=== PATIENT | male | born 1955 | race African-American/Black ===

== ENCOUNTER 2024-06-30 13:17 | Inpatient (IN) | payer MEDICARE, MEDICAID ==
[~2024-06-30] VITALS: Ht 177.8 cm; Wt 67.5 kg
--- NOTE | 2024-06-30 13:58 | ED.PDOC ---
Musculoskeletal HPI Comments 69 year old male NELLIE presents to the ED with chief complaint of bilateral leg wounds. Patient reports that he has been experiencing bilateral leg and foot wounds for the past month. Patient relays that he was advised by his doctor to come into the ED for further evaluation and treatment. Patient denies any numbness, weakness, fever, chills, chest pain, or SOB. Patient states he lives alone at home. Chief Complaint: General Weakness Time Seen by MD: 13:48 Reviewed Notes: Nurses Notes, Medications, Allergies Allergies: Coded Allergies: NO KNOWN ALLERGIES (Unverified , 06/30/24) Information Source: Patient Mode of Arrival: EMS Location: Bilateral Extremity Location: Foot, Leg Timing: Days Prehospital treatment: None Severity: Moderate Able to Move Extremity: Yes Bear Weight: Limited Pain: Moderate Mechanism: Spontaneous Circumstances: Preceding Wound Onset of Symptoms: Spontaneous Symptoms: Swelling, Pain, Erythema, Warmth DVT Risk Factors: NONE Past Medical History PAST MEDICAL HISTORY: Unknown Surgical History: Unknown Family History Family History: Reviewed,noncontributory to illness Social History Smoker: Non-Smoker Alcohol: Denies ETOH Use Drugs: Denies Drug Use Lives In: Home Constitutional: denies: chills, diaphoresis, fatigue, fever, malaise, sweats, weakness, others EENTM: denies: blurred vision, double vision, ear bleeding, ear discharge, ear drainage, ear pain, ear ringing, eye pain, eye redness, hearing loss, mouth geovanni n, mouth swelling, nasal discharge, nose bleeding, nose congestion, nose pain, photophobia, tearing, throat pain, throat swelling, voice changes, others Respiratory: denies: cough, hemoptysis, orthopnea, SOB at rest, shortness of breath, SOB with excertion, stridor, wheezing, others Cardiovascular: denies: chest pain, dizzy spells, diaphoresis, Dyspnea on exertion, edema, irregular heart beat, left arm pain, lightheadedness, palpitations, PND, syncope, others Gastrointestinal: denies: abdomen distended, abdominal pain, blood streaked bowels, constipated, diarrhea, dysphagia, difficulty swallowing, hematemesis, melena, nausea, poor appetite, poor fluid intake, rectal bleeding, rectal pain, vomiting, others Genitourinary: denies: burning, dysuria, flank pain, frequency, hematuria, incontinence, penile discharge, penile sore, pain, testicle pain, testicle swelling, urgency, others Neurological: denies: dizziness, fainting, headache, left sided numbness, left sided weakness, numbness, paresthesia, pre-existing deficit, right sided numbness, right sided weakness, seizure, speech problems, tingling, tremors, weakness, others Musculoskeletal: denies: back pain, gout, joint pain, joint swelling, muscle pain, muscle stiffness, neck pain, others Integumetry: reports: wounds (Bilateral leg wounds); denies: bruises, change in color, change in hair/nails, dryness, laceration, lesions, lumps, rash, others Allergic/Immunocompromised: denies: Difficulty Healing, Frequent Infections, Hives, Itching, others Hematologic/Lymphatic: denies: anemia, blood clots, easy bleeding, easy bruising, swollen glands, others Endocrine: denies: excessive hunger, excessive sweating, excessive thirst, excessive urination, flushing, intolerance to cold, intolerance to heat, unexplained weight gain, unexplained weight loss, others Psychiatric: denies: anxiety, bipolar disorder, depression, hopeless, panic disorder, schizophrenia, sleepless, suicidal, others All Other Systems: Reviewed and Negative Physical Exam General Appearance: No Apparent Distress, Normal HEENT: Normal ENT Inspection, PERRL/EOMI Neck: Full Range of Motion, Non-Tender, Normal, Normal Inspection Respiratory: Chest Non-Tender, Lungs Clear, No Accessory Muscle Use, No Respiratory Distress, Normal Breath Sounds Cardiovascular: No Edema, No JVD, No Murmur, No Gallop, Normal Peripheral Pulses, Regular Rate/Rhythm Breast Exam: Deferred Gastrointestinal: No Organomegaly, Non Tender, No Pulsatile Mass, Normal Bowel Sounds, Soft Genitalia: Deferred Pelvic: Deferred Rectal: Deferred Extremities: Normal capillary refill, Normal range of motion, Other (3+ pitting edema to bilateral lower extremities. Multiple 3rd and 4th degree pressure ulcers to the bilateral lower extremities.) Musculoskeletal : Apperance: Normal Neurologic: Alert, mill washer II-XII nml as Tested, No Motor Deficits, Normal Affect, Normal Mood, No Sensory Deficits Cerebellar Function: Normal Reflexes: Normal Skin: Dry, Normal Color, Warm Lymphatic: No Adenopathy Was a procedure done? Was a procedure done?: No Differential Diagnosis EXT Differential Diagnosis: Cellulitis X-Ray, Labs, Meds, VS Vital Signs Date Time Temp Pulse Resp B/P (MAP) Pulse Ox O2 Delivery O2 Flow Rate FiO2 06/30/24 15:30 97.9 98 16 92/67 (75) 98 97.9 06/30/24 13:42 97.7 86 18 125/60 (81) 96 06/30/24 13:24 81 Lab Test 06/30/24 14:34 Range/Units White Blood Count 8.0 4.4-10.8 10^3/uL Red Blood Count 4.34 L 4.5-5.90 10^6/uL Hemoglobin 12.8 L 13.5-17.5 g/dL Hematocrit 38.4 L 41.0-53.0 % Mean Corpuscular Volume 88.4 80.0-100.0 fL Mean Corpuscular Hemoglobin 29.5 28.0-32.0 pg Mean Corpuscular Hemoglobin Concent 33.3 32.0-36.0 g/dL Red Cell Distribution Width 14.6 H 11.8-14.3 % Platelet Count 490 H 140-450 10^3/uL Mean Platelet Volume 7.1 6.9-10.8 fL Neutrophils (%) (Auto) 70.5 37.0-80.0 % Lymphocytes (%) (Auto) 13.2 10.0-50.0 % Monocytes (%) (Auto) 13.0 H 0.0-12.0 % Eosinophils (%) (Auto) 2.6 0.0-7.0 % Basophils (%) (Auto) 0.7 0.0-2.0 % Neutrophils # (Auto) 5.6 1.6-8.6 10 ^3/uL Lymphocytes # (Auto) 1.1 0.4-5.4 10 ^3/uL Monocytes # (Auto) 1.0 0-1.3 10 ^3/uL Eosinophils # (Auto) 0.2 0-0.8 10 ^3/uL Basophils # (Auto) 0.1 0-0.2 10 ^3/uL Nucleated Red Blood Cells 0.1 % Prothrombin Time 10.5 9.3-11.8 sec Prothrombin Time INR 0.99 0.9-1.15 Activated Partial Thromboplast Time 26.7 24.5-34.5 SEC D-Dimer, Quantitative 2.91 H 0.0-0.49 mg/L FEU Sodium Level 136 136-145 mmol/L Potassium Level 3.8 3.5-5.1 mmol/L Chloride Level 100 98-107 mmol/L Carbon Dioxide Level 28 20-31 mmol/L Anion Gap 8 5-15 Blood Urea Nitrogen 16 9-23 mg/dL Creatinine 0.85 0.700-1.30 mg/dL Glomerular Filtration Rate Calc 93 >90 mL/min BUN/Creatinine Ratio 18.8 10.0-20.0 Serum Glucose 99 74-106 mg/dL Calcium Level 9.7 8.7-10.4 mg/dL Magnesium Level 2.0 1.6-2.6 mg/dL Total Bilirubin 0.5 0.2-1.0 mg/dL Aspartate Amino Transferase (AST) 40 13-40 U/L Alanine Aminotransferase (ALT) 26 7-40 U/L Alkaline Phosphatase 91 46-116 U/L Troponin I High Sensitivity 35 </=54 ng/L B-Type Natriuretic Peptide 59.84 0-100 pg/mL Total Protein 6.5 5.7-8.2 g/dL Albumin 4.0 3.2-4.8 g/dL X-Ray, Labs, Meds, VS Comment This 69-year-old male who he was at home has poor personal hygiene presents secondary to a unclear duration of increasing swelling to his lower extremities with multiple ulcers. Similar weeping and others are necrotic. Over the course of stay, the patient has been increasingly hypotensive. He was given IV fluid bolus. He was given 1 dose of vancomycin in the emergency room and 1 L IV fluid bolus. He was not provided more bolus as he has substantial bilateral lower extremity edema. I was concerned and put the patient into heart failure. Time of 1ST Reevaluation: 14:48 Reevaluation 1ST: Unchanged Patient Education/Counseling: Diagnosis, Treatment Family Education/Counseling: No Family Present Departure 1 Departure Time of Disposition: 15:40 Impression: Primary Impression: Cellulitis and abscess of foot excluding toe Additional Impressions: Unstageable pressure ulcer of ankle Unstageable pressure ulcer of heel Hypotension Disposition: ADMITTED INPATIENT Condition: Serious Critical Care Note Critical Care Time?: Yes (45 min-critical care time only) Stability Stability form required: No Heart Score Heart Score: Heart Score Response (Comments) Value History N/A 0 EKG N/A 0 Age N/A 0 Risk Factors N/A 0 Troponin N/A 0 Total 0 I personally scribed for WADE GOLDBERG MD ([email or web address]) on 06/30/24 at 13:58. Electronically submitted by Vic Bell ([email or web address]). WADE GOLDBERG MD Jun 30, 2024 13:58
--- NOTE | 2024-06-30 14:07 | DVH ---
CHEST RADIOGRAPH Indication: cough Technique: Portable upright AP view of the chest was performed. COMPARISON: None FINDINGS: Bilateral costophrenic angles are not included on the film. No pneumothorax, pulmonary edema, or cons olidative infiltrates. The heart is not enlarged. No fractures are identified about the bony thorax. IMPRESSION: No acute intrathoracic process. The bilateral costophrenic angles are not imaged here.
[2024-06-30 14:52] LABS: Eosinophils # (auto) 0.2 10 ^3/uL (0-0.8); Hemoglobin 12.8 g/dL (13.5-17.5); Mean Corpuscular Hgb Conc. 33.3 g/dL (32.0-36.0); Nucleated Red Blood Cells % 0.1 %
[2024-06-30 14:53] LABS: Basophils # (auto) 0.1 10 ^3/uL (0-0.2); Basophils % (auto) 0.7 % (0.0-2.0); Eosinophils % (auto) 2.6 % (0.0-7.0); Hematocrit 38.4 % (41.0-53.0); Lymphocytes # (auto) 1.1 10 ^3/uL (0.4-5.4); Lymphocytes % (auto) 13.2 % (10.0-50.0); Mean Corpuscular Hemoglobin 29.5 pg (28.0-32.0); Mean Corpuscular Volume 88.4 fL (80.0-100.0); Neutrophils # (auto) 5.6 10 ^3/uL (1.6-8.6); Neutrophils % (auto) 70.5 % (37.0-80.0); Platelet Count (auto) 490 10^3/uL (140-450); Red Blood Cells 4.34 10^6/uL (4.5-5.90); Red Cell Distribution Width 14.6 % (11.8-14.3)
[2024-06-30 15:07] LABS: INR 0.99 (0.9-1.15); Partial Thromboplastin Time 26.7 SEC (24.5-34.5); Prothrombin Time 10.5 sec (9.3-11.8)
[2024-06-30 15:08] LABS: Alkaline Phosphatase 91 U/L (46-116); Anion Gap 8 (5-15); Aspartate Aminotransferase 40 U/L (13-40); BUN/Creatinine Ratio 18.8 (10.0-20.0); Bilirubin, Total 0.5 mg/dL (0.2-1.0); Blood Urea Nitrogen 16 mg/dL (9-23); Calcium 9.7 mg/dL (8.7-10.4); Carbon Dioxide 28 mmol/L (20-31); Chloride 100 mmol/L (98-107); Glucose 99 mg/dL (74-106); Potassium 3.8 mmol/L (3.5-5.1); Sodium 136 mmol/L (136-145); Total Protein 6.5 g/dL (5.7-8.2)
[2024-06-30 15:24] LABS: Alanine Aminotransferase 26 U/L (7-40)
[2024-06-30] MEDS: SODIUM CHLORIDE 0.9% 1,000 ML IV ONE (15:46)
[2024-06-30] MEDS: KETOROLAC TROMETH 30 MG/ML 1ML VIAL IV ONE (15:56)
[2024-06-30] MEDS: VANCOMYCIN 1GM/250ML KIT 250 ML IV ONE (15:56)
--- NOTE | 2024-06-30 19:16 | ECG ---
[facility] Test Date: 2024-06-30 Test Time: 13:24:03 Pat Name: JOAO JAQUEZ Department: ED Room: 0219T Gender: M Plug Sorter: SARITA : 1955 Requested By: WADE GOLDBERG Order Number: [id number] Reading MD: Mariano Lim Measurements Intervals Mason Rate: 81 P: 41 MN: 149 QRS: 32 QRSD: 86 T: 106 QT: 416 QTc: 483 Interpretive Statements Sinus rhythm Probable left ventricular hypertrophy Nonspecific T abnormalities, lateral leads Borderline prolonged QT interval Artifact in lead(s) I,II,aVF,V1,V2,V3,V4,V5,V6 Electronically Signed On 07-01-2024 13:16:50 PST by Mariano Lim Please click the below link to view image of tracing.
[2024-07-01] VITALS (59 sets, daily range): BP systolic 7–168; BP diastolic 2–95; PULSE 77–126; RESP 12–28; TEMP 98–99.6; O2SAT 64–100
[2024-07-01] MEDS ORDERED: MORPHINE SULFATE INJ 2 MG/ml SYRG IV PRN (06:00)
[2024-07-01] MEDS ORDERED: NITROGLYCERIN 0.4 MG SL TAB SL PRN (06:00)
[2024-07-01] MEDS: SODIUM CHLORIDE 0.9% 1,000 ML IV SCH (06:00)
[2024-07-01] MEDS ORDERED: ONDANSETRON HCL 4 MG/2 ML VIAL IV PRN (06:00)
[2024-07-01] MEDS ORDERED: HYDROcodone-ACET 5/325MG TAB PO PRN (06:00)
[2024-07-01] MEDS ORDERED: DOCUSATE SOD 100 MG CAP PO PRN (06:00)
[2024-07-01] MEDS ORDERED: VANCOMYCIN PER PHARMACY 0 MG IV SCH (06:00)
--- NOTE | 2024-07-01 06:01 | DVHHP2 ---
History of Present Illness Reason for Visit: Generalized weakness History of Present Illness Patient is a 69-year-old male presented to [facility] ED for evaluation of generalized weakness and bilateral leg wounds. Patient reports that he has been experiencing bilateral leg and foot wounds for the past month. Patient was seen and evaluated in the ED, laboratory data shows WBC 8.0, platelets 490, sodium 136, potassium 3.8, BUN 16, creatinine 0.85, GFR 93, glucose 99, troponin 32, BNP 59.84, D-dimer 2.91. CT chest showed no suspicious pulmonary nodules. Patient was started on IV antibiotic regimen vancomycin, please see medication orders section in the computer. On my assessment, patient denied chest pain, no headache, no dizziness, no shortness of breath, no nausea, no vomiting, no fever, no chills. Patient was admitted for further evaluation and medical management. Past Medical History BPH Past Surgical History Denies all surgeries Family History Reviewed, noncontributory to the management of this case. Past Social History The patient lives at home, denies smoking, alcohol or illicit drugs abuse. Review of Systems Constitutional: Yes: Weakness; No: Fever, Chills, Sweats, Malaise, Other Eyes: No: Pain, Vision change, Conjunctivae inflammation, Eyelid inflammation, Other, Redness ENT: No: Ear pain, Ear discharge, Nose pain, Nose discharge, Nose congestion, Mouth pain, Mouth swelling, Throat pain, Throat swelling, Other Respiratory: No: Cough, Dry, Shortness of breath, SOB with excertion, Wheezing, Hemoptysis, Pleuritic Pain, Sputum, Wheezing, Other Cardiovascular: No: Chest Pain, Palpitations, Orthopnea, Paroxysmal Noc. Dyspnea, Edema, Lt Headedness, Other Gastrointestinal: No: Nausea, Vomiting, Abdominal Pain, Diarrhea, Constipation, Melena, Hematochezia, Other Genitourinary: No Dysuria, No Frequency, No Incontinence, No Hematuria, No Retention, No Other Musculoskeletal: No: other, neck pain, shoulder pain, arm pain, back pain, hand pain, leg pain, foot pain Skin: Other (Bilateral legs wound); No: Rash, Lesions, Jaundice, Bruising Neurological: No: Weakness, Numbness, Incoordination, Change in speech, Confusion, Seizures, Other Allergies: Coded Allergies: NO KNOWN ALLERGIES (Unverified , 06/30/24) Exam Vital Signs Vital Signs Date Time Temp Pulse Resp B/P (MAP) Pulse Ox O2 Delivery O2 Flow Rate FiO2 07/01/24 04:00 103 07/01/24 03:30 18 92/68 (76) 99 06/30/24 22:11 100.0 100.0 06/30/24 16:00 Room Air* 0 21 General Appearance: Alert, Oriented X3, Cooperative, No acute distress HEENT: Atraumatic, PERRLA, EOMI, Mucous membr. moist/pink Respiratory: Clear to auscultation, Normal air movement Cardiovascular: Regular rate, Normal S1, Normal S2, No murmurs Abdominal: Normal bowel sounds, Soft, No tenderness, No hepatospenomegaly, No masses Extremities: No clubbing, No cyanosis, No edema, Normal pulses, No tenderness/swelling Skin: No rashes, No breakdown, No significant lesion Neuro: Normal speech, Normal tone, Sensation intact, Cranial nerves 3-12 NL, R eflexes 2+, Other (Generalized weakness) Psych/Mental Status: Mental status NL, Mood NL Labs/Xrays Labs Test 06/30/24 18:32 06/30/24 14:34 Range/Units Troponin I High Sensitivity 32 </=54 ng/L White Blood Count 8.0 4.4-10.8 10^3/uL Red Blood Count 4.34 L 4.5-5.90 10^6/uL Hemoglobin 12.8 L 13.5-17.5 g/dL Hematocrit 38.4 L 41.0-53.0 % Mean Corpuscular Volume 88.4 80.0-100.0 fL Mean Corpuscular Hemoglobin 29.5 28.0-32.0 pg Mean Corpuscular Hemoglobin Concent 33.3 32.0-36.0 g/dL Red Cell Distribution Width 14.6 H 11.8-14.3 % Platelet Count 490 H 140-450 10^3/uL Mean Platelet Volume 7.1 6.9-10.8 fL Neutrophils (%) (Auto) 70.5 37.0-80.0 % Lymphocytes (%) (Auto) 13.2 10.0-50.0 % Monocytes (%) (Auto) 13.0 H 0.0-12.0 % Eosinophils (%) (Auto) 2.6 0.0-7.0 % Basophils (%) (Auto) 0.7 0.0-2.0 % Neutrophils # (Auto) 5.6 1.6-8.6 10 ^3/uL Lymphocytes # (Auto) 1.1 0.4-5.4 10 ^3/uL Monocytes # (Auto) 1.0 0-1.3 10 ^3/uL Eosinophils # (Auto) 0.2 0-0.8 10 ^3/uL Basophils # (Auto) 0.1 0-0.2 10 ^3/uL Nucleated Red Blood Cells 0.1 % Prothrombin Time 10.5 9.3-11.8 sec Prothrombin Time INR 0.99 0.9-1.15 Activated Partial Thromboplast Time 26.7 24.5-34.5 SEC D-Dimer, Quantitative 2.91 H 0.0-0.49 mg/L FEU Sodium Level 136 136-145 mmol/L Potassium Level 3.8 3.5-5.1 mmol/L Chloride Level 100 98-107 mmol/L Carbon Dioxide Level 28 20-31 mmol/L Anion Gap 8 5-15 Blood Urea Nitrogen 16 9-23 mg/dL Creatinine 0.85 0.700-1.30 mg/dL Glomerular Filtration Rate Calc 93 >90 mL/min BUN/Creatinine Ratio 18.8 10.0-20.0 Serum Glucose 99 74-106 mg/dL Calcium Level 9.7 8.7-10.4 mg/dL Magnesium Level 2.0 1.6-2.6 mg/dL Total Bilirubin 0.5 0.2-1.0 mg/dL Aspartate Amino Transferase (AST) 40 13-40 U/L Alanine Aminotransferase (ALT) 26 7-40 U/L Alkaline Phosphatase 91 46-116 U/L B-Type Natriuretic Peptide 59.84 0-100 pg/mL Total Protein 6.5 5.7-8.2 g/dL Albumin 4.0 3.2-4.8 g/dL PATIENT: JOAO JAQUEZ ACCT: [id number] UNIT: [id number] : 1955 LOC: ER ROOM / BED: / AGE / SEX: 69 / M ADM STATUS: REG ER SERVICE [id number] ORDERING PHYSICIAN: WADE GOLDBERG MD PROCEDURE(s): CXRP - CHEST PORTABLE REASON: cough ORDER NUMBER(s): [id number], ACCESSION NUMBER(s): [id number] CHEST RADIOGRAPH Indication: cough Technique: Portable upright AP view of the chest was performed. COMPARISON: None FINDINGS: Bilateral costophrenic angles are not included on the film. No pneumothorax, pulmonary edema, or consolidative infiltrates. The heart is not enlarged. No fractures are identified about the bony thorax. IMPRESSION: No acute intrathoracic process. The bilateral costophrenic angles are not imaged here. ORDERING PHYSICIAN: THALIA MARCUS DNP PROCEDURE(s): CX2CT - CHEST WITHOUT CONTRAST REASON: Elevated D-dimer ORDER NUMBER(s): [id number], ACCESSION NUMBER(s): [id number] EXAM: CT Chest Without Intravenous Contrast CLINICAL INDICATION: Elevated D-dimer TECHNIQUE: Axial computed tomography images of the chest without intravenous contrast. This CT exam was performed using one or more of the following dose reduction techniques: automated exposure control, adjustment of the mA and/or kV according to patient size, and/or use of iterative reconstruction technique. CONTRAST: COMPARISON: None FINDINGS: LUNGS AND PLEURAL SPACES: Mild lung emphysema. No consolidation. No pneumothorax. No significant effusion. HEART: Unremarkable. No cardiomegaly. No significant pericardial effusion. No significant coronary artery calcifications. BONES/JOINTS: Unremarkable. No acute fracture. No dislocation. SOFT TISSUES: Unremarkable. VASCULATURE: Scattered calcified atherosclerotic disease of aorta. No thoracic aortic aneurysm. LYMPH NODES: Unremarkable. No enlarged lymph nodes. OTHER FINDINGS: IMPRESSION: Clear lungs. No suspicious pulmonary nodules. Assessment/Plan Assessment/Plan Generalized weakness Cellulitis and abscess of foot excluding toe Hypotension Elevated D-dimer Unstageable pressure ulcer of ankle Unstageable pressure ulcer of heel Plan 1. Admit to telemetry unit 2. Breathing treatment 3. Pain control management 4. IV antibiotic management 5. Management of fluids and electrolytes 6. Consultation for hospitalist/wound care 7. Diagnostic test chest x-ray 8. DVT prophylaxis-on Lovenox 9. Repeat labs CBC, CMP in a.m. 10. Home medication reviewed and reconciled 11. Continue with current medical management 12. Treatment plan discussed with patient and RN. Patient verbalized understanding. Plan discussed with: Patient, Other (RN) My Orders Orders - THALIA MARCUS DNP Procedure Category Date Status Time Vancomycin Per [facility] 07/01/24 Verified Pharmacy 06:[address] 1/31/25 Verified 05:54 Admit ADMIT 07/01/24 Verified 05:54 Allergies [facility] 07/01/24 Verified 05:54 Code Status CODE 07/01/24 Verified 05:54 0.9% Ns 1000 Ml PHA 07/01/24 Verified 06:00 Oxygen Per Hour RT 07/01/24 Verified 05:54 Hydrocodone-Acet PHA 07/01/24 Verified 5/325mg Tab ([place] 06:00 Ondansetron Hcl [facility] 07/01/24 Verified (Zofran) 06:00 Docusate Sodium [facility] 07/01/24 Verified Capsule (Colace 06:00 Enoxaparin Sodium [facility] 07/01/24 Verified (Lovenox) 10:00 Complete Blood Count LAB 07/02/24 Verified 04:00 Comprehensive LAB 07/02/24 Verified Metabolic Panel 04:00 Cardiac DIET 07/01/24 Verified Diet-2gna,Lofat,Lochol Breakfast Condition: Serious [facility] 07/01/24 Verified 05:54 Acetaminophen Tablet [facility] 07/01/24 Verified (Tylenol Tablet) 06:00 Bedrest With Bathroom [facility] 07/01/24 Verified Privileg 05:54 Sequential [facility] 07/01/24 Verified Compression Device Nitroglycerin [facility] 07/01/24 Verified Sublingual (Ntrostat 06:00 Morphine Sulfate [facility] 07/01/24 Verified Injection 06:00 Notify Of Changes [facility] 07/01/24 Verified From Base 05:54 Edger Runner For [facility] 07/01/24 Verified 24 Hours 05:54 Emergency Dysrhythmia [facility] 07/01/24 Verified Protocol 05:54 Rhythm Strips Once [facility] 07/01/24 Verified Every Shift 05:54 Oxygen By Nasal 07/01/24 Verified Cannula 05:54 Problem List: (1) Generalized weakness (2) Unstageable pressure ulcer of heel (3) Hypotension (4) Unstageable pressure ulcer of ankle (5) Elevated d-dimer (6) Cellulitis and abscess of foot excluding toe Date of Service: Jul 01, 2024 Billing Provider: THALIA MARCUS DNP Common Visit Codes: [id number] INP/OBS CARE (HIGH) THALIA MARCUS DNP Jul 01, 2024 06:00
[2024-07-01] MEDS: VANCOMYCIN 1GM/250mL NS or D5W KIT IV ONE (06:30)
--- NOTE | 2024-07-01 06:31 | DVH ---
EXAM: CT Chest Without Intravenous Contrast CLINICAL INDICATION: Elevated D-dimer TECHNIQUE: Axial computed tomography images of the chest without intravenous contrast. This CT exam was performed using one or more of the following dose reduction techniques: automated exposure cont rol, adjustment of the mA and/or kV according to patient size, and/or use of iterative reconstruction technique. CONTRAST: COMPARISON: None FINDINGS: LUNGS AND PLEURAL SPACES: Mild lung emphysema. No consolidation. No pneumothorax. No significant effusion. HEART: Unremarkable. No cardiomegaly. No significant pericardial effusion. No significant [place] ry artery calcifications. BONES/JOINTS: Unremarkable. No acute fracture. No dislocation. SOFT TISSUES: Unremarkable. VASCULATURE: Scattered calcified atherosclerotic disease of aorta. No thoracic aortic aneurysm. LYMPH NODES: Unremarkable. No enlarged lymph nodes. OTHER FINDINGS: . . IMPRESSION: Clear lungs. No suspicious pulmonary nodules.
[2024-07-01 07:44] LABS: Basophils # (auto) 0 10 ^3/uL (0-0.2); Basophils % (auto) 0.6 % (0.0-2.0); Eosinophils # (auto) 0.2 10 ^3/uL (0-0.8); Eosinophils % (auto) 2.1 % (0.0-7.0); Hematocrit 34.5 % (41.0-53.0); Hemoglobin 11.5 g/dL (13.5-17.5); Lymphocytes # (auto) 1.1 10 ^3/uL (0.4-5.4); Lymphocytes % (auto) 12.8 % (10.0-50.0); Mean Corpuscular Hemoglobin 29.7 pg (28.0-32.0); Mean Corpuscular Hgb Conc. 33.2 g/dL (32.0-36.0); Mean Corpuscular Volume 89.3 fL (80.0-100.0); Monocytes # (auto) 0.9 10 ^3/uL (0-1.3); Monocytes % (auto) 10.9 % (0.0-12.0); Neutrophils # (auto) 6.4 10 ^3/uL (1.6-8.6); Neutrophils % (auto) 73.6 % (37.0-80.0); Platelet Count (auto) 478 10^3/uL (140-450); Red Blood Cells 3.86 10^6/uL (4.5-5.90); Red Cell Distribution Width 14.7 % (11.8-14.3); White Blood Cell 8.6 10^3/uL (4.4-10.8)
[2024-07-01 07:55] LABS: Alanine Aminotransferase 29 U/L (7-40); Alkaline Phosphatase 84 U/L (46-116); Anion Gap 8 (5-15); BUN/Creatinine Ratio 24.2 (10.0-20.0); Calcium 9.5 mg/dL (8.7-10.4); Carbon Dioxide 27 mmol/L (20-31); Chloride 103 mmol/L (98-107); Glucose 95 mg/dL (74-106); Sodium 138 mmol/L (136-145)
[2024-07-01 07:56] LABS: Bilirubin, Total 0.3 mg/dL (0.2-1.0); Total Protein 6.8 g/dL (5.7-8.2)
[2024-07-01 07:57] LABS: Aspartate Aminotransferase 48 U/L (13-40); Blood Urea Nitrogen 31 mg/dL (9-23)
--- NOTE | 2024-07-01 08:56 | DVH ---
US BiLat Lower DVT HISTORY: cold left foot with ble pain COMPARISON: None TECHNIQUE: Duplex Doppler evaluation of the deep venous system of the lower extremity from the common femoral veins, superficial femoral vein, great saphenous vein, deep femoral vein, popliteal vein, an d calf veins, including color Doppler and spectral/pulsed waveform analysis, was performed. FINDINGS: Right: - Common femoral vein: Compressible - Deep femoral vein: Compressible - Femoral vein: Compressible - Popliteal vein: Compressible - Posterior tibial vein: Waveforms present - Other: Nothing Left: - Common femoral vein: Compressible - Deep femoral vein: Compressible - Femoral vein: Compressible - Popliteal vein: Compressible - Posterior tibial vein: Waveforms present - Other: Nothing IMPRESSION: No right or left lower extremity deep venous thrombosis.
--- NOTE | 2024-07-01 09:09 | DVH ---
CLINICAL HISTORY: cold left foot with ble pain TECHNIQUE: Bilateral lower extremity arterial duplex exam was performed. Grayscale, color Doppler, an d spectral waveform analysis was performed. COMPARISON: None FINDINGS: Limited examination due to patient noncooperation with the exam. Right Lower Extremity: Moderate to marked atherosclerotic plaque. The mid to distal SFA and popliteal artery were not able to be visualized due to the limitations of the exam due to patient non cooperat yrn. Monophasic waveforms are seen in the right posterior tibial artery. Triphasic waveform seen in t he common femoral, profunda, proximal SFA, and dorsalis pedis arteries. Left Lower Extremity: Moderate to marked atherosclerotic plaque visualized. The dorsalis pedis artery was not able to be visualized. Monophasic waveforms throughout the visualized portions of the left l ower extremity. EXAMINATION DATA: RIGHT PSV (cm/sec) CREW SUPERVISOR 209 Profunda 146 SFA Prox 102 SFA Mid N/V SFA Dist N/V POP A N/V TECHNICAL MGR 95 DPA 52 LEFT PSV (cm/sec) CREW SUPERVISOR 75 Profunda 80 SFA Prox 97 SFA Mid 69 SFA Dist 21 POP A 32 TECHNICAL MGR 11 DPA N/V IMPRESSION: 1. Limited examination for the reasons described above. 2. Abnormal monophasic waveforms throughout the left lower extremity due to peripheral arterial disea se without focal occlusion or high-grade stenosis visualized. Unable to visualized left dorsalis pedi s artery. 3. Monophasic waveforms in the right posterior tibial artery peripheral arterial disease. The distal right SFA right popliteal artery were not able to be evaluated. Triphasic waveforms throughout the re st of the visualized right lower extremity.
[2024-07-01] MEDS: ENOXAPARIN SOD 40 MG/0.4 ML SYRINGE SC SCH (10:00)
[2024-07-01 10:02] LABS: INR 1.01 (0.9-1.15); Prothrombin Time 10.7 sec (9.3-11.8)
--- NOTE | 2024-07-01 12:48 | DVHPN2 ---
Reviewed: Care Plan, H&P, Labs, Medications, Previous Orders, Radiology Changes from previous H/P or p: No Changes Eyes: No Pain, No Vision change, No Conjunctivae inflammation, No Eyelid inflammation, No Other, No Redness ENT: No Ear pain, No Ear discharge, No Nose pain, No Nose discharge, No Nose congestion, No Mouth pain, No Mouth swelling, No Throat pain, No Throat swelling, No Other Cardiovascular: No Chest Pain, No Palpitations, No Orthopnea, No Paroxysmal Noc. Dyspnea, No Edema, No Lt Headedness, No Other Respiratory: No Cough, No Dry, No Shortness of breath, No SOB with excertion, No Wheezing, No Hemoptysis, No Pleuritic Pain, No Sputum, No Other Gastrointestinal: No Nausea, No Vomiting, No Abdominal Pain, No Diarrhea, No Constipation, No Melena, No Hematochezia, No Other Genitourinary: No Dysuria, No Frequency, No Incontinence, No Hematuria, No Retention, No Other Musculoskeletal: No other, No neck pain, No shoulder pain, No arm pain, No back pain, No hand pain, No leg pain, No foot pain Skin: No Rash, No Lesions, No Jaundice, No Bruising; Other (Bilateral legs wound) Objective Vitals Vital Signs Date Time Temp Pulse Resp B/P (MAP) Pulse Ox O2 Delivery O2 Flow Rate FiO2 07/01/24 10:40 98.5 99 18 81/56 (64) 98 98.5 84/57 (66) 81/60 (67) 07/01/24 07:36 Room Air* 0 21 Intake/Output Intake and Output 07/01/24 07:00 Intake Total 60 ml Balance 60 ml Intake IV Total 60 ml Medications Current Medications Medications Dose Ordered Sig/Maribeth Route Start Time Stop Time Status Last Admin Dose Admin Vancomycin HCl 0 ml @ 0 mls/hr UD IV 07/01/24 06:00 UNV Sodium Chloride 1,000 ml @ 60 mls/hr [id number] IV 07/01/24 06:00 07/01/24 06:00 60 MLS/HR Acetaminophen/ Hydrocodone Bitart 1 tab Q4HP PRN PO 07/01/24 06:00 Ondansetron HCl 4 mg Q4HP PRN IV 07/01/24 06:00 Docusate Sodium 100 mg BIDPRN PRN PO 07/01/24 06:00 Enoxaparin Sodium 40 mg DAILY SC 07/01/24 10:00 Acetaminophen 650 mg Q6HP PRN PO 07/01/24 06:00 Nitroglycerin 0.4 mg Q5MINP PRN SL 07/01/24 06:00 Morphine Sulfate 2 mg Q30M PRN IV 07/01/24 06:00 Ceftriaxone Sodium 50 ml @ 100 mls/hr DAILY@09 IV 07/02/24 09:00 UNV Laboratory Results Laboratory Tests 07/01/24 06:51 Chemistry Test 06/30/24 14:34 07/01/24 06:51 Albumin 4.0 g/dL (3.2-4.8) 4.0 g/dL (3.2-4.8) Calcium Level 9.7 mg/dL (8.7-10.4) 9.5 mg/dL (8.7-10.4) Magnesium Level 2.0 mg/dL (1.6-2.6) Total Protein 6.5 g/dL (5.7-8.2) 6.8 g/dL (5.7-8.2) Coagulation Test 06/30/24 14:34 07/01/24 06:51 Prothrombin Time 10.5 sec (9.3-11.8) 10.7 sec (9.3-11.8) Prothrombin Time INR 0.99 (0.9-1.15) 1.01 (0.9-1.15) Activated Partial Thromboplast Time 26.7 SEC (24.5-34.5) D-Dimer, Quantitative 2.91 mg/L FEU (0.0-0.49) H Cardiac Markers Test 06/30/24 14:34 B-Type Natriuretic Peptide 59.84 pg/mL (0-100) LFT Test 06/30/24 14:34 07/01/24 06:51 Alanine Aminotransferase (ALT) 26 U/L (7-40) 29 U/L (7-40) Alkaline Phosphatase 91 U/L (46-116) 84 U/L (46-116) Aspartate Amino Transferase (AST) 40 U/L (13-40) 48 U/L (13-40) H Total Bilirubin 0.5 mg/dL (0.2-1.0) 0.3 mg/dL (0.2-1.0) Labs and/or images reviewed: Labs reviewed by me, Image(s) reviewed by me Assessment/Plan Assessment/Plan Sepsis secondary to bilateral lower extremity cellulitis: Blood cultures: Vancomycin Rocephin Bilateral lower extremity cellulitis Bilateral peripheral arterial disease: Consult by BPH D-dimer 2.[address] chest angiogram rule out PE ordered Moderate malnutrition Time spent 45 minutes Patient is full code Advanced care planning time 20 minutes Plan discussed with: Patient My Orders Orders - HAILY GRIMES MD Procedure Category Date Status Time Ct Angio Chest CT 07/01/24 Logged Contrast 12:43 Ceftriaxone Ivpb PHA 07/02/24 Transmitted Rocephin 09:00 Ceftriaxone Ivpb PHA 07/01/24 Transmitted Rocephin 12:45 Urinalysis LAB 07/01/24 Verified 12:44 Urine Bacterial VASILE 07/01/24 Verified Culture 12:44 Date of Service: Jul 01, 2024 Billing Provider: HAILY GRIMES MD Common Visit Codes: [id number] INP/OBS CARE(HIGH) Secondary Visit Codes: [id number] CARE PLAN 30 MINUTES HAILY GRIMES MD Jul 01, 2024 12:48
[2024-07-01] MEDS: SODIUM CHLORIDE 0.9% 1,000 ML IV ONE (13:15)
[2024-07-01 14:07] LABS: Base Excess -6.9 mmol/L (-2.0-3.0)
[2024-07-01 14:20] LABS: Basophils # (auto) 0 10 ^3/uL (0-0.2); Eosinophils # (auto) 0 10 ^3/uL (0-0.8); Neutrophils # (auto) 7.7 10 ^3/uL (1.6-8.6); Nucleated Red Blood Cells % 0.1 %; Red Blood Cells 2.33 10^6/uL (4.5-5.90); White Blood Cell 10.1 10^3/uL (4.4-10.8)
[2024-07-01 14:23] LABS: Basophils % (auto) 0.2 % (0.0-2.0); Eosinophils % (auto) 0.4 % (0.0-7.0); Hematocrit 22.3 % (41.0-53.0); Lymphocytes % (auto) 9.6 % (10.0-50.0); Mean Corpuscular Hemoglobin 29.9 pg (28.0-32.0); Mean Corpuscular Hgb Conc. 31.2 g/dL (32.0-36.0); Mean Corpuscular Volume 95.6 fL (80.0-100.0); Monocytes # (auto) 1.3 10 ^3/uL (0-1.3); Monocytes % (auto) 13.2 % (0.0-12.0); Neutrophils % (auto) 76.6 % (37.0-80.0); Platelet Count (auto) 282 10^3/uL (140-450)
[2024-07-01] MEDS: MIDAZOLAM HCL 2MG/2ML 2ml VIAL (1mg/ml) IV ONE (15:37)
[2024-07-01] MEDS: VASOPRESSIN 20 UNITS in SODIUM CHL 0.9% 99 ML IV SCH (15:37)
[2024-07-01] MEDS: OCTREOTIDE ACETATE 100 MCG in SODIUM CHL 0.9% 50 ML IV ONE (15:45)
[2024-07-01] MEDS: PANTOPRAZOLE 40mg/50ML NS AE 50 ML IV SCH (15:45)
[2024-07-01] MEDS: OCTREOTIDE ACETATE 500 MCG in SODIUM CHL 0.9% 99 ML IV SCH (15:45)
[2024-07-01] MEDS: SUCCINYLCHOLINE CHLORIDE 20 MG/ML 10ML VIAL IV ONE ×2 (16:09→17:30)
[2024-07-01] MEDS: ROCURONIUM 10MG/ML 10ML VIAL IV ONE (16:09)
[2024-07-01 16:11] LABS: Urine Bacteria FEW /hpf (None Seen); Urine Blood TRACE /uL (Negative); Urine Clarity Clear (Clear); Urine Color Yellow (Yellow); Urine Hyaline Cast FEW /lpf (0 - 2); Urine Mucus FEW (None Seen); Urine Protein, UAD TRACE (Negative); Urine Specific Gravity 1.025 (1.001-1.035); Urine Squamous Epithelial Cell FEW /hpf (<5); Urine Urobilinogen Normal (Negative); Urine WBC 1 /HPF (0-3); Urine pH 5.5 (5.0-9.0)
[2024-07-01 16:14] LABS: Amphetamine Screen, Urine Pos (NEGATIVE); Barbiturate Scree,Urine Neg (NEGATIVE); Benzodiazephine Screen, Urine Neg (NEGATIVE); Cannabinoid Screen, Urine Neg (NEGATIVE); Cocaine Screen, Urine Pos (NEGATIVE); Opiate Scree,Urine Neg (NEGATIVE); Phencyclidine Screen, Urine Pos (NEGATIVE)
--- NOTE | 2024-07-01 16:17 | DVH ---
EXAM: XR Chest, 1 View CLINICAL INDICATION: centrral line placement TECHNIQUE: Frontal view of the chest. COMPARISON: XY CHEST PORTABLE on DOS: 06/30/24 FINDINGS: LUNGS AND PLEURAL SPACES: Unremarkable. No consolidation. No pneumothorax. HEART: Unremarkable. No cardiomegaly. MEDIASTINUM: Unremarkable. Normal mediastinal contour. BONES/JOINTS: Unremarkable. No acute fracture. TUBES, LINES AND DEVICES: Right-sided ventral line with the distal tip in the atriocaval junction. OTHER FINDINGS: . . . IMPRESSION: Right-sided ventral line with the distal tip in the atriocaval junction.
[2024-07-01] MEDS: MIDAZOLAM DRIP 50 mg/50mL 50 ML IV ONE ×2 (16:30)
[2024-07-01] MEDS: MIDAZOLAM HCL 2MG/2ML 2ml VIAL (1mg/ml) ONE (16:30)
[2024-07-01] MEDS: ETOMIDATE (2MG/ML) 20ML VIAL IV ONE ×2 (16:30→16:35)
[2024-07-01] MEDS: fentaNYL Drip 2500mCg/250mlNS 250 ML IV ONE (16:30)
[2024-07-01] MEDS: KETAMINE 50mg/ML 1ml syringe IV ONE ×2 (16:30)
--- NOTE | 2024-07-01 17:03 | DVH ---
CHEST RADIOGRAPH Indication: intubation Technique: Single frontal view of the chest was obtained COMPARISON: XY CHEST PORTABLE on DOS: 07/01/24, XY CHEST PORTABLE on DOS: 06/30/24 FINDINGS: Lines and Tubes: Right central venous catheter in satisfactory position overlying the superior vena c jose. Endotracheal tube in satisfactory position. Lungs: Patchy airspace opacities in satisfactory position. Pleura: No effusion. No pneumothorax. Cardiomediastinal contours: Unremarkable Bones: Unremarkable IMPRESSION: Right central venous catheter and endotracheal tube in satisfactory position.
--- NOTE | 2024-07-01 18:04 | DVH ---
EXAM: XY CHEST PORTABLE Indication: ng tube placement Technique: Single frontal view of the chest was obtained Comparison: XY CHEST XRAY 1 VIEW on DOS: 07/01/24, XY CHEST PORTABLE on DOS: 07/01/24, XY CHEST PORTABL E on DOS: 06/30/24 FINDINGS: Lines and Tubes: Enteric tube courses below the diaphragm. Right central venous catheter tip projects over the cavoatrial junction. Endotracheal tube projects 3.6 cm above the molly. Lungs: Mild pulmonary vascular congestion. Pleura: No effusion. No pneumothorax. Cardiomediastinal contours: Unremarkable Bones: No acute osseous abnormality. IMPRESSION: Lines and tubes in appropriate position.
--- NOTE | 2024-07-01 18:26 | DVHINCON2 ---
Date of service: Jul 01, [address] Shine sadler Reason for Consultation GI bleed anemia History of Present Illness This 69-year-old male presented to the emergency room with complaints of leg wounds leg swelling shortness of breath mild weakness tiredness patient was found to have high D dimer and hence put on Lovenox apparently started bleeding profusely bright red as well as dark red blood with a hemoglobin dropping because of the profuse bleeding the reason for GI consult No history of any ulcer disease chronic liver disease etc. Past Medical History No much detailed phos history is available Past Surgical History No surgical history available Family History: Patient reports no known family medical history. Family History Not available Social History Not available Allergies: Coded Allergies: NO KNOWN ALLERGIES (Unverified , 06/30/24) Home Meds Unable to Obtain Active Prescriptions or Reported Meds Current Medications Current Medications Medications (Trade) Dose Ordered Sig/Maribeth Route PRN Reason Start Time Stop Time Status Last Admin Vancomycin HCl 0 ml @ 0 mls/hr UD IV 07/01/24 06:00 Sodium Chloride 1,000 ml @ 60 mls/hr [id number] IV 07/01/24 06:00 07/01/24 06:00 Acetaminophen/ Hydrocodone Bitart ([place] 5/325MG Tab) 1 tab Q4HP PRN PO MODERATE PAIN (4-6 PAIN SCALE) 07/01/24 06:00 Ondansetron HCl (Zofran) 4 mg Q4HP PRN IV NAUSEA / VOMITING 07/01/24 06:00 Docusate Sodium (Colace Capsule) 100 mg BIDPRN PRN PO FOR CONSTIPATION 07/01/24 06:00 Enoxaparin Sodium (Lovenox) 40 mg DAILY SC 07/01/24 10:00 Acetaminophen (Tylenol Tablet) 650 mg Q6HP PRN PO PAIN SCALE 1-3 OR TEMP>100.4 07/01/24 06:00 Nitroglycerin (Ntrostat Sublingual) 0.4 mg Q5MINP PRN SL FOR CHEST PAIN 07/01/24 06:00 Morphine Sulfate 2 mg Q30M PRN IV FOR CHEST PAIN 07/01/24 06:00 Ceftriaxone Sodium 50 ml @ 100 mls/hr DAILY@09 IV 07/02/24 09:00 Vasopressin 20 units/Sodium Chloride 100 ml @ 9 mls/hr Q11H7M IV 07/01/24 15:15 07/01/24 15:37 Pantoprazole Sodium 50 ml @ 10 mls/hr Q5H IV 07/01/24 15:45 Octreotide Acetate 500 mcg/ Sodium Chloride 100 ml @ 10 mls/hr Q10H IV 07/01/24 15:45 Review of Systems Noncontributory Vital Signs Vital Signs Date Time Temp Pulse Resp B/P (MAP) Pulse Ox O2 Delivery O2 Flow Rate FiO2 07/01/24 16:50 106 20 121/60 (80) 100 50 07/01/24 16:45 98.3 98.3 07/01/24 16:22 Non-Rebreather 15.0 Physical Exam Originally built and nourished male who was unresponsive in the and have severe bleeding NG-tube shows old blood material possibly coffee-ground type two bright red rectal the stools or also bright red to dark red. He is on pressors now and blood with unstable blood pressure med in trying to be maintained by Levophed HEENT examination mild pallor Lungs clear Cardiovascular unremarkable Abdomen soft no tenderness no rigidity no guarding Extremities pitting edema pressure ulcers in both lower extremities Labs/Diagnostic Data Labs Test 07/01/24 14:50 07/01/24 13:55 07/01/24 13:50 07/01/24 13:49 Range/Units Urine Color Yellow Yellow Urine Clarity Clear Clear Urine pH 5.5 5.0-9.0 Urine Specific [place] 1.025 1.001-1.035 Urine Protein Trace H Negative Urine Ketones Negative Negative Urine Blood Trace H Negative /uL Urine Nitrite Negative Negative Urine Bilirubin Negative Negative Urine Urobilinogen Normal Negative mg/dL Urine Leukocyte Esterase Negative Negative /uL Urine RBC 4 0 - 3 /hpf Urine Microscopic WBC 1 0-3 /HPF Urine Squamous Epithelial Cells Few <5 /hpf Urine Bacteria Few H None Seen /hpf Urine Hyaline Casts Few 0 - 2 /lpf Urine Mucus Few None Seen Urine Glucose Normal Normal mg/dL Urine Opiates Screen Neg NEGATIVE Urine Fentanyl Screen Neg NEGATIVE Urine Barbiturates Screen Neg NEGATIVE Urine Phencyclidine Screen Pos NEGATIVE Urine Amphetamines Screen Pos NEGATIVE Urine Benzodiazepines Screen Neg NEGATIVE Urine Cocaine Screen Pos NEGATIVE Urine Cannabinoids Screen Neg NEGATIVE Stool Occult Blood Positive Negative Stool Occult Blood Sample #3 Negative Blood Gas Specimen Type Arterial Blood Gas Sample Site Left brachial Blood Gas Patient Temperature 37.0 Arterial Blood Date Drawn [id number] Arterial Blood pH 7.449 7.350-7.450 Arterial Blood Partial Pressure CO2 24.2 L 35.0-48.0 mmHg Arterial Blood Partial Pressure O2 92.8 83.0-108.0 mmHg Arterial Blood HCO3 16.4 L 21.0-28.0 mmol/L Arterial Blood Oxygen Saturation 95.6 94.0-98.0 % Arterial Blood Base Excess -6.9 L -2.0-3.0 mmol/L Arterial Blood Oxyhemoglobin 94.3 94.0-98.0 % Arterial Blood Carboxyhemoglobin 0.9 0.5-1.5 % Arterial Blood Methemoglobin 0.5 0.0-1.5 % Kapil Test N/a Blood Gas Total Hemoglobin 6.60 *L 13.5-17.5 g/dL Blood Gas Liter Flow 4.00 Blood Gas Modality Nasal cannula FiO2 % 36.0 Blood Gas Critical Value Read Back Yes Blood Gas Notified Whom margaret Kang Blood Gas Notified Time [id number] Blood Gas Notified By Documentation Manager ignacia cooley White Blood Count 10.1 4.4-10.8 10^3/uL Red Blood Count 2.33 L 4.5-5.90 10^6/uL Hemoglobin 7.0 #*L 13.5-17.5 g/dL Hematocrit 22.3 #L 41.0-53.0 % Mean Corpuscular Volume 95.6 # 80.0-100.0 fL Mean Corpuscular Hemoglobin 29.9 28.0-32.0 pg Mean Corpuscular Hemoglobin Concent 31.2 L 32.0-36.0 g/dL Red Cell Distribution Width 15.0 H 11.8-14.3 % Platelet Count 282 140-450 10^3/uL Mean Platelet Volume 7.8 6.9-10.8 fL Neutrophils (%) (Auto) 76.6 37.0-80.0 % Lymphocytes (%) (Auto) 9.6 L 10.0-50.0 % Monocytes (%) (Auto) 13.2 H 0.0-12.0 % Eosinophils (%) (Auto) 0.4 0.0-7.0 % Basophils (%) (Auto) 0.2 0.0-2.0 % Neutrophils # (Auto) 7.7 1.6-8.6 10 ^3/uL Lymphocytes # (Auto) 1.0 0.4-5.4 10 ^3/uL Monocytes # (Auto) 1.3 0-1.3 10 ^3/uL Eosinophils # (Auto) 0 0-0.8 10 ^3/uL Basophils # (Auto) 0 0-0.2 10 ^3/uL Nucleated Red Blood Cells 0.1 % Ammonia 104 H 11-32 umol/L Troponin I High Sensitivity 27 </=54 ng/L Plasma/Serum Blood Alcohol 4.7 <10 mg/dL Test 07/01/24 06:51 06/30/24 14:34 Range/Units Prothrombin Time 10.7 9.3-11.8 sec Prothrombin Time INR 1.01 0.9-1.15 Sodium Level 138 136-145 mmol/L Potassium Level 4.0 3.5-5.1 mmol/L Chloride Level 103 98-107 mmol/L Carbon Dioxide Level 27 20-31 mmol/L Anion Gap 8 5-15 Blood Urea Nitrogen 31 #H 9-23 mg/dL Creatinine 1.28 0.700-1.30 mg/dL Glomerular Filtration Rate Calc 60 >90 mL/min BUN/Creatinine Ratio 24.2 H 10.0-20.0 Serum Glucose 95 74-106 mg/dL Calcium Level 9.5 8.7-10.4 mg/dL Total Bilirubin 0.3 0.2-1.0 mg/dL Aspartate Amino Transferase (AST) 48 H 13-40 U/L Alanine Aminotransferase (ALT) 29 7-40 U/L Alkaline Phosphatase 84 46-116 U/L Total Protein 6.8 5.7-8.2 g/dL Albumin 4.0 3.2-4.8 g/dL Activated Partial Thromboplast Time 26.7 24.5-34.5 SEC D-Dimer, Quantitative 2.91 H 0.0-0.49 mg/L FEU Magnesium Level 2.0 1.6-2.6 mg/dL B-Type Natriuretic Peptide 59.84 0-100 pg/mL Assessment 69-year-old with presented with bilateral leg wounds and weakness and tiredness had normal hemoglobin but the hemoglobin has dropped significantly after started having bright red blood as well as dark red blood in the stools since this morning the hemoglobin is dropped significantly in the he has become also hypotensive now being blood pressure being maintained on medications patient probably has got early DIC with sepsis With significant GI bleeding at this time Possibility of a gastritis or esophageal varices or other pathology can not be excluded also Plan/Recommendation Patient is stool sticking unstable for any endoscopic intervention at this time treat with PPIs as well as Sandostatin now Get the blood pressure up with Levophed Once stabilized may need need endoscopic workup especially the EGD portion Recommend to stop the lower Lovenox for now His overall prognosis is guarded Bleeding is significant and severe may also need an emergency angiogram Plan discussed with: Patient, Other MAYANK ANAYA MD Jul 01, 2024 18:26
[2024-07-01] MEDS: NOREPINEPHRINE 8 MG/250ML KIT 250 ML IV SCH (19:30)
[2024-07-01 19:40] LABS: INR 1.29 (0.9-1.15); Partial Thromboplastin Time 25.5 SEC (24.5-34.5); Prothrombin Time 13.3 sec (9.3-11.8)
[2024-07-01 20:17] LABS: Base Excess -3.2 mmol/L (-2.0-3.0)
[2024-07-01] MEDS: MIDAZOLAM DRIP 50 mg/50mL 50 ML IV SCH (22:51)
[2024-07-01 22:55] LABS: Basophils # (auto) 0.1 10 ^3/uL (0-0.2); Eosinophils # (auto) 0 10 ^3/uL (0-0.8); Eosinophils % (auto) 0.2 % (0.0-7.0); Lymphocytes # (auto) 2.1 10 ^3/uL (0.4-5.4); White Blood Cell 15.3 10^3/uL (4.4-10.8)
[2024-07-01 22:56] LABS: Basophils % (auto) 0.4 % (0.0-2.0); Hematocrit 22.6 % (41.0-53.0); Hemoglobin 7.5 g/dL (13.5-17.5); Lymphocytes % (auto) 13.5 % (10.0-50.0); Mean Corpuscular Hemoglobin 28.4 pg (28.0-32.0); Mean Corpuscular Volume 86.1 fL (80.0-100.0); Monocytes # (auto) 1.2 10 ^3/uL (0-1.3); Monocytes % (auto) 7.7 % (0.0-12.0); Neutrophils % (auto) 78.2 % (37.0-80.0); Platelet Count (auto) 252 10^3/uL (140-450); Red Blood Cells 2.62 10^6/uL (4.5-5.90); Red Cell Distribution Width 15.5 % (11.8-14.3)
[2024-07-02] VITALS (113 sets, daily range): BP systolic 92–129; BP diastolic 35–65; PULSE 55–86; RESP 12–20; TEMP 97.8–100.3; O2SAT 100
[2024-07-02] MEDS: fentaNYL Drip 2500mCg/250mlNS 250 ML IV SCH (00:03)
[2024-07-02] MEDS: NOREPINEPHRINE 8 MG/250ML KIT 250 ML IV ONE (00:16)
[2024-07-02] MEDS: LIDOCAINE HCL 2 % INJ 2ML MPF ONE (00:17)
[2024-07-02 05:47] LABS: Basophils # (auto) 0.1 10 ^3/uL (0-0.2); Basophils % (auto) 0.9 % (0.0-2.0); Eosinophils # (auto) 0.2 10 ^3/uL (0-0.8); Eosinophils % (auto) 1.6 % (0.0-7.0); Lymphocytes # (auto) 1.8 10 ^3/uL (0.4-5.4); Lymphocytes % (auto) 15.4 % (10.0-50.0); Mean Corpuscular Hemoglobin 28.8 pg (28.0-32.0); Mean Corpuscular Hgb Conc. 33.5 g/dL (32.0-36.0); Monocytes # (auto) 0.9 10 ^3/uL (0-1.3); Neutrophils # (auto) 8.5 10 ^3/uL (1.6-8.6); Neutrophils % (auto) 74.1 % (37.0-80.0); Platelet Count (auto) 259 10^3/uL (140-450); Red Blood Cells 2.44 10^6/uL (4.5-5.90); Red Cell Distribution Width 15.6 % (11.8-14.3); White Blood Cell 11.5 10^3/uL (4.4-10.8)
--- NOTE | 2024-07-02 05:52 | DVH ---
EXAM: XY CHEST PORTABLE Indication: INTUBATED Technique: Single frontal view of the chest was obtained Comparison: XY CHEST PORTABLE on DOS: 07/01/24, XY CHEST XRAY 1 VIEW on DOS: 07/01/24, XY CHEST PORTABL E on DOS: 07/01/24, XY CHEST PORTABLE on DOS: 06/30/24, XY CHEST PORTABLE on DOS: 07/01/24 FINDINGS: Lines and Tubes: Enteric tube courses below the diaphragm. Right central venous catheter tip projects over the cavoatrial junction. Endotracheal tube projects 3.6 cm above the molly. Lungs: Mild pulmonary vascular congestion. Pleura: No effusion. No pneumothorax. Cardiomediastinal contours: Unremarkable Bones: No acute osseous abnormality. IMPRESSION: No significant change compared to prior exam.
[2024-07-02 06:06] LABS: Alkaline Phosphatase 67 U/L (46-116); Anion Gap 8 (5-15); BUN/Creatinine Ratio 41.9 (10.0-20.0); Bilirubin, Total 0.4 mg/dL (0.2-1.0); Carbon Dioxide 23 mmol/L (20-31); Potassium 4.1 mmol/L (3.5-5.1); Sodium 142 mmol/L (136-145)
[2024-07-02 06:07] LABS: Albumin 2.6 g/dL (3.2-4.8); Aspartate Aminotransferase > 1000 U/L (13-40); Blood Urea Nitrogen 49 mg/dL (9-23); Calcium 8.5 mg/dL (8.7-10.4); Chloride 111 mmol/L (98-107); Glucose 124 mg/dL (74-106); Total Protein 4.6 g/dL (5.7-8.2)
[2024-07-02 06:18] LABS: Alanine Aminotransferase 1659 U/L (7-40)
[2024-07-02 08:18] LABS: Base Excess -4.2 mmol/L (-2.0-3.0)
[2024-07-02] MEDS: cefTRIAXone 1GM/50ML D5W 50 ML IV SCH (08:20)
[2024-07-02] MEDS: cefTRIAXone 1GM/50ML D5W 50 ML IV ONE (08:20)
[2024-07-02] MEDS: LIDOCAINE HCL 2 % INJ 2ML MPF NEB ONE (08:21)
--- NOTE | 2024-07-02 09:25 | DVHPN2 ---
Subjective Patient chemically sedated Reviewed: Care Plan, H&P, Labs, Medications, Previous Orders, Radiology Changes from previous H/P or p: No Changes General: Per HPI Eyes: No Pain, No Vision change, No Conjunctivae inflammation, No Eyelid inflammation, No Other, No Redness ENT: No Ear pain, No Ear discharge, No Nose pain, No Nose discharge, No Nose congestion, No Mouth pain, No Mouth swelling, No Throat pain, No Throat swelling, No Other Cardiovascular: No Chest Pain, No Palpitations, No Orthopnea, No Paroxysmal Noc. Dyspnea, No Edema, No Lt Headedness, No Other Respiratory: No Cough, No Dry, No Shortness of breath, No SOB with excertion, No Wheezing, No Hemoptysis, No Pleuritic Pain, No Sputum, No Other Gastrointestinal: No Nausea, No Vomiting, No Abdominal Pain, No Diarrhea, No Constipation, No Melena, No Hematochezia, No Other Genitourinary: No Dysuria, No Frequency, No Incontinence, No Hematuria, No Retention, No Other Musculoskeletal: No other, No neck pain, No shoulder pain, No arm pain, No back pain, No hand pain, No leg pain, No foot pain Skin: No Rash, No Lesions, No Jaundice, No Bruising; Other (Bilateral legs wound) Objective Vitals Vital Signs Date Time Temp Pulse Resp B/P (MAP) Pulse Ox O2 Delivery O2 Flow Rate FiO2 07/02/24 07:56 103/48 07/02/24 07:26 61 15 100 100 07/02/24 06:00 Mechanical Ventilator+ 07/02/24 04:00 98.7 98.7 07/01/24 18:44 50 Intake/Output Intake and Output 07/02/24 07:00 Intake Total 2914.25 ml Output Total 1250 ml Balance 1664.25 ml Intake Oral 0 ml IV Total 2081.25 ml Blood Product 224 ml Other 609 ml Output Urine Total 950 ml Gastric Drainage Total 300 ml General Appearance: moderate distress, Other (Chemically sedated) HEENT: Atraumatic, PERRLA Neck: Carotid [place] Lungs: Clear to auscultation, Normal air movement Cardiovascular: Normal S1, Normal S2 Abdomen: Normal bowel sounds, Soft, Other (NG tube with noted red gastric secretions) Genitourinary: No Apparent Abnormalities ([place] catheter) Skin: Wounds (See nurse notes and pictures) Psych/Mental Status: Mental status NL, Mood NL Medications Current Medications Medications Dose Ordered Sig/Maribeth Route Start Time Stop Time Status Last Admin Dose Admin Vancomycin HCl 0 ml @ 0 mls/hr UD IV 07/01/24 06:00 Ondansetron HCl 4 mg Q4HP PRN IV 07/01/24 06:00 Acetaminophen 650 mg Q6HP PRN PO 07/01/24 06:00 Nitroglycerin 0.4 mg Q5MINP PRN SL 07/01/24 06:00 Ceftriaxone Sodium 50 ml @ 100 mls/hr DAILY@09 IV 07/02/24 09:00 07/02/24 08:20 100 MLS/HR Vasopressin 20 units/Sodium Chloride 100 ml @ 9 mls/hr Q11H7M IV 07/01/24 15:15 07/02/24 00:31 9 MLS/HR Pantoprazole Sodium 50 ml @ 10 mls/hr Q5H IV 07/01/24 15:45 07/02/24 04:36 10 MLS/HR Octreotide Acetate 500 mcg/ Sodium Chloride 100 ml @ 10 mls/hr Q10H IV 07/01/24 15:45 07/02/24 01:42 10 MLS/HR Midazolam HCl 50 ml @ 1 mls/hr Q24H IV 07/01/24 19:30 07/02/24 07:56 10 MLS/HR Fentanyl Citrate 250 ml @ 2.5 mls/hr Q24H IV 07/01/24 19:30 07/02/24 06:12 35 MLS/HR Norepinephrine Bitartrate 250 ml @ 3.75 mls/hr Q24H IV 07/01/24 19:30 07/02/24 05:55 11.25 MLS/HR Folic Acid 1 mg/ Multivitamins 10 ml/Magnesium Sulfate 8 meq/ Thiamine HCl 100 mg/Dextrose 1,013.2 ml @ 125.001 mls/hr DAILY@1800 INJ 07/02/24 18:00 Laboratory Results Laboratory Tests 07/02/24 05:09 Chemistry Test 07/02/24 05:09 Albumin 2.6 g/dL (3.2-4.8) L Calcium Level 8.5 mg/dL (8.7-10.4) L Total Protein 4.6 g/dL (5.7-8.2) L Coagulation Test 07/01/24 18:37 Prothrombin Time 13.3 sec (9.3-11.8) H Prothrombin Time INR 1.29 (0.9-1.15) H Activated Partial Thromboplast Time 25.5 SEC (24.5-34.5) LFT Test 07/02/24 05:09 Alanine Aminotransferase (ALT) 1659 U/L (7-40) H Alkaline Phosphatase 67 U/L (46-116) Aspartate Amino Transferase (AST) > 1000 U/L (13-40) H Total Bilirubin 0.4 mg/dL (0.2-1.0) Urinalysis Test 07/01/24 14:50 Urine Color Yellow (Yellow) Urine Clarity Clear (Clear) Urine pH 5.5 (5.0-9.0) Urine Specific [place] 1.025 (1.001-1.035) Urine Protein Trace (Negative) H Urine Ketones Negative (Negative) Urine Blood Trace /uL (Negative) H Urine Nitrite Negative (Negative) Urine Bilirubin Negative (Negative) Urine Urobilinogen Normal mg/dL (Negative) Urine Leukocyte Esterase Negative /uL (Negative) Urine RBC 4 /hpf (0 - 3) Urine Microscopic WBC 1 /HPF (0-3) Urine Squamous Epithelial Cells Few /hpf (<5) Urine Bacteria Few /hpf (None Seen) H Urine Hyaline Casts Few /lpf (0 - 2) Urine Mucus Few (None Seen) Urine Glucose Normal mg/dL (Normal) Blood Gas Results Test 07/01/24 13:50 07/01/24 20:10 07/02/24 07:58 Arterial Blood pH 7.449 (7.350-7.450) 7.327 (7.350-7.450) 7.333 (7.350-7.450) FiO2 % 36.0 50.0 100.0 Labs and/or images reviewed: Labs reviewed by me, Image(s) reviewed by me Assessment/Plan Assessment/Plan Impression: -hemorrhagic shock -probable sepsis secondary to lower extremity cellulitis -polysubstance abuse : Positive for PCP, cocaine, amphetamines -acute respiratory failure with mechanical ventilation -severe anemia from GI bleed -shock liver Plan: -GI consultation : Recommend EGD now that patient was stable -pulmonary consultation -continue with an additional 2 unit PRBC transfusion -continue octreotide as well as Protonix drip -change antibiotic therapy to ceftazidime and vancomycin, probable Pseudomonas in wound -banana bag daily -continue to wean norepinephrine, vasopressin -repeat labs in a.m., H&H this afternoon Critical care time spent with patient discussing and formulating plan of care: 40 minutes. This does not include time spent performing procedures. This medical document was created using an electronic medical record system with [employer] dictation system. Although this document has been carefully reviewed, there may still be some phonetic and typographical errors. These areas are purely typographical due to imperfections of the software programs, and do not reflect any compromise in the patient's medical care. Plan discussed with: Patient, Other (RN) My Orders Orders - BRADY SPARROW NP Procedure Category Date Status Time Folic Acid... PHA 07/02/24 In Process 18:00 Complete Blood Count LAB 07/03/24 Verified 05:00 Complete Blood Count LAB 07/04/24 Verified 05:00 Complete Blood Count LAB 07/05/24 Verified 05:00 Comprehensive LAB 07/03/24 Verified Metabolic Panel 05:00 Comprehensive LAB 07/04/24 Verified Metabolic Panel 05:00 Comprehensive LAB 07/05/24 Verified Metabolic Panel 05:00 Date of Service: Jul 02, 2024 Billing Provider: BRADY SPARROW NP Common Visit Codes: [id number] CARE 30-74 MIN BRADY SPARROW NP Jul 02, 2024 09:25
[2024-07-02] MEDS: TRANEXAMIC ACID 1,000 MG in SODIUM CHL 0.9% 100 ML IV ONE (09:29)
--- NOTE | 2024-07-02 10:16 | ECG ---
[facility] Test Date: 2024-07-01 Test Time: 13:15:02 Pat Name: JOAO JAQUEZ Department: Room: 0265 Gender: M Caul Dresser: parvez : [id number] Requested By: HAILY GRIMES Order Number: [id number] Reading MD: Measurements Intervals [place] Rate: 91 P: 45 FL: 131 QRS: 2 QRSD: 90 T: 76 QT: 415 QTc: 511 Interpretive Statements Sinus rhythm Prolonged QT interval Baseline wander in lead(s) II,III,aVF Please click the below link to view image of tracing.
--- NOTE | 2024-07-02 13:21 | DVHPN2 ---
Progress Note - Dictate Date Seen: Jul 02, 2024 Has the PT tested + for MRSA If YES, has PT been informed?: No Medical Necessity Reason Pt with a Central, PICC or Fol: Yes The following are medically ne: Central Line Subjective Patient is still on the persist support no gross bleeding seen at this time had some black stools last evening and last night Further gross bleeding two this morning Hemoglobin slightly better on octreotide Protonix drips vital signs Vital Sign Date Time Temp Pulse Resp B/P (MAP) Pulse Ox O2 Delivery O2 Flow Rate FiO2 07/02/24 13:00 110/57 07/02/24 12:09 74 14 100 70 07/02/24 12:00 99.1 99.1 07/02/24 12:00 Mechanical Ventilator+ 07/01/24 18:44 50 Total Intake and Output 07/01/24 07/01/24 07/02/24 15:00 23:00 07:00 Intake Total 125 ml 1772.50 ml 1016.75 ml Output Total 1250 ml Balance 125 ml 1772.50 ml -233.25 ml medications Current Medications Medications Dose Ordered Sig/Maribeth Route Start Time Stop Time Status Last Admin Dose Admin Vancomycin HCl 0 ml @ 0 mls/hr UD IV 07/01/24 06:00 Ondansetron HCl 4 mg Q4HP PRN IV 07/01/24 06:00 Acetaminophen 650 mg Q6HP PRN PO 07/01/24 06:00 Nitroglycerin 0.4 mg Q5MINP PRN SL 07/01/24 06:00 Vasopressin 20 units/Sodium Chloride 100 ml @ 9 mls/hr Q11H7M IV 07/01/24 15:15 07/02/24 11:49 9 MLS/HR Pantoprazole Sodium 50 ml @ 10 mls/hr Q5H IV 07/01/24 15:45 07/02/24 09:30 10 MLS/HR Octreotide Acetate 500 mcg/ Sodium Chloride 100 ml @ 10 mls/hr Q10H IV 07/01/24 15:45 07/02/24 11:42 10 MLS/HR Midazolam HCl 50 ml @ 1 mls/hr Q24H IV 07/01/24 19:30 07/02/24 11:49 10 MLS/HR Fentanyl Citrate 250 ml @ 2.5 mls/hr Q24H IV 07/01/24 19:30 07/02/24 13:00 35 MLS/HR Norepinephrine Bitartrate 250 ml @ 3.75 mls/hr Q24H IV 07/01/24 19:30 07/02/24 05:55 11.25 MLS/HR Folic Acid 1 mg/ Multivitamins 10 ml/Magnesium Sulfate 8 meq/ Thiamine HCl 100 mg/Dextrose 1,013.2 ml @ 125.001 mls/hr DAILY@1800 INJ 07/02/24 18:00 Ceftazidime/ Dextrose 1 gm/ Sodium Chloride 50 ml @ 16.667 mls/ hr Q8HR IV 07/02/24 14:00 objective Abdomen soft no tenderness no rigidity no distention bowel sounds normal NG-tube shows no gross bleeding seen at this time laboratory and microbiology Laboratory Tests 07/02/24 05:09 Test 07/02/24 05:09 Range/Units Serum Glucose 124 H 74-106 mg/dL Assessment/Plan 69 year old with severe GI bleeding was on anticoagulants which has been stopped now on Protonix as well as octreotide with some control of the bleeding T00 the etiology of the bleeding is still unclear possible ulcer disease or pathology can not be excluded especially with the history the patient has been taking lot of NSAIDs etc. Possible ulcer disease to be considered Still on some pressor support Plans Continue to monitor the Continue the present do an EGD evaluation and then decide on further treatment including continuation of octreotide and other medications Thank you Dr. Cordero Plan discussed with: Patient MAYANK CORDERO MD Jul 02, 2024 13:21
[2024-07-02] MEDS: cefTAZidime 1 GM in SODIUM CHL 0.9% 50 ML IV SCH (14:15)
[2024-07-02 17:42] LABS: Hematocrit 25.5 % (41.0-53.0); Hemoglobin 8.5 g/dL (13.5-17.5)
[2024-07-02] MEDS: FOLIC ACID 1 MG, MULTIPLE VITAMIN 10 ML, MAGNESIUM SULF SDV 50% 8 MEQ, THIAMINE INJ 100... INJ SCH (17:58)
--- NOTE | 2024-07-02 18:40 | DVHINCON2 ---
Date of service: Jul 01, [address] Shine Kumar Reason for Consultation Ventilator management History of Present Illness 69-year-old man history of BPH who presented with generalized weakness and bilateral leg wounds. He has been having bilateral leg and foot wounds for the past month. He was recently evaluated in emergency department and found to have an elevated D-dimer. CT chest demonstrated no suspicious pulmonary nodules. He was initiated on antibiotics. He required emergent intubation and placement on mechanical ventilator. History is obtained from EMR, RN MD Mcguire for patient. Pulmonary consultation is called due to acute respiratory failure on mechanical ventilator management. Review of systems: Unable to obtain due to patient's critical condition Past medical history: BPH Past surgical history: None mentioned in prior surgeries. Medications: Reviewed Allergies: No known drug allergies. Family history: No family history of premature CAD. No family history of lung disease Social history: Nonsmoker. No alcohol or illicit drug use. Family History: Patient reports no known family medical history. Allergies: Coded Allergies: NO KNOWN ALLERGIES (Unverified , 06/30/24) Home Meds Unable to Obtain Active Prescriptions or Reported Meds Current Medications Current Medications Medications (Trade) Dose Ordered Sig/Maribeth Route PRN Reason Start Time Stop Time Status Last Admin Ceftriaxone Sodium 50 ml @ 100 mls/hr DAILY@09 IV 07/02/24 09:00 07/02/24 09:27 DC 07/02/24 08:20 Midazolam HCl 50 ml @ 1 mls/hr Q24H IV 07/01/24 19:30 07/02/24 16:48 Fentanyl Citrate 250 ml @ 2.5 mls/hr Q24H IV 07/01/24 19:30 07/02/24 13:00 Norepinephrine Bitartrate 250 ml @ 3.75 mls/hr Q24H IV 07/01/24 19:30 07/02/24 05:55 Folic Acid 1 mg/ Multivitamins 10 ml/Magnesium Sulfate 8 meq/ Thiamine HCl 100 mg/Dextrose 1,013.2 ml @ 125.001 mls/hr DAILY@1800 INJ 07/02/24 18:00 07/02/24 17:58 Ceftazidime/ Dextrose 1 gm/ Sodium Chloride 50 ml @ 16.667 mls/ hr Q8HR IV 07/02/24 14:00 07/02/24 14:15 Vital Signs Vital Signs Date Time Temp Pulse Resp B/P (MAP) Pulse Ox O2 Delivery O2 Flow Rate FiO2 07/02/24 18:24 78 15 97/51 (66) 100 45 07/02/24 18:00 Mechanical Ventilator+ 07/02/24 16:00 99.4 99.4 07/01/24 18:44 50 Physical Exam Gen.: Patient lying in bed in medical ICU. Sedated, intubated on mechanical ventilator. Head: Normocephalic, atraumatic. Eyes: PERRLA. Ears: Normal external anatomy. Throat: Endotracheal tube and orogastric tube in place. Neck: Supple, trachea midline. Chest: Transmitted breath sounds bilaterally. Decreased air entry bilaterally. No wheezing. Bibasilar crackles. Cardio vascular: Positive S1, positive S2. Regular rate and rhythm. Abdomen: Positive bowel sounds in all 4 quadrants. Soft, nontender, nondistended. : Manning in place. Normal external genitalia. Rectal: Deferred Skin: Warm, dry. Intact. Extremities: 2+ radial pulses bilaterally. No lower extremity edema. Neuro: Sedated. Labs/Diagnostic Data Labs Test 07/02/24 17:23 07/02/24 07:58 07/02/24 05:09 07/01/24 20:42 Range/Units Hemoglobin 8.5 #L 13.5-17.5 g/dL Hematocrit 25.5 #L 41.0-53.0 % Blood Gas Specimen Type Arterial Blood Gas Sample Site Left radial Blood Gas Patient Temperature 37.0 Arterial Blood Date Drawn [id number] Arterial Blood pH 7.333 L 7.350-7.450 Arterial Blood Partial Pressure CO2 41.0 35.0-48.0 mmHg Arterial Blood Partial Pressure O2 374.5 *H 83.0-108.0 mmHg Arterial Blood HCO3 21.3 21.0-28.0 mmol/L Arterial Blood Oxygen Saturation 99.2 H 94.0-98.0 % Arterial Blood Base Excess -4.2 L -2.0-3.0 mmol/L Arterial Blood Oxyhemoglobin 97.8 94.0-98.0 % Arterial Blood Carboxyhemoglobin 0.7 0.5-1.5 % Arterial Blood Methemoglobin 0.7 0.0-1.5 % Kapil Test Modified Blood Gas Total Hemoglobin 6.50 *L 13.5-17.5 g/dL Blood Gas Set Respiration Rate 14.0 Blood Gas Modality Vent - ac Blood Gas Spontaneous Rate 15 FiO2 % 100.0 Blood Gas Tidal Volume 500.0 Blood Gas PEEP or CPAP 5.0 Blood Gas Critical Value Read Back Yes Blood Gas Notified Whom margaret Kumar md. Blood Gas Notified Time [id number] Blood Gas Notified By zac Lu rt. White Blood Count 11.5 H 4.4-10.8 10^3/uL Red Blood Count 2.44 L 4.5-5.90 10^6/uL Mean Corpuscular Volume 86.0 80.0-100.0 fL Mean Corpuscular Hemoglobin 28.8 28.0-32.0 pg Mean Corpuscular Hemoglobin Concent 33.5 32.0-36.0 g/dL Red Cell Distribution Width 15.6 H 11.8-14.3 % Platelet Count 259 140-450 10^3/uL Mean Platelet Volume 8.3 6.9-10.8 fL Neutrophils (%) (Auto) 74.1 37.0-80.0 % Lymphocytes (%) (Auto) 15.4 10.0-50.0 % Monocytes (%) (Auto) 8.0 0.0-12.0 % Eosinophils (%) (Auto) 1.6 0.0-7.0 % Basophils (%) (Auto) 0.9 0.0-2.0 % Neutrophils # (Auto) 8.5 1.6-8.6 10 ^3/uL Lymphocytes # (Auto) 1.8 0.4-5.4 10 ^3/uL Monocytes # (Auto) 0.9 0-1.3 10 ^3/uL Eosinophils # (Auto) 0.2 0-0.8 10 ^3/uL Basophils # (Auto) 0.1 0-0.2 10 ^3/uL Nucleated Red Blood Cells 0.0 % Sodium Level 142 136-145 mmol/L Potassium Level 4.1 3.5-5.1 mmol/L Chloride Level 111 H 98-107 mmol/L Carbon Dioxide Level 23 20-31 mmol/L Anion Gap 8 5-15 Blood Urea Nitrogen 49 #H 9-23 mg/dL Creatinine 1.17 0.700-1.30 mg/dL Glomerular Filtration Rate Calc 67 >90 mL/min BUN/Creatinine Ratio 41.9 H 10.0-20.0 Serum Glucose 124 H 74-106 mg/dL Calcium Level 8.5 L 8.7-10.4 mg/dL Total Bilirubin 0.4 0.2-1.0 mg/dL Aspartate Amino Transferase (AST) > 1000 H 13-40 U/L Alanine Aminotransferase (ALT) 1659 H 7-40 U/L Alkaline Phosphatase 67 46-116 U/L Total Protein 4.6 L 5.7-8.2 g/dL Albumin 2.6 L 3.2-4.8 g/dL Random Vancomycin Level < 3.0 L 5-10 ug/mL Troponin I High Sensitivity 30 </=54 ng/L Test 07/01/24 18:37 07/01/24 14:50 07/01/24 13:55 07/01/24 13:50 Range/Units Prothrombin Time 13.3 H 9.3-11.8 sec Prothrombin Time INR 1.29 H 0.9-1.15 Activated Partial Thromboplast Time 25.5 24.5-34.5 SEC Urine Color Yellow Yellow Urine Clarity Clear Clear Urine pH 5.5 5.0-9.0 Urine Specific [place] 1.025 1.001-1.035 Urine Protein Trace H Negative Urine Ketones Negative Negative Urine Blood Trace H Negative /uL Urine Nitrite Negative Negative Urine Bilirubin Negative Negative Urine Urobilinogen Normal Negative mg/dL Urine Leukocyte Esterase Negative Negative /uL Urine RBC 4 0 - 3 /hpf Urine Microscopic WBC 1 0-3 /HPF Urine Squamous Epithelial Cells Few <5 /hpf Urine Bacteria Few H None Seen /hpf Urine Hyaline Casts Few 0 - 2 /lpf Urine Mucus Few None Seen Urine Glucose Normal Normal mg/dL Urine Opiates Screen Neg NEGATIVE Urine Fentanyl Screen Neg NEGATIVE Urine Barbiturates Screen Neg NEGATIVE Urine Phencyclidine Screen Pos NEGATIVE Urine Amphetamines Screen Pos NEGATIVE Urine Benzodiazepines Screen Neg NEGATIVE Urine Cocaine Screen Pos NEGATIVE Urine Cannabinoids Screen Neg NEGATIVE Stool Occult Blood Positive Negative Stool Occult Blood Sample #3 Negative Blood Gas Liter Flow 4.00 Test 07/01/24 13:49 06/30/24 14:34 Range/Units Ammonia 104 H 11-32 umol/L Plasma/Serum Blood Alcohol 4.7 <10 mg/dL D-Dimer, Quantitative 2.91 H 0.0-0.49 mg/L FEU Magnesium Level 2.0 1.6-2.6 mg/dL B-Type Natriuretic Peptide 59.84 0-100 pg/mL Microbiology Date/Time Source Procedure Growth Status 07/01/24 15:00 Nose MRSA Screen - Final Complete 07/01/24 14:50 Voided Urine Urine Culture - Preliminary Resulted 07/01/24 13:49 Blood Blood Culture - Preliminary NO GROWTH AFTER 24 HOURS OF INCUBATION. Resulted 07/01/24 00:00 Sputum Gram Stain - Final Resulted 07/01/24 00:00 Sputum Respiratory Culture - Preliminary Resulted Assessment Impression: Acute hypoxic respiratory failure On mechanical ventilator GI hemorrhage Hemorrhagic shock Substance abuse Bilateral lower extremity wounds Plan: s/p intubation on mechanical ventilator CXR image and report reviewed. ABG reviewed. Acidemia On assist control with respiratory rate of 14, tidal volume 500, peep of five, FiO2 at 50%. Titrate FIO2 to keep O2 saturation above 92%. VAP bundle Daily ABG and CXR while intubated. Sedate for ventilatory synchrony On pressors for hemodynamic support. Titrate to keep MAP above 65 mmHg/SBP above 90 mmHg. Continue antibiotics. F/u cultures. Monitor renal function. Monitor electrolytes. Supplement as necessary. Monitor ins and outs. Monitor hemoglobin Follow up GI recommendations Nutritional support. Accucheks, ISS. GI/DVT prophylaxis. Condition: Critical Prognosis: Poor given multiple comorbidities. Rest of plan per hospitalist and other consultants. A total of 36 minutes of critical care time was spent reviewing the patient record, examining the patient, making a diagnostic and therapeutic plan, discussing this plan with the medical personnel, following up on diagnostic studies and following the patient for clinical stability excluding any and all procedures. At least 50% of this time was spent in direct, [id number] contact. Thank you Dr. Shine Kumar for allowing me to participate in this patient's care. Further recommendations will depend on patient's clinical course. Please do not hesitate to contact me if you have any questions or concerns. This medical document was created using an electronic medical record system with [email or web address] system. Although this document has been carefully reviewed, there may still be some phonetic and typographical errors. These areas are purely typographical due to imperfections of the software programs, and do not reflect any compromise in the patient's medical care. Plan discussed with: Other (RN, MD) YOSI FABIAN MD Jul 02, 2024 18:40
--- NOTE | 2024-07-02 20:05 | DVHSR ---
APPROVED REPORT EXAM: LIMITED Two-dimensional and M-mode echocardiogram with Doppler and color Doppler. Blood Pressure: 103/48 mmHg INDICATION Shock Polysubstance Abuse RISK FACTORS Height: 5' 10", Weight: 172 DIMENSIONS LVDd4.8 (3.8-5.7cm)LA (2D)4.4 (1.9-4.0cm)Aortic Root2.9 (2.0-3.7cm) LVDs3.6 (2.5-4.0cm)LA (MM) (1.9-4.0cm)Aortic Cusp Exc1.4 (1.5-2.0cm) EF (%) 50.0 (55-70%)Rt. Atrium4.5 (1.9-4.0cm)Asc. Aorta cm IVSd1.1 (0.7-1.1cm)RV (D) (1.8-2.4cm) PWd1.1 (0.7-1.1cm) Mitral Valve MitralMitral Stenosis E wave1.10m/sMV Mean GR.mmHg A wave1.10m/sMV Peak GR.mmHg E/A ratio1.02D MVAcm2 Aortic Valve Aortic ValveAortic Stenosis V11.10m/Fatou Mean GR.9mmHg V22.00m/Fatou Peak GR.17mmHg LVOT Diameter2.0 (1.8-2.4cm)Doppler AVA1.73cm2 Tricuspid Valve TR Velocity2.00m/s [id number] LEFT VENTRICLE The left ventricle is normal size. There is normal left ventricular wall thickness. The left ventricle systolic function is mildly decreased, LVEF is 45-50%. Normal diastolic function. Global hypokinesis. RIGHT VENTRICLE The right ventricle is not well visualized. ATRIA The left atrial size is normal. The right atrium size is normal. MITRAL VALVE The mitral valve is grossly normal. Mitral regurgitation is trace. PULMONIC VALVE The pulmonic valve is not well visualized. TRICUSPID VALVE The tricuspid valve is grossly normal. There is trace tricuspid regurgitation. AORTIC VALVE The aortic valve is trileaflet. The aortic valve is mildlysclerotic. No aortic regurgitation is present. GREAT VESSELS The aortic root is normal size. PERICARDIAL EFFUSION No pericardial effusion. Other Information Quality : Technically LimitedRhythm : Technically limited study due to body habitus, patient position and on vent. Conclusion The left ventricle is normal size. There is normal left ventricular wall thickness. The left ventricl e systolic function is mildly decreased, LVEF is 45-50%. Global hypokinesis. The left and right atrial size is normal. No significant valvular abnormalities. No pericardial effusion.
--- NOTE | 2024-07-02 22:22 | DVHPN2 ---
Progress Note - Dictate Date Seen: Jul 02, 2024 Has the PT tested + for MRSA If YES, has PT been informed?: No Medical Necessity Reason Pt with a Central, PICC or Fol: Yes The following are medically ne: Central Line, Barrow Catheter Reason for barrow catheter: Strict I&O Subjective Patient seen and examined at bedside. Sedated, intubated on mechanical ventilator. Overnight events reviewed. vital signs Vital Sign Date Time Temp Pulse Resp B/P (MAP) Pulse Ox O2 Delivery O2 Flow Rate FiO2 07/02/24 22:05 110/44 07/02/24 20:22 60 18 100 45 07/02/24 20:00 Mechanical Ventilator+ 07/02/24 16:00 99.4 99.4 07/01/24 18:44 50 Total Intake and Output 07/01/24 07/01/24 07/02/24 15:00 23:00 07:00 Intake Total 125 ml 1772.50 ml 1092.00 ml Output Total 1250 ml Balance 125 ml 1772.50 ml -158.00 ml medications Current Medications Medications Dose Ordered Sig/Maribeth Route Start Time Stop Time Status Last Admin Dose Admin Vancomycin HCl 0 ml @ 0 mls/hr UD IV 07/01/24 06:00 Ondansetron HCl 4 mg Q4HP PRN IV 07/01/24 06:00 Acetaminophen 650 mg Q6HP PRN PO 07/01/24 06:00 Nitroglycerin 0.4 mg Q5MINP PRN SL 07/01/24 06:00 Vasopressin 20 units/Sodium Chloride 100 ml @ 9 mls/hr Q11H7M IV 07/01/24 15:15 07/02/24 11:49 9 MLS/HR Pantoprazole Sodium 50 ml @ 10 mls/hr Q5H IV 07/01/24 15:45 07/02/24 19:48 10 MLS/HR Octreotide Acetate 500 mcg/ Sodium Chloride 100 ml @ 10 mls/hr Q10H IV 07/01/24 15:45 07/02/24 22:02 10 MLS/HR Midazolam HCl 50 ml @ 1 mls/hr Q24H IV 07/01/24 19:30 07/02/24 22:05 10 MLS/HR Fentanyl Citrate 250 ml @ 2.5 mls/hr Q24H IV 07/01/24 19:30 07/02/24 20:09 35 MLS/HR Norepinephrine Bitartrate 250 ml @ 3.75 mls/hr Q24H IV 07/01/24 19:30 07/02/24 05:55 11.25 MLS/HR Folic Acid 1 mg/ Multivitamins 10 ml/Magnesium Sulfate 8 meq/ Thiamine HCl 100 mg/Dextrose 1,013.2 ml @ 125.001 mls/hr DAILY@1800 INJ 07/02/24 18:00 07/02/24 17:58 125.001 MLS/HR Ceftazidime/ Dextrose 1 gm/ Sodium Chloride 50 ml @ 16.667 mls/ hr Q8HR IV 07/02/24 14:00 07/02/24 22:05 16.667 MLS/HR objective Gen.: Patient lying in bed in medical ICU. Sedated, intubated on mechanical ventilator. Head: Normocephalic, atraumatic. Eyes: PERRLA. Ears: Normal external anatomy. Throat: Endotracheal tube and orogastric tube in place. Neck: Supple, trachea midline. Chest: Transmitted breath sounds bilaterally. Decreased air entry bilaterally. No wheezing. Bibasilar crackles. Cardiovascular: Positive S1, positive S2. Regular rate and rhythm. Abdomen: Positive bowel sounds in all 4 quadrants. Soft, nontender, nondistended. : Barrow in place. Normal external genitalia. Rectal: Deferred. Skin: Warm, dry. Intact. Extremities: 2+ radial pulses bilaterally. No lower extremity edema. Neuro: Sedated. laboratory and microbiology Laboratory Tests 07/02/24 17:23 07/02/24 05:09 Test 07/02/24 05:09 Range/Units Serum Glucose 124 H 74-106 mg/dL Assessment/Plan Impression: Acute hypoxic respiratory failure On mechanical ventilator GI hemorrhage Hemorrhagic shock Substance abuse Bilateral lower extremity wounds Events: Remains on vent support On assist control with respiratory rate of 14, tidal volume 500, PEEP of 5, FiO2 at 50 -->70%. Plan for EGD in the AM. Sedated on Versed, Fentanyl On pressors for hemodynamic support. Levophed 6 mcg/min Titrate to keep MAP above 65 mmHg/SBP above 90 mmHg. ABG reviewed, notable for acidemia On Sandostatin drip Protonix drip S/p 2 units PRBC Monitor hemoglobin Labs and imaging reviewed. Rest of plan as noted below. Plan: s/p intubation on mechanical ventilator CXR image and report reviewed. ABG reviewed. Acidemia On assist control with respiratory rate of 14, tidal volume 500, PEEP of 5, FiO2 at 70%. Titrate FIO2 to keep O2 saturation above 92%. VAP bundle Daily ABG and CXR while intubated. Sedate for ventilatory synchrony On pressors for hemodynamic support. Titrate to keep MAP above 65 mmHg/SBP above 90 mmHg. Continue antibiotics. F/u cultures. Monitor renal function. Monitor electrolytes. Supplement as necessary. Monitor ins and outs. Monitor hemoglobin Follow up GI recommendations Nutritional support. Accucheks, ISS. GI/DVT prophylaxis. Condition: Critical Prognosis: Poor given multiple comorbidities. Rest of plan per hospitalist and other consultants. A total of 35 minutes of critical care time was spent reviewing the patient record, examining the patient, making a diagnostic and therapeutic plan, discussing this plan with the medical personnel, following up on diagnostic studies and following the patient for clinical stability excluding any and all procedures. At least 50% of this time was spent in direct, [id number] contact. Thank you Dr. Shine Kumar for allowing me to participate in this patient's care. Further recommendations will depend on patient's clinical course. Please do not hesitate to contact me if you have any questions or concerns. This medical document was created using an electronic medical record system with [employer] dictation system. Although this document has been carefully reviewed, there may still be some phonetic and typographical errors. These areas are purely typographical due to imperfections of the software programs, and do not reflect any compromise in the patient's medical care. Dietary Evaluation Review Comments: 1.Consider advancing to PO diet once medically appropriate 2.Consider PN if NPO >7 if GI issues dont resolve 3.Consider beth BID (180kcal, 5 pro) Expected Outcomes/Goals: 1. Pt will consume >75% pt estimated meeds within 2-3 days Plan discussed with: Other (AKJAL Franco) Critical Care Time(min): 35 YOSI FABIAN MD Jul 02, 2024 22:22
[2024-07-03] VITALS (109 sets, daily range): BP systolic 80–178; BP diastolic 26–145; PULSE 56–94; RESP 16–19; TEMP 97.2–98.9; O2SAT 94–100
[2024-07-03 05:55] LABS: Basophils # (auto) 0.1 10 ^3/uL (0-0.2); Basophils % (auto) 0.6 % (0.0-2.0); Eosinophils # (auto) 0.2 10 ^3/uL (0-0.8); Hemoglobin 7.7 g/dL (13.5-17.5); Lymphocytes # (auto) 0.7 10 ^3/uL (0.4-5.4); Red Blood Cells 2.62 10^6/uL (4.5-5.90)
[2024-07-03 05:58] LABS: Alkaline Phosphatase 75 U/L (46-116); Anion Gap 6 (5-15); BUN/Creatinine Ratio 46.1 (10.0-20.0); Carbon Dioxide 24 mmol/L (20-31); Potassium 4.5 mmol/L (3.5-5.1); Sodium 140 mmol/L (136-145)
[2024-07-03 05:59] LABS: Bilirubin, Total 0.6 mg/dL (0.2-1.0); Eosinophils % (auto) 2.1 % (0.0-7.0); Hematocrit 22.6 % (41.0-53.0); Lymphocytes % (auto) 6.1 % (10.0-50.0); Mean Corpuscular Hemoglobin 29.3 pg (28.0-32.0); Mean Corpuscular Hgb Conc. 33.9 g/dL (32.0-36.0); Mean Corpuscular Volume 86.5 fL (80.0-100.0); Monocytes # (auto) 1.3 10 ^3/uL (0-1.3); Neutrophils # (auto) 8.5 10 ^3/uL (1.6-8.6); Neutrophils % (auto) 79.2 % (37.0-80.0); Nucleated Red Blood Cells % 0.1 %; Platelet Count (auto) 231 10^3/uL (140-450); Red Cell Distribution Width 15.4 % (11.8-14.3); White Blood Cell 10.7 10^3/uL (4.4-10.8)
[2024-07-03 06:03] LABS: INR 1.09 (0.9-1.15); Partial Thromboplastin Time 25.1 SEC (24.5-34.5); Prothrombin Time 11.5 sec (9.3-11.8)
[2024-07-03 06:22] LABS: Alanine Aminotransferase 1448 U/L (7-40); Albumin 2.6 g/dL (3.2-4.8); Aspartate Aminotransferase 1351 U/L (13-40); Blood Urea Nitrogen 35 mg/dL (9-23); Calcium 8.2 mg/dL (8.7-10.4); Chloride 110 mmol/L (98-107); Glucose 127 mg/dL (74-106); Total Protein 4.7 g/dL (5.7-8.2)
--- NOTE | 2024-07-03 06:44 | DVH ---
EXAM: XY CHEST PORTABLE HISTORY: Intubated COMPARISON: XY CHEST PORTABLE on DOS: 07/02/24, XY CHEST PORTABLE on DOS: 07/01/24, XY CHEST XRAY 1 VIEW on DOS: 07/01/24, XY CHEST PORTABLE on DOS: 07/01/24, XY CHEST PORTABLE on DOS: 06/30/24 TECHNIQUE: Portable AP view of the chest was performed. FINDINGS: Endotracheal tube is re-identified with its tip 6.4 cm above the molly. OG tube and right subclavia n central line are re-identified. There is mild central peribronchial thickening, improved. No pneumo thorax, consolidative infiltrates, or pulmonary edema. The heart is not enlarged. IMPRESSION: 1. Mechanical ventilation with tubes and lines as above. 2. Mild reactive airways disease. The lungs are otherwise clear.
[2024-07-03 07:34] LABS: Base Excess -2.2 mmol/L (-2.0-3.0)
--- NOTE | 2024-07-03 09:45 | DVHPN2 ---
Subjective Patient chemically sedated Reviewed: Care Plan, H&P, Labs, Medications, Previous Orders, Radiology Changes from previous H/P or p: No Changes General: Per HPI Eyes: No Pain, No Vision change, No Conjunctivae inflammation, No Eyelid inflammation, No Other, No Redness ENT: No Ear pain, No Ear discharge, No Nose pain, No Nose discharge, No Nose congestion, No Mouth pain, No Mouth swelling, No Throat pain, No Throat swelling, No Other Cardiovascular: No Chest Pain, No Palpitations, No Orthopnea, No Paroxysmal Noc. Dyspnea, No Edema, No Lt Headedness, No Other Respiratory: No Cough, No Dry, No Shortness of breath, No SOB with excertion, No Wheezing, No Hemoptysis, No Pleuritic Pain, No Sputum, No Other Gastrointestinal: No Nausea, No Vomiting, No Abdominal Pain, No Diarrhea, No Constipation, No Melena, No Hematochezia, No Other Genitourinary: No Dysuria, No Frequency, No Incontinence, No Hematuria, No Retention, No Other Musculoskeletal: No other, No neck pain, No shoulder pain, No arm pain, No back pain, No hand pain, No leg pain, No foot pain Skin: No Rash, No Lesions, No Jaundice, No Bruising; Other (Bilateral legs wound) Objective Vitals Vital Signs Date Time Temp Pulse Resp B/P (MAP) Pulse Ox O2 Delivery O2 Flow Rate FiO2 07/03/24 09:16 100/47 07/03/24 08:38 66 18 99 30 07/03/24 08:00 98.9 98.9 07/03/24 08:00 Mechanical Ventilator+ 07/01/24 18:44 50 Intake/Output Intake and Output 07/03/24 07:00 Intake Total 4584.667 ml Output Total 2790 ml Balance 1794.667 ml Intake Oral 0 ml IV Total 2949.667 ml Blood Product 550 ml Other 1085 ml Output Urine Total 2100 ml Gastric Drainage Total 690 ml General Appearance: moderate distress, Other (Chemically sedated) HEENT: Atraumatic, PERRLA Neck: Carotid [place] Lungs: Clear to auscultation, Normal air movement Cardiovascular: Normal S1, Normal S2 Abdomen: Normal bowel sounds, Soft, Other (NG tube with noted red gastric secretions) Genitourinary: No Apparent Abnormalities (Man[place] catheter) Skin: Wounds (See nurse notes and pictures) Psych/Mental Status: Mental status NL, Mood NL Medications Current Medications Medications Dose Ordered Sig/Maribeth Route Start Time Stop Time Status Last Admin Dose Admin Vancomycin HCl 0 ml @ 0 mls/hr UD IV 07/01/24 06:00 Ondansetron HCl 4 mg Q4HP PRN IV 07/01/24 06:00 Acetaminophen 650 mg Q6HP PRN PO 07/01/24 06:00 Nitroglycerin 0.4 mg Q5MINP PRN SL 07/01/24 06:00 Vasopressin 20 units/Sodium Chloride 100 ml @ 9 mls/hr Q11H7M IV 07/01/24 15:15 07/03/24 09:16 9 MLS/HR Pantoprazole Sodium 50 ml @ 10 mls/hr Q5H IV 07/01/24 15:45 07/03/24 09:16 10 MLS/HR Octreotide Acetate 500 mcg/ Sodium Chloride 100 ml @ 10 mls/hr Q10H IV 07/01/24 15:45 07/03/24 06:27 10 MLS/HR Midazolam HCl 50 ml @ 1 mls/hr Q24H IV 07/01/24 19:30 07/03/24 08:07 8 MLS/HR Fentanyl Citrate 250 ml @ 2.5 mls/hr Q24H IV 07/01/24 19:30 07/03/24 02:59 30 MLS/HR Norepinephrine Bitartrate 250 ml @ 3.75 mls/hr Q24H IV 07/01/24 19:30 07/02/24 05:55 11.25 MLS/HR Folic Acid 1 mg/ Multivitamins 10 ml/Magnesium Sulfate 8 meq/ Thiamine HCl 100 mg/Dextrose 1,013.2 ml @ 125.001 mls/hr DAILY@1800 INJ 07/02/24 18:00 07/02/24 17:58 125.001 MLS/HR Ceftazidime/ Dextrose 1 gm/ Sodium Chloride 50 ml @ 16.667 mls/ hr Q8HR IV 07/02/24 14:00 07/03/24 06:27 16.667 MLS/HR Laboratory Results Laboratory Tests 07/03/24 05:14 Chemistry Test 07/03/24 05:14 Albumin 2.6 g/dL (3.2-4.8) L Calcium Level 8.2 mg/dL (8.7-10.4) L Total Protein 4.7 g/dL (5.7-8.2) L Coagulation Test 07/03/24 05:14 Prothrombin Time 11.5 sec (9.3-11.8) Prothrombin Time INR 1.09 (0.9-1.15) Activated Partial Thromboplast Time 25.1 SEC (24.5-34.5) LFT Test 07/03/24 05:14 Alanine Aminotransferase (ALT) 1448 U/L (7-40) H Alkaline Phosphatase 75 U/L (46-116) Aspartate Amino Transferase (AST) 1351 U/L (13-40) H Total Bilirubin 0.6 mg/dL (0.2-1.0) Urinalysis Test 07/01/24 14:50 Urine Color Yellow (Yellow) Urine Clarity Clear (Clear) Urine pH 5.5 (5.0-9.0) Urine Specific Alfred 1.025 (1.001-1.035) Urine Protein Trace (Negative) H Urine Ketones Negative (Negative) Urine Blood Trace /uL (Negative) H Urine Nitrite Negative (Negative) Urine Bilirubin Negative (Negative) Urine Urobilinogen Normal mg/dL (Negative) Urine Leukocyte Esterase Negative /uL (Negative) Urine RBC 4 /hpf (0 - 3) Urine Microscopic WBC 1 /HPF (0-3) Urine Squamous Epithelial Cells Few /hpf (<5) Urine Bacteria Few /hpf (None Seen) H Urine Hyaline Casts Few /lpf (0 - 2) Urine Mucus Few (None Seen) Urine Glucose Normal mg/dL (Normal) Blood Gas Results Test 07/03/24 07:14 Arterial Blood pH 7.375 (7.350-7.450) FiO2 % 30.0 Microbiology Microbiology Date/Time Source Procedure Growth Status 07/01/24 15:00 Nose MRSA Screen - Final Complete 07/01/24 14:50 Voided Urine Urine Culture - Preliminary Resulted 07/01/24 13:49 Blood Blood Culture - Preliminary NO GROWTH AFTER 24 HOURS OF INCUBATION. Resulted 07/01/24 00:00 Sputum Gram Stain - Final Resulted 07/01/24 00:00 Sputum Respiratory Culture - Preliminary Resulted Labs and/or images reviewed: Labs reviewed by me, Image(s) reviewed by me Assessment/Plan Assessment/Plan Impression: -hemorrhagic shock -probable sepsis secondary to lower extremity cellulitis -polysubstance abuse : Positive for PCP, cocaine, amphetamines -acute respiratory failure with mechanical ventilation -severe anemia from GI bleed -shock liver Plan: Events: Hemodynamically stable. Continues to have blood tinged NG drainage. -GI consultation : Plans for EGD today. -pulmonary consultation -continue with an additional 2 unit PRBC transfusion -continue octreotide as well as Protonix drip -change antibiotic therapy to ceftazidime and vancomycin, probable Pseudomonas in wound -banana bag daily -continue to wean norepinephrine, vasopressin -repeat labs in a.m., H&H this afternoon Critical care time spent with patient discussing and formulating plan of care: 40 minutes. This does not include time spent performing procedures. This medical document was created using an electronic medical record system with [employer] dictation system. Although this document has been carefully reviewed, there may still be some phonetic and typographical errors. These areas are purely typographical due to imperfections of the software programs, and do not reflect any compromise in the patient's medical care. Plan discussed with: Patient, Other (RN) My Orders Orders - BRADY SPARROW NP Procedure Category Date Status Time Communication Order ORDERS 07/02/24 Transmitted 14:47 Cleanse Wound With [place] 07/02/24 In Process Wound Clean 14:52 Apply Z-Guard [place] 07/02/24 In Process 14:52 * Dietary Consult CONS 07/02/24 Transmitted 14:55 Wound Culture W/ Gs VASILE 07/03/24 In Process 06:48 Date of Service: Jul 03, 2024 Billing Provider: BRADY SPARROW NP Common Visit Codes: 03535-OZTINSMA CARE 30-74 MIN BRADY SPARROW NP Jul 03, 2024 09:45
[2024-07-03] MEDS ORDERED: FLUMAZENIL 0.1 MG/ML INJ 10ML MDV IV ONE (11:18)
[2024-07-03] MEDS ORDERED: NALOXONE HCL 0.4 MG/ML VIAL ONE (11:18)
[2024-07-03] MEDS ORDERED: fentaNYL CITRATE 100 MCG/2 ML VL ONE (11:19)
[2024-07-03] MEDS ORDERED: MIDAZOLAM HCL 5 MG/ML-1ML VIAL ONE (11:19)
--- NOTE | 2024-07-03 12:30 | DVHOP2 ---
Operative Report Dr. Stanton DATE OF PROCEDURE: 07/03/24 INDICATIONS FOR THE PROCEDURE: Gi Bleeding PROCEDURE PERFORMED: 1. Esophagogastroduodenoscopy and biopsy POSTOPERATIVE DIAGNOSIS: Large ulcer of the duodenal bulb occupying 3/4 of the duodenal bulb about 3.5 to 4 cms in diameter No gross bleeding at this time with some old clot in the ulcer base cleaned out as much as possible but no large visible vessel or active bleeding seen at this time Huge blood clot in the fundus in the body cleaned out as much as possible grossly no other lesions seen Biopsies taken from the antrum to ensure there is no H pylori No esophageal varices INFORMED CONSENT: The risks and benefits and alternatives were explained to the patient and informed consent was obtained. PROCEDURE IN DETAIL: The patient was kept NPO after midnight. In the ICU procedure was done by the bedsid patient was already sedated and intubated . Olympus gastroscope was passed through the oropharynx into the stomach and the duodenum, and the findings were as follows. Esophagus: No esophagitis no varices no ulcers no bleeding Stomach: Fundus: Huge blood clot in the fundus and the upper body cleaned out as much as possible with no gross bleeding seen no other lesions seen grossly but examination is suboptimal because of the heat clot Body and antrum normal biopsies taken rule out H pylori Pylorus normal Duodenum Large ulcer of the duodenum of the duodenal bulb occupying 3/4 of the bulb with old clots inside the ulcer deep ulcer clots cleaned out as much as possible no gross bleeding seen and no large visible vessel seen Endoscopic impression Large ulcer of the duodenal bulb occupying 3/4 of the duodenal bulb about 3.5 to 4 cms in diameter No gross bleeding at this time with some old clot in the ulcer base cleaned out as much as possible but no large visible vessel or active bleeding seen at this time Huge blood clot in the fundus in the body cleaned out as much as possible grossly no other lesions seen Biopsies taken from the antrum to ensure there is no H pylori No esophageal varices Suggestions Aggressive treatment with PPIs Continue Sandostatin for now and if no further bleeding in 24 hours can slowly wean off Sandostatin and continue with the PPIs If Bleeding severe may need angiogram and radiological intervention will recommend to avoid anticoagulants if possible Thank you for asking me to take part in the care of this pleasant patient MAYANK Gómez MD Jul 03, 2024 12:30
[2024-07-03 14:26] LABS: Hematocrit 21.6 % (41.0-53.0); Hemoglobin 7.2 g/dL (13.5-17.5)
--- NOTE | 2024-07-03 16:56 | DVH ---
Exam: CT HEAD WITHOUT CONTRAST History: S/P POSSIBLE FALL Technique: [address] images through the posterior fossa and the supratentorial compart ment were acquired without contrast and imaged using soft tissue and bone algorithms. RADIATION DOSE: DLP 1160.78 mGy.cm; CTDI vol 58.91 mGy. Comparison: CT CHEST WITHOUT CONTRAST on DOS: 07/01/24 Findings: There is no evidence of an intracranial hemorrhage, acute large vessel infarct, mass effect, or midli ne shift. There is mild cerebral atrophy. Moderate calcification of the carotid siphons. Mucoperiosteal thickening of the ethmoid and maxillary sinuses. The calvarium, orbits, remaining para nasal sinuses, sella, middle ears, and mastoids are unremarkable. The superficial soft tissues are within normal limits. Impression: 1. No acute intracranial abnormality. 2. Ethmoid and maxillary sinus disease.
--- NOTE | 2024-07-03 17:16 | DVH ---
EXAM: CT CT ANGIO CHEST CONTRAST History: ELEVATED D-DIMER; POSSIBLE PE Comparison Study: None available TECHNIQUE: A digital mechanical system technician image was obtained. During the uneventful, intravenous administration of c ontrast material, multislice data acquisition was obtained through the chest. 3-D postprocessing is performed by technologist including MIP imaging Radiation Dose : CTDI vol 20.01 mGy, DLP 781.15 mGy*cm. Findings: Lungs: Dependent atelectasis. Pleura: Unremarkable Heart/Great vessels: No cardiomegaly or pericardial effusion. No pulmonary embolism, aneurysm, or dis section. Mediastinum: Unremarkable Soft tissues/Bones: Unremarkable Splenic hemangioma. Enteric tube terminates in the distal esophagus. The partially visualized upper a bdomen is within normal limits. Impression: 1. No evidence of a pulmonary embolism, aneurysm, or dissection. 2. Enteric tube terminates in the distal esophagus. Recommend advancing 5.0 cm for more optimal posit ioning.
[2024-07-03] MEDS: VANCOMYCIN 1.75GM/350ML 350 ML IV SCH (19:13)
--- NOTE | 2024-07-03 21:38 | DVHPN2 ---
Progress Note - Dictate Date Seen: Jul 03, 2024 Has the PT tested + for MRSA If YES, has PT been informed?: No Medical Necessity Reason Pt with a Central, PICC or Fol: Yes The following are medically ne: Central Line, Barrow Catheter Reason for barrow catheter: Strict I&O Subjective Patient seen and examined at bedside. Sedated, intubated on mechanical ventilator. Overnight events reviewed. vital signs Vital Sign Date Time Temp Pulse Resp B/P (MAP) Pulse Ox O2 Delivery O2 Flow Rate FiO2 07/03/24 21:09 65 18 89/41 (57) 100 30 07/03/24 20:00 97.2 97.2 07/03/24 18:00 Mechanical Ventilator+ 07/01/24 18:44 50 Total Intake and Output 07/02/24 07/02/24 07/03/24 15:00 23:00 07:00 Intake Total 1732.00 ml 1853.00 ml 999.667 ml Output Total 1190 ml 1600 ml Balance 1732.00 ml 663.00 ml -600.333 ml medications Current Medications Medications Dose Ordered Sig/Maribeth Route Start Time Stop Time Status Last Admin Dose Admin Vancomycin HCl 0 ml @ 0 mls/hr UD IV 07/01/24 06:00 Ondansetron HCl 4 mg Q4HP PRN IV 07/01/24 06:00 Acetaminophen 650 mg Q6HP PRN PO 07/01/24 06:00 Nitroglycerin 0.4 mg Q5MINP PRN SL 07/01/24 06:00 Vasopressin 20 units/Sodium Chloride 100 ml @ 9 mls/hr Q11H7M IV 07/01/24 15:15 07/03/24 09:16 9 MLS/HR Pantoprazole Sodium 50 ml @ 10 mls/hr Q5H IV 07/01/24 15:45 07/03/24 20:29 10 MLS/HR Octreotide Acetate 500 mcg/ Sodium Chloride 100 ml @ 10 mls/hr Q10H IV 07/01/24 15:45 07/03/24 19:13 10 MLS/HR Midazolam HCl 50 ml @ 1 mls/hr Q24H IV 07/01/24 19:30 07/03/24 18:55 4 MLS/HR Fentanyl Citrate 250 ml @ 2.5 mls/hr Q24H IV 07/01/24 19:30 07/03/24 12:26 17.5 MLS/HR Norepinephrine Bitartrate 250 ml @ 3.75 mls/hr Q24H IV 07/01/24 19:30 07/03/24 10:49 11.25 MLS/HR Folic Acid 1 mg/ Multivitamins 10 ml/Magnesium Sulfate 8 meq/ Thiamine HCl 100 mg/Dextrose 1,013.2 ml @ 125.001 mls/hr DAILY@1800 INJ 07/02/24 18:00 07/03/24 18:03 125.001 MLS/HR Ceftazidime/ Dextrose 1 gm/ Sodium Chloride 50 ml @ 16.667 mls/ hr Q8HR IV 07/02/24 14:00 07/03/24 15:16 16.667 MLS/HR Vancomycin HCl 350 ml @ 200 mls/hr Q24H IV 07/03/24 19:00 07/03/24 19:13 200 MLS/HR objective Gen.: Patient lying in bed in medical ICU. Sedated, intubated on mechanical ventilator. Head: Normocephalic, atraumatic. Eyes: PERRLA. Ears: Normal external anatomy. Throat: Endotracheal tube and orogastric tube in place. Neck: Supple, trachea midline. Chest: Transmitted breath sounds bilaterally. Decreased air entry bilaterally. No wheezing. Bibasilar crackles. Cardiovascular: Positive S1, positive S2. Regular rate and rhythm. Abdomen: Positive bowel sounds in all 4 quadrants. Soft, nontender, nondistended. : Barrow in place. Normal external genitalia. Rectal: Deferred. Skin: Warm, dry. Intact. Extremities: 2+ radial pulses bilaterally. No lower extremity edema. Neuro: Sedated. laboratory and microbiology Laboratory Tests 07/03/24 14:00 07/03/24 05:14 Test 07/03/24 05:14 Range/Units Serum Glucose 127 H 74-106 mg/dL Assessment/Plan Impression: Acute hypoxic respiratory failure On mechanical ventilator GI hemorrhage Hemorrhagic shock Substance abuse Bilateral lower extremity wounds Events: Remains on vent support On assist control with respiratory rate of 18, tidal volume 500, PEEP of 5, FiO2 at 30% Improved FIO2 requirements. Patient is s/p EGD - findings of duodenal ulcer. Sedated on Versed, Fentanyl On pressors for hemodynamic support. Levophed 2 mcg/min, vasopressin 0.03 units/min Titrate to keep MAP above 65 mmHg/SBP above 90 mmHg. ABG reviewed, compensated. On Sandostatin drip Protonix drip S/p 2 units PRBC yesterday Monitor hemoglobin Taper sedation as tolerated CPAP in AM. IV fluids with banana bag. Wound care. Labs and imaging reviewed. Rest of plan as noted below. Plan: s/p intubation on mechanical ventilator CXR image and report reviewed. On assist control with respiratory rate of 18, tidal volume 500, PEEP of 5, FiO2 at 30% Titrate FIO2 to keep O2 saturation above 92%. VAP bundle Daily ABG and CXR while intubated. Sedate for ventilatory synchrony On pressors for hemodynamic support. Titrate to keep MAP above 65 mmHg/SBP above 90 mmHg. Continue antibiotics. F/u cultures. Monitor renal function. Monitor electrolytes. Supplement as necessary. Monitor ins and outs. Monitor hemoglobin Follow up GI recommendations Nutritional support. Accucheks, ISS. GI/DVT prophylaxis. Condition: Critical Prognosis: Poor given multiple comorbidities. Rest of plan per hospitalist and other consultants. A total of 35 minutes of critical care time was spent reviewing the patient record, examining the patient, making a diagnostic and therapeutic plan, discussing this plan with the medical personnel, following up on diagnostic studies and following the patient for clinical stability excluding any and all procedures. At least 50% of this time was spent in direct, [id number] contact. Thank you Dr. Shine Kumar for allowing me to participate in this patient's care. Further recommendations will depend on patient's clinical course. Please do not hesitate to contact me if you have any questions or concerns. This medical document was created using an electronic medical record system with [employer] dictation system. Although this document has been carefully reviewed, there may still be some phonetic and typographical errors. These areas are purely typographical due to imperfections of the software programs, and do not reflect any compromise in the patient's medical care. Dietary Evaluation Review Comments: 1.Consider advancing to PO diet once medically appropriate 2.Consider PN if NPO >7 if GI issues dont resolve 3.Consider beth BID (180kcal, 5 pro) Expected Outcomes/Goals: 1. Pt will consume >75% pt estimated meeds within 2-3 days Plan discussed with: Other (KAJAL Gonzalez) Critical Care Time(min): 35 FABIAN,YOSI M MD Jul 03, 2024 21:38
[2024-07-04] VITALS (110 sets, daily range): BP systolic 80–133; BP diastolic 37–104; PULSE 68–108; RESP 14–20; TEMP 98–99.9; O2SAT 92–100
--- NOTE | 2024-07-04 05:17 | DVH ---
CHEST RADIOGRAPH Indication: Intubated Technique: Single frontal view of the chest was obtained Comparison: XY CHEST PORTABLE on DOS: 07/03/24 FINDINGS: Lines and Tubes: Enteric tube is shallow in position terminating in the distal esophagus similar to p rior study. Right central venous catheter terminates in the right atrium. Lungs: Improved aeration since prior study. No focal consolidation. Pleura: No effusion. No pneumothorax. Cardiomediastinal contours: Unremarkable Bones: No acute osseous abnormality. IMPRESSION: 1. Enteric tube terminates in the distal esophagus. Advancement is again recommended. 2. Improved aeration since prior study. No focal airspace disease.
--- NOTE | 2024-07-04 08:05 | DVHPN2 ---
Subjective Patient chemically sedated Reviewed: Care Plan, H&P, Labs, Medications, Previous Orders, Radiology Changes from previous H/P or p: No Changes General: Per HPI Eyes: No Pain, No Vision change, No Conjunctivae inflammation, No Eyelid inflammation, No Other, No Redness ENT: No Ear pain, No Ear discharge, No Nose pain, No Nose discharge, No Nose congestion, No Mouth pain, No Mouth swelling, No Throat pain, No Throat swelling, No Other Cardiovascular: No Chest Pain, No Palpitations, No Orthopnea, No Paroxysmal Noc. Dyspnea, No Edema, No Lt Headedness, No Other Respiratory: No Cough, No Dry, No Shortness of breath, No SOB with excertion, No Wheezing, No Hemoptysis, No Pleuritic Pain, No Sputum, No Other Gastrointestinal: No Nausea, No Vomiting, No Abdominal Pain, No Diarrhea, No Constipation, No Melena, No Hematochezia, No Other Genitourinary: No Dysuria, No Frequency, No Incontinence, No Hematuria, No Retention, No Other Musculoskeletal: No other, No neck pain, No shoulder pain, No arm pain, No back pain, No hand pain, No leg pain, No foot pain Skin: No Rash, No Lesions, No Jaundice, No Bruising; Other (Bilateral legs wou nd) Objective Vitals Vital Signs Date Time Temp Pulse Resp B/P (MAP) Pulse Ox O2 Delivery O2 Flow Rate FiO2 07/04/24 07:42 103/51 07/04/24 07:00 89 18 100 07/04/24 06:29 30 07/04/24 06:00 Mechanical Ventilator+ 07/04/24 04:00 99.0 99.0 Intake/Output Intake and Output 07/04/24 07:00 Intake Total 2698.334 ml Output Total 2235 ml Balance 463.334 ml Intake Oral 0 ml IV Total 2698.334 ml Output Urine Total 2100 ml Gastric Drainage Total 135 ml General Appearance: moderate distress, Other (Chemically sedated) HEENT: Atraumatic, PERRLA Neck: Carotid Bruits [place] Lungs: Clear to auscultation, Normal air movement Cardiovascular: Normal S1, Normal S2 Abdomen: Normal bowel sounds, Soft, Other (NG tube with noted red gastric secretions) Genitourinary: No Apparent Abnormalities (Manning catheter) Skin: Wounds (See nurse notes and pictures) Psych/Mental Status: Mental status NL, Mood NL Medications Current Medications Medications Dose Ordered Sig/Maribeth Route Start Time Stop Time Status Last Admin Dose Admin Vancomycin HCl 0 ml @ 0 mls/hr UD IV 07/01/24 06:00 Ondansetron HCl 4 mg Q4HP PRN IV 07/01/24 06:00 Acetaminophen 650 mg Q6HP PRN PO 07/01/24 06:00 Nitroglycerin 0.4 mg Q5MINP PRN SL 07/01/24 06:00 Vasopressin 20 units/Sodium Chloride 100 ml @ 9 mls/hr Q11H7M IV 07/01/24 15:15 07/04/24 07:42 9 MLS/HR Pantoprazole Sodium 50 ml @ 10 mls/hr Q5H IV 07/01/24 15:45 07/04/24 05:37 10 MLS/HR Octreotide Acetate 500 mcg/ Sodium Chloride 100 ml @ 10 mls/hr Q10H IV 07/01/24 15:45 07/04/24 05:37 10 MLS/HR Midazolam HCl 50 ml @ 1 mls/hr Q24H IV 07/01/24 19:30 07/03/24 18:55 4 MLS/HR Fentanyl Citrate 250 ml @ 2.5 mls/hr Q24H IV 07/01/24 19:30 07/04/24 01:24 10 MLS/HR Norepinephrine Bitartrate 250 ml @ 3.75 mls/hr Q24H IV 07/01/24 19:30 07/03/24 10:49 11.25 MLS/HR Folic Acid 1 mg/ Multivitamins 10 ml/Magnesium Sulfate 8 meq/ Thiamine HCl 100 mg/Dextrose 1,013.2 ml @ 125.001 mls/hr DAILY@1800 INJ 07/02/24 18:00 07/03/24 18:03 125.001 MLS/HR Ceftazidime/ Dextrose 1 gm/ Sodium Chloride 50 ml @ 16.667 mls/ hr Q8HR IV 07/02/24 14:00 07/04/24 05:37 16.667 MLS/HR Vancomycin HCl 350 ml @ 200 mls/hr Q24H IV 07/03/24 19:00 07/03/24 19:13 200 MLS/HR Dexmedetomidine HCl 400 mcg/ Dextrose 100 ml @ 3.905 mls/ hr Q24H IV 07/04/24 07:30 Laboratory Results Chemistry Test 07/04/24 05:09 Albumin Pending Calcium Level Pending Total Protein Pending LFT Test 07/04/24 05:09 Alanine Aminotransferase (ALT) Pending Alkaline Phosphatase Pending Aspartate Amino Transferase (AST) Pending Total Bilirubin Pending Urinalysis Test 07/01/24 14:50 Urine Color Yellow (Yellow) Urine Clarity Clear (Clear) Urine pH 5.5 (5.0-9.0) Urine Specific [place] 1.025 (1.001-1.035) Urine Protein Trace (Negative) H Urine Ketones Negative (Negative) Urine Blood Trace /uL (Negative) H Urine Nitrite Negative (Negative) Urine Bilirubin Negative (Negative) Urine Urobilinogen Normal mg/dL (Negative) Urine Leukocyte Esterase Negative /uL (Negative) Urine RBC 4 /hpf (0 - 3) Urine Microscopic WBC 1 /HPF (0-3) Urine Squamous Epithelial Cells Few /hpf (<5) Urine Bacteria Few /hpf (None Seen) H Urine Hyaline Casts Few /lpf (0 - 2) Urine Mucus Few (None Seen) Urine Glucose Normal mg/dL (Normal) Microbiology Microbiology Date/Time Source Procedure Growth Status 07/01/24 15:00 Nose MRSA Screen - Final Complete 07/01/24 14:50 Voided Urine Urine Culture - Preliminary Resulted 07/01/24 13:49 Blood Blood Culture - Preliminary NO GROWTH AFTER 48 HOURS OF INCUBATION. Resulted 07/01/24 00:00 Sputum Gram Stain - Final Complete 07/01/24 00:00 Respiratory Culture - Final Citrobacter koseri Complete Labs and/or images reviewed: Labs reviewed by me, Image(s) reviewed by me Assessment/Plan Assessment/Plan Impression: -hemorrhagic shock -probable sepsis secondary to lower extremity cellulitis -polysubstance abuse : Positive for PCP, cocaine, amphetamines -acute respiratory failure with mechanical ventilation -severe anemia from GI bleed -shock liver Plan: Events: Hemodynamically stable. Patient had EGD with no active bleeding. Large duodenal bulb ulcer. CPAP trial today. Wean vasopressors. H&H pending, we will provide blood product transfusion as needed. Plan to stop octreotide and Protonix drip after extubation. -GI consultation : Plans for EGD today. -pulmonary consultation -continue octreotide as well as Protonix drip -change antibiotic therapy to ceftazidime and vancomycin, probable Pseudomonas in wound -banana bag daily -continue to wean norepinephrine, vasopressin -repeat labs in a.m. Critical care time spent with patient discussing and formulating plan of care: 40 minutes. This does not include time spent performing procedures. This medical document was created using an electronic medical record system with [employer] dictation system. Although this document has been carefully reviewed, there may still be some phonetic and typographical errors. These areas are purely typographical due to imperfections of the software programs, and do not reflect any compromise in the patient's medical care. Plan discussed with: Patient, Other (RN) My Orders Orders - BRADY SPARROW NP Procedure Category Date Status Time D5w 5% (Dextrose 5%) PHA 07/04/24 In Process W/Dexmedetomidine 07:30 Date of Service: Jul 04, 2024 Billing Provider: BRADY SPARROW NP Common Visit Codes: [id number] CARE 30-74 MIN BRADY SPARROW NP Jul 04, 2024 08:05
[2024-07-04 09:37] LABS: Basophils # (auto) 0 10 ^3/uL (0-0.2); Basophils % (auto) 0.4 % (0.0-2.0); Eosinophils # (auto) 0.2 10 ^3/uL (0-0.8); Neutrophils # (auto) 9.9 10 ^3/uL (1.6-8.6); White Blood Cell 12.5 10^3/uL (4.4-10.8)
[2024-07-04 09:40] LABS: Eosinophils % (auto) 1.3 % (0.0-7.0); Hematocrit 17.5 % (41.0-53.0); Lymphocytes # (auto) 0.9 10 ^3/uL (0.4-5.4); Lymphocytes % (auto) 7.1 % (10.0-50.0); Mean Corpuscular Hgb Conc. 32.2 g/dL (32.0-36.0); Mean Corpuscular Volume 89.9 fL (80.0-100.0); Monocytes # (auto) 1.5 10 ^3/uL (0-1.3); Monocytes % (auto) 11.8 % (0.0-12.0); Neutrophils % (auto) 79.4 % (37.0-80.0); Nucleated Red Blood Cells % 0.7 %; Platelet Count (auto) 280 10^3/uL (140-450); Red Blood Cells 1.95 10^6/uL (4.5-5.90); Red Cell Distribution Width 15.7 % (11.8-14.3)
[2024-07-04 09:42] LABS: Anion Gap 4 (5-15)
[2024-07-04 09:47] LABS: BUN/Creatinine Ratio 29.3 (10.0-20.0)
[2024-07-04 09:50] LABS: Albumin 2.6 g/dL (3.2-4.8); Alkaline Phosphatase 76 U/L (46-116); Aspartate Aminotransferase 880 U/L (13-40); Bilirubin, Total 0.4 mg/dL (0.2-1.0); Blood Urea Nitrogen 22 mg/dL (9-23); Calcium 8.3 mg/dL (8.7-10.4); Carbon Dioxide 26 mmol/L (20-31); Chloride 108 mmol/L (98-107); Glucose 145 mg/dL (74-106); Potassium 4.5 mmol/L (3.5-5.1); Sodium 138 mmol/L (136-145); Total Protein 4.7 g/dL (5.7-8.2)
[2024-07-04 10:22] LABS: Alanine Aminotransferase 1275 U/L (7-40)
[2024-07-04 10:24] LABS: Hemoglobin 5.6 g/dL (13.5-17.5)
[2024-07-04 10:48] LABS: Hypochromia Slight; Platelet Estimate Adequate
[2024-07-04 10:56] LABS: Base Excess 0.5 mmol/L (-2.0-3.0)
[2024-07-04] MEDS: IOHEXOL 350 MG/ML 100ML IJ ONE (19:40)
--- NOTE | 2024-07-04 22:25 | DVHPN2 ---
Progress Note - Dictate Date Seen: Jul 04, 2024 Has the PT tested + for MRSA If YES, has PT been informed?: No Medical Necessity Reason Pt with a Central, PICC or Fol: Yes The following are medically ne: Central Line, Barrow Catheter Reason for barrow catheter: Strict I&O Subjective Patient seen and examined at bedside. Sedated, intubated on mechanical ventilator. Overnight events reviewed. vital signs Vital Sign Date Time Temp Pulse Resp B/P (MAP) Pulse Ox O2 Delivery O2 Flow Rate FiO2 07/04/24 20:30 91 18 133/104 (114) 100 30 07/04/24 20:00 99.9 99.9 07/04/24 20:00 Mechanical Ventilator+ Total Intake and Output 07/03/24 07/03/24 07/04/24 15:00 23:00 07:00 Intake Total 517.00 ml 1411.834 ml 769.500 ml Output Total 1085 ml 1150 ml Balance 517.00 ml 326.834 ml -380.500 ml medications Current Medications Medications Dose Ordered Sig/Maribeth Route Start Time Stop Time Status Last Admin Dose Admin Ondansetron HCl 4 mg Q4HP PRN IV 07/01/24 06:00 Acetaminophen 650 mg Q6HP PRN PO 07/01/24 06:00 Nitroglycerin 0.4 mg Q5MINP PRN SL 07/01/24 06:00 Vasopressin 20 units/Sodium Chloride 100 ml @ 9 mls/hr Q11H7M IV 07/01/24 15:15 07/04/24 07:42 9 MLS/HR Pantoprazole Sodium 50 ml @ 10 mls/hr Q5H IV 07/01/24 15:45 07/04/24 18:23 10 MLS/HR Octreotide Acetate 500 mcg/ Sodium Chloride 100 ml @ 10 mls/hr Q10H IV 07/01/24 15:45 07/04/24 16:50 10 MLS/HR Midazolam HCl 50 ml @ 1 mls/hr Q24H IV 07/01/24 19:30 07/04/24 12:22 4 MLS/HR Fentanyl Citrate 250 ml @ 2.5 mls/hr Q24H IV 07/01/24 19:30 07/04/24 01:24 10 MLS/HR Norepinephrine Bitartrate 250 ml @ 3.75 mls/hr Q24H IV 07/01/24 19:30 07/03/24 10:49 11.25 MLS/HR Folic Acid 1 mg/ Multivitamins 10 ml/Magnesium Sulfate 8 meq/ Thiamine HCl 100 mg/Dextrose 1,013.2 ml @ 125.001 mls/hr DAILY@1800 INJ 07/02/24 18:00 07/04/24 18:22 125.001 MLS/HR Ceftazidime/ Dextrose 1 gm/ Sodium Chloride 50 ml @ 16.667 mls/ hr Q8HR IV 07/02/24 14:00 07/04/24 21:49 16.667 MLS/HR Dexmedetomidine HCl 400 mcg/ Dextrose 100 ml @ 3.905 mls/ hr Q24H IV 07/04/24 07:30 objective Gen.: Patient lying in bed in medical ICU. Sedated, intubated on mechanical ventilator. Head: Normocephalic, atraumatic. Eyes: PERRLA. Ears: Normal external anatomy. Throat: Endotracheal tube and orogastric tube in place. Neck: Supple, trachea midline. Chest: Transmitted breath sounds bilaterally. Decreased air entry bilaterally. No wheezing. Bibasilar crackles. Cardiovascular: Positive S1, positive S2. Regular rate and rhythm. Abdomen: Positive bowel sounds in all 4 quadrants. Soft, nontender, nondistended. : Barrow in place. Normal external genitalia. Rectal: Deferred. Skin: Warm, dry. Intact. Extremities: 2+ radial pulses bilaterally. No lower extremity edema. Neuro: Sedated. laboratory and microbiology Laboratory Tests 07/04/24 09:05 Test 07/04/24 09:05 Range/Units Serum Glucose 145 H 74-106 mg/dL Assessment/Plan Impression: Acute hypoxic respiratory failure On mechanical ventilator GI hemorrhage Hemorrhagic shock Substance abuse Bilateral lower extremity wounds Events: Remains on vent support On assist control with respiratory rate of 18, tidal volume 500, PEEP of 5, FiO2 at 30% Low hemoglobin - 5.6 g/dL S/p 2 units PRBC Continue to monitor hemoglobin Sedated on Versed, Fentanyl Off pressors, hemodynamically stable. Held CPAP due to low hemoglobin. ABG reviewed, compensated. On Sandostatin drip Protonix drip Continue antibiotics Taper sedation as tolerated SBT/ ELI IV fluids with banana bag. Wound care. Labs and imaging reviewed. Rest of plan as noted below. Plan: s/p intubation on mechanical ventilator CXR image and report reviewed. On assist control with respiratory rate of 18, tidal volume 500, PEEP of 5, FiO2 at 30% Titrate FIO2 to keep O2 saturation above 92%. VAP bundle Daily ABG and CXR while intubated. Sedate for ventilatory synchrony Pressors if necessary for hemodynamic support. Titrate to keep MAP above 65 mmHg/SBP above 90 mmHg. Continue antibiotics. F/u cultures. Monitor renal function. Monitor electrolytes. Supplement as necessary. Monitor ins and outs. Patient is s/p EGD - findings of duodenal ulcer. Monitor hemoglobin GI recommendations appreciated Nutritional support. Accucheks, ISS. GI/DVT prophylaxis. Condition: Critical Prognosis: Poor given multiple comorbidities. Rest of plan per hospitalist and other consultants. A total of 35 minutes of critical care time was spent reviewing the patient record, examining the patient, making a diagnostic and therapeutic plan, discussing this plan with the medical personnel, following up on diagnostic studies and following the patient for clinical stability excluding any and all procedures. At least 50% of this time was spent in direct, [id number] contact. Thank you Dr. Shine Kumar for allowing me to participate in this patient's care. Further recommendations will depend on patient's clinical course. Please do not hesitate to contact me if you have any questions or concerns. This medical document was created using an electronic medical record system with [employer] dictation system. Although this document has been carefully reviewed, there may still be some phonetic and typographical errors. These areas are purely typographical due to imperfections of the software programs, and do not reflect any compromise in the patient's medical care. Dietary Evaluation Review Comments: 1.Consider advancing to PO diet once medically appropriate 2.Consider PN if NPO >7 if GI issues dont resolve 3.Consider beth BID (180kcal, 5 pro) Expected Outcomes/Goals: 1. Pt will consume >75% pt estimated meeds within 2-3 days Plan discussed with: Other (KAJAL Gonzalez) Critical Care Time(min): 35 YOSI FABIAN MD Jul 04, 2024 22:25
[2024-07-05] VITALS (90 sets, daily range): BP systolic 70–155; BP diastolic 15–90; PULSE 80–118; RESP 12–27; TEMP 97–99.4; O2SAT 89–100
[2024-07-05 05:23] LABS: Basophils # (auto) 0.1 10 ^3/uL (0-0.2); Hemoglobin 7.3 g/dL (13.5-17.5); Monocytes # (auto) 1.7 10 ^3/uL (0-1.3); Neutrophils # (auto) 12.2 10 ^3/uL (1.6-8.6); Red Blood Cells 2.56 10^6/uL (4.5-5.90)
[2024-07-05 05:26] LABS: Basophils % (auto) 0.6 % (0.0-2.0); Eosinophils # (auto) 0.2 10 ^3/uL (0-0.8); Eosinophils % (auto) 1.5 % (0.0-7.0); Lymphocytes # (auto) 1.1 10 ^3/uL (0.4-5.4); Lymphocytes % (auto) 6.9 % (10.0-50.0); Mean Corpuscular Hemoglobin 28.5 pg (28.0-32.0); Mean Corpuscular Hgb Conc. 33.1 g/dL (32.0-36.0); Mean Corpuscular Volume 86.2 fL (80.0-100.0); Monocytes % (auto) 11.3 % (0.0-12.0); Neutrophils % (auto) 79.7 % (37.0-80.0); Nucleated Red Blood Cells % 0.8 %; Platelet Count (auto) 301 10^3/uL (140-450); White Blood Cell 15.3 10^3/uL (4.4-10.8)
[2024-07-05 05:34] LABS: Alkaline Phosphatase 79 U/L (46-116); Anion Gap 7 (5-15); BUN/Creatinine Ratio 39.3 (10.0-20.0); Blood Urea Nitrogen 22 mg/dL (9-23); Carbon Dioxide 27 mmol/L (20-31); Potassium 3.9 mmol/L (3.5-5.1); Sodium 142 mmol/L (136-145)
[2024-07-05 05:35] LABS: Bilirubin, Total 0.4 mg/dL (0.2-1.0)
[2024-07-05 05:46] LABS: Alanine Aminotransferase 891 U/L (7-40); Albumin 2.7 g/dL (3.2-4.8); Aspartate Aminotransferase 394 U/L (13-40); Calcium 8.5 mg/dL (8.7-10.4); Chloride 108 mmol/L (98-107); Glucose 134 mg/dL (74-106); Total Protein 5.1 g/dL (5.7-8.2)
--- NOTE | 2024-07-05 05:48 | DVH ---
EXAM: XR Cervical Spine, 6 or More Views CLINICAL INDICATION: NG TUBE PLACEMENT TECHNIQUE: Frontal, lateral, oblique and flexion/extension views of the cervical spine. COMPARISON: XY CHEST PORTABLE on DOS: 07/04/24, XY CHEST PORTABLE on DOS: 07/03/24, XY CHEST PORTABLE o n DOS: 07/02/24, XY CHEST PORTABLE on DOS: 07/01/24, XY CHEST XRAY 1 VIEW on DOS: 07/01/24 FINDINGS: VERTEBRAE: Unremarkable. No acute fracture. Normal alignment. No instability. DISC SPACES: No acute findings. No significant narrowing. SOFT TISSUES: Unremarkable. LUNG APICES: Pulmonary venous congestion. TUBES, LINES AND DEVICES: Enteric tube tip in the stomach. The endotracheal tube (ETT) is in [employer] position. Right-sided central venous catheter with the distal tip in the SVC. OTHER FINDINGS: . IMPRESSION: Pulmonary venous congestion.
[2024-07-05 07:18] LABS: Base Excess -0.4 mmol/L (-2.0-3.0)
[2024-07-05] MEDS ORDERED: VANCOMYCIN PER PHARMACY 0 MG IV SCH (08:15)
[2024-07-05] MEDS: VANCOMYCIN 1.75GM/350ML 350 ML IV ONE (09:29)
--- NOTE | 2024-07-05 09:33 | DVHPN2 ---
Subjective Patient chemically sedated Reviewed: Care Plan, H&P, Labs, Medications, Previous Orders, Radiology Changes from previous H/P or p: No Changes General: Per HPI Eyes: No Pain, No Vision change, No Conjunctivae inflammation, No Eyelid inflammation, No Other, No Redness ENT: No Ear pain, No Ear discharge, No Nose pain, No Nose discharge, No Nose congestion, No Mouth pain, No Mouth swelling, No Throat pain, No Throat swelling, No Other Cardiovascular: No Chest Pain, No Palpitations, No Orthopnea, No Paroxysmal Noc. Dyspnea, No Edema, No Lt Headedness, No Other Respiratory: No Cough, No Dry, No Shortness of breath, No SOB with excertion, No Wheezing, No Hemoptysis, No Pleuritic Pain, No Sputum, No Other Gastrointestinal: No Nausea, No Vomiting, No Abdominal Pain, No Diarrhea, No Constipation, No Melena, No Hematochezia, No Other Genitourinary: No Dysuria, No Frequency, No Incontinence, No Hematuria, No Retention, No Other Musculoskeletal: No other, No neck pain, No shoulder pain, No arm pain, No back pain, No hand pain, No leg pain, No foot pain Skin: No Rash, No Lesions, No Jaundice, No Bruising; Other (Bilateral legs wound) Objective Vitals Vital Signs Date Time Temp Pulse Resp B/P (MAP) Pulse Ox O2 Delivery O2 Flow Rate FiO2 07/05/24 08:30 90 18 133/59 (83) 100 30 07/05/24 08:00 Mechanical Ventilator+ 07/05/24 08:00 98.3 98.3 Intake/Output Intake and Output 07/05/24 07:00 Intake Total 2875.033 ml Output Total 2170 ml Balance 705.033 ml IV Total 2025.033 ml Blood Product 550 ml Other 300 ml Output Urine Total 2050 ml Gastric Drainage Total 120 ml # Bowel Movements 1 General Appearance: moderate distress, Other (Chemically sedated) HEENT: Atraumatic, PERRLA Neck: Carotid Bruits [place] Lungs: Clear to auscultation, Normal air movement Cardiovascular: Normal S1, Normal S2 Abdomen: Normal bowel sounds, Soft, Other (NG tube with noted red gastric secretions) Genitourinary: No Apparent Abnormalities (Man[place] catheter) Skin: Wounds (See nurse notes and pictures) Psych/Mental Status: Mental status NL, Mood NL Medications Current Medications Medications Dose Ordered Sig/Maribeth Route Start Time Stop Time Status Last Admin Dose Admin Ondansetron HCl 4 mg Q4HP PRN IV 07/01/24 06:00 Acetaminophen 650 mg Q6HP PRN PO 07/01/24 06:00 Nitroglycerin 0.4 mg Q5MINP PRN SL 07/01/24 06:00 Vasopressin 20 units/Sodium Chloride 100 ml @ 9 mls/hr Q11H7M IV 07/01/24 15:15 07/04/24 07:42 9 MLS/HR Pantoprazole Sodium 50 ml @ 10 mls/hr Q5H IV 07/01/24 15:45 07/05/24 06:16 10 MLS/HR Octreotide Acetate 500 mcg/ Sodium Chloride 100 ml @ 10 mls/hr Q10H IV 07/01/24 15:45 07/05/24 03:15 10 MLS/HR Midazolam HCl 50 ml @ 1 mls/hr Q24H IV 07/01/24 19:30 07/05/24 00:28 5 MLS/HR Fentanyl Citrate 250 ml @ 2.5 mls/hr Q24H IV 07/01/24 19:30 07/05/24 02:25 15 MLS/HR Norepinephrine Bitartrate 250 ml @ 3.75 mls/hr Q24H IV 07/01/24 19:30 07/03/24 10:49 11.25 MLS/HR Folic Acid 1 mg/ Multivitamins 10 ml/Magnesium Sulfate 8 meq/ Thiamine HCl 100 mg/Dextrose 1,013.2 ml @ 125.001 mls/hr DAILY@1800 INJ 07/02/24 18:00 07/04/24 18:22 125.001 MLS/HR Ceftazidime/ Dextrose 1 gm/ Sodium Chloride 50 ml @ 16.667 mls/ hr Q8HR IV 07/02/24 14:00 07/05/24 06:16 16.667 MLS/HR Dexmedetomidine HCl 400 mcg/ Dextrose 100 ml @ 3.905 mls/ hr Q24H IV 07/04/24 07:30 Vancomycin HCl 0 ml @ 0 mls/hr UD IV 07/05/24 08:15 Laboratory Results Laboratory Tests 07/05/24 04:58 Chemistry Test 07/05/24 04:58 Albumin 2.7 g/dL (3.2-4.8) L Calcium Level 8.5 mg/dL (8.7-10.4) L Magnesium Level 2.0 mg/dL (1.6-2.6) Total Protein 5.1 g/dL (5.7-8.2) L LFT Test 07/05/24 04:58 Alanine Aminotransferase (ALT) 891 U/L (7-40) H Alkaline Phosphatase 79 U/L (46-116) Aspartate Amino Transferase (AST) 394 U/L (13-40) H Total Bilirubin 0.4 mg/dL (0.2-1.0) Urinalysis Test 07/01/24 14:50 Urine Color Yellow (Yellow) Urine Clarity Clear (Clear) Urine pH 5.5 (5.0-9.0) Urine Specific [place] 1.025 (1.001-1.035) Urine Protein Trace (Negative) H Urine Ketones Negative (Negative) Urine Blood Trace /uL (Negative) H Urine Nitrite Negative (Negative) Urine Bilirubin Negative (Negative) Urine Urobilinogen Normal mg/dL (Negative) Urine Leukocyte Esterase Negative /uL (Negative) Urine RBC 4 /hpf (0 - 3) Urine Microscopic WBC 1 /HPF (0-3) Urine Squamous Epithelial Cells Few /hpf (<5) Urine Bacteria Few /hpf (None Seen) H Urine Hyaline Casts Few /lpf (0 - 2) Urine Mucus Few (None Seen) Urine Glucose Normal mg/dL (Normal) Blood Gas Results Test 07/04/24 10:40 07/05/24 07:03 Arterial Blood pH 7.445 (7.350-7.450) 7.427 (7.350-7.450) FiO2 % 30.0 30.0 Microbiology Microbiology Date/Time Source Procedure Growth Status 07/03/24 09:00 Leg Gram Stain - Final Resulted 07/03/24 09:00 Leg Wound Culture - Preliminary Resulted 07/01/24 14:50 Voided Urine Urine Culture - Final Complete 07/01/24 13:49 Blood Blood Culture - Preliminary NO GROWTH AFTER 72 HOURS OF INCUBATION. Resulted 07/01/24 00:00 Sputum Gram Stain - Final Complete 07/01/24 00:00 Respiratory Culture - Final Citrobacter koseri Complete Labs and/or images reviewed: Labs reviewed by me, Image(s) reviewed by me Assessment/Plan Assessment/Plan Impression: -hemorrhagic shock -probable sepsis secondary to lower extremity cellulitis -polysubstance abuse : Positive for PCP, cocaine, amphetamines -acute respiratory failure with mechanical ventilation -severe anemia from GI bleed -shock liver Plan: Events: Hemodynamically stable. Patient received 2 units PRBCs yesterday. H&H stable today. Reported melena stools, but NG drainage has less bloody secretions. -GI consultation : Continue ER Sandostatin and Protonix drip at this time. -pulmonary consultation: Spontaneous breathing trial today -change antibiotic therapy to ceftazidime and vancomycin, probable Pseudomonas in wound -banana bag daily -continue to wean norepinephrine, vasopressin -repeat labs in a.m. Critical care time spent with patient discussing and formulating plan of care: 40 minutes. This does not include time spent performing procedures. This medical document was created using an electronic medical record system with [employer] dictation system. Although this document has been carefully reviewed, there may still be some phonetic and typographical errors. These areas are purely typographical due to imperfections of the software programs, and do not reflect any compromise in the patient's medical care. Plan discussed with: Patient, Other (RN) My Orders Orders - BRADY SPARROW NP Procedure Category Date Status Time Chest Portable XY 07/05/24 Resulted 04:31 Cpap Trial For Am ORDERS 07/05/24 Transmitted 08:09 Cpap/Sed Vacation Med ORDERS 07/05/24 Transmitted Weaning 08:09 Vancomycin Per PHA 07/05/24 In Process Pharmacy 08:15 Vancomycin PHA 07/05/24 In Process 1.75gm/350ml 08:30 Basic Metabolic Panel LAB 07/06/24 Verified 04:00 Chest Portable XY 07/06/24 Verified 04:00 Complete Blood Count LAB 07/06/24 Verified 04:00 Date of Service: Jul 05, 2024 Billing Provider: BRADY SPARROW NP Common Visit Codes: [id number] CARE 30-74 MIN BRADY SPARROW NP Jul 05, 2024 09:33
[2024-07-05 13:32] LABS: Base Excess 1.6 mmol/L (-2.0-3.0)
[2024-07-05 20:38] LABS: Hematocrit 18.2 % (41.0-53.0)
--- NOTE | 2024-07-05 22:16 | DVHPN2 ---
Progress Note - Dictate Date Seen: Jul 05, 2024 Has the PT tested + for MRSA If YES, has PT been informed?: No Medical Necessity Reason Pt with a Central, PICC or Fol: Yes The following are medically ne: Central Line, Barrow Catheter Reason for barrow catheter: Strict I&O Subjective Patient seen and examined at bedside. Intubated on mechanical ventilator. Overnight events reviewed. vital signs Vital Sign Date Time Temp Pulse Resp B/P (MAP) Pulse Ox O2 Delivery O2 Flow Rate FiO2 07/05/24 21:20 70/15 07/05/24 20:30 110 18 100 07/05/24 20:15 30 07/05/24 20:00 Mechanical Ventilator+ 07/05/24 20:00 97.6 97.6 Total Intake and Output 07/04/24 07/04/24 07/05/24 15:00 23:00 07:00 Intake Total 587.833 ml 1422 ml 865.2 ml Output Total 860 ml 1310 ml Balance 587.833 ml 562 ml -444.8 ml medications Current Medications Medications Dose Ordered Sig/Maribeth Route Start Time Stop Time Status Last Admin Dose Admin Ondansetron HCl 4 mg Q4HP PRN IV 07/01/24 06:00 Acetaminophen 650 mg Q6HP PRN PO 07/01/24 06:00 Nitroglycerin 0.4 mg Q5MINP PRN SL 07/01/24 06:00 Vasopressin 20 units/Sodium Chloride 100 ml @ 9 mls/hr Q11H7M IV 07/01/24 15:15 07/04/24 07:42 9 MLS/HR Pantoprazole Sodium 50 ml @ 10 mls/hr Q5H IV 07/01/24 15:45 07/05/24 17:15 10 MLS/HR Octreotide Acetate 500 mcg/ Sodium Chloride 100 ml @ 10 mls/hr Q10H IV 07/01/24 15:45 07/05/24 08:00 10 MLS/HR Midazolam HCl 50 ml @ 1 mls/hr Q24H IV 07/01/24 19:30 07/05/24 00:28 5 MLS/HR Fentanyl Citrate 250 ml @ 2.5 mls/hr Q24H IV 07/01/24 19:30 07/05/24 02:25 15 MLS/HR Norepinephrine Bitartrate 250 ml @ 3.75 mls/hr Q24H IV 07/01/24 19:30 07/03/24 10:49 11.25 MLS/HR Folic Acid 1 mg/ Multivitamins 10 ml/Magnesium Sulfate 8 meq/ Thiamine HCl 100 mg/Dextrose 1,013.2 ml @ 125.001 mls/hr DAILY@1800 INJ 07/02/24 18:00 07/05/24 18:36 125.001 MLS/HR Ceftazidime/ Dextrose 1 gm/ Sodium Chloride 50 ml @ 16.667 mls/ hr Q8HR IV 07/02/24 14:00 07/05/24 14:23 16.667 MLS/HR Dexmedetomidine HCl 400 mcg/ Dextrose 100 ml @ 3.905 mls/ hr Q24H IV 07/04/24 07:30 Vancomycin HCl 0 ml @ 0 mls/hr UD IV 07/05/24 08:15 Vancomycin HCl 350 ml @ 200 mls/hr Q18H IV 07/06/24 03:00 objective Gen.: Patient lying in bed in medical ICU. Intubated on mechanical ventilator. Head: Normocephalic, atraumatic. Eyes: PERRLA. Ears: Normal external anatomy. Throat: Endotracheal tube and orogastric tube in place. Neck: Supple, trachea midline. Chest: Transmitted breath sounds bilaterally. Decreased air entry bilaterally. No wheezing. Bibasilar crackles. Cardiovascular: Positive S1, positive S2. Regular rate and rhythm. Abdomen: Positive bowel sounds in all 4 quadrants. Soft, nontender, nondistended. : Barrow in place. Normal external genitalia. Rectal: Deferred. Skin: Warm, dry. Intact. Extremities: 2+ radial pulses bilaterally. No lower extremity edema. Neuro: Off sedation laboratory and microbiology Laboratory Tests 07/05/24 20:07 07/05/24 04:58 Test 07/05/24 04:58 Range/Units Serum Glucose 134 H 74-106 mg/dL Assessment/Plan Impression: Acute hypoxic respiratory failure On mechanical ventilator GI hemorrhage Hemorrhagic shock Substance abuse Bilateral lower extremity wounds Events: Patient tolerated CPAP Weaning parameters at goal. Awaiting for mental status to improve. Once awake and alert, can extubate. Monitor hemoglobin - stable. ABG reviewed, compensated. Vent support On assist control with respiratory rate of 18, tidal volume 500, PEEP of 5, FiO2 at 30% Off sedation Off Levophed, hemodynamically stable. On Sandostatin drip Protonix drip Continue antibiotics - on Fortaz IV fluids with banana bag. Wound care. Wound cultures grew Staph aureus. Labs and imaging reviewed. Rest of plan as noted below. Plan: s/p intubation on mechanical ventilator CXR image and report reviewed. On assist control with respiratory rate of 18, tidal volume 500, PEEP of 5, FiO2 at 30% Titrate FIO2 to keep O2 saturation above 92%. VAP bundle Daily ABG and CXR while intubated. Off sedation Pressors if necessary for hemodynamic support. Titrate to keep MAP above 65 mmHg/SBP above 90 mmHg. Continue antibiotics. F/u cultures. Monitor renal function. Monitor electrolytes. Supplement as necessary. Monitor ins and outs. Patient is s/p EGD - findings of duodenal ulcer. Monitor hemoglobin GI recommendations appreciated Nutritional support. Accucheks, ISS. GI/DVT prophylaxis. Condition: Critical Prognosis: Poor given multiple comorbidities. Rest of plan per hospitalist and other consultants. A total of 35 minutes of critical care time was spent reviewing the patient record, examining the patient, making a diagnostic and therapeutic plan, discussing this plan with the medical personnel, following up on diagnostic studies and following the patient for clinical stability excluding any and all procedures. At least 50% of this time was spent in direct, [id number] contact. Thank you Dr. Shine Kumar for allowing me to participate in this patient's care. Further recommendations will depend on patient's clinical course. Please do not hesitate to contact me if you have any questions or concerns. This medical document was created using an electronic medical record system with [employer] dictation system. Although this document has been carefully reviewed, there may still be some phonetic and typographical errors. These areas are purely typographical due to imperfections of the software programs, and do not reflect any compromise in the patient's medical care. Dietary Evaluation Review Comments: 1.Consider advancing to PO diet once medically appropriate 2.Consider PN if NPO >7 if GI issues dont resolve 3.Consider beth BID (180kcal, 5 pro) Expected Outcomes/Goals: 1. Pt will consume >75% pt estimated meeds within 2-3 days Plan discussed with: Other (KAJAL Molina) Critical Care Time(min): 35 YOSI FABIAN MD Jul 05, 2024 22:16
[2024-07-06] VITALS (107 sets, daily range): BP systolic 87–150; BP diastolic 46–81; PULSE 65–101; RESP 14–26; TEMP 97–99.4; O2SAT 93–100
[2024-07-06] MEDS: VANCOMYCIN 1.75GM/350ML 350 ML IV SCH (02:56)
--- NOTE | 2024-07-06 05:17 | DVH ---
EXAM: XR Chest, 1 View CLINICAL INDICATION: pna TECHNIQUE: Frontal view of the chest. COMPARISON: XY CHEST PORTABLE on DOS: 07/05/24, XY CHEST PORTABLE on DOS: 07/04/24, XY CHEST PORTABLE o n DOS: 07/03/24, XY CHEST PORTABLE on DOS: 07/02/24, XY CHEST PORTABLE on DOS: 07/01/24 FINDINGS: LUNGS AND PLEURAL SPACES: Pulmonary venous congestion. No consolidation. No pneumothorax. HEART: Unremarkable. No cardiomegaly. MEDIASTINUM: Unremarkable. Normal mediastinal contour. BONES/JOINTS: Unremarkable. No acute fracture. TUBES, LINES AND DEVICES: Stable tubes and lines. OTHER FINDINGS: . prior 4 . . . .. IMPRESSION: Pulmonary venous congestion.
[2024-07-06 07:58] LABS: Basophils # (auto) 0.1 10 ^3/uL (0-0.2); Eosinophils # (auto) 0.2 10 ^3/uL (0-0.8); Hematocrit 18.6 % (41.0-53.0); Mean Corpuscular Hgb Conc. 32.5 g/dL (32.0-36.0); White Blood Cell 17.2 10^3/uL (4.4-10.8)
[2024-07-06 07:59] LABS: Basophils % (auto) 0.4 % (0.0-2.0); Eosinophils % (auto) 1.3 % (0.0-7.0); Lymphocytes % (auto) 5.8 % (10.0-50.0); Mean Corpuscular Hemoglobin 27.8 pg (28.0-32.0); Mean Corpuscular Volume 85.7 fL (80.0-100.0); Monocytes % (auto) 11.5 % (0.0-12.0); Neutrophils # (auto) 13.9 10 ^3/uL (1.6-8.6); Nucleated Red Blood Cells % 0.8 %; Platelet Count (auto) 200 10^3/uL (140-450); Red Blood Cells 2.17 10^6/uL (4.5-5.90); Red Cell Distribution Width 15.4 % (11.8-14.3)
[2024-07-06 08:14] LABS: Anion Gap 8 (5-15); Carbon Dioxide 21 mmol/L (20-31)
[2024-07-06 08:20] LABS: BUN/Creatinine Ratio 47.1 (10.0-20.0); Blood Urea Nitrogen 16 mg/dL (9-23); INR 1.01 (0.9-1.15); Partial Thromboplastin Time 24.3 SEC (24.5-34.5); Prothrombin Time 10.7 sec (9.3-11.8)
[2024-07-06 08:21] LABS: Calcium 6.3 mg/dL (8.7-10.4); Chloride 117 mmol/L (98-107); Glucose 109 mg/dL (74-106); Sodium 146 mmol/L (136-145)
--- NOTE | 2024-07-06 09:02 | DVHPN2 ---
Subjective Patient chemically sedated Reviewed: Care Plan, H&P, Labs, Medications, Previous Orders, Radiology Changes from previous H/P or p: No Changes General: Per HPI Eyes: No Pain, No Vision change, No Conjunctivae inflammation, No Eyelid inflammation, No Other, No Redness ENT: No Ear pain, No Ear discharge, No Nose pain, No Nose discharge, No Nose congestion, No Mouth pain, No Mouth swelling, No Throat pain, No Throat swelling, No Other Cardiovascular: No Chest Pain, No Palpitations, No Orthopnea, No Paroxysmal Noc. Dyspnea, No Edema, No Lt Headedness, No Other Respiratory: No Cough, No Dry, No Shortness of breath, No SOB with excertion, No Wheezing, No Hemoptysis, No Pleuritic Pain, No Sputum, No Other Gastrointestinal: No Nausea, No Vomiting, No Abdominal Pain, No Diarrhea, No Constipation, No Melena, No Hematochezia, No Other Genitourinary: No Dysuria, No Frequency, No Incontinence, No Hematuria, No Retention, No Other Musculoskeletal: No other, No neck pain, No shoulder pain, No arm pain, No back pain, No hand pain, No leg pain, No foot pain Skin: No Rash, No Lesions, No Jaundice, No Bruising; Other (Bilateral legs wound) Objective Vitals Vital Signs Date Time Temp Pulse Resp B/P (MAP) Pulse Ox O2 Delivery O2 Flow Rate FiO2 07/06/24 08:52 73 20 107/51 (69) 99 30 07/06/24 06:00 Mechanical Ventilator+ 07/06/24 05:26 99.0 99.0 Intake/Output Intake and Output 07/06/24 07:00 Intake Total 3228.618 ml Output Total 2125 ml Balance 1103.618 ml IV Total 2028.618 ml Blood Product 600 ml Other 600 ml Output Urine Total 2125 ml # Bowel Movements 6 General Appearance: moderate distress, Other (Chemically sedated) HEENT: Atraumatic, PERRLA Neck: Carotid Bruits [place] Lungs: Clear to auscultation, Normal air movement Cardiovascular: Normal S1, Normal S2 Abdomen: Normal bowel sounds, Soft, Other (NG tube with noted red gastric secretions) Genitourinary: No Apparent Abnormalities (Manning catheter) Skin: Wounds (See nurse notes and pictures) Psych/Mental Status: Mental status NL, Mood NL Medications Current Medications Medications Dose Ordered Sig/Maribeth Route Start Time Stop Time Status Last Admin Dose Admin Ondansetron HCl 4 mg Q4HP PRN IV 07/01/24 06:00 Acetaminophen 650 mg Q6HP PRN PO 07/01/24 06:00 Nitroglycerin 0.4 mg Q5MINP PRN SL 07/01/24 06:00 Vasopressin 20 units/Sodium Chloride 100 ml @ 9 mls/hr Q11H7M IV 07/01/24 15:15 07/05/24 22:45 9 MLS/HR Pantoprazole Sodium 50 ml @ 10 mls/hr Q5H IV 07/01/24 15:45 07/06/24 08:45 10 MLS/HR Octreotide Acetate 500 mcg/ Sodium Chloride 100 ml @ 10 mls/hr Q10H IV 07/01/24 15:45 07/06/24 02:42 10 MLS/HR Midazolam HCl 50 ml @ 1 mls/hr Q24H IV 07/01/24 19:30 07/05/24 00:28 5 MLS/HR Fentanyl Citrate 250 ml @ 2.5 mls/hr Q24H IV 07/01/24 19:30 07/05/24 02:25 15 MLS/HR Norepinephrine Bitartrate 250 ml @ 3.75 mls/hr Q24H IV 07/01/24 19:30 07/05/24 22:35 7.5 MLS/HR Folic Acid 1 mg/ Multivitamins 10 ml/Magnesium Sulfate 8 meq/ Thiamine HCl 100 mg/Dextrose 1,013.2 ml @ 125.001 mls/hr DAILY@1800 INJ 07/02/24 18:00 07/05/24 18:36 125.001 MLS/HR Ceftazidime/ Dextrose 1 gm/ Sodium Chloride 50 ml @ 16.667 mls/ hr Q8HR IV 07/02/24 14:00 07/06/24 06:14 16.667 MLS/HR Dexmedetomidine HCl 400 mcg/ Dextrose 100 ml @ 3.905 mls/ hr Q24H IV 07/04/24 07:30 07/06/24 03:19 3.905 MLS/HR Vancomycin HCl 0 ml @ 0 mls/hr UD IV 07/05/24 08:15 Vancomycin HCl 350 ml @ 200 mls/hr Q18H IV 07/06/24 03:00 07/06/24 02:56 200 MLS/HR Laboratory Results Laboratory Tests 07/06/24 07:42 Chemistry Test 07/06/24 07:42 Calcium Level 6.3 mg/dL (8.7-10.4) L Coagulation Test 07/06/24 07:42 Prothrombin Time 10.7 sec (9.3-11.8) Prothrombin Time INR 1.01 (0.9-1.15) Activated Partial Thromboplast Time 24.3 SEC (24.5-34.5) L Urinalysis Test 07/01/24 14:50 Urine Color Yellow (Yellow) Urine Clarity Clear (Clear) Urine pH 5.5 (5.0-9.0) Urine Specific [place] 1.025 (1.001-1.035) Urine Protein Trace (Negative) H Urine Ketones Negative (Negative) Urine Blood Trace /uL (Negative) H Urine Nitrite Negative (Negative) Urine Bilirubin Negative (Negative) Urine Urobilinogen Normal mg/dL (Negative) Urine Leukocyte Esterase Negative /uL (Negative) Urine RBC 4 /hpf (0 - 3) Urine Microscopic WBC 1 /HPF (0-3) Urine Squamous Epithelial Cells Few /hpf (<5) Urine Bacteria Few /hpf (None Seen) H Urine Hyaline Casts Few /lpf (0 - 2) Urine Mucus Few (None Seen) Urine Glucose Normal mg/dL (Normal) Blood Gas Results Test 07/05/24 12:44 Arterial Blood pH 7.438 (7.350-7.450) FiO2 % 30.0 Microbiology Microbiology Date/Time Source Procedure Growth Status 07/03/24 09:00 Leg Gram Stain - Final Resulted 07/03/24 09:00 Leg Wound Culture - Preliminary Resulted 07/01/24 14:50 Voided Urine Urine Culture - Final Complete 07/01/24 13:49 Blood Blood Culture - Preliminary NO GROWTH AFTER 72 HOURS OF INCUBATION. Resulted 07/01/24 00:00 Sputum Gram Stain - Final Complete 07/01/24 00:00 Respiratory Culture - Final Citrobacter koseri Complete Labs and/or images reviewed: Labs reviewed by me, Image(s) reviewed by me Assessment/Plan Assessment/Plan Impression: -hemorrhagic shock -probable sepsis secondary to lower extremity cellulitis -polysubstance abuse : Positive for PCP, cocaine, amphetamines -acute respiratory failure with mechanical ventilation -severe anemia from GI bleed -shock liver Plan: Events: Patient had hemoglobin of 6.0 yesterday evening. 2 unit PRBC ordered. Repeat hemoglobin 6.0 this a.m.. Two more units of PRBCs as well as 1 unit of FFP ordered. Potassium replacement, 40 mEq use. Continue Sandostatin and Protonix giving persistent bleeding. Re-consultation with GI for possible repeat endoscopy. Hold spontaneous breathing trial at this time. -GI consultation : Continue ER Sandostatin and Protonix drip at this time. -pulmonary consultation: Spontaneous breathing trial today -continue antibiotic therapy with Fortaz and vancomycin -banana bag daily -continue to wean norepinephrine, vasopressin -repeat labs in a.m. Critical care time spent with patient discussing and formulating plan of care: 40 minutes. This does not include time spent performing procedures. This medical document was created using an electronic medical record system with [employer] dictation system. Although this document has been carefully reviewed, there may still be some phonetic and typographical errors. These areas are purely typographical due to imperfections of the software programs, and do not reflect any compromise in the patient's medical care. Plan discussed with: Patient, Other (RN) My Orders Orders - BRADY SPARROW NP Procedure Category Date Status Time Chest Portable XY 07/06/24 Resulted 04:00 Vancomycin PHA 07/06/24 In Process 1.75gm/350ml 03:00 Vancomycin,Trough LAB 07/07/24 Verified 14:00 * Gi Dvh Planning Consultant CONS 07/06/24 Transmitted 08:07 Packedcell-Noactive BBK 07/06/24 In Process Bleeding 08:07 Frozen Plasma BBK 07/06/24 In Process 08:07 Thiamine Inj PHA 07/06/24 Verified 10:00 Comprehensive LAB 07/07/24 Verified Metabolic Panel 04:00 Chest Portable XY 07/07/24 Verified 04:00 Date of Service: Jul 06, 2024 Billing Provider: BRADY SPARROW NP Common Visit Codes: [id number] CARE 30-74 MIN BRADY SPARROW NP Jul 06, 2024 09:02
[2024-07-06 09:18] LABS: Base Excess -0.9 mmol/L (-2.0-3.0)
[2024-07-06] MEDS: THIAMINE 100mg/ml INJ (200mg/2ml VIAL) IV SCH (09:52)
[2024-07-06] MEDS: POTASSIUM CHL 20MEQ/100ML 100 ML IV SCH (09:52)
--- NOTE | 2024-07-06 14:29 | DVHPN2 ---
Subjective Patient is seen by Dr. Cordero still having persistent GI bleed and drop of hemoglobin SP EGD 07/03/2024 Per RN patient is still having persistent black stools with red clots, three episodes in the last 12 hours History from the chart and RN at bedside Dr. Stanton DATE OF PROCEDURE: 07/03/24 INDICATIONS FOR THE PROCEDURE: Gi Bleeding PROCEDURE PERFORMED: 1. Esophagogastroduodenoscopy and biopsy POSTOPERATIVE DIAGNOSIS: Large ulcer of the duodenal bulb occupying 3/4 of the duodenal bulb about 3.5 to 4 cms in diameter No gross bleeding at this time with some old clot in the ulcer base cleaned out as much as possible but no large visible vessel or active bleeding seen at this time Huge blood clot in the fundus in the body cleaned out as much as possible grossly no other lesions seen Biopsies taken from the antrum to ensure there is no H pylori No esophageal varices Reviewed: Care Plan, H&P, Labs, Medications, Previous Orders, Radiology Changes from previous H/P or p: No Changes General: Per HPI Eyes: No Pain, No Vision change, No Conjunctivae inflammation, No Eyelid inflammation, No Other, No Redness ENT: No Ear pain, No Ear discharge, No Nose pain, No Nose discharge, No Nose congestion, No Mouth pain, No Mouth swelling, No Throat pain, No Throat swelling, No Other Cardiovascular: No Chest Pain, No Palpitations, No Orthopnea, No Paroxysmal Noc. Dyspnea, No Edema, No Lt Headedness, No Other Respiratory: No Cough, No Dry, No Shortness of breath, No SOB with excertion, No Wheezing, No Hemoptysis, No Pleuritic Pain, No Sputum, No Other Gastrointestinal: No Nausea, No Vomiting, No Abdominal Pain, No Diarrhea, No Constipation, No Melena, No Hematochezia, No Other Genitourinary: No Dysuria, No Frequency, No Incontinence, No Hematuria, No Retention, No Other Musculoskeletal: No other, No neck pain, No shoulder pain, No arm pain, No back pain, No hand pain, No leg pain, No foot pain Skin: No Rash, No Lesions, No Jaundice, No Bruising; Other (Bilateral legs wound) Objective Vitals Vital Signs Date Time Temp Pulse Resp B/P (MAP) Pulse Ox O2 Delivery O2 Flow Rate FiO2 07/06/24 14:17 74 21 120/67 (84) 100 30 07/06/24 14:00 Mechanical Ventilator+ 07/06/24 13:45 98.0 98.0 Intake/Output Intake and Output 07/06/24 07:00 Intake Total 3278.643 ml Output Total 2125 ml Balance 1153.643 ml IV Total 2078.643 ml Blood Product 600 ml Other 600 ml Output Urine Total 2125 ml # Bowel Movements 6 General Appearance: Alert, Oriented X3, Cooperative, No acute distress, mild distress, moderate distress, severe distress, Other (Chemically sedated) HEENT: Atraumatic, PERRLA Neck: Carotid Bruits [place] Lungs: Clear to auscultation, Normal air movement, Other Cardiovascular: Regular rate, Normal S1, Normal S2, No murmurs, Gallops, Rubs, Other Abdomen: Normal bowel sounds, Soft, No tenderness, No hepatospenomegaly, No masses, Other (NG tube with noted red gastric secretions) Genitourinary: No Apparent Abnormalities (Manning catheter) Skin: Wounds (See nurse notes and pictures) Psych/Mental Status: Mental status NL, Mood NL Medications Current Medications Medications Dose Ordered Sig/Maribeth Route Start Time Stop Time Status Last Admin Dose Admin Ondansetron HCl 4 mg Q4HP PRN IV 07/01/24 06:00 Acetaminophen 650 mg Q6HP PRN PO 07/01/24 06:00 Nitroglycerin 0.4 mg Q5MINP PRN SL 07/01/24 06:00 Vasopressin 20 units/Sodium Chloride 100 ml @ 9 mls/hr Q11H7M IV 07/01/24 15:15 07/05/24 22:45 9 MLS/HR Pantoprazole Sodium 50 ml @ 10 mls/hr Q5H IV 07/01/24 15:45 07/06/24 14:07 10 MLS/HR Octreotide Acetate 500 mcg/ Sodium Chloride 100 ml @ 10 mls/hr Q10H IV 07/01/24 15:45 07/06/24 11:48 10 MLS/HR Midazolam HCl 50 ml @ 1 mls/hr Q24H IV 07/01/24 19:30 07/06/24 13:19 1 MLS/HR Fentanyl Citrate 250 ml @ 2.5 mls/hr Q24H IV 07/01/24 19:30 07/06/24 10:32 12.5 MLS/HR Norepinephrine Bitartrate 250 ml @ 3.75 mls/hr Q24H IV 07/01/24 19:30 07/05/24 22:35 7.5 MLS/HR Ceftazidime/ Dextrose 1 gm/ Sodium Chloride 50 ml @ 16.667 mls/ hr Q8HR IV 07/02/24 14:00 07/06/24 13:59 16.667 MLS/HR Dexmedetomidine HCl 400 mcg/ Dextrose 100 ml @ 3.905 mls/ hr Q24H IV 07/04/24 07:30 07/06/24 03:19 3.905 MLS/HR Vancomycin HCl 0 ml @ 0 mls/hr UD IV 07/05/24 08:15 Vancomycin HCl 350 ml @ 200 mls/hr Q18H IV 07/06/24 03:00 07/06/24 02:56 200 MLS/HR Thiamine HCl 100 mg DAILY IV 07/06/24 10:00 07/06/24 09:52 100 MG Laboratory Results Laboratory Tests 07/06/24 07:42 Chemistry Test 07/06/24 07:42 Calcium Level 6.3 mg/dL (8.7-10.4) L Coagulation Test 07/06/24 07:42 Prothrombin Time 10.7 sec (9.3-11.8) Prothrombin Time INR 1.01 (0.9-1.15) Activated Partial Thromboplast Time 24.3 SEC (24.5-34.5) L Urinalysis Test 07/01/24 14:50 Urine Color Yellow (Yellow) Urine Clarity Clear (Clear) Urine pH 5.5 (5.0-9.0) Urine Specific [place] 1.025 (1.001-1.035) Urine Protein Trace (Negative) H Urine Ketones Negative (Negative) Urine Blood Trace /uL (Negative) H Urine Nitrite Negative (Negative) Urine Bilirubin Negative (Negative) Urine Urobilinogen Normal mg/dL (Negative) Urine Leukocyte Esterase Negative /uL (Negative) Urine RBC 4 /hpf (0 - 3) Urine Microscopic WBC 1 /HPF (0-3) Urine Squamous Epithelial Cells Few /hpf (<5) Urine Bacteria Few /hpf (None Seen) H Urine Hyaline Casts Few /lpf (0 - 2) Urine Mucus Few (None Seen) Urine Glucose Normal mg/dL (Normal) Blood Gas Results Test 07/06/24 09:08 Arterial Blood pH 7.428 (7.350-7.450) FiO2 % 30.0 Microbiology Microbiology Date/Time Source Procedure Growth Status 07/03/24 09:00 Leg Gram Stain - Final Resulted 07/03/24 09:00 Wound Culture - Preliminary Staphylococcus aureus Resulted 07/01/24 14:50 Voided Urine Urine Culture - Final Complete 07/01/24 13:49 Blood Blood Culture - Final NO GROWTH AFTER 5 DAYS OF INCUBATION. Complete 07/01/24 00:00 Sputum Gram Stain - Final Complete 07/01/24 00:00 Respiratory Culture - Final Citrobacter koseri Complete Labs and/or images reviewed: Labs reviewed by me Assessment/Plan Assessment/Plan GI bleed Large nonbleeding ulcer duodenal bulb per EGD Dr. Cordero Severe anemia Elevated LFTs Plan: Discussed with Dr. Kunz IR consult for persistent GI bleeding, possible angiogram with embolization Monitor lab Continue PPI We will continue to monitor patient Plan discussed with: Other (RN) Date of Service: Jul 06, 2024 Billing Provider: ESTEFANY GRIMES Common Visit Codes: [id number] INP/OBS CARE(HIGH) ESTEFANY GRIMES Jul 06, 2024 14:29
[2024-07-06] MEDS: IODIXANOL 320MG/ML 100ML BTL IV ONE ×2 (14:43→15:41)
[2024-07-06] MEDS: LIDOCAINE 2%HCL (LOCAL ANESTH.) INJ 20ML MDV ONE (15:11)
[2024-07-06] MEDS: GELATIN 1 SPONGE SIZE 100 TOP ONE (16:09)
[2024-07-06] MEDS: GELATIN 1 SPONGE SIZE 50 TOP ONE (16:09)
[2024-07-06 19:29] LABS: Alkaline Phosphatase 71 U/L (46-116); Anion Gap 5 (5-15); BUN/Creatinine Ratio 34.6 (10.0-20.0); Blood Urea Nitrogen 18 mg/dL (9-23); Carbon Dioxide 27 mmol/L (20-31); Magnesium 1.9 mg/dL (1.6-2.6); Potassium 3.9 mmol/L (3.5-5.1); Sodium 143 mmol/L (136-145)
[2024-07-06 19:30] LABS: Bilirubin, Total 0.4 mg/dL (0.2-1.0); Phosphorus 2.4 mg/dL (2.4-5.1)
[2024-07-06 19:57] LABS: INR 0.98 (0.9-1.15); Partial Thromboplastin Time 24.7 SEC (24.5-34.5); Prothrombin Time 10.4 sec (9.3-11.8)
--- NOTE | 2024-07-06 20:00 | DVH ---
XY ARTER/VENOUS EMBOLIZATION, HISTORY: Bleeding duodenal ulcer seen on Endoscopy with hemorrhagic shock here for a gastroduodenal a rtery embolization. PROCEDURE: The patient was positioned supine on the interventional table. The right groin was prepped with chlorhexidine which was allowed to dry and then draped sterilely. Time out was performed. The r ight common femoral artery was accessed with real-time ultrasound guidance using a micropuncture set, an image documenting patency recorded to PACS, and a 5 Fr vascular sheath placed. The celiac artery was accessed with a Sos catheter, which was advanced into the celiac trunk . Angiog bridgette were performed in PA projection. Microcatheter was advanced into the gastroduodenal artery and selective angiogram(s) obtained. Coil embolization with a 4 mm x 13 cm Terumo hydrogel coil was place d in the gastroduodenal artery. However with contrast injection a perforation was noted. A gelfoam sl urry was then preparred and quickly injected at the location of the perforation back to the GDA just proximal to the coil. The base Sos catheter then dislodged from the celiac axis and position was lost . A pigtail catheter was placed into the aorta for an aortogram. The Sos catheter was replaced back i nto the celiac artery and a completion celiac angiogram was performed. No contrast extravasation was seen and the GDA was then occluded at the coil location. The catheter/sheath were removed and the art eriotomy closed using an Angioseal device. No immediate complication was identified. DAP FLUOROSCOPY TIME: 20.2 minutes. CONTRAST USED: 80 mL Isovue 370. SEDATION: Dr. Candice Hurtado was personally responsible for the administration of moderate sedation during the procedure performed, including the use of an independent trained observer who had no other duties during the procedure. The drugs utilized were IV fentanyl and versed (see nursing log for details). The total time of supervision by the attending physician was approximately 90 minutes. FINDINGS: Prominent and tortuous gastroduodenal artery with a diminutive size of the pancreaticoduode nal artery. Coil and gelfoam embolization of the gastroduodenal artery. IMPRESSION: Prominent and tortuous gastroduodenal artery with a diminutive size of the pancreaticoduodenal artery . Coil and gelfoam embolization of the gastroduodenal artery. PLAN: Continue ICU care and trend hemoglobin. Right lower extremity straight for 2 hours.
[2024-07-06 20:11] LABS: Alanine Aminotransferase 379 U/L (7-40); Albumin 2.7 g/dL (3.2-4.8); Aspartate Aminotransferase 86 U/L (13-40); Calcium 8.3 mg/dL (8.7-10.4); Chloride 111 mmol/L (98-107); Glucose 112 mg/dL (74-106); Total Protein 4.9 g/dL (5.7-8.2)
[2024-07-06 20:37] LABS: Hemoglobin 8.3 g/dL (13.5-17.5)
[2024-07-06 20:39] LABS: Hematocrit 25.1 % (41.0-53.0)
--- NOTE | 2024-07-06 23:21 | DVHPN2 ---
Progress Note - Dictate Date Seen: Jul 06, 2024 Has the PT tested + for MRSA If YES, has PT been informed?: No Medical Necessity Reason Pt with a Central, PICC or Fol: Yes The following are medically ne: Central Line, Barrow Catheter Reason for barrow catheter: Strict I&O Subjective Patient seen and examined at bedside. Sedated, intubated on mechanical ventilator. Overnight events reviewed. vital signs Vital Sign Date Time Temp Pulse Resp B/P (MAP) Pulse Ox O2 Delivery O2 Flow Rate FiO2 07/06/24 21:39 77 19 108/57 (74) 100 30 07/06/24 19:01 97.7 97.7 07/06/24 18:00 Mechanical Ventilator+ Total Intake and Output 07/05/24 07/05/24 07/06/24 15:00 23:00 07:00 Intake Total 140 ml 828.755 ml 2309.888 ml Output Total 1000 ml 1125 ml Balance 140 ml -171.245 ml 1184.888 ml medications Current Medications Medications Dose Ordered Sig/Maribeth Route Start Time Stop Time Status Last Admin Dose Admin Ondansetron HCl 4 mg Q4HP PRN IV 07/01/24 06:00 Acetaminophen 650 mg Q6HP PRN PO 07/01/24 06:00 Nitroglycerin 0.4 mg Q5MINP PRN SL 07/01/24 06:00 Vasopressin 20 units/Sodium Chloride 100 ml @ 9 mls/hr Q11H7M IV 07/01/24 15:15 07/05/24 22:45 9 MLS/HR Pantoprazole Sodium 50 ml @ 10 mls/hr Q5H IV 07/01/24 15:45 07/06/24 18:28 10 MLS/HR Octreotide Acetate 500 mcg/ Sodium Chloride 100 ml @ 10 mls/hr Q10H IV 07/01/24 15:45 07/06/24 11:48 10 MLS/HR Midazolam HCl 50 ml @ 1 mls/hr Q24H IV 07/01/24 19:30 07/06/24 17:27 8 MLS/HR Fentanyl Citrate 250 ml @ 2.5 mls/hr Q24H IV 07/01/24 19:30 07/06/24 10:32 12.5 MLS/HR Norepinephrine Bitartrate 250 ml @ 3.75 mls/hr Q24H IV 07/01/24 19:30 07/05/24 22:35 7.5 MLS/HR Ceftazidime/ Dextrose 1 gm/ Sodium Chloride 50 ml @ 16.667 mls/ hr Q8HR IV 07/02/24 14:00 07/06/24 22:38 16.667 MLS/HR Dexmedetomidine HCl 400 mcg/ Dextrose 100 ml @ 3.905 mls/ hr Q24H IV 07/04/24 07:30 07/06/24 03:19 3.905 MLS/HR Vancomycin HCl 0 ml @ 0 mls/hr UD IV 07/05/24 08:15 Vancomycin HCl 350 ml @ 200 mls/hr Q18H IV 07/06/24 03:00 07/06/24 21:02 200 MLS/HR Thiamine HCl 100 mg DAILY IV 07/06/24 10:00 07/06/24 09:52 100 MG objective Gen.: Patient lying in bed in medical ICU. Sedated, intubated on mechanical ventilator. Head: Normocephalic, atraumatic. Eyes: PERRLA. Ears: Normal external anatomy. Throat: Endotracheal tube and orogastric tube in place. Neck: Supple, trachea midline. Chest: Transmitted breath sounds bilaterally. Decreased air entry bilaterally. No wheezing. Bibasilar crackles. Cardiovascular: Positive S1, positive S2. Regular rate and rhythm. Abdomen: Positive bowel sounds in all 4 quadrants. Soft, nontender, nondistended. : Barrow in place. Normal external genitalia. Rectal: Deferred. Skin: Warm, dry. Intact. Extremities: 2+ radial pulses bilaterally. No lower extremity edema. Neuro: Sedated laboratory and microbiology Laboratory Tests 07/06/24 20:22 07/06/24 18:00 07/06/24 07:42 Test 07/06/24 18:00 Range/Units Serum Glucose 112 H 74-106 mg/dL Assessment/Plan Impression: Acute hypoxic respiratory failure On mechanical ventilator GI hemorrhage Hemorrhagic shock Substance abuse Bilateral lower extremity wounds Events: Patient continues on vent support On assist control with respiratory rate of 18, tidal volume 500, PEEP of 5, FiO2 at 30% Patient was noted to have acute drop in hemoglobin S/p 2 units PRBC + 1 unit of FFP Monitor hemoglobin S/p gastroduodenal artery thromboembolization by IR. ABG reviewed, compensated. CXR reviewed, demonstrates pulmonary venous congestion. Sedated on Versed Fentanyl for analgesia Off Levophed, hemodynamically stable. On Sandostatin drip Protonix drip Continue antibiotics - on Fortaz IV fluids with banana bag. Wound care. Wound cultures grew Staph aureus. Possible CPAP in the AM. Labs and imaging reviewed. Rest of plan as noted below. Plan: s/p intubation on mechanical ventilator CXR image and report reviewed. On assist control with respiratory rate of 18, tidal volume 500, PEEP of 5, FiO2 at 30% Titrate FIO2 to keep O2 saturation above 92%. VAP bundle Daily ABG and CXR while intubated. Sedated for vent synchrony Pressors if necessary for hemodynamic support. Titrate to keep MAP above 65 mmHg/SBP above 90 mmHg. Continue antibiotics. F/u cultures. Monitor renal function. Monitor electrolytes. Supplement as necessary. Monitor ins and outs. S/p embolization of duodenal ulcer. GI recommendations appreciated Monitor hemoglobin Nutritional support. Accucheks, ISS. GI/DVT prophylaxis. Condition: Critical Prognosis: Poor given multiple comorbidities. Rest of plan per hospitalist and other consultants. A total of 35 minutes of critical care time was spent reviewing the patient record, examining the patient, making a diagnostic and therapeutic plan, discussing this plan with the medical personnel, following up on diagnostic studies and following the patient for clinical stability excluding any and all procedures. At least 50% of this time was spent in direct, [id number] contact. Thank you Dr. Shine Kumar for allowing me to participate in this patient's care. Further recommendations will depend on patient's clinical course. Please do not hesitate to contact me if you have any questions or concerns. This medical document was created using an electronic medical record system with [employer] system. Although this document has been carefully reviewed, there may still be some phonetic and typographical errors. These areas are purely typographical due to imperfections of the software programs, and do not reflect any compromise in the patient's medical care. Dietary Evaluation Review Comments: 1.Consider advancing to PO diet once medically appropriate 2.Consider PN if NPO >7 if GI issues dont resolve 3.Consider beth BID (180kcal, 5 pro) Expected Outcomes/Goals: 1. Pt will consume >75% pt estimated meeds within 2-3 days Plan discussed with: Other (RN Lizvette) Critical Care Time(min): 35 YOSI FABIAN MD Jul 06, 2024 23:21
[2024-07-07] VITALS (98 sets, daily range): BP systolic 86–155; BP diastolic 42–83; PULSE 64–121; RESP 12–34; TEMP 97.6–99.9; O2SAT 93–100
--- NOTE | 2024-07-07 05:14 | DVH ---
EXAM: XR Chest, 1 View CLINICAL INDICATION: device placement TECHNIQUE: Frontal view of the chest. COMPARISON: XY CHEST PORTABLE on DOS: 07/06/24, XY CHEST PORTABLE on DOS: 07/05/24, XY CHEST PORTABLE o n DOS: 07/04/24, XY CHEST PORTABLE on DOS: 07/03/24, XY CHEST PORTABLE on DOS: 07/02/24 FINDINGS: LUNGS AND PLEURAL SPACES: Mild pulmonary congestion. No consolidation. No pneumothorax. HEART: Unremarkable. No cardiomegaly. MEDIASTINUM: Unremarkable. Normal mediastinal contour. BONES/JOINTS: Unremarkable. No acute fracture. TUBES, LINES AND DEVICES: The endotracheal tube (ETT) is in satisfactory position. Enteric tube ti p in the stomach. OTHER FINDINGS: . . . . .. IMPRESSION: Mild pulmonary congestion.
[2024-07-07 06:13] LABS: Alkaline Phosphatase 77 U/L (46-116); Anion Gap 7 (5-15); Carbon Dioxide 27 mmol/L (20-31); Sodium 143 mmol/L (136-145)
[2024-07-07 06:14] LABS: BUN/Creatinine Ratio 31.4 (10.0-20.0); Blood Urea Nitrogen 16 mg/dL (9-23); Glucose 93 mg/dL (74-106)
[2024-07-07 06:15] LABS: Alanine Aminotransferase 309 U/L (7-40); Aspartate Aminotransferase 67 U/L (13-40); Calcium 8.2 mg/dL (8.7-10.4); Chloride 109 mmol/L (98-107)
[2024-07-07 06:16] LABS: Bilirubin, Total 0.4 mg/dL (0.2-1.0)
[2024-07-07 06:20] LABS: Albumin 2.6 g/dL (3.2-4.8); Total Protein 4.6 g/dL (5.7-8.2)
[2024-07-07 06:38] LABS: Basophils # (auto) 0.1 10 ^3/uL (0-0.2); Eosinophils # (auto) 0.4 10 ^3/uL (0-0.8); Hemoglobin 7.5 g/dL (13.5-17.5)
[2024-07-07 06:42] LABS: Basophils % (auto) 0.6 % (0.0-2.0); Hematocrit 22.8 % (41.0-53.0); Lymphocytes % (auto) 5.1 % (10.0-50.0); Mean Corpuscular Hemoglobin 28.2 pg (28.0-32.0); Mean Corpuscular Volume 85.3 fL (80.0-100.0); Monocytes # (auto) 2.3 10 ^3/uL (0-1.3); Neutrophils # (auto) 15.4 10 ^3/uL (1.6-8.6); Neutrophils % (auto) 80.3 % (37.0-80.0); Nucleated Red Blood Cells % 2.2 %; Platelet Count (auto) 261 10^3/uL (140-450); Red Blood Cells 2.67 10^6/uL (4.5-5.90); Red Cell Distribution Width 17.5 % (11.8-14.3); White Blood Cell 19.2 10^3/uL (4.4-10.8)
[2024-07-07 08:35] LABS: Base Excess -0.5 mmol/L (-2.0-3.0)
--- NOTE | 2024-07-07 09:19 | DVHPN2 ---
Subjective Patient chemically sedated Reviewed: Care Plan, H&P, Labs, Medications, Previous Orders, Radiology Changes from previous H/P or p: No Changes General: Per HPI Eyes: No Pain, No Vision change, No Conjunctivae inflammation, No Eyelid inflammation, No Other, No Redness ENT: No Ear pain, No Ear discharge, No Nose pain, No Nose discharge, No Nose congestion, No Mouth pain, No Mouth swelling, No Throat pain, No Throat swelling, No Other Cardiovascular: No Chest Pain, No Palpitations, No Orthopnea, No Paroxysmal Noc. Dyspnea, No Edema, No Lt Headedness, No Other Respiratory: No Cough, No Dry, No Shortness of breath, No SOB with excertion, No Wheezing, No Hemoptysis, No Pleuritic Pain, No Sputum, No Other Gastrointestinal: No Nausea, No Vomiting, No Abdominal Pain, No Diarrhea, No Constipation, No Melena, No Hematochezia, No Other Genitourinary: No Dysuria, No Frequency, No Incontinence, No Hematuria, No Retention, No Other Musculoskeletal: No other, No neck pain, No shoulder pain, No arm pain, No back pain, No hand pain, No leg pain, No foot pain Skin: No Rash, No Lesions, No Jaundice, No Bruising; Other (Bilateral legs wound) Objective Vitals Vital Signs Date Time Temp Pulse Resp B/P (MAP) Pulse Ox O2 Delivery O2 Flow Rate FiO2 07/07/24 08:26 81 18 114/46 (68) 99 30 07/07/24 08:00 Mechanical Ventilator+ 07/07/24 08:00 98.0 98.0 Intake/Output Intake and Output 07/07/24 07:00 Intake Total 2661.194 ml Output Total 2400 ml Balance 261.194 ml Intake Oral 0 ml IV Total 1554.194 ml Blood Product 807 ml Other 300 ml Output Urine Total 2100 ml Gastric Drainage Total 300 ml # Bowel Movements 2 General Appearance: Alert, Oriented X3, Cooperative, No acute distress, mild distress, moderate distress, severe distress, Other (Chemically sedated) HEENT: Atraumatic, PERRLA Neck: Carotid Bruits [place] Lungs: Clear to auscultation, Normal air movement, Other Cardiovascular: Regular rate, Normal S1, Normal S2, No murmurs, Gallops, Rubs, Other Abdomen: Normal bowel sounds, Soft, No tenderness, No hepatospenomegaly, No masses, Other (NG tube with noted red gastric secretions) Genitourinary: No Apparent Abnormalities (Manning catheter) Skin: Wounds (See nurse notes and pictures) Psych/Mental Status: Mental status NL, Mood NL Medications Current Medications Medications Dose Ordered Sig/Maribeth Route Start Time Stop Time Status Last Admin Dose Admin Ondansetron HCl 4 mg Q4HP PRN IV 07/01/24 06:00 Acetaminophen 650 mg Q6HP PRN PO 07/01/24 06:00 Nitroglycerin 0.4 mg Q5MINP PRN SL 07/01/24 06:00 Vasopressin 20 units/Sodium Chloride 100 ml @ 9 mls/hr Q11H7M IV 07/01/24 15:15 07/05/24 22:45 9 MLS/HR Pantoprazole Sodium 50 ml @ 10 mls/hr Q5H IV 07/01/24 15:45 07/07/24 07:00 10 MLS/HR Octreotide Acetate 500 mcg/ Sodium Chloride 100 ml @ 10 mls/hr Q10H IV 07/01/24 15:45 07/06/24 11:48 10 MLS/HR Midazolam HCl 50 ml @ 1 mls/hr Q24H IV 07/01/24 19:30 07/06/24 17:27 8 MLS/HR Fentanyl Citrate 250 ml @ 2.5 mls/hr Q24H IV 07/01/24 19:30 07/06/24 10:32 12.5 MLS/HR Norepinephrine Bitartrate 250 ml @ 3.75 mls/hr Q24H IV 07/01/24 19:30 07/05/24 22:35 7.5 MLS/HR Dexmedetomidine HCl 400 mcg/ Dextrose 100 ml @ 3.905 mls/ hr Q24H IV 07/04/24 07:30 07/06/24 03:19 3.905 MLS/HR Thiamine HCl 100 mg DAILY IV 07/06/24 10:00 07/06/24 09:52 100 MG Levofloxacin/ Dextrose 150 ml @ 100 mls/hr DAILY IV 07/07/24 10:00 Future Hold Laboratory Results Laboratory Tests 07/07/24 04:53 Chemistry Test 07/06/24 18:00 07/07/24 04:53 Albumin 2.7 g/dL (3.2-4.8) L 2.6 g/dL (3.2-4.8) L Calcium Level 8.3 mg/dL (8.7-10.4) L 8.2 mg/dL (8.7-10.4) L Magnesium Level 1.9 mg/dL (1.6-2.6) Phosphorus Level 2.4 mg/dL (2.4-5.1) Total Protein 4.9 g/dL (5.7-8.2) L 4.6 g/dL (5.7-8.2) L Coagulation Test 07/06/24 18:00 Prothrombin Time 10.4 sec (9.3-11.8) Prothrombin Time INR 0.98 (0.9-1.15) Activated Partial Thromboplast Time 24.7 SEC (24.5-34.5) LFT Test 07/06/24 18:00 07/07/24 04:53 Alanine Aminotransferase (ALT) 379 U/L (7-40) H 309 U/L (7-40) H Alkaline Phosphatase 71 U/L (46-116) 77 U/L (46-116) Aspartate Amino Transferase (AST) 86 U/L (13-40) H 67 U/L (13-40) H Total Bilirubin 0.4 mg/dL (0.2-1.0) 0.4 mg/dL (0.2-1.0) Urinalysis Test 07/01/24 14:50 Urine Color Yellow (Yellow) Urine Clarity Clear (Clear) Urine pH 5.5 (5.0-9.0) Urine Specific [place] 1.025 (1.001-1.035) Urine Protein Trace (Negative) H Urine Ketones Negative (Negative) Urine Blood Trace /uL (Negative) H Urine Nitrite Negative (Negative) Urine Bilirubin Negative (Negative) Urine Urobilinogen Normal mg/dL (Negative) Urine Leukocyte Esterase Negative /uL (Negative) Urine RBC 4 /hpf (0 - 3) Urine Microscopic WBC 1 /HPF (0-3) Urine Squamous Epithelial Cells Few /hpf (<5) Urine Bacteria Few /hpf (None Seen) H Urine Hyaline Casts Few /lpf (0 - 2) Urine Mucus Few (None Seen) Urine Glucose Normal mg/dL (Normal) Blood Gas Results Test 07/07/24 07:55 Arterial Blood pH 7.450 (7.350-7.450) FiO2 % 30.0 Microbiology Microbiology Date/Time Source Procedure Growth Status 07/03/24 09:00 Leg Gram Stain - Final Resulted 07/03/24 09:00 Wound Culture - Preliminary Staphylococcus aureus Resulted 07/01/24 14:50 Voided Urine Urine Culture - Final Complete 07/01/24 13:49 Blood Blood Culture - Final NO GROWTH AFTER 5 DAYS OF INCUBATION. Complete 07/01/24 00:00 Sputum Gram Stain - Final Complete 07/01/24 00:00 Respiratory Culture - Final Citrobacter koseri Complete Labs and/or images reviewed: Labs reviewed by me, Image(s) reviewed by me Assessment/Plan Assessment/Plan Impression: -hemorrhagic shock -probable sepsis secondary to lower extremity cellulitis -polysubstance abuse : Positive for PCP, cocaine, amphetamines -acute respiratory failure with mechanical ventilation -severe anemia from GI bleed -shock liver Plan: Events: Patient taken to catheterization lab for embolization of gastroduodenal artery. Patient had no further signs of bleeding overnight. Proceed with spontaneous breathing trial. Patient does have swelling to left upper arm, questionable IV infiltration. Medications being infused for both Sandostatin and Protonix. DVT study of left upper extremity -GI consultation : Continue infusion of Sandostatin Protonix drip. If patient's H&H hold later today, proceed with stopping infusions. -pulmonary consultation: Spontaneous breathing trial today -continue antibiotic therapy with Fortaz and vancomycin -banana bag daily -vasopressors have been weaned off. -cultures with Staphylococcus aureus to lower extremity. Change IV antibiotic therapy to cover both Citrobacter and staph with Rocephin 2 g IV daily -repeat labs in a.m. Critical care time spent with patient discussing and formulating plan of care: 40 minutes. This does not include time spent performing procedures. This medical document was created using an electronic medical record system with [employer]ation system. Although this document has been carefully reviewed, there may still be some phonetic and typographical errors. These areas are purely typographical due to imperfections of the software programs, and do not reflect any compromise in the patient's medical care. Plan discussed with: Patient, Other (RN) My Orders Orders - BRADY SPARROW NP Procedure Category Date Status Time Levofloxacin 750mg PHA 07/07/24 In Process (Levaquin) 10:00 Lt Upper Dvt US 07/07/24 Verified 08:12 Ceftriaxone Ivpb PHA 07/07/24 Verified Rocephin 10:00 Basic Metabolic Panel LAB 07/08/24 Verified 04:00 Complete Blood Count LAB 07/08/24 Verified 04:00 Date of Service: Jul 07, 2024 Billing Provider: BRADY SPARROW NP Common Visit Codes: 31566-OSQ/OBS DISCH DAY >30min BRADY SPARROW NP Jul 07, 2024 09:19
[2024-07-07] MEDS ORDERED: levoFLOXacin 750MG 150 ML IV SCH (10:00)
--- NOTE | 2024-07-07 10:41 | DVH ---
Upper Extremity Venous Duplex Clinical History: swelling Comparison: None Technique: Duplex Doppler evaluation of the venous system of the RIGHT lower neck and upper extremity including color Doppler and spectral/pulsed waveform analysis was performed. Findings: The internal jugular vein demonstrates appropriate compressibility and waveform variability. The subclavian vein is patent on color Doppler evaluation without intraluminal thrombus and demonstra isidra waveform variability. The visualized portion of the brachiocephalic vein is patent on color Doppler evaluation without intr aluminal thrombus and demonstrates waveform variability. The axillary vein demonstrates appropriate compressibility and waveform variability. The brachial veins demonstrate appropriate compressibility and patency on Doppler evaluation. The radial vein shows doppler patency. The ulnar vein shows doppler patency. The basilic vein demonstrates appropriate compressibility and patency on Doppler evaluation. The cephalic vein demonstrates occlusive thrombus in the cephalic vein with surrounding subcutaneous edema. Impression: 1. Occlusive superficial thrombophlebitis of the cephalic vein with surrounding subcutaneous edema. 2. No DVT was identified in the right upper extremity.
--- NOTE | 2024-07-07 11:20 | DVHPN2 ---
Progress Note Date Seen: Jul 07, 2024 Resident Creating Document: TERESITA FELIZ RESIDENT Has the PT tested + for MRSA If YES, has PT been informed?: No Medical Necessity Reason Pt with a Central, PICC or Fol: Yes The following are medically ne: Central Line, Barrow Catheter Reason for barrow catheter: Strict I&O Subjective Review of Systems Patient seen and examined at the bedside. Not bleeding actively. Continue octreotide, Status post embolization. Continue Protonix drip. Monitor H&H. Objective vital signs Vital Sign Date Time Temp Pulse Resp B/P (MAP) Pulse Ox O2 Delivery O2 Flow Rate FiO2 07/07/24 10:15 89 15 131/57 (81) 99 07/07/24 10:04 30 07/07/24 10:00 Mechanical Ventilator 07/07/24 08:00 98.0 98.0 Total Intake and Output 07/06/24 07/06/24 07/07/24 15:00 23:00 07:00 Intake Total 812.026 ml 1541.334 ml 307.834 ml Output Total 1650 ml 750 ml Balance 812.026 ml -108.666 ml -442.166 ml medications Current Medications Medications Dose Ordered Sig/Maribeth Route Start Time Stop Time Status Last Admin Dose Admin Ondansetron HCl 4 mg Q4HP PRN IV 07/01/24 06:00 Acetaminophen 650 mg Q6HP PRN PO 07/01/24 06:00 Nitroglycerin 0.4 mg Q5MINP PRN SL 07/01/24 06:00 Vasopressin 20 units/Sodium Chloride 100 ml @ 9 mls/hr Q11H7M IV 07/01/24 15:15 07/05/24 22:45 9 MLS/HR Pantoprazole Sodium 50 ml @ 10 mls/hr Q5H IV 07/01/24 15:45 07/07/24 07:00 10 MLS/HR Octreotide Acetate 500 mcg/ Sodium Chloride 100 ml @ 10 mls/hr Q10H IV 07/01/24 15:45 07/07/24 09:55 10 MLS/HR Midazolam HCl 50 ml @ 1 mls/hr Q24H IV 07/01/24 19:30 07/06/24 17:27 8 MLS/HR Fentanyl Citrate 250 ml @ 2.5 mls/hr Q24H IV 07/01/24 19:30 07/06/24 10:32 12.5 MLS/HR Norepinephrine Bitartrate 250 ml @ 3.75 mls/hr Q24H IV 07/01/24 19:30 07/05/24 22:35 7.5 MLS/HR Dexmedetomidine HCl 400 mcg/ Dextrose 100 ml @ 3.905 mls/ hr Q24H IV 07/04/24 07:30 07/06/24 03:19 3.905 MLS/HR Thiamine HCl 100 mg DAILY IV 07/06/24 10:00 07/07/24 09:55 100 MG Levofloxacin/ Dextrose 150 ml @ 100 mls/hr DAILY IV 07/07/24 10:00 Hold Ceftriaxone Sodium/Dextrose 50 ml @ 50 mls/hr DAILY IV 07/07/24 10:00 Examination Elderly Patient lying in bed General: afebrile, palor, mucosae are moist Cardiovascular: Regular S1 and S2. No murmurs, gallops or rubs. No JVD elevation. No pedal edema Respiratory: Normal B/L air entry on room air. Clear lung sounds on auscultation Abdomen: Soft, nontender, nondistended, normoactive bowel sounds, no rebound tenderness, no organomegaly, no masses Genitourinary: Deferred MSK/skin: Mobilizes 4 limbs. Skin is dry and warm laboratory and microbiology Laboratory Tests 07/07/24 04:53 Test 07/07/24 04:53 Range/Units Serum Glucose 93 74-106 mg/dL Microbiology Date/Time Source Procedure Growth Status 07/03/24 09:00 Leg Gram Stain - Final Resulted 07/03/24 09:00 Wound Culture - Preliminary Staphylococcus aureus Resulted 07/01/24 14:50 Voided Urine Urine Culture - Final Complete 07/01/24 13:49 Blood Blood Culture - Final NO GROWTH AFTER 5 DAYS OF INCUBATION. Complete 07/01/24 00:00 Sputum Gram Stain - Final Complete 07/01/24 00:00 Respiratory Culture - Final Citrobacter koseri Complete Labs and/or images reviewed: Labs reviewed by me, Image(s) reviewed by me Problem List/Assessment/Plan Problem List/Assessment/Plan Upper GI bleeding secondary to duodenal bulb ulcer s/p embolization gastroduodenal artery 07/06 by IR Hypovolemic shock Severe anemia Transaminitis, hypoxic liver injury Likely sepsis secondary to cellulitis MSSA Acute hypoxic respiratory failure, intubated and mechanically ventilated Systolic Congestive heart failure Superficial venous thrombophlebitis, cephalic vein Polysubstance use including a PCP, cocaine EGD 07/03 shows large ulcer of the duodenum bulb occupying 3/4 of the bulb with old clots inside. No gross bleeding seen. Huge clot in the fundus of the body. Plan: Patient is not bleeding actively. Follow-up with liver ultrasound. Follow up with hepatitis/HIV panel given the history of substance use. Continue octreotide drip, we will taper tomorrow Continue Protonix drip Antibiotics per primary team Monitor H&H Plan discussed with nurse Case discussed with Dr. Kunz Plan discussed with: Patient Dietary Evaluation Review Comments: 1.Consider advancing to PO diet once medically appropriate 2.Consider PN if NPO >7 if GI issues dont resolve 3.Consider beth BID (180kcal, 5 pro) Expected Outcomes/Goals: 1. Pt will consume >75% pt estimated meeds within 2-3 days TERESITA FELIZ RESIDENT Jul 07, 2024 11:20
[2024-07-07] MEDS: cefTRIAXone 2GM/50ML D5W 50 ML IV SCH (11:47)
[2024-07-07 12:31] LABS: Hepatitis B Surface Antibody Negative (Negative)
--- NOTE | 2024-07-07 12:44 | DVH ---
INDICATION: Transaminitis TECHNIQUE: Multiple real-time sonographic images of the abdomen were obtained. COMPARISON: None FINDINGS: The liver is heterogeneous in echogenicity. The liver measures 17cm. No intrahepatic bilia ry ductal dilatation is noted. The gallbladder wall measures 0.3 cm and is unremarkable. Common bile duct is dilated measuring 10 m m. Gallbladder sludge is present. The right kidney measures 11cm. No hydronephrosis. The echogenicity is within normal limits. The pancreas is not well visualized due to obscuration from bowel gas. The visualized portions of the IVC and aorta are grossly unremarkable. IMPRESSION: Hepatic steatosis. Gallbladder sludge. Dilated common bile duct. MRCP recommended.
[2024-07-07 12:48] LABS: Hepatitis B Surface Antigen Negative (Negative)
[2024-07-07] MEDS: ALBUTEROL SULF 2.5 MG/0.5ML(0.5%) NEB SOLN ONE (19:24)
[2024-07-07] MEDS: ALBUTEROL SULF 2.5 MG/0.5ML(0.5%) NEB SOLN NEB ONE (19:52)
--- NOTE | 2024-07-07 23:31 | DVHPN2 ---
Progress Note - Dictate Date Seen: Jul 07, 2024 Has the PT tested + for MRSA If YES, has PT been informed?: No Medical Necessity Reason Pt with a Central, PICC or Fol: Yes The following are medically ne: Central Line, Barrow Catheter Reason for barrow catheter: Strict I&O Subjective Patient seen and examined at bedside. S/p extubation, on supplemental oxygen Overnight events reviewed. vital signs Vital Sign Date Time Temp Pulse Resp B/P (MAP) Pulse Ox O2 Delivery O2 Flow Rate FiO2 07/07/24 23:00 92 16 110/72 (85) 97 07/07/24 20:00 98.1 98.1 07/07/24 19:24 Nasal Cannula* 12 82 Oxymizer 82 Total Intake and Output 07/06/24 07/06/24 07/07/24 14:59 22:59 06:59 Intake Total 804.384 ml 1383.334 ml 496.501 ml Output Total 1650 ml 750 ml Balance 804.384 ml -266.666 ml -253.499 ml medications Current Medications Medications Dose Ordered Sig/Maribeth Route Start Time Stop Time Status Last Admin Dose Admin Ondansetron HCl 4 mg Q4HP PRN IV 07/01/24 06:00 Acetaminophen 650 mg Q6HP PRN PO 07/01/24 06:00 Nitroglycerin 0.4 mg Q5MINP PRN SL 07/01/24 06:00 Vasopressin 20 units/Sodium Chloride 100 ml @ 9 mls/hr Q11H7M IV 07/01/24 15:15 07/05/24 22:45 9 MLS/HR Pantoprazole Sodium 50 ml @ 10 mls/hr Q5H IV 07/01/24 15:45 07/07/24 22:00 10 MLS/HR Octreotide Acetate 500 mcg/ Sodium Chloride 100 ml @ 10 mls/hr Q10H IV 07/01/24 15:45 07/07/24 20:00 10 MLS/HR Midazolam HCl 50 ml @ 1 mls/hr Q24H IV 07/01/24 19:30 07/06/24 17:27 8 MLS/HR Fentanyl Citrate 250 ml @ 2.5 mls/hr Q24H IV 07/01/24 19:30 07/06/24 10:32 12.5 MLS/HR Norepinephrine Bitartrate 250 ml @ 3.75 mls/hr Q24H IV 07/01/24 19:30 07/05/24 22:35 7.5 MLS/HR Dexmedetomidine HCl 400 mcg/ Dextrose 100 ml @ 3.905 mls/ hr Q24H IV 07/04/24 07:30 07/07/24 15:00 3.905 MLS/HR Thiamine HCl 100 mg DAILY IV 07/06/24 10:00 07/07/24 09:55 100 MG Levofloxacin/ Dextrose 150 ml @ 100 mls/hr DAILY IV 07/07/24 10:00 Hold Ceftriaxone Sodium/Dextrose 50 ml @ 50 mls/hr DAILY IV 07/07/24 10:00 07/07/24 11:47 50 MLS/HR objective Gen.: Patient lying in bed in no apparent distress. On supplemental oxygen. Head: Normocephalic, atraumatic. Eyes: EOMI/PERRLA. Ears: Normal hearing. Normal anatomy. Neck/trachea: Trachea midline, supple. Nose: Normal external anatomy. Mouth: Moist mucous membranes. Chest: Decreased air entry bilaterally. No wheezing or rhonchi. Cardiovascular: Positive S1, positive S2. Regular rate and rhythm. Abdomen: Positive bowel sounds in all 4 quadrants. Soft, non-tender, non- distended. : Deferred. Rectal: Deferred. Skin: Warm, dry. Intact. Extremities: 2+ radial pulses bilaterally. No lower extremity edema. Neuro: Awake, alert, oriented x3. No gross motor or sensory deficits. Cranial nerves II through XII intact. Gait not assessed. laboratory and microbiology Laboratory Tests 07/07/24 04:53 Test 07/07/24 04:53 Range/Units Serum Glucose 93 74-106 mg/dL Assessment/Plan Impression: Acute hypoxic respiratory failure On mechanical ventilator GI hemorrhage Hemorrhagic shock Substance abuse Bilateral lower extremity wounds Events: Patient tolerated CPAP and was extubated uneventfully at 1500 hours. Currently on supplemental oxygen at 12 LPM Oxymizer Taper O2 as tolerated S/p 2 units PRBC + 1 unit of FFP yesterday Monitor hemoglobin - 7.5 g/dL S/p gastroduodenal artery thromboembolization by IR. No bloody bowel movements. Head of bed elevation Aspiration precautions Bronchodilators - Rx now Continue antibiotics Off sedation On Precedex Off Levophed, hemodynamically stable. On Sandostatin drip Protonix drip IV fluids with banana bag. Wound care. Wound cultures grew Staph aureus. Labs and imaging reviewed. Rest of plan as noted below. Plan: S/p extubation On supplemental oxygen Titrate to keep O2 sats above 90%. CXR image and report reviewed. Off sedation Pressors if necessary for hemodynamic support. Titrate to keep MAP above 65 mmHg/SBP above 90 mmHg. Bronchodilators Continue antibiotics. F/u cultures. Monitor renal function. Monitor electrolytes. Supplement as necessary. Monitor ins and outs. S/p embolization of duodenal ulcer. GI recommendations appreciated Monitor hemoglobin Nutritional support. Accucheks, ISS. GI/DVT prophylaxis. Condition: Critical Prognosis: Poor given multiple comorbidities. Rest of plan per hospitalist and other consultants. A total of 35 minutes of critical care time was spent reviewing the patient record, examining the patient, making a diagnostic and therapeutic plan, discussing this plan with the medical personnel, following up on diagnostic studies and following the patient for clinical stability excluding any and all procedures. At least 50% of this time was spent in direct, [id number] contact. Thank you Dr. Shine Kumar for allowing me to participate in this patient's care. Further recommendations will depend on patient's clinical course. Please do not hesitate to contact me if you have any questions or concerns. This medical document was created using an electronic medical record system with [employer] dictation system. Although this document has been carefully reviewed, there may still be some phonetic and typographical errors. These areas are purely typographical due to imperfections of the software programs, and do not reflect any compromise in the patient's medical care. Dietary Evaluation Review Comments: 1.Consider advancing to PO diet once medically appropriate 2.Consider PN if NPO >7 if GI issues dont resolve 3.Consider beth BID (180kcal, 5 pro) Expected Outcomes/Goals: 1. Pt will consume >75% pt estimated meeds within 2-3 days Plan discussed with: Other (KAJAL Aquino) Critical Care Time(min): 35 YOSI FABIAN MD Jul 07, 2024 23:31
[2024-07-08] VITALS (35 sets, daily range): BP systolic 94–235; BP diastolic 49–73; PULSE 75–106; RESP 11–26; TEMP 97.8–99.8; O2SAT 95–100
[2024-07-08 05:25] LABS: Base Excess 2.6 mmol/L (-2.0-3.0)
[2024-07-08 06:31] LABS: Basophils # (auto) 0.2 10 ^3/uL (0-0.2); Basophils % (auto) 0.7 % (0.0-2.0); Eosinophils # (auto) 0.3 10 ^3/uL (0-0.8); Eosinophils % (auto) 1.2 % (0.0-7.0); Hematocrit 23.5 % (41.0-53.0); Hemoglobin 7.7 g/dL (13.5-17.5); Lymphocytes # (auto) 1.3 10 ^3/uL (0.4-5.4); Lymphocytes % (auto) 5.9 % (10.0-50.0); Mean Corpuscular Hemoglobin 28.4 pg (28.0-32.0); Mean Corpuscular Hgb Conc. 32.7 g/dL (32.0-36.0); Mean Corpuscular Volume 86.8 fL (80.0-100.0); Monocytes # (auto) 1.9 10 ^3/uL (0-1.3); Monocytes % (auto) 8.8 % (0.0-12.0); Neutrophils # (auto) 17.9 10 ^3/uL (1.6-8.6); Neutrophils % (auto) 83.4 % (37.0-80.0); Platelet Count (auto) 401 10^3/uL (140-450); Red Blood Cells 2.71 10^6/uL (4.5-5.90); Red Cell Distribution Width 17.8 % (11.8-14.3); White Blood Cell 21.4 10^3/uL (4.4-10.8)
[2024-07-08 06:38] LABS: Chloride 105 mmol/L (98-107); Potassium 3.9 mmol/L (3.5-5.1); Sodium 142 mmol/L (136-145)
[2024-07-08 06:39] LABS: Anion Gap 8 (5-15); Carbon Dioxide 29 mmol/L (20-31)
[2024-07-08 06:44] LABS: BUN/Creatinine Ratio 22.2 (10.0-20.0); Blood Urea Nitrogen 12 mg/dL (9-23); Calcium 8.4 mg/dL (8.7-10.4); Glucose 105 mg/dL (74-106)
[2024-07-08] MEDS ORDERED: VANCOMYCIN PER PHARMACY 0 MG IV SCH (08:45)
[2024-07-08] MEDS: VANCOMYCIN 1.5GM/300ML 300 ML IV ONE (09:42)
--- NOTE | 2024-07-08 10:24 | DVHPN2 ---
Subjective Patient was awake and following some commands. Reviewed: Care Plan, H&P, Labs, Medications, Previous Orders, Radiology Changes from previous H/P or p: Changes General: Per HPI Eyes: No Pain, No Vision change, No Conjunctivae inflammation, No Eyelid inflammation, No Other, No Redness ENT: No Ear pain, No Ear discharge, No Nose pain, No Nose discharge, No Nose congestion, No Mouth pain, No Mouth swelling, No Throat pain, No Throat swelling, No Other Cardiovascular: No Chest Pain, No Palpitations, No Orthopnea, No Paroxysmal Noc. Dyspnea, No Edema, No Lt Headedness, No Other Respiratory: No Cough, No Dry, No Shortness of breath, No SOB with excertion, No Wheezing, No Hemoptysis, No Pleuritic Pain, No Sputum, No Other Gastrointestinal: No Nausea, No Vomiting, No Abdominal Pain, No Diarrhea, No Constipation, No Melena, No Hematochezia, No Other Genitourinary: No Dysuria, No Frequency, No Incontinence, No Hematuria, No Retention, No Other Musculoskeletal: No other, No neck pain, No shoulder pain, No arm pain, No back pain, No hand pain, No leg pain, No foot pain Skin: No Rash, No Lesions, No Jaundice, No Bruising; Other (Bilateral legs wound) Objective Vitals Vital Signs Date Time Temp Pulse Resp B/P (MAP) Pulse Ox O2 Delivery O2 Flow Rate FiO2 07/08/24 09:38 16 96 Oxymizer 2 N/A 07/08/24 09:38 81 07/08/24 08:00 98.7 111/58 (75) 98.7 Intake/Output Intake and Output 07/08/24 07:00 Intake Total 600.649 ml Output Total 1700 ml Balance -1099.351 ml Intake Oral 0 ml IV Total 600.649 ml Output Urine Total 1700 ml # Bowel Movements 2 General Appearance: Alert, Oriented X3, Cooperative, No acute distress, mild distress, moderate distress, severe distress, Other (Chemically sedated) HEENT: Atraumatic, PERRLA Neck: Carotid Bruits [place] Lungs: Clear to auscultation, Normal air movement, Other Cardiovascular: Regular rate, Normal S1, Normal S2, No murmurs, Gallops, Rubs, Other Abdomen: Normal bowel sounds, Soft, No tenderness, No hepatospenomegaly, No masses, Other (NG tube with noted red gastric secretions) Genitourinary: No Apparent Abnormalities ([place] catheter) Skin: Wounds (See nurse notes and pictures) Psych/Mental Status: Mental status NL, Mood NL Medications Current Medications Medications Dose Ordered Sig/Maribeth Route Start Time Stop Time Status Last Admin Dose Admin Ondansetron HCl 4 mg Q4HP PRN IV 07/01/24 06:00 Acetaminophen 650 mg Q6HP PRN PO 07/01/24 06:00 Nitroglycerin 0.4 mg Q5MINP PRN SL 07/01/24 06:00 Vasopressin 20 units/Sodium Chloride 100 ml @ 9 mls/hr Q11H7M IV 07/01/24 15:15 07/05/24 22:45 9 MLS/HR Pantoprazole Sodium 50 ml @ 10 mls/hr Q5H IV 07/01/24 15:45 07/08/24 03:00 10 MLS/HR Octreotide Acetate 500 mcg/ Sodium Chloride 100 ml @ 10 mls/hr Q10H IV 07/01/24 15:45 07/08/24 06:00 10 MLS/HR Midazolam HCl 50 ml @ 1 mls/hr Q24H IV 07/01/24 19:30 07/06/24 17:27 8 MLS/HR Fentanyl Citrate 250 ml @ 2.5 mls/hr Q24H IV 07/01/24 19:30 07/06/24 10:32 12.5 MLS/HR Norepinephrine Bitartrate 250 ml @ 3.75 mls/hr Q24H IV 07/01/24 19:30 07/05/24 22:35 7.5 MLS/HR Dexmedetomidine HCl 400 mcg/ Dextrose 100 ml @ 3.905 mls/ hr Q24H IV 07/04/24 07:30 07/07/24 15:00 3.905 MLS/HR Thiamine HCl 100 mg DAILY IV 07/06/24 10:00 07/08/24 09:47 100 MG Ceftriaxone Sodium/Dextrose 50 ml @ 50 mls/hr DAILY IV 07/07/24 10:00 07/08/24 09:47 50 MLS/HR Vancomycin HCl 0 ml @ 0 mls/hr UD IV 07/08/24 08:45 UNV Laboratory Results Laboratory Tests 07/08/24 06:00 Chemistry Test 2/7/25 06:00 Calcium Level 8.4 mg/dL (8.7-10.4) L Urinalysis Test 07/01/24 14:50 Urine Color Yellow (Yellow) Urine Clarity Clear (Clear) Urine pH 5.5 (5.0-9.0) Urine Specific [place] 1.025 (1.001-1.035) Urine Protein Trace (Negative) H Urine Ketones Negative (Negative) Urine Blood Trace /uL (Negative) H Urine Nitrite Negative (Negative) Urine Bilirubin Negative (Negative) Urine Urobilinogen Normal mg/dL (Negative) Urine Leukocyte Esterase Negative /uL (Negative) Urine RBC 4 /hpf (0 - 3) Urine Microscopic WBC 1 /HPF (0-3) Urine Squamous Epithelial Cells Few /hpf (<5) Urine Bacteria Few /hpf (None Seen) H Urine Hyaline Casts Few /lpf (0 - 2) Urine Mucus Few (None Seen) Urine Glucose Normal mg/dL (Normal) Microbiology Microbiology Date/Time Source Procedure Growth Status 07/03/24 09:00 Leg Gram Stain - Final Resulted 07/03/24 09:00 Wound Culture - Preliminary Staphylococcus aureus Enterococcus faecalis Proteus vulgaris Resulted 07/01/24 14:50 Voided Urine Urine Culture - Final Complete 07/01/24 13:49 Blood Blood Culture - Final NO GROWTH AFTER 5 DAYS OF INCUBATION. Complete 07/01/24 00:00 Sputum Gram Stain - Final Complete 07/01/24 00:00 Respiratory Culture - Final Citrobacter koseri Complete Labs and/or images reviewed: Labs reviewed by me, Image(s) reviewed by me Assessment/Plan Assessment/Plan Impression: -hemorrhagic shock -probable sepsis secondary to lower extremity cellulitis -polysubstance abuse : Positive for PCP, cocaine, amphetamines -acute respiratory failure with mechanical ventilation -severe anemia from GI bleed -shock liver Plan: Events: No active bleeding overnight. Patient extubated and following some commands. Stop Precedex, Sandostatin, Protonix drip. Start clear liquid diet. -Protonix 40 mg IV twice a day -Carafate 1 g 4 times a day -Lorazepam p.r.n. withdrawal symptoms -antibiotic therapy with Rocephin and vancomycin -repeat labs in a.m. -transfer to telemetry unit Total time spent with patient discussing and formulating plan of care: 35 minutes. This medical document was created using an electronic medical record system with [employer] dictation system. Although this document has been carefully reviewed, there may still be some phonetic and typographical errors. These areas are purely typographical due to imperfections of the software programs, and do not reflect any compromise in the patient's medical care. Plan discussed with: Patient, Other (RN) My Orders Orders - BRADY SPARROW NP Procedure Category Date Status Time Vancomycin Per PHA 07/08/24 Pending Pharmacy 08:45 Basic Metabolic Panel LAB 07/09/24 Verified 04:00 Complete Blood Count LAB 07/09/24 Verified 04:00 Vancomycin 1.5gm/300ml PHA 07/08/24 In Process 09:30 Pantoprazole PHA 07/08/24 Logged (Protonix) 22:00 Lorazepam 2mg/Ml Inj PHA 07/08/24 Logged (Ativan Inj) 10:15 Clear Liq Diet DIET 07/08/24 Transmitted Lunch Sucralfate Susp PHA 07/08/24 Logged (Carafate Susp) 11:30 Transfer Orders XFER 07/08/24 Transmitted 10:12 Date of Service: Jul 08, 2024 Billing Provider: BRADY SPARROW NP Common Visit Codes: [id number] INP/OBS CARE(HIGH) BRADY SPARROW NP Jul 08, 2024 10:24
--- NOTE | 2024-07-08 15:40 | DVH ---
EXAM: CT HEAD WITHOUT CONTRAST HISTORY: unequal pupils COMPARISON: CT HEAD WITHOUT CONTRAST on DOS: 07/03/24, CT CHEST WITHOUT CONTRAST on DOS: 07/01/24 TECHNIQUE: Axial images of the head were obtained and reformatted in coronal and sagittal planes. All CT scans at this medical facility are performed using dose modulation techniques as appropriate t o a performed exam including the following: Automated exposure control was utilized; adjustment of th e MA and/or KV according to patient size; and use of iterative reconstruction technique. CT Dose: CTDI volume is 57.77 mGy. Dose-length product is 1022.89 mGy*cm FINDINGS: There is no evidence of acute intracranial hemorrhage, mass, mass effect midline shift. There is no h ydrocephalus or extra-axial fluid collection. Perry-white matter differentiation is maintained. There is benign mineralization in the bilateral basal ganglia. There is mucosal thickening in the maxillary sinuses, [id number]. The mastoid air cells are clear. The calvarium is intact. IMPRESSION: 1. No acute intracranial process. HS:Y
--- NOTE | 2024-07-08 17:13 | DVHPN2 ---
Progress Note Date Seen: Jul 08, 2024 Resident Creating Document: TERESITA FELIZ RESIDENT Has the PT tested + for MRSA If YES, has PT been informed?: No Medical Necessity Reason Pt with a Central, PICC or Fol: Yes The following are medically ne: Central Line, Barrow Catheter Reason for barrow catheter: Strict I&O Subjective Review of Systems Patient seen and examined at the bedside. Reports feeling fine, Not bleeding actively. Patient is extubated. Oxymizer. Tolerating ice chips. Status post embolization. Objective vital signs Vital Sign Date Time Temp Pulse Resp B/P (MAP) Pulse Ox O2 Delivery O2 Flow Rate FiO2 07/08/24 13:30 98.1 87 19 102/52 (69) 97 98.1 07/08/24 09:38 Oxymizer 2 N/A Total Intake and Output 07/07/24 07/07/24 07/08/24 15:00 23:00 07:00 Intake Total 228.405 ml 195.146 ml 177.098 ml Output Total 950 ml 750 ml Balance 228.405 ml -754.854 ml -572.902 ml medications Current Medications Medications Dose Ordered Sig/Maribeth Route Start Time Stop Time Status Last Admin Dose Admin Ondansetron HCl 4 mg Q4HP PRN IV 07/01/24 06:00 Acetaminophen 650 mg Q6HP PRN PO 07/01/24 06:00 Nitroglycerin 0.4 mg Q5MINP PRN SL 07/01/24 06:00 Thiamine HCl 100 mg DAILY IV 07/06/24 10:00 07/08/24 09:47 100 MG Ceftriaxone Sodium/Dextrose 50 ml @ 50 mls/hr DAILY IV 07/07/24 10:00 07/08/24 09:47 50 MLS/HR Vancomycin HCl 0 ml @ 0 mls/hr UD IV 07/08/24 08:45 Pantoprazole Sodium 40 mg BID IV 07/08/24 22:00 Lorazepam 0.5 mg Q6HP PRN IV 07/08/24 10:15 Sucralfate 1 gm QID@0600,1130,1700,2200 GT 07/08/24 11:30 Vancomycin HCl 100 ml @ 100 mls/hr Q12H IV 07/08/24 18:00 Examination Elderly Patient lying in bed General: afebrile, palor, mucosae are moist Cardiovascular: Regular S1 and S2. No murmurs, gallops or rubs. No JVD elevation. No pedal edema Respiratory: Normal B/L air entry on room air. Clear lung sounds on auscultation Abdomen: Soft, nontender, nondistended, normoactive bowel sounds, no rebound tenderness, no organomegaly, no masses Genitourinary: Deferred MSK/skin: Mobilizes 4 limbs. Skin is dry and warm laboratory and microbiology Laboratory Tests 07/08/24 06:00 Test 07/08/24 06:00 Range/Units Serum Glucose 105 74-106 mg/dL Microbiology Date/Time Source Procedure Growth Status 07/03/24 09:00 Leg Gram Stain - Final Complete 07/03/24 09:00 Wound Culture - Final Staphylococcus aureus Enterococcus faecalis Proteus vulgaris Enterobacter hormaechei Complete 07/01/24 14:50 Voided Urine Urine Culture - Final Complete 07/01/24 13:49 Blood Blood Culture - Final NO GROWTH AFTER 5 DAYS OF INCUBATION. Complete 07/01/24 00:00 Sputum Gram Stain - Final Complete 07/01/24 00:00 Respiratory Culture - Final Citrobacter koseri Complete Labs and/or images reviewed: Labs reviewed by me, Image(s) reviewed by me Problem List/Assessment/Plan Problem List/Assessment/Plan Upper GI bleeding secondary to duodenal bulb ulcer s/p embolization gastroduodenal artery 07/06 by IR Hypovolemic shock Severe anemia Transaminitis, hypoxic liver injury and hepatic steatosis ? Done CBD Likely sepsis secondary to cellulitis MSSA Acute hypoxic respiratory failure, intubated and mechanically ventilated Systolic Congestive heart failure Superficial venous thrombophlebitis, cephalic vein Polysubstance use including a PCP, cocaine EGD 07/03 shows large ulcer of the duodenum bulb occupying 3/4 of the bulb with old clots inside. No gross bleeding seen. Huge clot in the fundus of the body. Plan: Ultrasound liver shows hepatic steatosis, gallbladder sludge, dilated CBD. MRCP recommended. Patient is unstable for any acute GI intervention therefore holding off on MRCP at this point. Patient is not bleeding actively. H&H is stable. Negative for HIV, hep B and hep C Discontinue the octreotide drip, Protonix switched to IV b.i.d.. Antibiotics per primary team Monitor H&H Plan discussed with nurse Case discussed with Dr. Kunz Plan discussed with: Patient Dietary Evaluation Review Comments: 1.Consider advancing to PO diet once medically appropriate 2.Consider PN if NPO >7 if GI issues dont resolve 3.Consider beth BID (180kcal, 5 pro) Expected Outcomes/Goals: 1. Pt will consume >75% pt estimated meeds within 2-3 days TERESITA FELIZ RESIDENT Jul 08, 2024 17:13
[2024-07-08] MEDS ORDERED: VANCOMYCIN 750MG KIT 100 ML IV SCH (18:00)
[2024-07-08] MEDS: SUCRALFATE 1 GM/10 ML ORAL SUSP GT SCH (20:06)
[2024-07-08] MEDS: VANCOMYCIN 750MG KIT 100 ML IV SCH (20:14)
[2024-07-08] MEDS: PANTOPRAZOLE 40 MG/10 ML VIAL INJ IV SCH (23:35)
[2024-07-08] MEDS: ACETAMINOPHEN 325 MG TAB PO PRN (23:35)
--- NOTE | 2024-07-08 23:50 | DVHPN2 ---
Progress Note - Dictate Date Seen: Jul 08, 2024 Has the PT tested + for MRSA If YES, has PT been informed?: No Medical Necessity Reason Pt with a Central, PICC or Fol: Yes The following are medically ne: Central Line, Barrow Catheter Reason for barrow catheter: Strict I&O Subjective Patient seen and examined at bedside. Remains on supplemental oxygen Overnight events reviewed. vital signs Vital Sign Date Time Temp Pulse Resp B/P (MAP) Pulse Ox O2 Delivery O2 Flow Rate FiO2 07/08/24 17:50 75 123/57 (79) 07/08/24 17:00 97.8 17 95 97.8 07/08/24 09:38 Oxymizer 2 N/A Total Intake and Output 07/07/24 07/07/24 07/08/24 15:00 23:00 07:00 Intake Total 228.405 ml 195.146 ml 177.098 ml Output Total 950 ml 750 ml Balance 228.405 ml -754.854 ml -572.902 ml medications Current Medications Medications Dose Ordered Sig/Maribeth Route Start Time Stop Time Status Last Admin Dose Admin Ondansetron HCl 4 mg Q4HP PRN IV 07/01/24 06:00 Acetaminophen 650 mg Q6HP PRN PO 07/01/24 06:00 07/08/24 23:35 650 MG Nitroglycerin 0.4 mg Q5MINP PRN SL 07/01/24 06:00 Thiamine HCl 100 mg DAILY IV 07/06/24 10:00 07/08/24 09:47 100 MG Ceftriaxone Sodium/Dextrose 50 ml @ 50 mls/hr DAILY IV 07/07/24 10:00 07/08/24 09:47 50 MLS/HR Vancomycin HCl 0 ml @ 0 mls/hr UD IV 07/08/24 08:45 Pantoprazole Sodium 40 mg BID IV 07/08/24 22:00 07/08/24 23:35 40 MG Lorazepam 0.5 mg Q6HP PRN IV 07/08/24 10:15 Sucralfate 1 gm QID@0600,1130,1700,2200 GT 07/08/24 11:30 07/08/24 23:35 1 GM Vancomycin HCl 100 ml @ 100 mls/hr Q12H IV 07/09/24 08:00 objective Gen.: Patient lying in bed in no apparent distress. On supplemental oxygen. Head: Normocephalic, atraumatic. Eyes: EOMI/PERRLA. Ears: Normal hearing. Normal anatomy. Neck/trachea: Trachea midline, supple. Nose: Normal external anatomy. Mouth: Moist mucous membranes. Chest: Decreased air entry bilaterally. No wheezing or rhonchi. Cardiovascular: Positive S1, positive S2. Regular rate and rhythm. Abdomen: Positive bowel sounds in all 4 quadrants. Soft, non-tender, non- distended. : Deferred. Rectal: Deferred. Skin: Warm, dry. Intact. Extremities: 2+ radial pulses bilaterally. No lower extremity edema. Neuro: Awake, alert, oriented x3. No gross motor or sensory deficits. Cranial nerves II through XII intact. Gait not assessed. laboratory and microbiology Laboratory Tests 07/08/24 06:00 Test 07/08/24 06:00 Range/Units Serum Glucose 105 74-106 mg/dL Assessment/Plan Impression: Acute hypoxic respiratory failure GI hemorrhage Hemorrhagic shock Substance abuse Bilateral lower extremity wounds Events: Remains on supplemental oxygen at 2 LPM Oxymizer Taper O2 as tolerated Improved oxygen requirements Monitor respiratory status closely CT head reveals no evidence of ICH or stroke. Monitor hemoglobin closely - 7.7 g/dL Head of bed elevation Aspiration precautions Continue antibiotics Sucralfate Off sedation Off Precedex Off pressors, hemodynamically stable. On Sandostatin drip Protonix drip IV fluids with banana bag. Wound care. Wound cultures grew Staph aureus. S/p gastroduodenal artery thromboembolization by IR. No bloody bowel movements. Labs and imaging reviewed. Rest of plan as noted below. Plan: S/p extubation on 07/07/24 On supplemental oxygen Titrate to keep O2 sats above 90%. CXR image and report reviewed. Off sedation Pressors if necessary for hemodynamic support. Titrate to keep MAP above 65 mmHg/SBP above 90 mmHg. Bronchodilators PRN Continue antibiotics. F/u cultures. Monitor renal function. Monitor electrolytes. Supplement as necessary. Monitor ins and outs. S/p embolization of duodenal ulcer. GI recommendations appreciated Monitor hemoglobin Nutritional support. Accucheks, ISS. GI/DVT prophylaxis. Prognosis: Poor given multiple comorbidities. Rest of plan per hospitalist and other consultants. Thank you Dr. Shine Kumar for allowing me to participate in this patient's care. Further recommendations will depend on patient's clinical course. Please do not hesitate to contact me if you have any questions or concerns. This medical document was created using an electronic medical record system with [employer] dictation system. Although this document has been carefully reviewed, there may still be some phonetic and typographical errors. These areas are purely typographical due to imperfections of the software programs, and do not reflect any compromise in the patient's medical care. Dietary Evaluation Review Comments: 1.Consider advancing to PO diet once medically appropriate 2.Consider PN if NPO >7 if GI issues dont resolve 3.Consider beth BID (180kcal, 5 pro) Expected Outcomes/Goals: 1. Pt will consume >75% pt estimated meeds within 2-3 days Plan discussed with: Patient, Other (KAJAL Bliss) YOSI FABIAN MD Jul 08, 2024 23:50
[2024-07-09] VITALS (9 sets, daily range): BP systolic 97–130; BP diastolic 48–63; PULSE 79–99; RESP 18–20; TEMP 97.9–99.2; O2SAT 98–100
[2024-07-09 06:56] LABS: Hemoglobin 7.8 g/dL (13.5-17.5); Mean Corpuscular Hgb Conc. 32.7 g/dL (32.0-36.0)
[2024-07-09 06:59] LABS: Hematocrit 23.7 % (41.0-53.0); Mean Corpuscular Hemoglobin 28.2 pg (28.0-32.0); Mean Corpuscular Volume 86.2 fL (80.0-100.0); Platelet Count (auto) 501 10^3/uL (140-450); Red Blood Cells 2.76 10^6/uL (4.5-5.90); White Blood Cell 18.8 10^3/uL (4.4-10.8)
[2024-07-09 07:05] LABS: Chloride 102 mmol/L (98-107); Potassium 3.6 mmol/L (3.5-5.1); Sodium 138 mmol/L (136-145)
[2024-07-09 07:06] LABS: Anion Gap 8 (5-15); Carbon Dioxide 28 mmol/L (20-31)
[2024-07-09 07:10] LABS: Basophils % (manual) 0 (0.0-2.0); Blast Cells 0; Metamyelocytes % 0; Myelocytes % 0; Promyelocytes % 0; Reactive Lymphocytes 0
[2024-07-09 07:11] LABS: Glucose 92 mg/dL (74-106)
[2024-07-09 07:12] LABS: BUN/Creatinine Ratio 15.5 (10.0-20.0); Blood Urea Nitrogen 9 mg/dL (9-23)
[2024-07-09 07:14] LABS: Calcium 8.3 mg/dL (8.7-10.4)
[2024-07-09 07:50] LABS: Anisocytosis Slight; Band Neutrophils % (manual) 6; Eosinophils % (manual) 1 (0-7); Lymphocytes % (manual) 10 (10.0-50.0); Monocytes % (manual) 9 (0-12); Platelet Estimate Increased
[2024-07-09] MEDS: VANCOMYCIN 750MG KIT 100 ML IV SCH (08:10)
--- NOTE | 2024-07-09 14:58 | DVHPN2 ---
Subjective The patient is seen and examined at bedside. Still very weak and complains of pain. Reviewed: Care Plan, H&P, Labs, Medications, Previous Orders, Radiology Changes from previous H/P or p: No Changes General: Per HPI Eyes: No Pain, No Vision change, No Conjunctivae inflammation, No Eyelid inflammation, No Other, No Redness ENT: No Ear pain, No Ear discharge, No Nose pain, No Nose discharge, No Nose congestion, No Mouth pain, No Mouth swelling, No Throat pain, No Throat swelling, No Other Cardiovascular: No Chest Pain, No Palpitations, No Orthopnea, No Paroxysmal Noc. Dyspnea, No Edema, No Lt Headedness, No Other Respiratory: No Cough, No Dry, No Shortness of breath, No SOB with excertion, No Wheezing, No Hemoptysis, No Pleuritic Pain, No Sputum, No Other Gastrointestinal: No Nausea, No Vomiting, No Abdominal Pain, No Diarrhea, No Constipation, No Melena, No Hematochezia, No Other Genitourinary: No Dysuria, No Frequency, No Incontinence, No Hematuria, No Retention, No Other Musculoskeletal: No other, No neck pain, No shoulder pain, No arm pain, No back pain, No hand pain, No leg pain, No foot pain Skin: No Rash, No Lesions, No Jaundice, No Bruising; Other (Bilateral legs wound) Objective Vitals Vital Signs Date Time Temp Pulse Resp B/P (MAP) Pulse Ox O2 Delivery O2 Flow Rate FiO2 07/09/24 13:00 98.4 79 18 101/50 (67) 98 98.4 07/09/24 08:30 Oxymizer 4 N/A Intake/Output Intake and Output 07/09/24 07:00 Intake Total 1729.763 ml Output Total 950 ml Balance 779.763 ml Intake Oral 1600 ml IV Total 129.763 ml Output Urine Total 950 ml # Bowel Movements 2 General Appearance: Alert, Oriented X3, Cooperative, No acute distress, mild distress, moderate distress, severe distress, Other (Chemically sedated) HEENT: Atraumatic, PERRLA Neck: Carotid Bruits [place] Lungs: Clear to auscultation, Normal air movement, Other Cardiovascular: Regular rate, Normal S1, Normal S2, No murmurs, Gallops, Rubs, Other Abdomen: Normal bowel sounds, Soft, No tenderness, No hepatospenomegaly, No masses, Other (NG tube with noted red gastric secretions) Genitourinary: No Apparent Abnormalities (Manning catheter) Skin: Wounds (See nurse notes and pictures) Psych/Mental Status: Mental status NL, Mood NL Medications Current Medications Medications Dose Ordered Sig/Maribeth Route Start Time Stop Time Status Last Admin Dose Admin Ondansetron HCl 4 mg Q4HP PRN IV 07/01/24 06:00 Acetaminophen 650 mg Q6HP PRN PO 07/01/24 06:00 07/08/24 23:35 650 MG Nitroglycerin 0.4 mg Q5MINP PRN SL 07/01/24 06:00 Thiamine HCl 100 mg DAILY IV 07/06/24 10:00 07/09/24 09:57 100 MG Ceftriaxone Sodium/Dextrose 50 ml @ 50 mls/hr DAILY IV 07/07/24 10:00 07/09/24 09:57 50 MLS/HR Vancomycin HCl 0 ml @ 0 mls/hr UD IV 07/08/24 08:45 Pantoprazole Sodium 40 mg BID IV 07/08/24 22:00 07/09/24 09:57 40 MG Lorazepam 0.5 mg Q6HP PRN IV 07/08/24 10:15 Sucralfate 1 gm QID@0600,1130,1700,2200 GT 07/08/24 11:30 07/09/24 12:15 1 GM Vancomycin HCl 100 ml @ 100 mls/hr Q12H IV 07/09/24 08:00 07/09/24 08:10 100 MLS/HR Laboratory Results Laboratory Tests 07/09/24 05:33 Chemistry Test 07/09/24 05:33 Calcium Level 8.3 mg/dL (8.7-10.4) L Urinalysis Test 07/01/24 14:50 Urine Color Yellow (Yellow) Urine Clarity Clear (Clear) Urine pH 5.5 (5.0-9.0) Urine Specific [place] 1.025 (1.001-1.035) Urine Protein Trace (Negative) H Urine Ketones Negative (Negative) Urine Blood Trace /uL (Negative) H Urine Nitrite Negative (Negative) Urine Bilirubin Negative (Negative) Urine Urobilinogen Normal mg/dL (Negative) Urine Leukocyte Esterase Negative /uL (Negative) Urine RBC 4 /hpf (0 - 3) Urine Microscopic WBC 1 /HPF (0-3) Urine Squamous Epithelial Cells Few /hpf (<5) Urine Bacteria Few /hpf (None Seen) H Urine Hyaline Casts Few /lpf (0 - 2) Urine Mucus Few (None Seen) Urine Glucose Normal mg/dL (Normal) Microbiology Microbiology Date/Time Source Procedure Growth Status 07/03/24 09:00 Leg Gram Stain - Final Complete 07/03/24 09:00 Wound Culture - Final Staphylococcus aureus Enterococcus faecalis Proteus vulgaris Enterobacter hormaechei Complete 07/01/24 14:50 Voided Urine Urine Culture - Final Complete 07/01/24 13:49 Blood Blood Culture - Final NO GROWTH AFTER 5 DAYS OF INCUBATION. Complete 07/01/24 00:00 Sputum Gram Stain - Final Complete 07/01/24 00:00 Respiratory Culture - Final Citrobacter koseri Complete Labs and/or images reviewed: Labs reviewed by me Assessment/Plan Assessment/Plan -hemorrhagic shock -probable sepsis secondary to lower extremity cellulitis -polysubstance abuse : Positive for PCP, cocaine, amphetamines -acute respiratory failure with mechanical ventilation -severe anemia from GI bleed -shock liver Plan: Continuing current management. No active bleeding overnight. Patient extubated and following some commands. Continuing clear liquid diet. -Protonix 40 mg IV twice a day -Carafate 1 g 4 times a day -Lorazepam p.r.n. withdrawal symptoms -antibiotic therapy with Rocephin and vancomycin -repeat labs in a.m. -we will consult physical get the patient out of bed and ambulate. This medical document was created using an electronic medical record system with [employer] direct computerized dictation system. Although this document has been carefully reviewed, there may still be some phonetic and typographical errors. These areas are purely typographical due to imperfections of the software programs, and do not reflect any compromise in the patient's medical care. Plan discussed with: Patient Date of Service: Jul 09, 2024 Billing Provider: AZUCENA LEWIS MD Common Visit Codes: [id number] INP/OBS CARE(HIGH) AZUCENA LEWIS MD Jul 09, 2024 14:58
--- NOTE | 2024-07-09 15:54 | DVHPN2 ---
Progress Note Date Seen: Jul 09, 2024 Resident Creating Document: TERESITA FELIZ RESIDENT Has the PT tested + for MRSA If YES, has PT been informed?: No Medical Necessity Reason Pt with a Central, PICC or Fol: Yes The following are medically ne: Central Line, Barrow Catheter Reason for barrow catheter: Strict I&O Subjective Review of Systems Patient seen and examined at the bedside. Reports feeling fine, Not bleeding actively. Reports taking painkillers previously. Patient is extubated. Oxymizer. Tolerating ice chips. Status post embolization. PT eval advised. Objective vital signs Vital Sign Date Time Temp Pulse Resp B/P (MAP) Pulse Ox O2 Delivery O2 Flow Rate FiO2 07/09/24 13:00 98.4 79 18 101/50 (67) 98 98.4 07/09/24 10:00 Oxymizer 4.0 07/09/24 10:00 N/A Total Intake and Output 07/08/24 07/08/24 07/09/24 15:00 23:00 07:00 Intake Total 29.763 ml 1700 ml Output Total 950 ml Balance 29.763 ml 750 ml medications Current Medications Medications Dose Ordered Sig/Maribeth Route Start Time Stop Time Status Last Admin Dose Admin Ondansetron HCl 4 mg Q4HP PRN IV 07/01/24 06:00 Acetaminophen 650 mg Q6HP PRN PO 07/01/24 06:00 07/08/24 23:35 650 MG Nitroglycerin 0.4 mg Q5MINP PRN SL 07/01/24 06:00 Thiamine HCl 100 mg DAILY IV 07/06/24 10:00 07/09/24 09:57 100 MG Ceftriaxone Sodium/Dextrose 50 ml @ 50 mls/hr DAILY IV 07/07/24 10:00 07/09/24 09:57 50 MLS/HR Vancomycin HCl 0 ml @ 0 mls/hr UD IV 07/08/24 08:45 Pantoprazole Sodium 40 mg BID IV 07/08/24 22:00 07/09/24 09:57 40 MG Lorazepam 0.5 mg Q6HP PRN IV 07/08/24 10:15 Sucralfate 1 gm QID@0600,1130,1700,2200 GT 07/08/24 11:30 07/09/24 12:15 1 GM Vancomycin HCl 100 ml @ 100 mls/hr Q12H IV 07/09/24 08:00 07/09/24 08:10 100 MLS/HR Examination Elderly Patient lying in bed General: afebrile, palor, mucosae are moist Cardiovascular: Regular S1 and S2. No murmurs, gallops or rubs. No JVD elevation. No pedal edema Respiratory: Normal B/L air entry on room air. Clear lung sounds on auscultation Abdomen: Soft, nontender, nondistended, normoactive bowel sounds, no rebound tenderness, no organomegaly, no masses Genitourinary: Deferred MSK/skin: Mobilizes 4 limbs. Skin is dry and warm laboratory and microbiology Laboratory Tests 07/09/24 05:33 Test 07/09/24 05:33 Range/Units Serum Glucose 92 74-106 mg/dL Microbiology Date/Time Source Procedure Growth Status 07/03/24 09:00 Leg Gram Stain - Final Complete 07/03/24 09:00 Wound Culture - Final Staphylococcus aureus Enterococcus faecalis Proteus vulgaris Enterobacter hormaechei Complete 07/01/24 14:50 Voided Urine Urine Culture - Final Complete 07/01/24 13:49 Blood Blood Culture - Final NO GROWTH AFTER 5 DAYS OF INCUBATION. Complete 07/01/24 00:00 Sputum Gram Stain - Final Complete 07/01/24 00:00 Respiratory Culture - Final Citrobacter koseri Complete Labs and/or images reviewed: Labs reviewed by me, Image(s) reviewed by me Problem List/Assessment/Plan Problem List/Assessment/Plan Upper GI bleeding secondary to duodenal bulb ulcer s/p embolization gastroduodenal artery 07/06 by IR Hypovolemic shock Severe anemia Transaminitis, hypoxic liver injury and hepatic steatosis ? Done CBD Likely sepsis secondary to cellulitis MSSA Acute hypoxic respiratory failure, intubated and mechanically ventilated Systolic Congestive heart failure Superficial venous thrombophlebitis, cephalic vein Polysubstance use including a PCP, cocaine EGD 07/03 shows large ulcer of the duodenum bulb occupying 3/4 of the bulb with old clots inside. No gross bleeding seen. Huge clot in the fundus of the body. Plan: Ultrasound liver shows hepatic steatosis, gallbladder sludge, dilated CBD. MRCP recommended. Patient is unstable for any acute GI intervention therefore holding off on MRCP at this point. Continue conservative management for now. Patient is not bleeding actively. H&H is stable. Recommend physical therapy evaluation Negative for HIV, hep B and hep C Discontinue the octreotide drip, Protonix switched to IV b.i.d.. Antibiotics per primary team Monitor H&H Advise patient to avoid NSAIDs/aspirin/ibuprofen Diet, liquid diet, advanced slowly Plan discussed with nurse Case discussed with Dr. Kunz Plan discussed with: Patient Dietary Evaluation Review Comments: 1.Consider advancing to PO diet once medically appropriate 2.Consider PN if NPO >7 if GI issues dont resolve 3.Consider beth BID (180kcal, 5 pro) Expected Outcomes/Goals: 1. Pt will consume >75% pt estimated meeds within 2-3 days TERESITA FELIZ RESIDENT Jul 09, 2024 15:54
--- NOTE | 2024-07-09 21:07 | DVHPN2 ---
Progress Note - Dictate Date Seen: Jul 09, 2024 Has the PT tested + for MRSA If YES, has PT been informed?: No Medical Necessity Reason Pt with a Central, PICC or Fol: Yes The following are medically ne: Central Line, Barrow Catheter Reason for barrow catheter: Strict I&O Subjective Patient seen and examined at bedside. Remains on supplemental oxygen Overnight events reviewed. vital signs Vital Sign Date Time Temp Pulse Resp B/P (MAP) Pulse Ox O2 Delivery O2 Flow Rate FiO2 07/09/24 17:00 99.2 88 18 130/63 (85) 100 99.2 07/09/24 10:00 Oxymizer 4.0 07/09/24 10:00 N/A Total Intake and Output 07/08/24 07/08/24 07/09/24 15:00 23:00 07:00 Intake Total 29.763 ml 1700 ml 400 ml Output Total 950 ml 701 ml Balance 29.763 ml 750 ml -301 ml medications Current Medications Medications Dose Ordered Sig/Maribeth Route Start Time Stop Time Status Last Admin Dose Admin Ondansetron HCl 4 mg Q4HP PRN IV 07/01/24 06:00 Acetaminophen 650 mg Q6HP PRN PO 07/01/24 06:00 07/08/24 23:35 650 MG Nitroglycerin 0.4 mg Q5MINP PRN SL 07/01/24 06:00 Thiamine HCl 100 mg DAILY IV 07/06/24 10:00 07/09/24 09:57 100 MG Ceftriaxone Sodium/Dextrose 50 ml @ 50 mls/hr DAILY IV 07/07/24 10:00 07/09/24 09:57 50 MLS/HR Vancomycin HCl 0 ml @ 0 mls/hr UD IV 07/08/24 08:45 Pantoprazole Sodium 40 mg BID IV 07/08/24 22:00 07/09/24 09:57 40 MG Lorazepam 0.5 mg Q6HP PRN IV 07/08/24 10:15 Sucralfate 1 gm QID@0600,1130,1700,2200 GT 07/08/24 11:30 07/09/24 16:27 1 GM Vancomycin HCl 100 ml @ 100 mls/hr Q12H IV 07/09/24 08:00 07/09/24 08:10 100 MLS/HR objective Gen.: Patient lying in bed in no apparent distress. On supplemental oxygen. Head: Normocephalic, atraumatic. Eyes: EOMI/PERRLA. Ears: Normal hearing. Normal anatomy. Neck/trachea: Trachea midline, supple. Nose: Normal external anatomy. Mouth: Moist mucous membranes. Chest: Decreased air entry bilaterally. No wheezing or rhonchi. Cardiovascular: Positive S1, positive S2. Regular rate and rhythm. Abdomen: Positive bowel sounds in all 4 quadrants. Soft, non-tender, non- distended. : Deferred. Rectal: Deferred. Skin: Warm, dry. Intact. Extremities: 2+ radial pulses bilaterally. No lower extremity edema. Neuro: Awake, alert, oriented x3. No gross motor or sensory deficits. Cranial nerves II through XII intact. Gait not assessed. laboratory and microbiology Laboratory Tests 07/09/24 05:33 Test 07/09/24 05:33 Range/Units Serum Glucose 92 74-106 mg/dL Assessment/Plan Impression: Acute hypoxic respiratory failure GI hemorrhage Hemorrhagic shock Substance abuse Bilateral lower extremity wounds Events: Remains on supplemental oxygen at 4 LPM Oxymizer Taper O2 as tolerated Increased oxygen requirements Monitor respiratory status closely CT head (07/08/24) reveals no evidence of ICH or stroke. Hemoglobin stable - 7.8 g/dL Continue to monitor Head of bed elevation Aspiration precautions Continue antibiotics Carafate Protonix drip IV fluids with banana bag. Wound care. Wound cultures grew Staph aureus. S/p gastroduodenal artery thromboembolization by IR. No bloody bowel movements. Labs and imaging reviewed. Rest of plan as noted below. Plan: S/p extubation on 07/07/24 Supplemental oxygen Titrate to keep O2 sats above 92%. Off sedation Pressors if necessary for hemodynamic support. Titrate to keep MAP above 65 mmHg/SBP above 90 mmHg. Bronchodilators PRN Continue antibiotics. F/u cultures. Monitor renal function. Monitor electrolytes. Supplement as necessary. Monitor ins and outs. S/p embolization of duodenal ulcer. GI recommendations appreciated Monitor hemoglobin Nutritional support. Accucheks, ISS. GI/DVT prophylaxis. Prognosis: Guarded given multiple comorbidities. Rest of plan per hospitalist and other consultants. Thank you Dr. Shine Kumar for allowing me to participate in this patient's care. Further recommendations will depend on patient's clinical course. Please do not hesitate to contact me if you have any questions or concerns. This medical document was created using an electronic medical record system with [employer] dictation system. Although this document has been carefully reviewed, there may still be some phonetic and typographical errors. These areas are purely typographical due to imperfections of the software programs, and do not reflect any compromise in the patient's medical care. Dietary Evaluation Review Comments: 1.Consider advancing to PO diet once medically appropriate 2.Consider PN if NPO >7 if GI issues dont resolve 3.Consider beth BID (180kcal, 5 pro) Expected Outcomes/Goals: 1. Pt will consume >75% pt estimated meeds within 2-3 days Plan discussed with: Patient, Other (KAJAL Holder) YOSI FABIAN MD Jul 09, 2024 21:07
[2024-07-10] VITALS (10 sets, daily range): BP systolic 104–126; BP diastolic 51–73; PULSE 80–91; RESP 18–20; TEMP 98–99; O2SAT 99–100
[2024-07-10] MEDS: VANCOMYCIN 1.25GM/250ML 250 ML IV SCH (16:31)
--- NOTE | 2024-07-10 20:02 | DVHPN2 ---
Progress Note - Dictate Date Seen: Jul 10, 2024 Has the PT tested + for MRSA If YES, has PT been informed?: No Medical Necessity Reason Pt with a Central, PICC or Fol: Yes The following are medically ne: Central Line, Barrow Catheter Reason for barrow catheter: Strict I&O Subjective No new complaints Patient awake alert arousable No GI bleeding is reported; hemoglobin stable at 7.8 Hepatitis panel negative, liver enzymes trending down Patient is still is altered and has a sitter at bedside for safety He also has mild respiratory congestion Patient stated he was taking NSAIDs prior to his admission vital signs Vital Sign Date Time Temp Pulse Resp B/P (MAP) Pulse Ox O2 Delivery O2 Flow Rate FiO2 07/10/24 17:00 98.0 81 18 126/70 (88) 100 98.0 07/10/24 10:00 Oxymizer 4 N/A Total Intake and Output 07/09/24 07/09/24 07/10/24 15:00 23:00 07:00 Intake Total 550 ml 350 ml 200 ml Output Total 1300 ml Balance 550 ml 350 ml -1100 ml medications Current Medications Medications Dose Ordered Sig/Maribeth Route Start Time Stop Time Status Last Admin Dose Admin Ondansetron HCl 4 mg Q4HP PRN IV 07/01/24 06:00 Acetaminophen 650 mg Q6HP PRN PO 07/01/24 06:00 07/10/24 02:14 650 MG Nitroglycerin 0.4 mg Q5MINP PRN SL 07/01/24 06:00 Thiamine HCl 100 mg DAILY IV 07/06/24 10:00 07/10/24 09:59 100 MG Ceftriaxone Sodium/Dextrose 50 ml @ 50 mls/hr DAILY IV 07/07/24 10:00 07/10/24 09:59 50 MLS/HR Vancomycin HCl 0 ml @ 0 mls/hr UD IV 07/08/24 08:45 Pantoprazole Sodium 40 mg BID IV 07/08/24 22:00 07/10/24 09:59 40 MG Lorazepam 0.5 mg Q6HP PRN IV 07/08/24 10:15 Sucralfate 1 gm QID@0600,1130,1700,2200 GT 07/08/24 11:30 07/10/24 16:30 1 GM Vancomycin HCl 250 ml @ 200 mls/hr Q10H IV 07/10/24 17:00 07/10/24 16:31 200 MLS/HR objective Elderly Patient lying in bed General: afebrile, palor, mucosae are moist Cardiovascular: Regular S1 and S2. No murmurs, gallops or rubs. No JVD elevation. No pedal edema Respiratory: Normal B/L air entry on room air. Clear lung sounds on auscultation Abdomen: Soft, nontender, nondistended, normoactive bowel sounds, no rebound tenderness, no organomegaly, no masses MSK/skin: Mobilizes 4 limbs. Skin is dry and warm laboratory and microbiology Laboratory Tests 07/10/24 06:25 07/09/24 05:33 Test 07/09/24 05:33 Range/Units Serum Glucose 92 74-106 mg/dL RUQ USG IMPRESSION: Hepatic steatosis. Gallbladder sludge. Dilated common bile duct. MRCP recommended. Problems(with codes): (1) Hepatic steatosis (2) Gallbladder sludge (3) Elevated liver enzymes (4) Duodenal ulcer (5) Elevated d-dimer (6) Generalized weakness (7) Cellulitis and abscess of foot excluding toe (8) Hypotension Prognosis Plan Continue supportive care Protonix 40 mg IV q.12 hours Patient on oral Carafate 1 g p.o. twice a day DC aspirin NSAIDs Advance to a pureed or soft diet Patient is on IV antibiotics for pulmonary issues Monitor liver enzymes MRCP once the patient is more stabilized if the liver enzymes are persistently elevated Dietary Evaluation Review Comments: 1.Consider advancing to PO diet once medically appropriate 2.Consider PN if NPO >7 if GI issues dont resolve 3.Consider beth BID (180kcal, 5 pro) Expected Outcomes/Goals: 1. Pt will consume >75% pt estimated meeds within 2-3 days Plan discussed with: Patient ABE LO MD Jul 10, 2024 20:01
--- NOTE | 2024-07-10 20:15 | DVHPN2 ---
Subjective The patient is seen and examined at bedside. Still very weak and complains of pain. Reviewed: Care Plan, H&P, Labs, Medications, Previous Orders, Radiology Changes from previous H/P or p: No Changes General: Per HPI Eyes: No Pain, No Vision change, No Conjunctivae inflammation, No Eyelid inflammation, No Other, No Redness ENT: No Ear pain, No Ear discharge, No Nose pain, No Nose discharge, No Nose congestion, No Mouth pain, No Mouth swelling, No Throat pain, No Throat swelling, No Other Cardiovascular: No Chest Pain, No Palpitations, No Orthopnea, No Paroxysmal Noc. Dyspnea, No Edema, No Lt Headedness, No Other Respiratory: No Cough, No Dry, No Shortness of breath, No SOB with excertion, No Wheezing, No Hemoptysis, No Pleuritic Pain, No Sputum, No Other Gastrointestinal: No Nausea, No Vomiting, No Abdominal Pain, No Diarrhea, No Constipation, No Melena, No Hematochezia, No Other Genitourinary: No Dysuria, No Frequency, No Incontinence, No Hematuria, No Retention, No Other Musculoskeletal: No other, No neck pain, No shoulder pain, No arm pain, No back pain, No hand pain, No leg pain, No foot pain Skin: No Rash, No Lesions, No Jaundice, No Bruising; Other (Bilateral legs wound) Objective Vitals Vital Signs Date Time Temp Pulse Resp B/P (MAP) Pulse Ox O2 Delivery O2 Flow Rate FiO2 07/10/24 17:00 98.0 81 18 126/70 (88) 100 98.0 07/10/24 10:00 Oxymizer 4 N/A Intake/Output Intake and Output 07/10/24 07:00 Intake Total 1100 ml Output Total 1300 ml Balance -200 ml Intake Oral 950 ml IV Total 150 ml Output Urine Total 1300 ml General Appearance: Alert, Oriented X3, Cooperative, No acute distress, mild distress, moderate distress, severe distress, Other (Chemically sedated) HEENT: Atraumatic, PERRLA Neck: Carotid Bruits [place] Lungs: Clear to auscultation, Normal air movement, Other Cardiovascular: Regular rate, Normal S1, Normal S2, No murmurs, Gallops, Rubs, Other Abdomen: Normal bowel sounds, Soft, No tenderness, No hepatospenomegaly, No masses, Other (NG tube with noted red gastric secretions) Genitourinary: No Apparent Abnormalities (Manning catheter) Skin: Wounds (See nurse notes and pictures) Psych/Mental Status: Mental status NL, Mood NL Medications Current Medications Medications Dose Ordered Sig/Maribeth Route Start Time Stop Time Status Last Admin Dose Admin Ondansetron HCl 4 mg Q4HP PRN IV 07/01/24 06:00 Acetaminophen 650 mg Q6HP PRN PO 07/01/24 06:00 07/10/24 02:14 650 MG Nitroglycerin 0.4 mg Q5MINP PRN SL 07/01/24 06:00 Thiamine HCl 100 mg DAILY IV 07/06/24 10:00 07/10/24 09:59 100 MG Ceftriaxone Sodium/Dextrose 50 ml @ 50 mls/hr DAILY IV 07/07/24 10:00 07/10/24 09:59 50 MLS/HR Vancomycin HCl 0 ml @ 0 mls/hr UD IV 07/08/24 08:45 Pantoprazole Sodium 40 mg BID IV 07/08/24 22:00 07/10/24 09:59 40 MG Lorazepam 0.5 mg Q6HP PRN IV 07/08/24 10:15 Sucralfate 1 gm QID@0600,1130,1700,2200 GT 07/08/24 11:30 07/10/24 16:30 1 GM Vancomycin HCl 250 ml @ 200 mls/hr Q10H IV 07/10/24 17:00 07/10/24 16:31 200 MLS/HR Laboratory Results Laboratory Tests 07/09/24 05:33 07/10/24 06:25 Urinalysis Test 07/01/24 14:50 Urine Color Yellow (Yellow) Urine Clarity Clear (Clear) Urine pH 5.5 (5.0-9.0) Urine Specific [place] 1.025 (1.001-1.035) Urine Protein Trace (Negative) H Urine Ketones Negative (Negative) Urine Blood Trace /uL (Negative) H Urine Nitrite Negative (Negative) Urine Bilirubin Negative (Negative) Urine Urobilinogen Normal mg/dL (Negative) Urine Leukocyte Esterase Negative /uL (Negative) Urine RBC 4 /hpf (0 - 3) Urine Microscopic WBC 1 /HPF (0-3) Urine Squamous Epithelial Cells Few /hpf (<5) Urine Bacteria Few /hpf (None Seen) H Urine Hyaline Casts Few /lpf (0 - 2) Urine Mucus Few (None Seen) Urine Glucose Normal mg/dL (Normal) Microbiology Microbiology Date/Time Source Procedure Growth Status 07/03/24 09:00 Leg Gram Stain - Final Complete 07/03/24 09:00 Wound Culture - Final Staphylococcus aureus Enterococcus faecalis Proteus vulgaris Enterobacter hormaechei Complete 07/01/24 14:50 Voided Urine Urine Culture - Final Complete 07/01/24 13:49 Blood Blood Culture - Final NO GROWTH AFTER 5 DAYS OF INCUBATION. Complete 07/01/24 00:00 Sputum Gram Stain - Final Complete 07/01/24 00:00 Respiratory Culture - Final Citrobacter koseri Complete Labs and/or images reviewed: Labs reviewed by me Assessment/Plan Assessment/Plan -hemorrhagic shock -probable sepsis secondary to lower extremity cellulitis -polysubstance abuse : Positive for PCP, cocaine, amphetamines -acute respiratory failure with mechanical ventilation -severe anemia from GI bleed -shock liver Plan: Continuing current management. No active bleeding overnight. Patient extubated and following some commands. Continuing clear liquid diet. -Protonix 40 mg IV twice a day -Carafate 1 g 4 times a day -Lorazepam p.r.n. withdrawal symptoms -antibiotic therapy with Rocephin and vancomycin -repeat labs in a.m. -we will consult physical therapy get the patient out of bed and ambulate. This medical document was created using an electronic medical record system with [employer] direct computerized dictation system. Although this document has been carefully reviewed, there may still be some phonetic and typographical errors. These areas are purely typographical due to imperfections of the software programs, and do not reflect any compromise in the patient's medical care. Plan discussed with: Patient Date of Service: Jul 10, 2024 Billing Provider: AZUCENA LEWIS MD Common Visit Codes: [id number] INP/OBS CARE(HIGH) AZUCENA LEWIS MD Jul 10, 2024 20:15
[2024-07-10] MEDS: VANCOMYCIN 1GM/250ML KIT 0 ML IV ONE (20:36)
--- NOTE | 2024-07-10 23:01 | DVHPN2 ---
Progress Note - Dictate Date Seen: Jul 10, 2024 Has the PT tested + for MRSA If YES, has PT been informed?: No Medical Necessity Reason Pt with a Central, PICC or Fol: Yes The following are medically ne: Central Line, Barrow Catheter Reason for barrow catheter: Strict I&O Subjective Patient seen and examined at bedside. Remains on supplemental oxygen Overnight events reviewed. vital signs Vital Sign Date Time Temp Pulse Resp B/P (MAP) Pulse Ox O2 Delivery O2 Flow Rate FiO2 07/10/24 17:00 98.0 81 18 126/70 (88) 100 98.0 07/10/24 10:00 Oxymizer 4 N/A Total Intake and Output 07/09/24 07/09/24 07/10/24 15:00 23:00 07:00 Intake Total 550 ml 350 ml 200 ml Output Total 1300 ml Balance 550 ml 350 ml -1100 ml medications Current Medications Medications Dose Ordered Sig/Maribeth Route Start Time Stop Time Status Last Admin Dose Admin Ondansetron HCl 4 mg Q4HP PRN IV 07/01/24 06:00 Acetaminophen 650 mg Q6HP PRN PO 07/01/24 06:00 07/10/24 02:14 650 MG Nitroglycerin 0.4 mg Q5MINP PRN SL 07/01/24 06:00 Thiamine HCl 100 mg DAILY IV 07/06/24 10:00 07/10/24 09:59 100 MG Ceftriaxone Sodium/Dextrose 50 ml @ 50 mls/hr DAILY IV 07/07/24 10:00 07/10/24 09:59 50 MLS/HR Vancomycin HCl 0 ml @ 0 mls/hr UD IV 07/08/24 08:45 Pantoprazole Sodium 40 mg BID IV 07/08/24 22:00 07/10/24 21:08 40 MG Lorazepam 0.5 mg Q6HP PRN IV 07/08/24 10:15 Sucralfate 1 gm QID@0600,1130,1700,2200 GT 07/08/24 11:30 07/10/24 21:07 1 GM Vancomycin HCl 250 ml @ 200 mls/hr Q10H IV 07/10/24 17:00 07/10/24 16:31 200 MLS/HR objective Gen.: Patient lying in bed in no apparent distress. On supplemental oxygen. Head: Normocephalic, atraumatic. Eyes: EOMI/PERRLA. Ears: Normal hearing. Normal anatomy. Neck/trachea: Trachea midline, supple. Nose: Normal external anatomy. Mouth: Moist mucous membranes. Chest: Decreased air entry bilaterally. No wheezing or rhonchi. Cardiovascular: Positive S1, positive S2. Regular rate and rhythm. Abdomen: Positive bowel sounds in all 4 quadrants. Soft, non-tender, non- distended. : Deferred. Rectal: Deferred. Skin: Warm, dry. Intact. Extremities: 2+ radial pulses bilaterally. No lower extremity edema. Neuro: Awake, alert, oriented x3. No gross motor or sensory deficits. Cranial nerves II through XII intact. Gait not assessed. laboratory and microbiology Laboratory Tests 07/10/24 06:25 07/09/24 05:33 Test 07/09/24 05:33 Range/Units Serum Glucose 92 74-106 mg/dL Assessment/Plan Impression: Acute hypoxic respiratory failure GI hemorrhage Hemorrhagic shock Substance abuse Bilateral lower extremity wounds Events: Remains on supplemental oxygen at 4 LPM Oxymizer Taper O2 as tolerated Monitor respiratory status closely CT head (07/08/24) reveals no evidence of ICH or stroke. Head of bed elevation Aspiration precautions Continue antibiotics Carafate Thiamine supplementation Monitor hemoglobin Protonix BID for GI prophylaxis Wound care. Wound cultures grew Staph aureus. S/p gastroduodenal artery thromboembolization by IR. No bloody bowel movements. Labs and imaging reviewed. Rest of plan as noted below. Plan: S/p extubation on 07/07/24 Supplemental oxygen Titrate to keep O2 sats above 92%. Off sedation Pressors if necessary for hemodynamic support. Titrate to keep MAP above 65 mmHg/SBP above 90 mmHg. Bronchodilators PRN Continue antibiotics. F/u cultures. Monitor renal function. Monitor electrolytes. Supplement as necessary. Monitor ins and outs. S/p embolization of duodenal ulcer. GI recommendations appreciated Monitor hemoglobin Nutritional support. Accucheks, ISS. GI/DVT prophylaxis. Prognosis: Guarded given multiple comorbidities. Rest of plan per hospitalist and other consultants. Thank you Dr. Shine Kumar for allowing me to participate in this patient's care. Further recommendations will depend on patient's clinical course. Please do not hesitate to contact me if you have any questions or concerns. This medical document was created using an electronic medical record system with Dragon computerized dictation system. Although this document has been carefully reviewed, there may still be some phonetic and typographical errors. These areas are purely typographical due to imperfections of the software programs, and do not reflect any compromise in the patient's medical care. Dietary Evaluation Review Comments: 1.Consider advancing to PO diet once medically appropriate 2.Consider PN if NPO >7 if GI issues dont resolve 3.Consider beth BID (180kcal, 5 pro) Expected Outcomes/Goals: 1. Pt will consume >75% pt estimated meeds within 2-3 days Plan discussed with: Patient, Other (RN) YOSI FABIAN MD Jul 10, 2024 23:01
[2024-07-11] VITALS (8 sets, daily range): BP systolic 101–125; BP diastolic 56–79; PULSE 50–113; RESP 18–79; TEMP 98–99; O2SAT 93–100
[2024-07-11 07:35] LABS: Basophils # (auto) 0.2 10 ^3/uL (0-0.2); Hematocrit 22.8 % (41.0-53.0); Hemoglobin 7.5 g/dL (13.5-17.5); Lymphocytes # (auto) 1.2 10 ^3/uL (0.4-5.4); Mean Corpuscular Hemoglobin 28.2 pg (28.0-32.0); Monocytes # (auto) 1.2 10 ^3/uL (0-1.3); Nucleated Red Blood Cells % 0.1 %
[2024-07-11 07:38] LABS: Basophils % (auto) 1.5 % (0.0-2.0); Eosinophils # (auto) 0.4 10 ^3/uL (0-0.8); Eosinophils % (auto) 2.8 % (0.0-7.0); Lymphocytes % (auto) 9.7 % (10.0-50.0); Mean Corpuscular Volume 85.4 fL (80.0-100.0); Monocytes % (auto) 9.3 % (0.0-12.0); Neutrophils # (auto) 9.7 10 ^3/uL (1.6-8.6); Neutrophils % (auto) 76.7 % (37.0-80.0); Red Blood Cells 2.67 10^6/uL (4.5-5.90); Red Cell Distribution Width 18.1 % (11.8-14.3); White Blood Cell 12.6 10^3/uL (4.4-10.8)
[2024-07-11 07:43] LABS: Platelet Count (auto) 755 10^3/uL (140-450)
[2024-07-11 07:56] LABS: Alkaline Phosphatase 81 U/L (46-116); Anion Gap 6 (5-15); BUN/Creatinine Ratio 12.5 (10.0-20.0); Carbon Dioxide 28 mmol/L (20-31); Chloride 105 mmol/L (98-107); Glucose 93 mg/dL (74-106); Sodium 139 mmol/L (136-145)
[2024-07-11 08:05] LABS: Alanine Aminotransferase 176 U/L (7-40); Albumin 2.9 g/dL (3.2-4.8); Aspartate Aminotransferase 100 U/L (13-40); Bilirubin, Total 0.3 mg/dL (0.2-1.0); Blood Urea Nitrogen 7 mg/dL (9-23); Calcium 8.3 mg/dL (8.7-10.4); Potassium 3.3 mmol/L (3.5-5.1); Total Protein 5.1 g/dL (5.7-8.2)
[2024-07-11 09:29] LABS: Lipase 307 U/L (12-53)
--- NOTE | 2024-07-11 12:15 | DVHPN2 ---
Subjective Patient was awake and following some commands. Reviewed: Care Plan, H&P, Labs, Medications, Previous Orders, Radiology Changes from previous H/P or p: No Changes General: Per HPI Eyes: No Pain, No Vision change, No Conjunctivae inflammation, No Eyelid inflammation, No Other, No Redness ENT: No Ear pain, No Ear discharge, No Nose pain, No Nose discharge, No Nose congestion, No Mouth pain, No Mouth swelling, No Throat pain, No Throat swelling, No Other Cardiovascular: No Chest Pain, No Palpitations, No Orthopnea, No Paroxysmal Noc. Dyspnea, No Edema, No Lt Headedness, No Other Respiratory: No Cough, No Dry, No Shortness of breath, No SOB with excertion, No Wheezing, No Hemoptysis, No Pleuritic Pain, No Sputum, No Other Gastrointestinal: No Nausea, No Vomiting, No Abdominal Pain, No Diarrhea, No Constipation, No Melena, No Hematochezia, No Other Genitourinary: No Dysuria, No Frequency, No Incontinence, No Hematuria, No Retention, No Other Musculoskeletal: No other, No neck pain, No shoulder pain, No arm pain, No back pain, No hand pain, No leg pain, No foot pain Skin: No Rash, No Lesions, No Jaundice, No Bruising; Other (Bilateral legs wound) Objective Vitals Vital Signs Date Time Temp Pulse Resp B/P (MAP) Pulse Ox O2 Delivery O2 Flow Rate FiO2 07/11/24 05:00 99.0 78 18 116/70 (85) 100 99.0 07/10/24 20:00 Oxymizer 4 N/A Intake/Output Intake and Output 07/11/24 07:00 Intake Total 720 ml Output Total 2075 ml Balance -1355 ml Intake Oral 320 ml IV Total 400 ml Output Urine Total 2075 ml General Appearance: Alert, Oriented X3, Cooperative, No acute distress, mild distress, moderate distress, severe distress, Other (Chemically sedated) HEENT: Atraumatic, PERRLA Neck: Carotid Bruits Todd Lungs: Clear to auscultation, Normal air movement, Other Cardiovascular: Regular rate, Normal S1, Normal S2, No murmurs, Gallops, Rubs, Other Abdomen: Normal bowel sounds, Soft, No tenderness, No hepatospenomegaly, No masses, Other (NG tube with noted red gastric secretions) Genitourinary: No Apparent Abnormalities (Manning catheter) Skin: Wounds (See nurse notes and pictures) Psych/Mental Status: Mental status NL, Mood NL Medications Current Medications Medications Dose Ordered Sig/Maribeth Route Start Time Stop Time Status Last Admin Dose Admin Ondansetron HCl 4 mg Q4HP PRN IV 07/01/24 06:00 Acetaminophen 650 mg Q6HP PRN PO 07/01/24 06:00 07/10/24 02:14 650 MG Nitroglycerin 0.4 mg Q5MINP PRN SL 07/01/24 06:00 Thiamine HCl 100 mg DAILY IV 07/06/24 10:00 07/11/24 11:14 100 MG Ceftriaxone Sodium/Dextrose 50 ml @ 50 mls/hr DAILY IV 07/07/24 10:00 07/11/24 11:14 50 MLS/HR Vancomycin HCl 0 ml @ 0 mls/hr UD IV 07/08/24 08:45 Pantoprazole Sodium 40 mg BID IV 07/08/24 22:00 07/11/24 11:14 40 MG Lorazepam 0.5 mg Q6HP PRN IV 07/08/24 10:15 Sucralfate 1 gm QID@0600,1130,1700,2200 GT 07/08/24 11:30 07/11/24 06:37 1 GM Vancomycin HCl 250 ml @ 200 mls/hr Q10H IV 07/10/24 17:00 07/11/24 03:17 200 MLS/HR Laboratory Results Laboratory Tests 07/11/24 07:02 Chemistry Test 07/11/24 07:02 Albumin 2.9 g/dL (3.2-4.8) L Calcium Level 8.3 mg/dL (8.7-10.4) L Total Protein 5.1 g/dL (5.7-8.2) L Lipid panel Test 07/11/24 07:02 Lipase 307 U/L (12-53) H LFT Test 07/11/24 07:02 Alanine Aminotransferase (ALT) 176 U/L (7-40) H Alkaline Phosphatase 81 U/L (46-116) Aspartate Amino Transferase (AST) 100 U/L (13-40) H Total Bilirubin 0.3 mg/dL (0.2-1.0) Urinalysis Test 07/01/24 14:50 Urine Color Yellow (Yellow) Urine Clarity Clear (Clear) Urine pH 5.5 (5.0-9.0) Urine Specific [place] 1.025 (1.001-1.035) Urine Protein Trace (Negative) H Urine Ketones Negative (Negative) Urine Blood Trace /uL (Negative) H Urine Nitrite Negative (Negative) Urine Bilirubin Negative (Negative) Urine Urobilinogen Normal mg/dL (Negative) Urine Leukocyte Esterase Negative /uL (Negative) Urine RBC 4 /hpf (0 - 3) Urine Microscopic WBC 1 /HPF (0-3) Urine Squamous Epithelial Cells Few /hpf (<5) Urine Bacteria Few /hpf (None Seen) H Urine Hyaline Casts Few /lpf (0 - 2) Urine Mucus Few (None Seen) Urine Glucose Normal mg/dL (Normal) Microbiology Microbiology Date/Time Source Procedure Growth Status 07/03/24 09:00 Leg Gram Stain - Final Complete 07/03/24 09:00 Wound Culture - Final Staphylococcus aureus Enterococcus faecalis Proteus vulgaris Enterobacter hormaechei Complete 07/01/24 14:50 Voided Urine Urine Culture - Final Complete 07/01/24 13:49 Blood Blood Culture - Final NO GROWTH AFTER 5 DAYS OF INCUBATION. Complete 07/01/24 00:00 Sputum Gram Stain - Final Complete 07/01/24 00:00 Respiratory Culture - Final Citrobacter koseri Complete Labs and/or images reviewed: Labs reviewed by me, Image(s) reviewed by me Assessment/Plan Assessment/Plan Impression: -hemorrhagic shock -cellulitis to lower extremities -sepsis -peptic ulcer bleed with persistent GI bleeding, status post embolization -polysubstance abuse : Positive for PCP, cocaine, amphetamines -acute respiratory failure with mechanical ventilation -severe anemia from GI bleed -shock liver Plan: Events: Patient denies any symptoms. Recommendations by GI as for patient to have MRCP given elevated LFTs. -continue to advance diet as tolerated -Protonix 40 mg IV twice a day -Carafate 1 g 4 times a day -Lorazepam p.r.n. withdrawal symptoms -antibiotic therapy with Rocephin and vancomycin -repeat labs in a.m. Total time spent with patient discussing and formulating plan of care: 35 minutes. This medical document was created using an electronic medical record system with [employer] dictation system. Although this document has been carefully reviewed, there may still be some phonetic and typographical errors. These areas are purely typographical due to imperfections of the software programs, and do not reflect any compromise in the patient's medical care. Plan discussed with: Patient, Other (RN) My Orders Orders - BRADY SPARROW NP Procedure Category Date Status Time Comprehensive LAB 07/12/24 Verified Metabolic Panel 04:00 Lipase LAB 07/12/24 Verified 04:00 Complete Blood Count LAB 07/12/24 Verified 04:00 Date of Service: Jul 11, 2024 Billing Provider: BRADY SPARROW NP Common Visit Codes: [id number] INP/OBS CARE(HIGH) BRADY SPARROW NP Jul 11, 2024 12:14
[2024-07-11] MEDS: POTASSIUM CHL 20 Meq TABLET PO ONE (14:24)
--- NOTE | 2024-07-11 14:53 | DVHPN2 ---
Progress Note Date Seen: Jul 11, 2024 Resident Creating Document: DIANA HALL RESIDENT Has the PT tested + for MRSA If YES, has PT been informed?: No Medical Necessity Reason Pt with a Central, PICC or Fol: Yes The following are medically ne: Central Line, Barrow Catheter Reason for barrow catheter: Strict I&O Subjective Review of Systems Patient was seen and examined at the bedside. He is alert, oriented X3 and on 4 L of oxygen through Oxymizer. No complaint of abdominal pain, hematemesis, melena or blood in stool. Patient complaining of generalized weakness Pending PT evaluation Objective vital signs Vital Sign Date Time Temp Pulse Resp B/P (MAP) Pulse Ox O2 Delivery O2 Flow Rate FiO2 07/11/24 05:00 99.0 78 18 116/70 (85) 100 99.0 07/10/24 20:00 Oxymizer 4 N/A Total Intake and Output 07/10/24 07/10/24 07/11/24 15:00 23:00 07:00 Intake Total 150 ml 450 ml 120 ml Output Total 1050 ml 1025 ml Balance 150 ml -600 ml -905 ml medications Current Medications Medications Dose Ordered Sig/Maribeth Route Start Time Stop Time Status Last Admin Dose Admin Ondansetron HCl 4 mg Q4HP PRN IV 07/01/24 06:00 Acetaminophen 650 mg Q6HP PRN PO 07/01/24 06:00 07/10/24 02:14 650 MG Nitroglycerin 0.4 mg Q5MINP PRN SL 07/01/24 06:00 Thiamine HCl 100 mg DAILY IV 07/06/24 10:00 07/11/24 11:14 100 MG Ceftriaxone Sodium/Dextrose 50 ml @ 50 mls/hr DAILY IV 07/07/24 10:00 07/11/24 11:14 50 MLS/HR Vancomycin HCl 0 ml @ 0 mls/hr UD IV 07/08/24 08:45 Pantoprazole Sodium 40 mg BID IV 07/08/24 22:00 07/11/24 11:14 40 MG Lorazepam 0.5 mg Q6HP PRN IV 07/08/24 10:15 Sucralfate 1 gm QID@0600,1130,1700,2200 GT 07/08/24 11:30 07/11/24 13:18 1 GM Vancomycin HCl 250 ml @ 200 mls/hr Q10H IV 07/10/24 17:00 07/11/24 14:15 200 MLS/HR Examination Physical examination: General Appearance: Alert, Oriented X3, Cooperative, No acute distress HEENT: Atraumatic, PERRLA, EOMI, Mucous membrane moist/pink Respiratory: Clear to auscultation, Normal air movement Cardiovascular: Regular rate, Normal S1, Normal S2, No murmurs, no chest wall tenderness Abdominal: Normal bowel sounds, Soft, No tenderness, No hepatospenomegaly, No masses Extremities: No clubbing, No cyanosis, No edema, Normal pulses, No tenderness/swelling Skin: No rashes, No breakdown, No significant lesion Neuro: Normal gait, Normal speech, Strength at 5/5 X4 ext, Normal tone, Sensation intact, grossly intact cranial nerves. Psych/Mental Status: Mental status NL, Mood NL laboratory and microbiology Laboratory Tests 07/11/24 07:02 Test 07/11/24 07:02 Range/Units Serum Glucose 93 74-106 mg/dL Microbiology Date/Time Source Procedure Growth Status 07/03/24 09:00 Leg Gram Stain - Final Complete 07/03/24 09:00 Wound Culture - Final Staphylococcus aureus Enterococcus faecalis Proteus vulgaris Enterobacter hormaechei Complete 07/01/24 14:50 Voided Urine Urine Culture - Final Complete 07/01/24 13:49 Blood Blood Culture - Final NO GROWTH AFTER 5 DAYS OF INCUBATION. Complete 07/01/24 00:00 Sputum Gram Stain - Final Complete 07/01/24 00:00 Respiratory Culture - Final Citrobacter koseri Complete Labs and/or images reviewed: Labs reviewed by me, Image(s) reviewed by me Problem List/Assessment/Plan Problem List/Assessment/Plan Assessment : Upper GI bleeding secondary to duodenal bulb ulcer s/p embolization gastroduodenal artery 07/06 by IR Hypovolemic shock Severe anemia Transaminitis, hypoxic liver injury and hepatic steatosis Possible sepsis secondary to cellulitis MSSA Acute hypoxic respiratory failure, s/p intubated and mechanically ventilated Systolic Congestive heart failure Cellulitis of the leg and foot Superficial venous thrombophlebitis, cephalic vein Polysubstance use including a PCP, cocaine Hypokalemia Elevated Lipase EGD 07/03 shows large ulcer of the duodenum bulb occupying 3/4 of the bulb with old clots inside. No gross bleeding seen. Huge clot in the fundus of the body. Plan: Ultrasound liver shows hepatic steatosis, gallbladder sludge, dilated CBD. Recommended MRCP when patient is more stabilized and persistently elevated liver enzymes. Continue conservative management for now. Patient is not bleeding actively. H&H is stable. Negative for HIV, hep B and hep C Continue Protonix 40 mg IV b.i.d. and carafate1 g bid Antibiotics per primary team Monitor H&H Advise patient to avoid NSAIDs/aspirin/ibuprofen Mechanical soft diet Plan discussed with nurse Case discussed with Dr. Kunz Plan discussed with: Patient, Other Dietary Evaluation Review Comments: 1.Consider advancing to PO diet once medically appropriate 2.Consider PN if NPO >7 if GI issues dont resolve 3.Consider beth BID (180kcal, 5 pro) Expected Outcomes/Goals: 1. Pt will consume >75% pt estimated meeds within 2-3 days DIANA HALL RESIDENT Jul 11, 2024 14:53
--- NOTE | 2024-07-11 20:01 | DVHPN2 ---
Progress Note - Dictate Date Seen: Jul 11, 2024 Has the PT tested + for MRSA If YES, has PT been informed?: No Medical Necessity Reason Pt with a Central, PICC or Fol: Yes The following are medically ne: Central Line, Barrow Catheter Reason for barrow catheter: Strict I&O Subjective Patient seen and examined at bedside. Remains on supplemental oxygen Overnight events reviewed. vital signs Vital Sign Date Time Temp Pulse Resp B/P (MAP) Pulse Ox O2 Delivery O2 Flow Rate FiO2 07/11/24 17:13 98.0 103 20 106/66 (79) 93 98.0 07/11/24 10:00 Oxymizer 4.0 07/11/24 10:00 N/A Total Intake and Output 07/10/24 07/10/24 07/11/24 15:00 23:00 07:00 Intake Total 150 ml 450 ml 120 ml Output Total 1050 ml 1025 ml Balance 150 ml -600 ml -905 ml medications Current Medications Medications Dose Ordered Sig/Maribeth Route Start Time Stop Time Status Last Admin Dose Admin Ondansetron HCl 4 mg Q4HP PRN IV 07/01/24 06:00 Acetaminophen 650 mg Q6HP PRN PO 07/01/24 06:00 07/10/24 02:14 650 MG Nitroglycerin 0.4 mg Q5MINP PRN SL 07/01/24 06:00 Thiamine HCl 100 mg DAILY IV 07/06/24 10:00 07/11/24 11:14 100 MG Ceftriaxone Sodium/Dextrose 50 ml @ 50 mls/hr DAILY IV 07/07/24 10:00 07/11/24 11:14 50 MLS/HR Vancomycin HCl 0 ml @ 0 mls/hr UD IV 07/08/24 08:45 Pantoprazole Sodium 40 mg BID IV 07/08/24 22:00 07/11/24 11:14 40 MG Lorazepam 0.5 mg Q6HP PRN IV 07/08/24 10:15 Sucralfate 1 gm QID@0600,1130,1700,2200 GT 07/08/24 11:30 07/11/24 17:40 1 GM Vancomycin HCl 250 ml @ 200 mls/hr Q10H IV 07/10/24 17:00 07/11/24 14:15 200 MLS/HR objective Gen.: Patient lying in bed in no apparent distress. On supplemental oxygen. Head: Normocephalic, atraumatic. Eyes: EOMI/PERRLA. Ears: Normal hearing. Normal anatomy. Neck/trachea: Trachea midline, supple. Nose: Normal external anatomy. Mouth: Moist mucous membranes. Chest: Decreased air entry bilaterally. No wheezing or rhonchi. Cardiovascular: Positive S1, positive S2. Regular rate and rhythm. Abdomen: Positive bowel sounds in all 4 quadrants. Soft, non-tender, non- distended. : Deferred. Rectal: Deferred. Skin: Warm, dry. Intact. Extremities: 2+ radial pulses bilaterally. No lower extremity edema. Neuro: Awake, alert, oriented x3. No gross motor or sensory deficits. Cranial nerves II through XII intact. Gait not assessed. laboratory and microbiology Laboratory Tests 07/11/24 07:02 Test 07/11/24 07:02 Range/Units Serum Glucose 93 74-106 mg/dL Assessment/Plan Impression: Acute hypoxic respiratory failure GI hemorrhage Hemorrhagic shock Substance abuse Bilateral lower extremity wounds Events: Remains on supplemental oxygen at 3 LPM Oxymizer Taper O2 as tolerated - transition to nasal cannula Head of bed elevation Aspiration precautions Continue antibiotics Carafate Thiamine supplementation Monitor hemoglobin Protonix BID for GI prophylaxis Wound care. Wound cultures grew Staph aureus, Enterococcus faecalis, Proteus vulgaris and Enterobacter hormaechei. S/p gastroduodenal artery thromboembolization by IR. No bloody bowel movements. CT head (07/08/24) reveals no evidence of ICH or stroke. Labs and imaging reviewed. Rest of plan as noted below. Plan: S/p extubation on 07/07/24 Supplemental oxygen Titrate to keep O2 sats above 92%. Pressors if necessary for hemodynamic support. Titrate to keep MAP above 65 mmHg/SBP above 90 mmHg. Bronchodilators PRN Continue antibiotics. F/u cultures. Monitor renal function. Monitor electrolytes. Supplement as necessary. Monitor ins and outs. S/p embolization of duodenal ulcer. GI recommendations appreciated Monitor hemoglobin Nutritional support. Accucheks, ISS. GI/DVT prophylaxis. Prognosis: Guarded given multiple comorbidities. Rest of plan per hospitalist and other consultants. Thank you Dr. Shine Kumar for allowing me to participate in this patient's care. Further recommendations will depend on patient's clinical course. Please do not hesitate to contact me if you have any questions or concerns. This medical document was created using an electronic medical record system with [employer] dictation system. Although this document has been carefully reviewed, there may still be some phonetic and typographical errors. These areas are purely typographical due to imperfections of the software programs, and do not reflect any compromise in the patient's medical care. Dietary Evaluation Review Comments: 1.Consider advancing to PO diet once medically appropriate 2.Consider PN if NPO >7 if GI issues dont resolve 3.Consider beth BID (180kcal, 5 pro) Expected Outcomes/Goals: 1. Pt will consume >75% pt estimated meeds within 2-3 days Plan discussed with: Patient, Other (KAJAL Avila) YOSI FABIAN MD Jul 11, 2024 20:01
[2024-07-11] MEDS: LORazepam 2MG/ML-1ML VIAL IV PRN (21:23)
[2024-07-12] VITALS (9 sets, daily range): BP systolic 109–131; BP diastolic 55–72; PULSE 91–124; RESP 16–61; TEMP 98–98.8; O2SAT 94–98
[2024-07-12] MEDS ORDERED: HALOPERIDOL 1 MG TAB PO PRN (10:00)
[2024-07-12 10:41] LABS: Basophils # (auto) 0.1 10 ^3/uL (0-0.2); Basophils % (auto) 0.7 % (0.0-2.0); Eosinophils # (auto) 0.4 10 ^3/uL (0-0.8); Nucleated Red Blood Cells % 0.1 %; White Blood Cell 12.6 10^3/uL (4.4-10.8)
[2024-07-12 10:46] LABS: Hematocrit 24.2 % (41.0-53.0); Hemoglobin 7.8 g/dL (13.5-17.5); Lymphocytes # (auto) 1.3 10 ^3/uL (0.4-5.4); Mean Corpuscular Hemoglobin 27.9 pg (28.0-32.0); Mean Corpuscular Hgb Conc. 32.4 g/dL (32.0-36.0); Mean Corpuscular Volume 86.2 fL (80.0-100.0); Monocytes # (auto) 1.3 10 ^3/uL (0-1.3); Monocytes % (auto) 9.9 % (0.0-12.0); Neutrophils # (auto) 9.6 10 ^3/uL (1.6-8.6); Neutrophils % (auto) 76.4 % (37.0-80.0); Red Blood Cells 2.81 10^6/uL (4.5-5.90); Red Cell Distribution Width 18.5 % (11.8-14.3)
--- NOTE | 2024-07-12 10:59 | DVHPN2 ---
Subjective Patient was awake and following some commands. Reviewed: Care Plan, H&P, Labs, Medications, Previous Orders, Radiology Changes from previous H/P or p: No Changes General: Per HPI Eyes: No Pain, No Vision change, No Conjunctivae inflammation, No Eyelid inflammation, No Other, No Redness ENT: No Ear pain, No Ear discharge, No Nose pain, No Nose discharge, No Nose congestion, No Mouth pain, No Mouth swelling, No Throat pain, No Throat swelling, No Other Cardiovascular: No Chest Pain, No Palpitations, No Orthopnea, No Paroxysmal Noc. Dyspnea, No Edema, No Lt Headedness, No Other Respiratory: No Cough, No Dry, No Shortness of breath, No SOB with excertion, No Wheezing, No Hemoptysis, No Pleuritic Pain, No Sputum, No Other Gastrointestinal: No Nausea, No Vomiting, No Abdominal Pain, No Diarrhea, No Constipation, No Melena, No Hematochezia, No Other Genitourinary: No Dysuria, No Frequency, No Incontinence, No Hematuria, No Retention, No Other Musculoskeletal: No other, No neck pain, No shoulder pain, No arm pain, No back pain, No hand pain, No leg pain, No foot pain Skin: No Rash, No Lesions, No Jaundice, No Bruising; Other (Bilateral legs wound) Objective Vitals Vital Signs Date Time Temp Pulse Resp B/P (MAP) Pulse Ox O2 Delivery O2 Flow Rate FiO2 07/12/24 09:00 98.6 98 18 127/68 (87) 98.6 07/12/24 05:00 94 07/11/24 20:00 Nasal Cannula* 2 28 Intake/Output Intake and Output 07/12/24 07:00 Intake Total 2050 ml Output Total 2200 ml Balance -150 ml Intake Oral 1750 ml IV Total 300 ml Output Urine Total 2200 ml General Appearance: Alert, Oriented X3, Cooperative, No acute distress, mild distress, moderate distress, severe distress, Other (Chemically sedated) HEENT: Atraumatic, PERRLA Neck: Carotid Bruits [place] Lungs: Clear to auscultation, Normal air movement, Other Cardiovascular: Regular rate, Normal S1, Normal S2, No murmurs, Gallops, Rubs, Other Abdomen: Normal bowel sounds, Soft, No tenderness, No hepatospenomegaly, No masses, Other (NG tube with noted red gastric secretions) Genitourinary: No Apparent Abnormalities (Manning catheter) Skin: Intact, Wounds (See nurse notes and pictures) Psych/Mental Status: Mood NL, Other (Patient was alert and oriented x3. Noted confusion yesterday evening.) Medications Current Medications Medications Dose Ordered Sig/Maribeth Route Start Time Stop Time Status Last Admin Dose Admin Ondansetron HCl 4 mg Q4HP PRN IV 07/01/24 06:00 Acetaminophen 650 mg Q6HP PRN PO 07/01/24 06:00 07/10/24 02:14 650 MG Nitroglycerin 0.4 mg Q5MINP PRN SL 07/01/24 06:00 Thiamine HCl 100 mg DAILY IV 07/06/24 10:00 07/12/24 10:22 100 MG Ceftriaxone Sodium/Dextrose 50 ml @ 50 mls/hr DAILY IV 07/07/24 10:00 07/11/24 11:14 50 MLS/HR Vancomycin HCl 0 ml @ 0 mls/hr UD IV 07/08/24 08:45 Pantoprazole Sodium 40 mg BID IV 07/08/24 22:00 07/12/24 10:22 40 MG Lorazepam 0.5 mg Q6HP PRN IV 07/08/24 10:15 07/12/24 04:08 0.5 MG Sucralfate 1 gm QID@0600,1130,1700,2200 GT 07/08/24 11:30 07/11/24 17:40 1 GM Vancomycin HCl 250 ml @ 200 mls/hr Q10H IV 07/10/24 17:00 07/12/24 10:22 200 MLS/HR Haloperidol 2 mg [id number] PRN PO 07/12/24 10:00 UNV Laboratory Results Chemistry Test 07/12/24 10:24 Albumin Pending Calcium Level Pending Total Protein Pending Lipid panel Test 07/12/24 10:24 Lipase Pending LFT Test 07/12/24 10:24 Alanine Aminotransferase (ALT) Pending Alkaline Phosphatase Pending Aspartate Amino Transferase (AST) Pending Total Bilirubin Pending Urinalysis Test 07/01/24 14:50 Urine Color Yellow (Yellow) Urine Clarity Clear (Clear) Urine pH 5.5 (5.0-9.0) Urine Specific [place] 1.025 (1.001-1.035) Urine Protein Trace (Negative) H Urine Ketones Negative (Negative) Urine Blood Trace /uL (Negative) H Urine Nitrite Negative (Negative) Urine Bilirubin Negative (Negative) Urine Urobilinogen Normal mg/dL (Negative) Urine Leukocyte Esterase Negative /uL (Negative) Urine RBC 4 /hpf (0 - 3) Urine Microscopic WBC 1 /HPF (0-3) Urine Squamous Epithelial Cells Few /hpf (<5) Urine Bacteria Few /hpf (None Seen) H Urine Hyaline Casts Few /lpf (0 - 2) Urine Mucus Few (None Seen) Urine Glucose Normal mg/dL (Normal) Microbiology Microbiology Date/Time Source Procedure Growth Status 07/03/24 09:00 Leg Gram Stain - Final Complete 07/03/24 09:00 Wound Culture - Final Staphylococcus aureus Enterococcus faecalis Proteus vulgaris Enterobacter hormaechei Complete 07/01/24 14:50 Voided Urine Urine Culture - Final Complete 07/01/24 13:49 Blood Blood Culture - Final NO GROWTH AFTER 5 DAYS OF INCUBATION. Complete 07/01/24 00:00 Sputum Gram Stain - Final Complete 07/01/24 00:00 Respiratory Culture - Final Citrobacter koseri Complete Labs and/or images reviewed: Labs reviewed by me, Image(s) reviewed by me Assessment/Plan Assessment/Plan Impression: -hemorrhagic shock -cellulitis to lower extremities -sepsis -peptic ulcer bleed with persistent GI bleeding, status post embolization -polysubstance abuse : Positive for PCP, cocaine, amphetamines -acute respiratory failure with mechanical ventilation -severe anemia from GI bleed -shock liver -acute delirium Plan: Events: Patient with acute delirium yesterday evening. No abdominal pain appreciated with palpation. MRCP pending per GI. -restart Haldol 2 mg p.o. q.12 hours for agitation -continue to advance diet as tolerated -Protonix 40 mg IV twice a day -Carafate 1 g 4 times a day -Lorazepam p.r.n. withdrawal symptoms -antibiotic therapy with Rocephin and vancomycin -repeat labs in a.m. Total time spent with patient discussing and formulating plan of care: 35 minutes. This medical document was created using an electronic medical record system with [employer] dictation system. Although this document has been carefully reviewed, there may still be some phonetic and typographical errors. These areas are purely typographical due to imperfections of the software programs, and do not reflect any compromise in the patient's medical care. Plan discussed with: Patient, Other (RN) My Orders Orders - BRADY SPARROW NP Procedure Category Date Status Time Comprehensive LAB 07/12/24 In Process Metabolic Panel 04:00 Lipase LAB 07/12/24 In Process 04:00 Complete Blood Count LAB 07/12/24 In Process 04:00 Pt Request For Service PT 07/11/24 Logged 13:46 Haloperidol Tablet PHA 07/12/24 Logged (Haldol Tablet) 10:00 Date of Service: Jul 12, 2024 Billing Provider: BRADY SPARROW NP Common Visit Codes: [id number] INP/OBS CARE(HIGH) BRADY SPARROW NP Jul 12, 2024 10:59
[2024-07-12 11:02] LABS: Platelet Count (auto) 904 10^3/uL (140-450)
[2024-07-12 11:44] LABS: Anion Gap 8 (5-15); Calcium 8.8 mg/dL (8.7-10.4); Carbon Dioxide 26 mmol/L (20-31); Potassium 3.7 mmol/L (3.5-5.1); Sodium 142 mmol/L (136-145)
[2024-07-12 11:47] LABS: Glucose 95 mg/dL (74-106)
[2024-07-12 11:48] LABS: BUN/Creatinine Ratio 9.6 (10.0-20.0)
[2024-07-12 11:50] LABS: Bilirubin, Total 0.3 mg/dL (0.2-1.0)
[2024-07-12 11:59] LABS: Alanine Aminotransferase 142 U/L (7-40); Aspartate Aminotransferase 65 U/L (13-40); Blood Urea Nitrogen 5 mg/dL (9-23); Chloride 108 mmol/L (98-107); Lipase 187 U/L (12-53); Total Protein 5.3 g/dL (5.7-8.2)
[2024-07-12 12:29] LABS: Alkaline Phosphatase 75 U/L (46-116)
[2024-07-12 12:34] LABS: Platelet Estimate Markedly Increased
--- NOTE | 2024-07-12 17:26 | DVHPN2 ---
Progress Note Date Seen: Jul 12, 2024 Resident Creating Document: DIANA HALL RESIDENT Has the PT tested + for MRSA If YES, has PT been informed?: No Medical Necessity Reason Pt with a Central, PICC or Fol: Yes The following are medically ne: Central Line, Barrow Catheter Reason for barrow catheter: Strict I&O Subjective Review of Systems Patient was seen and examined on the bedside. He is alert, oriented X 0, confused since last evening. Sitter is on the bedside. H&H is stable. Objective vital signs Vital Sign Date Time Temp Pulse Resp B/P (MAP) Pulse Ox O2 Delivery O2 Flow Rate FiO2 07/12/24 16:31 98.4 96 16 117/72 (87) 96 98.4 07/12/24 10:00 Nasal Cannula 1.0 07/12/24 10:00 24 Total Intake and Output 07/11/24 07/11/24 07/12/24 15:00 23:00 07:00 Intake Total 50 ml 1150 ml 850 ml Output Total 1300 ml 900 ml Balance 50 ml -150 ml -50 ml medications Current Medications Medications Dose Ordered Sig/Maribeth Route Start Time Stop Time Status Last Admin Dose Admin Ondansetron HCl 4 mg Q4HP PRN IV 07/01/24 06:00 Acetaminophen 650 mg Q6HP PRN PO 07/01/24 06:00 07/10/24 02:14 650 MG Nitroglycerin 0.4 mg Q5MINP PRN SL 07/01/24 06:00 Thiamine HCl 100 mg DAILY IV 07/06/24 10:00 07/12/24 10:22 100 MG Ceftriaxone Sodium/Dextrose 50 ml @ 50 mls/hr DAILY IV 07/07/24 10:00 07/12/24 12:27 50 MLS/HR Vancomycin HCl 0 ml @ 0 mls/hr UD IV 07/08/24 08:45 Pantoprazole Sodium 40 mg BID IV 07/08/24 22:00 07/12/24 10:22 40 MG Lorazepam 0.5 mg Q6HP PRN IV 07/08/24 10:15 07/12/24 04:08 0.5 MG Sucralfate 1 gm QID@0600,1130,1700,2200 GT 07/08/24 11:30 07/11/24 17:40 1 GM Vancomycin HCl 250 ml @ 200 mls/hr Q10H IV 07/10/24 17:00 07/12/24 10:22 200 MLS/HR Haloperidol 2 mg [id number] PRN PO 07/12/24 10:00 Examination Physical examination: General Appearance: Alert, Oriented X3, Cooperative, No acute distress HEENT: Atraumatic, PERRLA, EOMI, Mucous membrane moist/pink Respiratory: Clear to auscultation, Normal air movement Cardiovascular: Regular rate, Normal S1, Normal S2, No murmurs, no chest wall tenderness Abdominal: Normal bowel sounds, Soft, No tenderness, No hepatospenomegaly, No masses Extremities: No clubbing, No cyanosis, No edema, Normal pulses, No tenderness/swelling Skin: No rashes, No breakdown, No significant lesion Neuro: Normal gait, Normal speech, Strength at 5/5 X4 ext, Normal tone, Sensation intact, grossly intact cranial nerves. Psych/Mental Status: Mental status NL, Mood NL laboratory and microbiology Laboratory Tests 07/12/24 10:24 Test 07/12/24 10:24 Range/Units Serum Glucose 95 74-106 mg/dL Microbiology Date/Time Source Procedure Growth Status 07/03/24 09:00 Leg Gram Stain - Final Complete 07/03/24 09:00 Wound Culture - Final Staphylococcus aureus Enterococcus faecalis Proteus vulgaris Enterobacter hormaechei Complete 07/01/24 14:50 Voided Urine Urine Culture - Final Complete 07/01/24 13:49 Blood Blood Culture - Final NO GROWTH AFTER 5 DAYS OF INCUBATION. Complete 07/01/24 00:00 Sputum Gram Stain - Final Complete 07/01/24 00:00 Respiratory Culture - Final Citrobacter koseri Complete Labs and/or images reviewed: Labs reviewed by me, Image(s) reviewed by me Problem List/Assessment/Plan Problem List/Assessment/Plan Assessment : Upper GI bleeding secondary to duodenal bulb ulcer s/p embolization gastroduodenal artery 07/06 by IR Hypovolemic shock Severe anemia Transaminitis, hypoxic liver injury and hepatic steatosis Possible sepsis secondary to cellulitis MSSA Acute hypoxic respiratory failure, s/p intubated and mechanically ventilated Systolic Congestive heart failure Cellulitis of the leg and foot Superficial venous thrombophlebitis, cephalic vein Polysubstance use including a PCP, cocaine Hypokalemia Elevated Lipase Reactive thrombocytosis likely due to cellulitis Acute delirium EGD 07/03 shows large ulcer of the duodenum bulb occupying 3/4 of the bulb with old clots inside. No gross bleeding seen. Huge clot in the fundus of the body. Plan: Ultrasound liver shows hepatic steatosis, gallbladder sludge, dilated CBD. Liver enzyme is downtrending and no plan for MRCP now. Continue conservative management for now. Patient is not bleeding actively. H&H is stable. Negative for HIV, hep B and hep C Continue Protonix 40 mg IV daily and carafate1 g bid Antibiotics per primary team Monitor H&H Advise patient to avoid NSAIDs/aspirin/ibuprofen Mechanical soft diet Plan discussed with nurse Case discussed with Dr. Kunz Plan discussed with: Patient, Other Dietary Evaluation Review Comments: 1.Consider advancing to PO diet once medically appropriate 2.Consider PN if NPO >7 if GI issues dont resolve 3.Consider beth BID (180kcal, 5 pro) Expected Outcomes/Goals: 1. Pt will consume >75% pt estimated meeds within 2-3 days DIANA HALL RESIDENT Jul 12, 2024 17:26
--- NOTE | 2024-07-12 21:04 | DVHPN2 ---
Progress Note - Dictate Date Seen: Jul 12, 2024 Has the PT tested + for MRSA If YES, has PT been informed?: No Medical Necessity Reason Pt with a Central, PICC or Fol: Yes The following are medically ne: Central Line, Barrow Catheter Reason for barrow catheter: Strict I&O Subjective Patient seen and examined at bedside. Remains on supplemental oxygen Overnight events reviewed. vital signs Vital Sign Date Time Temp Pulse Resp B/P (MAP) Pulse Ox O2 Delivery O2 Flow Rate FiO2 07/12/24 20:00 100 07/12/24 16:31 98.4 16 117/72 (87) 96 98.4 07/12/24 10:00 Nasal Cannula 1.0 07/12/24 10:00 24 Total Intake and Output 07/11/24 07/11/24 07/12/24 14:59 22:59 06:59 Intake Total 50 ml 1150 ml 850 ml Output Total 1300 ml 900 ml Balance 50 ml -150 ml -50 ml medications Current Medications Medications Dose Ordered Sig/Maribeth Route Start Time Stop Time Status Last Admin Dose Admin Ondansetron HCl 4 mg Q4HP PRN IV 07/01/24 06:00 Acetaminophen 650 mg Q6HP PRN PO 07/01/24 06:00 07/10/24 02:14 650 MG Nitroglycerin 0.4 mg Q5MINP PRN SL 07/01/24 06:00 Thiamine HCl 100 mg DAILY IV 07/06/24 10:00 07/12/24 10:22 100 MG Ceftriaxone Sodium/Dextrose 50 ml @ 50 mls/hr DAILY IV 07/07/24 10:00 07/12/24 12:27 50 MLS/HR Vancomycin HCl 0 ml @ 0 mls/hr UD IV 07/08/24 08:45 Lorazepam 0.5 mg Q6HP PRN IV 07/08/24 10:15 07/12/24 04:08 0.5 MG Sucralfate 1 gm QID@0600,1130,1700,2200 GT 07/08/24 11:30 07/11/24 17:40 1 GM Vancomycin HCl 250 ml @ 200 mls/hr Q10H IV 07/10/24 17:00 07/12/24 18:27 200 MLS/HR Haloperidol 2 mg [id number] PRN PO 07/12/24 10:00 Pantoprazole Sodium 40 mg DAILY IV 07/13/24 10:00 objective Gen.: Patient lying in bed in no apparent distress. On supplemental oxygen. Head: Normocephalic, atraumatic. Eyes: EOMI/PERRLA. Ears: Normal hearing. Normal anatomy. Neck/trachea: Trachea midline, supple. Nose: Normal external anatomy. Mouth: Moist mucous membranes. Chest: Decreased air entry bilaterally. No wheezing or rhonchi. Cardiovascular: Positive S1, positive S2. Regular rate and rhythm. Abdomen: Positive bowel sounds in all 4 quadrants. Soft, non-tender, non- distended. : Deferred. Rectal: Deferred. Skin: Warm, dry. Intact. Extremities: 2+ radial pulses bilaterally. No lower extremity edema. Neuro: Awake, alert, oriented x3. No gross motor or sensory deficits. Cranial nerves II through XII intact. Gait not assessed. laboratory and microbiology Laboratory Tests 07/12/24 10:24 Test 07/12/24 10:24 Range/Units Serum Glucose 95 74-106 mg/dL Assessment/Plan Impression: Acute hypoxic respiratory failure GI hemorrhage Hemorrhagic shock Substance abuse Bilateral lower extremity wounds Events: Remains on supplemental oxygen at 2 LPM NC Taper O2 as tolerated Improved O2 requirements Patient is altered Haldol PRN. Head of bed elevation Aspiration precautions Continue bronchodilators Continue antibiotics Carafate Thiamine supplementation Monitor hemoglobin Protonix BID for GI prophylaxis Wound care. Wound cultures grew Staph aureus, Enterococcus faecalis, Proteus vulgaris and Enterobacter hormaechei. S/p gastroduodenal artery thromboembolization by IR. No bloody bowel movements. CT head (07/08/24) reveals no evidence of ICH or stroke. Labs and imaging reviewed. Rest of plan as noted below. Plan: S/p extubation on 07/07/24 Supplemental oxygen Titrate to keep O2 sats above 92%. Pressors if necessary for hemodynamic support. Titrate to keep MAP above 65 mmHg/SBP above 90 mmHg. Bronchodilators PRN Continue antibiotics. F/u cultures. Monitor renal function. Monitor electrolytes. Supplement as necessary. Monitor ins and outs. S/p embolization of duodenal ulcer. GI recommendations appreciated Monitor hemoglobin Nutritional support. Accucheks, ISS. GI/DVT prophylaxis. Prognosis: Guarded given multiple comorbidities. Rest of plan per hospitalist and other consultants. Thank you Dr. H Kumar for allowing me to participate in this patient's care. Further recommendations will depend on patient's clinical course. Please do not hesitate to contact me if you have any questions or concerns. This medical document was created using an electronic medical record system with [employer] dictation system. Although this document has been carefully reviewed, there may still be some phonetic and typographical errors. These areas are purely typographical due to imperfections of the software programs, and do not reflect any compromise in the patient's medical care. Dietary Evaluation Review Comments: 1.Consider advancing to PO diet once medically appropriate 2.Consider PN if NPO >7 if GI issues dont resolve 3.Consider beth BID (180kcal, 5 pro) Expected Outcomes/Goals: 1. Pt will consume >75% pt estimated meeds within 2-3 days Plan discussed with: Patient, Other (KAJAL Avila) YOSI FABIAN MD Jul 12, 2024 21:04
[2024-07-13] VITALS (9 sets, daily range): BP systolic 100–121; BP diastolic 61–89; PULSE 80–103; RESP 16–20; TEMP 98.1–98.7; O2SAT 96–100
[2024-07-13 07:35] LABS: Basophils # (auto) 0.1 10 ^3/uL (0-0.2); Basophils % (auto) 0.9 % (0.0-2.0); Eosinophils # (auto) 0.3 10 ^3/uL (0-0.8); Eosinophils % (auto) 2.2 % (0.0-7.0); Hematocrit 24.4 % (41.0-53.0); Hemoglobin 7.9 g/dL (13.5-17.5); Lymphocytes # (auto) 1.3 10 ^3/uL (0.4-5.4); Lymphocytes % (auto) 10.1 % (10.0-50.0); Mean Corpuscular Hemoglobin 27.9 pg (28.0-32.0); Mean Corpuscular Hgb Conc. 32.4 g/dL (32.0-36.0); Mean Corpuscular Volume 86.1 fL (80.0-100.0); Monocytes # (auto) 1.4 10 ^3/uL (0-1.3); Neutrophils # (auto) 9.9 10 ^3/uL (1.6-8.6); Neutrophils % (auto) 75.8 % (37.0-80.0); Red Blood Cells 2.83 10^6/uL (4.5-5.90); Red Cell Distribution Width 18.3 % (11.8-14.3); White Blood Cell 13.1 10^3/uL (4.4-10.8)
[2024-07-13 07:41] LABS: Platelet Count (auto) 935 10^3/uL (140-450); Platelet Estimate Markedly Increased
[2024-07-13 09:09] LABS: Alkaline Phosphatase 71 U/L (46-116); Anion Gap 8 (5-15); BUN/Creatinine Ratio 12.9 (10.0-20.0); Bilirubin, Total 0.3 mg/dL (0.2-1.0); Calcium 8.8 mg/dL (8.7-10.4); Carbon Dioxide 26 mmol/L (20-31); Glucose 94 mg/dL (74-106); Potassium 3.7 mmol/L (3.5-5.1); Sodium 141 mmol/L (136-145)
[2024-07-13 09:10] LABS: Alanine Aminotransferase 113 U/L (7-40); Albumin 3.1 g/dL (3.2-4.8); Aspartate Aminotransferase 42 U/L (13-40); Blood Urea Nitrogen 8 mg/dL (9-23); Chloride 107 mmol/L (98-107); Total Protein 5.6 g/dL (5.7-8.2)
[2024-07-13] MEDS: PANTOPRAZOLE 40 MG/10 ML VIAL INJ IV SCH (10:00)
--- NOTE | 2024-07-13 12:31 | DVHPN2 ---
Subjective Patient was awake and following some commands. Reviewed: Care Plan, H&P, Labs, Medications, Previous Orders, Radiology Changes from previous H/P or p: No Changes General: Per HPI Eyes: No Pain, No Vision change, No Conjunctivae inflammation, No Eyelid inflammation, No Other, No Redness ENT: No Ear pain, No Ear discharge, No Nose pain, No Nose discharge, No Nose congestion, No Mouth pain, No Mouth swelling, No Throat pain, No Throat swelling, No Other Cardiovascular: No Chest Pain, No Palpitations, No Orthopnea, No Paroxysmal Noc. Dyspnea, No Edema, No Lt Headedness, No Other Respiratory: No Cough, No Dry, No Shortness of breath, No SOB with excertion, No Wheezing, No Hemoptysis, No Pleuritic Pain, No Sputum, No Other Gastrointestinal: No Nausea, No Vomiting, No Abdominal Pain, No Diarrhea, No Constipation, No Melena, No Hematochezia, No Other Genitourinary: No Dysuria, No Frequency, No Incontinence, No Hematuria, No Retention, No Other Musculoskeletal: No other, No neck pain, No shoulder pain, No arm pain, No back pain, No hand pain, No leg pain, No foot pain Skin: No Rash, No Lesions, No Jaundice, No Bruising; Other (Bilateral legs wound) Objective Vitals Vital Signs Date Time Temp Pulse Resp B/P (MAP) Pulse Ox O2 Delivery O2 Flow Rate FiO2 07/13/24 09:11 98.7 89 19 116/71 (86) 99 98.7 07/12/24 20:00 Nasal Cannula* 2 28 Intake/Output Intake and Output 07/13/24 07:00 Intake Total 1050 ml Output Total 1800 ml Balance -750 ml Intake Oral 250 ml IV Total 800 ml Output Urine Total 1800 ml General Appearance: Alert, Oriented X3, Cooperative, No acute distress, mild distress, moderate distress, severe distress, Other (Chemically sedated) HEENT: Atraumatic, PERRLA Neck: Carotid Bruits [place] Lungs: Clear to auscultation, Normal air movement, Other Cardiovascular: Regular rate, Normal S1, Normal S2, No murmurs, Gallops, Rubs, Other Abdomen: Normal bowel sounds, Soft, No tenderness, No hepatospenomegaly, No masses, Other (NG tube with noted red gastric secretions) Genitourinary: No Apparent Abnormalities (Man[place] catheter) Neuro: Other (Encephalopathic) Skin: Intact, Wounds (See nurse notes and pictures) Psych/Mental Status: Mood NL, Other (Patient was alert and oriented x3. Noted confusion yesterday evening.) Medications Current Medications Medications Dose Ordered Sig/Maribeth Route Start Time Stop Time Status Last Admin Dose Admin Ondansetron HCl 4 mg Q4HP PRN IV 07/01/24 06:00 Acetaminophen 650 mg Q6HP PRN PO 07/01/24 06:00 07/10/24 02:14 650 MG Nitroglycerin 0.4 mg Q5MINP PRN SL 07/01/24 06:00 Thiamine HCl 100 mg DAILY IV 07/06/24 10:00 07/13/24 10:00 100 MG Ceftriaxone Sodium/Dextrose 50 ml @ 50 mls/hr DAILY IV 07/07/24 10:00 07/13/24 10:58 50 MLS/HR Vancomycin HCl 0 ml @ 0 mls/hr UD IV 07/08/24 08:45 Sucralfate 1 gm QID@0600,1130,1700,2200 GT 07/08/24 11:30 07/13/24 05:51 1 GM Vancomycin HCl 250 ml @ 200 mls/hr Q10H IV 07/10/24 17:00 07/13/24 04:30 200 MLS/HR Haloperidol 2 mg [id number] PRN PO 07/12/24 10:00 Pantoprazole Sodium 40 mg DAILY IV 07/13/24 10:00 07/13/24 10:00 40 MG Laboratory Results Laboratory Tests 07/13/24 06:48 Chemistry Test 07/13/24 06:48 Albumin 3.1 g/dL (3.2-4.8) L Calcium Level 8.8 mg/dL (8.7-10.4) Total Protein 5.6 g/dL (5.7-8.2) L LFT Test 07/13/24 06:48 Alanine Aminotransferase (ALT) 113 U/L (7-40) H Alkaline Phosphatase 71 U/L (46-116) Aspartate Amino Transferase (AST) 42 U/L (13-40) H Total Bilirubin 0.3 mg/dL (0.2-1.0) Urinalysis Test 07/01/24 14:50 Urine Color Yellow (Yellow) Urine Clarity Clear (Clear) Urine pH 5.5 (5.0-9.0) Urine Specific [place] 1.025 (1.001-1.035) Urine Protein Trace (Negative) H Urine Ketones Negative (Negative) Urine Blood Trace /uL (Negative) H Urine Nitrite Negative (Negative) Urine Bilirubin Negative (Negative) Urine Urobilinogen Normal mg/dL (Negative) Urine Leukocyte Esterase Negative /uL (Negative) Urine RBC 4 /hpf (0 - 3) Urine Microscopic WBC 1 /HPF (0-3) Urine Squamous Epithelial Cells Few /hpf (<5) Urine Bacteria Few /hpf (None Seen) H Urine Hyaline Casts Few /lpf (0 - 2) Urine Mucus Few (None Seen) Urine Glucose Normal mg/dL (Normal) Microbiology Microbiology Date/Time Source Procedure Growth Status 07/03/24 09:00 Leg Gram Stain - Final Complete 07/03/24 09:00 Wound Culture - Final Staphylococcus aureus Enterococcus faecalis Proteus vulgaris Enterobacter hormaechei Complete 07/01/24 14:50 Voided Urine Urine Culture - Final Complete 07/01/24 13:49 Blood Blood Culture - Final NO GROWTH AFTER 5 DAYS OF INCUBATION. Complete 07/01/24 00:00 Sputum Gram Stain - Final Complete 07/01/24 00:00 Respiratory Culture - Final Citrobacter koseri Complete Labs and/or images reviewed: Labs reviewed by me, Image(s) reviewed by me Assessment/Plan Assessment/Plan Impression: -hemorrhagic shock -cellulitis to lower extremities -sepsis -peptic ulcer bleed with persistent GI bleeding, status post embolization -polysubstance abuse : Positive for PCP, cocaine, amphetamines -acute respiratory failure with mechanical ventilation -severe anemia from GI bleed -shock liver -acute delirium Plan: Events: Patient with acute delirium yesterday evening. No abdominal pain appreciated with palpation. MRCP pending per GI. -restart Haldol 2 mg p.o. q.12 hours for agitation -continue to advance diet as tolerated -Protonix 40 mg IV twice a day -Carafate 1 g 4 times a day -Lorazepam p.r.n. withdrawal symptoms -antibiotic therapy with Rocephin and vancomycin -repeat labs in a.m. Total time spent with patient discussing and formulating plan of care: 35 minutes. This medical document was created using an electronic medical record system with [employer] computerized dictation system. Although this document has been carefully reviewed, there may still be some phonetic and typographical errors. These areas are purely typographical due to imperfections of the software programs, and do not reflect any compromise in the patient's medical care. Plan discussed with: Patient, Other (RN) My Orders Orders - BRADY SPARROW NP Procedure Category Date Status Time Blood Culture VASILE 07/13/24 Logged 12:24 Complete Blood Count LAB 07/14/24 Verified 04:00 Basic Metabolic Panel LAB 07/14/24 Verified 04:00 Chest Portable XY 07/14/24 Logged 04:00 Transfer Orders XFER 07/13/24 Transmitted 12:28 Date of Service: Jul 13, 2024 Billing Provider: BRADY SPARROW NP Common Visit Codes: [id number] INP/OBS CARE(HIGH) BRADY SPARROW NP Jul 13, 2024 12:31
[2024-07-13] MEDS: LACTULOSE 20Gm/30ML SOLN PO ONE (14:00)
--- NOTE | 2024-07-13 17:39 | DVHPN2 ---
Progress Note Date Seen: Jul 13, 2024 Resident Creating Document: DIANA HALL RESIDENT Has the PT tested + for MRSA If YES, has PT been informed?: No Medical Necessity Reason Pt with a Central, PICC or Fol: Yes The following are medically ne: Central Line, Barrow Catheter Reason for barrow catheter: Strict I&O Subjective Review of Systems Patient was seen and examined on the bedside. He is alert oriented x1 and on 2 L oxygen through nasal cannula. Sitter on the bedside. H & H stable Objective vital signs Vital Sign Date Time Temp Pulse Resp B/P (MAP) Pulse Ox O2 Delivery O2 Flow Rate FiO2 07/13/24 17:03 98.6 88 19 118/75 (89) 99 98.6 07/13/24 10:00 Nasal Cannula 2.0 07/13/24 10:00 28 Total Intake and Output 07/12/24 07/12/24 07/13/24 15:00 23:00 07:00 Intake Total 300 ml 350 ml 400 ml Output Total 1400 ml 400 ml Balance 300 ml -1050 ml 0 ml medications Current Medications Medications Dose Ordered Sig/Maribeth Route Start Time Stop Time Status Last Admin Dose Admin Ondansetron HCl 4 mg Q4HP PRN IV 07/01/24 06:00 Acetaminophen 650 mg Q6HP PRN PO 07/01/24 06:00 07/10/24 02:14 650 MG Nitroglycerin 0.4 mg Q5MINP PRN SL 07/01/24 06:00 Thiamine HCl 100 mg DAILY IV 07/06/24 10:00 07/13/24 10:00 100 MG Ceftriaxone Sodium/Dextrose 50 ml @ 50 mls/hr DAILY IV 07/07/24 10:00 07/13/24 10:58 50 MLS/HR Vancomycin HCl 0 ml @ 0 mls/hr UD IV 07/08/24 08:45 Sucralfate 1 gm QID@0600,1130,1700,2200 GT 07/08/24 11:30 07/13/24 16:47 1 GM Vancomycin HCl 250 ml @ 200 mls/hr Q10H IV 07/10/24 17:00 07/13/24 15:13 200 MLS/HR Haloperidol 2 mg [id number] PRN PO 07/12/24 10:00 Pantoprazole Sodium 40 mg DAILY IV 07/13/24 10:00 07/13/24 10:00 40 MG Docusate Sodium 100 mg BID PO 07/13/24 22:00 Examination Physical examination: General Appearance: Alert, Oriented X3, Cooperative, No acute distress HEENT: Atraumatic, PERRLA, EOMI, Mucous membrane moist/pink Respiratory: Clear to auscultation, Normal air movement Cardiovascular: Regular rate, Normal S1, Normal S2, No murmurs, no chest wall tenderness Abdominal: Normal bowel sounds, Soft, No tenderness, No hepatospenomegaly, No masses Extremities: Bilateral cellulitis , No clubbing, No cyanosis, No edema, Normal pulses, No tenderness/swelling Skin: No rashes, No breakdown, No significant lesion Neuro: Normal gait, Normal speech, Strength at 5/5 X4 ext, Normal tone, Sensation intact, grossly intact cranial nerves. Psych/Mental Status: Mental status NL, Mood NL laboratory and microbiology Laboratory Tests 07/13/24 06:48 Test 07/13/24 06:48 Range/Units Serum Glucose 94 74-106 mg/dL Microbiology Date/Time Source Procedure Growth Status 07/03/24 09:00 Leg Gram Stain - Final Complete 07/03/24 09:00 Wound Culture - Final Staphylococcus aureus Enterococcus faecalis Proteus vulgaris Enterobacter hormaechei Complete 07/01/24 14:50 Voided Urine Urine Culture - Final Complete 07/01/24 13:49 Blood Blood Culture - Final NO GROWTH AFTER 5 DAYS OF INCUBATION. Complete 07/01/24 00:00 Sputum Gram Stain - Final Complete 07/01/24 00:00 Respiratory Culture - Final Citrobacter koseri Complete Labs and/or images reviewed: Labs reviewed by me, Image(s) reviewed by me Problem List/Assessment/Plan Problem List/Assessment/Plan Assessment : Upper GI bleeding secondary to duodenal bulb ulcer s/p embolization gastroduodenal artery 07/06 by IR Hypovolemic shock Severe anemia Transaminitis, hypoxic liver injury and hepatic steatosis Possible sepsis secondary to cellulitis MSSA Acute hypoxic respiratory failure, s/p intubated and mechanically ventilated Systolic Congestive heart failure Cellulitis of the leg and foot Superficial venous thrombophlebitis, cephalic vein Polysubstance use including a PCP, cocaine Hypokalemia Elevated Lipase Reactive thrombocytosis likely due to cellulitis Acute delirium EGD 07/03 shows large ulcer of the duodenum bulb occupying 3/4 of the bulb with old clots inside. No gross bleeding seen. Huge clot in the fundus of the body. Plan: Ultrasound liver shows hepatic steatosis, gallbladder sludge, dilated CBD. Liver enzyme is downtrending and no plan for MRCP now. Continue conservative management for now. Patient is not bleeding actively. H&H is stable. Negative for HIV, hep B and hep C Continue Protonix 40 mg IV daily and carafate1 g bid Stool softner colace 100 mg bid and lactulose 15 ml po once. Antibiotics per primary team Monitor H&H Advise patient to avoid NSAIDs/aspirin/ibuprofen Mechanical soft diet Plan discussed with nurse Case discussed with Dr. Kunz Plan discussed with: Patient, Other My Orders My Orders Orders - DIANA HALL Procedure Category Date Status Time Urinalysis LAB 07/13/24 Uncollected 08:10 Stool Wbc LAB 07/13/24 Logged 08:12 Stool Bacterial VASILE 07/13/24 Uncollected Culture 08:12 Docusate Sodium PHA 07/13/24 In Process Capsule (Colace 22:00 Dietary Evaluation Review Comments: 1.Consider advancing to PO diet once medically appropriate 2.Consider PN if NPO >7 if GI issues dont resolve 3.Consider beth BID (180kcal, 5 pro) Expected Outcomes/Goals: 1. Pt will consume >75% pt estimated meeds within 2-3 days DIANA HALL Jul 13, 2024 17:39
[2024-07-13 20:44] LABS: Urine Bacteria FEW /hpf (None Seen); Urine Blood Negative /uL (Negative); Urine Clarity Clear (Clear); Urine Color Yellow (Yellow); Urine Mucus FEW (None Seen); Urine Protein, UAD TRACE (Negative); Urine Specific Gravity 1.032 (1.001-1.035); Urine Squamous Epithelial Cell FEW /hpf (<5); Urine Urobilinogen Normal (Negative); Urine WBC 10 /HPF (0-3)
[2024-07-13] MEDS: DOCUSATE SOD 100 MG CAP PO SCH (21:03)
[2024-07-14] VITALS (9 sets, daily range): BP systolic 88–119; BP diastolic 47–68; PULSE 78–101; RESP 16–22; TEMP 98.2–99.7; O2SAT 94–100
--- NOTE | 2024-07-14 05:16 | DVH ---
EXAM: XR Chest, 1 View CLINICAL INDICATION: pna TECHNIQUE: Frontal view of the chest. COMPARISON: XY CHEST PORTABLE on DOS: 07/07/24, XY CHEST PORTABLE on DOS: 07/06/24, XY CHEST PORTABLE o n DOS: 07/05/24, XY CHEST PORTABLE on DOS: 07/04/24, XY CHEST PORTABLE on DOS: 07/03/24 FINDINGS: LUNGS AND PLEURAL SPACES: Left basilar atelectasis or pneumonia. No pneumothorax. HEART: Unremarkable. No cardiomegaly. MEDIASTINUM: Unremarkable. Normal mediastinal contour. BONES/JOINTS: Unremarkable. No acute fracture. TUBES, LINES AND DEVICES: Right internal jugular central venous catheter tip in the superior vena c jose. OTHER FINDINGS: . None. . .. IMPRESSION: Left basilar atelectasis or pneumonia.
--- NOTE | 2024-07-14 09:42 | DVHPN2 ---
Subjective Patient was awake and following some commands. Reviewed: Care Plan, H&P, Labs, Medications, Previous Orders, Radiology Changes from previous H/P or p: No Changes General: Per HPI Eyes: No Pain, No Vision change, No Conjunctivae inflammation, No Eyelid inflammation, No Other, No Redness ENT: No Ear pain, No Ear discharge, No Nose pain, No Nose discharge, No Nose congestion, No Mouth pain, No Mouth swelling, No Throat pain, No Throat swelling, No Other Cardiovascular: No Chest Pain, No Palpitations, No Orthopnea, No Paroxysmal Noc. Dyspnea, No Edema, No Lt Headedness, No Other Respiratory: No Cough, No Dry, No Shortness of breath, No SOB with excertion, No Wheezing, No Hemoptysis, No Pleuritic Pain, No Sputum, No Other Gastrointestinal: No Nausea, No Vomiting, No Abdominal Pain, No Diarrhea, No Constipation, No Melena, No Hematochezia, No Other Genitourinary: No Dysuria, No Frequency, No Incontinence, No Hematuria, No Retention, No Other Musculoskeletal: No other, No neck pain, No shoulder pain, No arm pain, No back pain, No hand pain, No leg pain, No foot pain Skin: No Rash, No Lesions, No Jaundice, No Bruising; Other (Bilateral legs wound) Objective Vitals Vital Signs Date Time Temp Pulse Resp B/P (MAP) Pulse Ox O2 Delivery O2 Flow Rate FiO2 07/14/24 05:00 99.7 91 18 98/52 (67) 100 99.7 07/13/24 20:00 Nasal Cannula* 2 28 Intake/Output Intake and Output 07/14/24 07:00 Intake Total 2030 ml Output Total 1500 ml Balance 530 ml Intake Oral 1480 ml IV Total 550 ml Output Urine Total 1500 ml General Appearance: Alert, Oriented X3, Cooperative, No acute distress, mild distress, moderate distress, severe distress, Other (Chemically sedated) HEENT: Atraumatic, PERRLA Neck: Carotid Bruits [place] Lungs: Clear to auscultation, Normal air movement, Other Cardiovascular: Regular rate, Normal S1, Normal S2, No murmurs, Gallops, Rubs, Other Abdomen: Normal bowel sounds, Soft, No tenderness, No hepatospenomegaly, No masses, Other (NG tube with noted red gastric secretions) Genitourinary: No Apparent Abnormalities ([place] catheter) Neuro: Other (Encephalopathic) Skin: Intact, Wounds (See nurse notes and pictures) Psych/Mental Status: Mood NL, Other (Patient was alert and oriented x3. Noted confusion yesterday evening.) Medications Current Medications Medications Dose Ordered Sig/Maribeth Route Start Time Stop Time Status Last Admin Dose Admin Ondansetron HCl 4 mg Q4HP PRN IV 07/01/24 06:00 Acetaminophen 650 mg Q6HP PRN PO 07/01/24 06:00 07/10/24 02:14 650 MG Nitroglycerin 0.4 mg Q5MINP PRN SL 07/01/24 06:00 Thiamine HCl 100 mg DAILY IV 07/06/24 10:00 07/13/24 10:00 100 MG Ceftriaxone Sodium/Dextrose 50 ml @ 50 mls/hr DAILY IV 07/07/24 10:00 07/13/24 10:58 50 MLS/HR Vancomycin HCl 0 ml @ 0 mls/hr UD IV 07/08/24 08:45 Vancomycin HCl 250 ml @ 200 mls/hr Q10H IV 07/10/24 17:00 07/14/24 00:36 200 MLS/HR Haloperidol 2 mg [id number] PRN PO 07/12/24 10:00 Pantoprazole Sodium 40 mg DAILY IV 07/13/24 10:00 07/13/24 10:00 40 MG Docusate Sodium 100 mg BID PO 07/13/24 22:00 07/13/24 21:03 100 MG Sucralfate 1 gm BID PO 07/14/24 10:00 Laboratory Results Laboratory Tests 07/13/24 06:48 Urinalysis Test 07/01/24 14:50 07/13/24 20:05 Urine Hyaline Casts Few /lpf (0 - 2) Urine Color Yellow (Yellow) Urine Clarity Clear (Clear) Urine pH 5.0 (5.0-9.0) Urine Specific [place] 1.032 (1.001-1.035) Urine Protein Trace (Negative) H Urine Ketones Negative (Negative) Urine Blood Negative /uL (Negative) Urine Nitrite Negative (Negative) Urine Bilirubin Negative (Negative) Urine Urobilinogen Normal mg/dL (Negative) Urine Leukocyte Esterase 1+ /uL (Negative) Urine RBC 3 /hpf (0 - 3) Urine Microscopic WBC 10 /HPF (0-3) H Urine Squamous Epithelial Cells Few /hpf (<5) Urine Bacteria Few /hpf (None Seen) H Urine Mucus Few (None Seen) Urine Glucose Normal mg/dL (Normal) Microbiology Microbiology Date/Time Source Procedure Growth Status 07/03/24 09:00 Leg Gram Stain - Final Complete 07/03/24 09:00 Wound Culture - Final Staphylococcus aureus Enterococcus faecalis Proteus vulgaris Enterobacter hormaechei Complete 07/01/24 14:50 Voided Urine Urine Culture - Final Complete 07/01/24 13:49 Blood Blood Culture - Final NO GROWTH AFTER 5 DAYS OF INCUBATION. Complete 07/01/24 00:00 Sputum Gram Stain - Final Complete 07/01/24 00:00 Respiratory Culture - Final Citrobacter koseri Complete Labs and/or images reviewed: Labs reviewed by me, Image(s) reviewed by me Assessment/Plan Assessment/Plan Impression: -hemorrhagic shock -cellulitis to lower extremities -sepsis -peptic ulcer bleed with persistent GI bleeding, status post embolization -polysubstance abuse : Positive for PCP, cocaine, amphetamines -acute respiratory failure with mechanical ventilation -severe anemia from GI bleed -shock liver -acute delirium Plan: Events: Patient more alert and oriented today. Labs today are pending. -increase physical therapy. Appreciate evaluation, and recommendations if group home facility is appropriate for patient. -continue Haldol 2 mg p.o. q.12 hours for agitation -advance diet -Protonix 40 mg IV twice a day -Carafate 1 g 4 times a day -antibiotic therapy with Rocephin and vancomycin -repeat labs in a.m. Total time spent with patient discussing and formulating plan of care: 35 minutes. This medical document was created using an electronic medical record system with [employer] dictation system. Although this document has been carefully reviewed, there may still be some phonetic and typographical errors. These areas are purely typographical due to imperfections of the software programs, and do not reflect any compromise in the patient's medical care. Plan discussed with: Patient, Other (RN) My Orders Orders - BRADY SPARROW DRAWING FRAME TENDER Procedure Category Date Status Time Blood Culture VASILE 07/13/24 In Process 12:24 Complete Blood Count LAB 07/14/24 Logged 04:00 Basic Metabolic Panel LAB 07/14/24 Logged 04:00 Chest Portable XY 07/14/24 Resulted 04:00 Transfer Orders XFER 07/13/24 Transmitted 12:28 Date of Service: Jul 14, 2024 Billing Provider: BRADY SPARROW NP Common Visit Codes: [id number] INP/OBS CARE(HIGH) BRADY SPARROW NP Jul 14, 2024 09:42
[2024-07-14] MEDS: SUCRALFATE 1 GM/10 ML ORAL SUSP PO SCH (11:29)
--- NOTE | 2024-07-14 11:30 | DVHPN2 ---
Progress Note Date Seen: Jul 14, 2024 Resident Creating Document: DIANA HALL RESIDENT Has the PT tested + for MRSA If YES, has PT been informed?: No Medical Necessity Reason Pt with a Central, PICC or Fol: Yes The following are medically ne: Central Line, Barrow Catheter Reason for barrow catheter: Strict I&O Subjective Review of Systems The patient was seen and examined on the bedside. He is alert oriented x2. Patient is relatively calm today and sitter on the bed side. Pending morning labs and recent chest x-ray revealed left basilar atelectasis /pneumonia. Last bowel movement was 4 days ago and recommended Colace 100 mg p.o. b.i.d. and MiraLax powder p.r.n. for constipation. Objective vital signs Vital Sign Date Time Temp Pulse Resp B/P (MAP) Pulse Ox O2 Delivery O2 Flow Rate FiO2 07/14/24 05:00 99.7 91 18 98/52 (67) 100 99.7 07/13/24 20:00 Nasal Cannula* 2 28 Total Intake and Output 07/13/24 07/13/24 07/14/24 15:00 23:00 07:00 Intake Total 50 ml 450 ml 1530 ml Output Total 900 ml 600 ml Balance 50 ml -450 ml 930 ml medications Current Medications Medications Dose Ordered Sig/Maribeth Route Start Time Stop Time Status Last Admin Dose Admin Ondansetron HCl 4 mg Q4HP PRN IV 07/01/24 06:00 Acetaminophen 650 mg Q6HP PRN PO 07/01/24 06:00 07/10/24 02:14 650 MG Nitroglycerin 0.4 mg Q5MINP PRN SL 07/01/24 06:00 Thiamine HCl 100 mg DAILY IV 07/06/24 10:00 07/13/24 10:00 100 MG Ceftriaxone Sodium/Dextrose 50 ml @ 50 mls/hr DAILY IV 07/07/24 10:00 07/13/24 10:58 50 MLS/HR Vancomycin HCl 0 ml @ 0 mls/hr UD IV 07/08/24 08:45 Vancomycin HCl 250 ml @ 200 mls/hr Q10H IV 07/10/24 17:00 07/14/24 00:36 200 MLS/HR Haloperidol 2 mg [id number] PRN PO 07/12/24 10:00 Pantoprazole Sodium 40 mg DAILY IV 07/13/24 10:00 07/13/24 10:00 40 MG Docusate Sodium 100 mg BID PO 07/13/24 22:00 07/13/24 21:03 100 MG Sucralfate 1 gm BID PO 07/14/24 10:00 Examination Physical examination: General Appearance: Alert, Oriented X3, Cooperative, mild distress and 2L oxygen through nasal canula. HEENT: Atraumatic, PERRLA, EOMI, Mucous membrane moist/pink Respiratory: Clear to auscultation, Normal air movement Cardiovascular: Regular rate, Normal S1, Normal S2, No murmurs, no chest wall tenderness Abdominal: Normal bowel sounds, Soft, No tenderness, No hepatospenomegaly, No masses Extremities: Bilateral cellulitis, No clubbing, No cyanosis, No edema, Normal pulses. Skin: No rashes, No breakdown, No significant lesion Neuro: Normal speech, Strength at 5/5 X4 ext, Normal tone, Sensation intact, grossly intact cranial nerves Psych/Mental Status: Mental status NL, Mood NL laboratory and microbiology Laboratory Tests 07/13/24 06:48 Test 07/13/24 06:48 Range/Units Serum Glucose 94 74-106 mg/dL Microbiology Date/Time Source Procedure Growth Status 07/03/24 09:00 Leg Gram Stain - Final Complete 07/03/24 09:00 Wound Culture - Final Staphylococcus aureus Enterococcus faecalis Proteus vulgaris Enterobacter hormaechei Complete 07/01/24 14:50 Voided Urine Urine Culture - Final Complete 07/01/24 13:49 Blood Blood Culture - Final NO GROWTH AFTER 5 DAYS OF INCUBATION. Complete 07/01/24 00:00 Sputum Gram Stain - Final Complete 07/01/24 00:00 Respiratory Culture - Final Citrobacter koseri Complete Labs and/or images reviewed: Labs reviewed by me, Image(s) reviewed by me Problem List/Assessment/Plan Problem List/Assessment/Plan Assessment : Upper GI bleeding secondary to duodenal bulb ulcer s/p embolization gastroduodenal artery 07/06 by IR Hypovolemic shock Severe anemia Transaminitis, hypoxic liver injury and hepatic steatosis Possible sepsis secondary to cellulitis MSSA Acute hypoxic respiratory failure, s/p intubated and mechanically ventilated Systolic Congestive heart failure Cellulitis of the leg and foot Superficial venous thrombophlebitis, cephalic vein Polysubstance use including a PCP, cocaine Hypokalemia Elevated Lipase Reactive thrombocytosis likely due to cellulitis Acute delirium Constipation EGD 07/03 shows large ulcer of the duodenum bulb occupying 3/4 of the bulb with old clots inside. No gross bleeding seen. Huge clot in the fundus of the body. Plan: Ultrasound liver shows hepatic steatosis, gallbladder sludge, dilated CBD. Liver enzyme is downtrending and no plan for MRCP now. Continue conservative management for now. Patient is not bleeding actively. H&H is stable. Negative for HIV, hep B and hep C Continue Protonix 40 mg IV daily and carafate1 g bid Stool softner colace 100 mg bid and Miralax powder PRN Antibiotics per primary team Monitor H&H Advise patient to avoid NSAIDs/aspirin/ibuprofen Mechanical soft diet Physical therapy and possible SNF placement. Plan discussed with nurse Case discussed with Dr. Kunz Plan discussed with: Patient, Other My Orders My Orders Orders - DIANA HALL Procedure Category Date Status Time Docusate Sodium PHA 07/13/24 In Process Capsule (Colace 22:00 Sucralfate Susp PHA 07/14/24 In Process (Carafate Susp) 10:00 Polyethylene Glycol PHA 07/14/24 Verified 17g Powder (Miralax 11:30 Dietary Evaluation Review Comments: 1.Consider advancing to PO diet once medically appropriate 2.Consider PN if NPO >7 if GI issues dont resolve 3.Consider beth BID (180kcal, 5 pro) Expected Outcomes/Goals: 1. Pt will consume >75% pt estimated meeds within 2-3 days DIANA HALL RESIDENT Jul 14, 2024 11:29
[2024-07-14 12:13] LABS: Basophils # (auto) 0.1 10 ^3/uL (0-0.2); Hemoglobin 7.9 g/dL (13.5-17.5); Monocytes # (auto) 1.1 10 ^3/uL (0-1.3)
[2024-07-14 12:15] LABS: Basophils % (auto) 0.8 % (0.0-2.0); Eosinophils # (auto) 0.2 10 ^3/uL (0-0.8); Eosinophils % (auto) 1.9 % (0.0-7.0); Hematocrit 25.1 % (41.0-53.0); Lymphocytes # (auto) 1.3 10 ^3/uL (0.4-5.4); Lymphocytes % (auto) 10.2 % (10.0-50.0); Mean Corpuscular Hemoglobin 27.6 pg (28.0-32.0); Mean Corpuscular Hgb Conc. 31.3 g/dL (32.0-36.0); Mean Corpuscular Volume 88.3 fL (80.0-100.0); Monocytes % (auto) 8.6 % (0.0-12.0); Neutrophils # (auto) 10.3 10 ^3/uL (1.6-8.6); Neutrophils % (auto) 78.5 % (37.0-80.0); Nucleated Red Blood Cells % 0.1 %; Red Blood Cells 2.85 10^6/uL (4.5-5.90); Red Cell Distribution Width 18.4 % (11.8-14.3); White Blood Cell 13.1 10^3/uL (4.4-10.8)
[2024-07-14 12:23] LABS: Platelet Count (auto) 752 10^3/uL (140-450)
[2024-07-14 12:51] LABS: Chloride 106 mmol/L (98-107); Potassium 3.8 mmol/L (3.5-5.1); Sodium 136 mmol/L (136-145)
[2024-07-14 12:52] LABS: Anion Gap 7 (5-15); Carbon Dioxide 23 mmol/L (20-31)
[2024-07-14 12:53] LABS: Calcium 8.4 mg/dL (8.7-10.4)
[2024-07-14 12:57] LABS: BUN/Creatinine Ratio 10.2 (10.0-20.0)
[2024-07-14 13:00] LABS: Blood Urea Nitrogen 6 mg/dL (9-23); Glucose 115 mg/dL (74-106)
--- NOTE | 2024-07-14 19:06 | RESUS ---
CODE ASSIST ASSESSSMENT Initial Information Code Assist Date: Jul 14, 2024 Code Assist Time: 11:52 Location of Arrest: [facility] Room # 220b Provider Name Ricardo Guzman COLLATERAL SPECIALIST Time Notified: 11:52 (came to bedside) Crash Cart Opened and Supplies: No Situation Staff concerned/worried, speci: Change LOC, SBP <90 or 10 from baseli Situation comment: primary RN Araceli called code assist due to patient just having worked with physical therapy and was sitting in chair when he slouched over to side and became diaphoretic and unresponsive. Background Background: GI bleed S/P embolization. See emr for further care/treatment this admission. Assessment Blood Pressure Systolic: 89 Blood Pressure Diastolic: 46 Respiratory Rate: 16 O2 Sat by Pulse Oximetry: 98 Bedside Blood Glucose: 128 Assessment comment: patient laying in bed upon arrival to code assist after being assisted by PT and RNs from chair. BP 89/46, 85/39, 92/54 Recommendations/Interventions Medications and Responses : ADULT Medications Given: NS 250 ml Bolus MRx1 (1 liter NS bolus order obtained) Procedures: Accu check, Cardiac Monitoring Other Interventions upgraded to tele Outcome Outcome: Problem Resolved Follow up Report Follow up Report BP up to 98/52 then 104/53 talking, answering questions appropriately with IV fluids still infusing. BP remained stable with MAP above 65 throughout rest of shift. Team Members Team Members Ricardo Guzman COLLATERAL SPECIALIST, Dr Rodrigues, Dr Maldonado Resident, Araceli Cage RN, Chapin RDZdrag seiner, Maci RDZ ICU resource, Rosalva PRIVATE INQUIRY AGENT, Ty RN, Austen RDZmaterial requirements planning manager Chapin White Jul 14, 2024 19:06
--- NOTE | 2024-07-14 23:15 | DVHPN2 ---
Progress Note - Dictate Date Seen: Jul 14, 2024 Has the PT tested + for MRSA If YES, has PT been informed?: No Medical Necessity Reason Pt with a Central, PICC or Fol: Yes The following are medically ne: Central Line, Barrow Catheter Reason for barrow catheter: Strict I&O Subjective Patient seen and examined at bedside. Remains on supplemental oxygen Overnight events reviewed. vital signs Vital Sign Date Time Temp Pulse Resp B/P (MAP) Pulse Ox O2 Delivery O2 Flow Rate FiO2 07/14/24 19:06 16 98 07/14/24 17:05 88 118/62 (80) 07/14/24 10:00 Nasal Cannula* 3 32 Total Intake and Output 07/13/24 07/13/24 07/14/24 15:00 23:00 07:00 Intake Total 50 ml 450 ml 1530 ml Output Total 900 ml 600 ml Balance 50 ml -450 ml 930 ml medications Current Medications Medications Dose Ordered Sig/Maribeth Route Start Time Stop Time Status Last Admin Dose Admin Ondansetron HCl 4 mg Q4HP PRN IV 07/01/24 06:00 Acetaminophen 650 mg Q6HP PRN PO 07/01/24 06:00 07/10/24 02:14 650 MG Nitroglycerin 0.4 mg Q5MINP PRN SL 07/01/24 06:00 Thiamine HCl 100 mg DAILY IV 07/06/24 10:00 07/14/24 11:29 100 MG Ceftriaxone Sodium/Dextrose 50 ml @ 50 mls/hr DAILY IV 07/07/24 10:00 07/14/24 11:30 50 MLS/HR Vancomycin HCl 0 ml @ 0 mls/hr UD IV 07/08/24 08:45 Haloperidol 2 mg [id number] PRN PO 07/12/24 10:00 Pantoprazole Sodium 40 mg DAILY IV 07/13/24 10:00 07/14/24 11:29 40 MG Docusate Sodium 100 mg BID PO 07/13/24 22:00 07/14/24 22:04 100 MG Sucralfate 1 gm BID PO 07/14/24 10:00 07/14/24 22:04 1 GM Polyethylene Glycol 17 gm DAILYPRN PRN PO 07/14/24 11:30 Vancomycin HCl 250 ml @ 200 mls/hr Q10H IV 07/15/24 00:00 objective Gen.: Patient lying in bed in no apparent distress. On supplemental oxygen. Head: Normocephalic, atraumatic. Eyes: EOMI/PERRLA. Ears: Normal hearing. Normal anatomy. Neck/trachea: Trachea midline, supple. Nose: Normal external anatomy. Mouth: Moist mucous membranes. Chest: Decreased air entry bilaterally. No wheezing or rhonchi. Cardiovascular: Positive S1, positive S2. Regular rate and rhythm. Abdomen: Positive bowel sounds in all 4 quadrants. Soft, non-tender, non- distended. : Deferred. Rectal: Deferred. Skin: Warm, dry. Intact. Extremities: 2+ radial pulses bilaterally. No lower extremity edema. Neuro: Awake, alert, oriented x3. No gross motor or sensory deficits. Cranial nerves II through XII intact. Gait not assessed. laboratory and microbiology Laboratory Tests 07/14/24 12:00 Test 07/14/24 12:00 Range/Units Serum Glucose 115 H 74-106 mg/dL Assessment/Plan Impression: Acute hypoxic respiratory failure GI hemorrhage Hemorrhagic shock Substance abuse Bilateral lower extremity wounds Events: Remains on supplemental oxygen at 3 LPM NC Taper O2 as tolerated Patient is altered Haldol PRN. Code assist due to hypotension - pt received 1 liter IV fluids Head of bed elevation Aspiration precautions Continue bronchodilators Continue antibiotics Carafate Thiamine supplementation Monitor hemoglobin Protonix BID for GI prophylaxis Wound care. Wound cultures grew Staph aureus, Enterococcus faecalis, Proteus vulgaris and Enterobacter hormaechei. S/p gastroduodenal artery thromboembolization by IR. No bloody bowel movements. CT head (07/08/24) reveals no evidence of ICH or stroke. Labs and imaging reviewed. Rest of plan as noted below. Plan: S/p extubation on 07/07/24 Supplemental oxygen Titrate to keep O2 sats above 92%. Pressors if necessary for hemodynamic support. Titrate to keep MAP above 65 mmHg/SBP above 90 mmHg. Bronchodilators PRN Continue antibiotics. F/u cultures. Monitor renal function. Monitor electrolytes. Supplement as necessary. Monitor ins and outs. S/p embolization of duodenal ulcer. GI recommendations appreciated Monitor hemoglobin Nutritional support. Accucheks, ISS. GI/DVT prophylaxis. Prognosis: Guarded given multiple comorbidities. Rest of plan per hospitalist and other consultants. Thank you Dr. Shine Kumar for allowing me to participate in this patient's care. Further recommendations will depend on patient's clinical course. Please do not hesitate to contact me if you have any questions or concerns. This medical document was created using an electronic medical record system with [employer] dictation system. Although this document has been carefully reviewed, there may still be some phonetic and typographical errors. These areas are purely typographical due to imperfections of the software programs, and do not reflect any compromise in the patient's medical care. Dietary Evaluation Review Comments: 1.Consider advancing to PO diet once medically appropriate 2.Consider PN if NPO >7 if GI issues dont resolve 3.Consider beth BID (180kcal, 5 pro) Expected Outcomes/Goals: 1. Pt will consume >75% pt estimated meeds within 2-3 days Plan discussed with: Other (KAJAL Charles) YOSI FABIAN MD Jul 14, 2024 23:15
[2024-07-15] VITALS (9 sets, daily range): BP systolic 101–122; BP diastolic 47–89; PULSE 82–91; RESP 16–19; TEMP 97.9–98.7; O2SAT 95–100
[2024-07-15] MEDS: VANCOMYCIN 1.25GM/250ML 250 ML IV SCH (00:38)
--- NOTE | 2024-07-15 12:08 | DVHPN2 ---
Subjective Patient now alert and oriented x4. Reviewed: Care Plan, H&P, Labs, Medications, Previous Orders, Radiology Changes from previous H/P or p: No Changes General: Per HPI Eyes: No Pain, No Vision change, No Conjunctivae inflammation, No Eyelid inflammation, No Other, No Redness ENT: No Ear pain, No Ear discharge, No Nose pain, No Nose discharge, No Nose congestion, No Mouth pain, No Mouth swelling, No Throat pain, No Throat swelling, No Other Cardiovascular: No Chest Pain, No Palpitations, No Orthopnea, No Paroxysmal Noc. Dyspnea, No Edema, No Lt Headedness, No Other Respiratory: No Cough, No Dry, No Shortness of breath, No SOB with excertion, No Wheezing, No Hemoptysis, No Pleuritic Pain, No Sputum, No Other Gastrointestinal: No Nausea, No Vomiting, No Abdominal Pain, No Diarrhea, No Constipation, No Melena, No Hematochezia, No Other Genitourinary: No Dysuria, No Frequency, No Incontinence, No Hematuria, No Retention, No Other Musculoskeletal: No other, No neck pain, No shoulder pain, No arm pain, No back pain, No hand pain, No leg pain, No foot pain Skin: No Rash, No Lesions, No Jaundice, No Bruising; Other (Bilateral legs wound) Objective Vitals Vital Signs Date Time Temp Pulse Resp B/P (MAP) Pulse Ox O2 Delivery O2 Flow Rate FiO2 07/15/24 08:00 97 Nasal Cannula* 2 28 07/15/24 05:00 98.7 85 19 101/48 (65) 98.7 Intake/Output Intake and Output 07/15/24 07:00 Intake Total 1211 ml Output Total 1450 ml Balance -239 ml Intake Oral 1161 ml IV Total 50 ml Output Urine Total 1450 ml General Appearance: Alert, Oriented X3, Cooperative, No acute distress, mild distress, moderate distress, severe distress, Other (Chemically sedated) HEENT: Atraumatic, PERRLA Neck: Carotid Bruits [place] Lungs: Clear to auscultation, Normal air movement, Other Cardiovascular: Regular rate, Normal S1, Normal S2, No murmurs, Gallops, Rubs, Other Abdomen: Normal bowel sounds, Soft, No tenderness, No hepatospenomegaly, No masses, Other (NG tube with noted red gastric secretions) Genitourinary: No Apparent Abnormalities (Manning catheter) Neuro: Other (Encephalopathic) Skin: Intact, Wounds (See nurse notes and pictures) Psych/Mental Status: Mood NL, Other (Patient was alert and oriented x3. Noted confusion yesterday evening.) Medications Current Medications Medications Dose Ordered Sig/Maribeth Route Start Time Stop Time Status Last Admin Dose Admin Ondansetron HCl 4 mg Q4HP PRN IV 07/01/24 06:00 Acetaminophen 650 mg Q6HP PRN PO 07/01/24 06:00 07/10/24 02:14 650 MG Nitroglycerin 0.4 mg Q5MINP PRN SL 07/01/24 06:00 Thiamine HCl 100 mg DAILY IV 07/06/24 10:00 07/14/24 11:29 100 MG Ceftriaxone Sodium/Dextrose 50 ml @ 50 mls/hr DAILY IV 07/07/24 10:00 07/14/24 11:30 50 MLS/HR Vancomycin HCl 0 ml @ 0 mls/hr UD IV 07/08/24 08:45 Haloperidol 2 mg [id number] PRN PO 07/12/24 10:00 Pantoprazole Sodium 40 mg DAILY IV 07/13/24 10:00 07/15/24 10:48 40 MG Docusate Sodium 100 mg BID PO 07/13/24 22:00 07/15/24 10:48 100 MG Sucralfate 1 gm BID PO 07/14/24 10:00 07/15/24 10:48 1 GM Polyethylene Glycol 17 gm DAILYPRN PRN PO 07/14/24 11:30 Vancomycin HCl 250 ml @ 200 mls/hr Q10H IV 07/15/24 00:00 07/15/24 10:49 200 MLS/HR Midodrine 10 mg TID@0600,1200,1800 PO 07/15/24 12:00 Enteral Nutritional Formula 240 ml BIDWM PO 07/15/24 18:00 Laboratory Results Laboratory Tests 07/14/24 12:00 Urinalysis Test 07/01/24 14:50 07/13/24 20:05 Urine Hyaline Casts Few /lpf (0 - 2) Urine Color Yellow (Yellow) Urine Clarity Clear (Clear) Urine pH 5.0 (5.0-9.0) Urine Specific [place] 1.032 (1.001-1.035) Urine Protein Trace (Negative) H Urine Ketones Negative (Negative) Urine Blood Negative /uL (Negative) Urine Nitrite Negative (Negative) Urine Bilirubin Negative (Negative) Urine Urobilinogen Normal mg/dL (Negative) Urine Leukocyte Esterase 1+ /uL (Negative) Urine RBC 3 /hpf (0 - 3) Urine Microscopic WBC 10 /HPF (0-3) H Urine Squamous Epithelial Cells Few /hpf (<5) Urine Bacteria Few /hpf (None Seen) H Urine Mucus Few (None Seen) Urine Glucose Normal mg/dL (Normal) Microbiology Microbiology Date/Time Source Procedure Growth Status 07/13/24 13:32 Blood Blood Culture - Preliminary NO GROWTH AFTER 24 HOURS OF INCUBATION. Resulted 07/03/24 09:00 Leg Gram Stain - Final Complete 07/03/24 09:00 Wound Culture - Final Staphylococcus aureus Enterococcus faecalis Proteus vulgaris Enterobacter hormaechei Complete 07/01/24 14:50 Voided Urine Urine Culture - Final Complete 07/01/24 00:00 Sputum Gram Stain - Final Complete 07/01/24 00:00 Respiratory Culture - Final Citrobacter koseri Complete Labs and/or images reviewed: Labs reviewed by me, Image(s) reviewed by me Assessment/Plan Assessment/Plan Impression: -hemorrhagic shock -cellulitis to lower extremities -sepsis -peptic ulcer bleed with persistent GI bleeding, status post embolization -polysubstance abuse : Positive for PCP, cocaine, amphetamines -acute respiratory failure with mechanical ventilation -severe anemia from GI bleed -shock liver -acute delirium Plan: Events: Patient had a code assist yesterday secondary to altered mental status as well as hypotension. Occurred after patient was working with physical therapy, noted to become somewhat lethargic after being placed in bed. Normal saline bolus x1 L was given with the patient was blood pressure normalizing and patient being A&O x4. -increase physical therapy. Appreciate evaluation, and recommendations if jail facility is appropriate for patient. -continue Haldol 2 mg p.o. q.12 hours for agitation -advance diet -Protonix 40 mg IV twice a day -Carafate 1 g 4 times a day -antibiotic therapy with Rocephin and vancomycin -repeat labs in a.m. Total time spent with patient discussing and formulating plan of care: 35 minutes. This medical document was created using an electronic medical record system with [employer] dictation system. Although this document has been carefully reviewed, there may still be some phonetic and typographical errors. These areas are purely typographical due to imperfections of the software programs, and do not reflect any compromise in the patient's medical care. Plan discussed with: Patient, Other (RN) My Orders Orders - BRADY SPARROW NP Procedure Category Date Status Time Vancomycin PHA 07/15/24 In Process 1.25gm/250ml 00:00 Vancomycin,Trough LAB 07/15/24 Logged 19:00 Vancomycin Per [place] 07/15/24 In Process Pharmacy Protoc 20:00 Midodrine Tablet PHA 07/15/24 In Process (Proamatine Tablet) 12:00 Orthostatic Vital ORDERS 07/15/24 Transmitted Signs 10:57 Nutritional PHA 07/15/24 In Process Supplements (Ensure 18:00 Basic Metabolic Panel LAB 07/16/24 Verified 04:00 Complete Blood Count LAB 07/16/24 Verified 04:00 Date of Service: Jul 15, 2024 Billing Provider: BRADY SPARROW NP Common Visit Codes: 43046-[id number] INP/OBS CARE(HIGH) Procedure Codes: 53254-UDOZEFI CODE BRADY GAFFNEY NP Jul 15, 2024 12:08
[2024-07-15] MEDS: MIDODRINE HCL 10 MG TAB PO SCH (12:54)
--- NOTE | 2024-07-15 14:54 | DVHPN2 ---
Progress Note Date Seen: Jul 15, 2024 Resident Creating Document: DIANA HALL RESIDENT Has the PT tested + for MRSA If YES, has PT been informed?: No Medical Necessity Reason Pt with a Central, PICC or Fol: Yes The following are medically ne: Central Line, Barrow Catheter Reason for barrow catheter: Strict I&O Subjective Review of Systems Patient was seen and examined on the bed side. He is alert oriented x3. Complains of mild lower abdominal pain, weakness and constipation. No other active complaints. Objective vital signs Vital Sign Date Time Temp Pulse Resp B/P (MAP) Pulse Ox O2 Delivery O2 Flow Rate FiO2 07/15/24 13:08 98.0 90 16 119/67 (84) 99 98.0 07/15/24 08:00 Nasal Cannula* 2 28 Total Intake and Output 07/14/24 07/14/24 07/15/24 15:00 23:00 07:00 Intake Total 286 ml 400 ml 525 ml Output Total 1000 ml 450 ml Balance 286 ml -600 ml 75 ml medications Current Medications Medications Dose Ordered Sig/Maribeth Route Start Time Stop Time Status Last Admin Dose Admin Ondansetron HCl 4 mg Q4HP PRN IV 07/01/24 06:00 Acetaminophen 650 mg Q6HP PRN PO 07/01/24 06:00 07/10/24 02:14 650 MG Nitroglycerin 0.4 mg Q5MINP PRN SL 07/01/24 06:00 Thiamine HCl 100 mg DAILY IV 07/06/24 10:00 07/15/24 12:53 100 MG Ceftriaxone Sodium/Dextrose 50 ml @ 50 mls/hr DAILY IV 07/07/24 10:00 07/15/24 12:53 50 MLS/HR Vancomycin HCl 0 ml @ 0 mls/hr UD IV 07/08/24 08:45 Haloperidol 2 mg [id number] PRN PO 07/12/24 10:00 Pantoprazole Sodium 40 mg DAILY IV 07/13/24 10:00 07/15/24 10:48 40 MG Docusate Sodium 100 mg BID PO 07/13/24 22:00 07/15/24 10:48 100 MG Sucralfate 1 gm BID PO 07/14/24 10:00 07/15/24 10:48 1 GM Polyethylene Glycol 17 gm DAILYPRN PRN PO 07/14/24 11:30 Vancomycin HCl 250 ml @ 200 mls/hr Q10H IV 07/15/24 00:00 07/15/24 10:49 200 MLS/HR Midodrine 10 mg TID@0600,1200,1800 PO 07/15/24 12:00 07/15/24 12:54 10 MG Enteral Nutritional Formula 240 ml BIDWM PO 07/15/24 18:00 Examination Physical examination: General Appearance: Alert, Oriented X3, Cooperative, No acute distress HEENT: Atraumatic, PERRLA, EOMI, Mucous membrane moist/pink Respiratory: Clear to auscultation, Normal air movement Cardiovascular: Regular rate, Normal S1, Normal S2, No murmurs, no chest wall tenderness Abdominal: Normal bowel sounds, Soft, No tenderness, No hepatospenomegaly, No masses Extremities: No clubbing, No cyanosis, No edema, Normal pulses, No tenderness/swelling Skin: No rashes, No breakdown, No significant lesion Neuro: Normal speech, Strength at 5/5 X4 ext, Normal tone, Sensation intact, grossly intact cranial nerves Psych/Mental Status: Mental status NL, Mood NL laboratory and microbiology Laboratory Tests 07/14/24 12:00 Test 07/14/24 12:00 Range/Units Serum Glucose 115 H 74-106 mg/dL Microbiology Date/Time Source Procedure Growth Status 07/13/24 13:32 Blood Blood Culture - Preliminary NO GROWTH AFTER 48 HOURS OF INCUBATION. Resulted 07/03/24 09:00 Leg Gram Stain - Final Complete 07/03/24 09:00 Wound Culture - Final Staphylococcus aureus Enterococcus faecalis Proteus vulgaris Enterobacter hormaechei Complete 07/01/24 14:50 Voided Urine Urine Culture - Final Complete 07/01/24 00:00 Sputum Gram Stain - Final Complete 07/01/24 00:00 Respiratory Culture - Final Citrobacter koseri Complete Labs and/or images reviewed: Labs reviewed by me, Image(s) reviewed by me Problem List/Assessment/Plan Problem List/Assessment/Plan Assessment : Upper GI bleeding secondary to duodenal bulb ulcer s/p embolization gastroduodenal artery 07/06 by IR Hypovolemic shock Severe anemia Transaminitis, hypoxic liver injury and hepatic steatosis Possible sepsis secondary to cellulitis MSSA Acute hypoxic respiratory failure, s/p intubated and mechanically ventilated Systolic Congestive heart failure Cellulitis of the leg and foot Superficial venous thrombophlebitis, cephalic vein Polysubstance use including a PCP, cocaine Hypokalemia Elevated Lipase Reactive thrombocytosis likely due to cellulitis Acute delirium Constipation EGD 07/03 shows large ulcer of the duodenum bulb occupying 3/4 of the bulb with old clots inside. No gross bleeding seen. Huge clot in the fundus of the body. Plan: Ultrasound liver shows hepatic steatosis, gallbladder sludge, dilated CBD. Liver enzyme is downtrending and no plan for MRCP now. Continue conservative management for now. Patient is not bleeding actively. H&H is stable. Negative for HIV, hep B and hep C Continue Protonix 40 mg IV daily and carafate1 g bid Stool softner colace 100 mg bid and Miralax powder PRN and rectal enema once Antibiotics per primary team Monitor H&H Advise patient to avoid NSAIDs/aspirin/ibuprofen Mechanical soft diet Continue Physical therapy and possible SNF placement. Plan discussed with nurse Case discussed with Dr. Kunz Plan discussed with: Patient, Other Dietary Evaluation Review Comments: 1.Consider advancing to PO diet once medically appropriate 2.Consider PN if NPO >7 if GI issues dont resolve 3.Consider beth BID (180kcal, 5 pro) Expected Outcomes/Goals: 1. Pt will consume >75% pt estimated meeds within 2-3 days DIANA HALL RESIDENT Jul 15, 2024 14:54
[2024-07-15] MEDS: FLEET ENEMA(ADULT) 135 ML PR ONE (15:06)
[2024-07-15] MEDS: POLYETHYLENE GLYCOL 17 GM PWDR PO PRN (16:40)
[2024-07-15] MEDS: Ensure Enlive Vanilla 8oz Bottle PO SCH (18:49)
--- NOTE | 2024-07-15 23:09 | DVHPN2 ---
Progress Note - Dictate Date Seen: Jul 15, 2024 Has the PT tested + for MRSA If YES, has PT been informed?: No Medical Necessity Reason Pt with a Central, PICC or Fol: Yes The following are medically ne: Central Line, Barrow Catheter Reason for barrow catheter: Strict I&O Subjective Patient seen and examined at bedside. Remains on supplemental oxygen Overnight events reviewed. vital signs Vital Sign Date Time Temp Pulse Resp B/P (MAP) Pulse Ox O2 Delivery O2 Flow Rate FiO2 07/15/24 21:00 98.2 85 16 110/62 (78) 99 98.2 07/15/24 10:00 Nasal Cannula* 1 24 Total Intake and Output 07/14/24 07/14/24 07/15/24 15:00 23:00 07:00 Intake Total 286 ml 400 ml 525 ml Output Total 1000 ml 450 ml Balance 286 ml -600 ml 75 ml medications Current Medications Medications Dose Ordered Sig/Maribeth Route Start Time Stop Time Status Last Admin Dose Admin Ondansetron HCl 4 mg Q4HP PRN IV 07/01/24 06:00 Acetaminophen 650 mg Q6HP PRN PO 07/01/24 06:00 07/10/24 02:14 650 MG Nitroglycerin 0.4 mg Q5MINP PRN SL 07/01/24 06:00 Thiamine HCl 100 mg DAILY IV 07/06/24 10:00 07/15/24 12:53 100 MG Ceftriaxone Sodium/Dextrose 50 ml @ 50 mls/hr DAILY IV 07/07/24 10:00 07/15/24 12:53 50 MLS/HR Vancomycin HCl 0 ml @ 0 mls/hr UD IV 07/08/24 08:45 Haloperidol 2 mg [id number] PRN PO 07/12/24 10:00 Pantoprazole Sodium 40 mg DAILY IV 07/13/24 10:00 07/15/24 10:48 40 MG Docusate Sodium 100 mg BID PO 07/13/24 22:00 07/15/24 10:48 100 MG Sucralfate 1 gm BID PO 07/14/24 10:00 07/15/24 10:48 1 GM Polyethylene Glycol 17 gm DAILYPRN PRN PO 07/14/24 11:30 07/15/24 16:40 17 GM Vancomycin HCl 250 ml @ 200 mls/hr Q10H IV 07/15/24 00:00 07/15/24 10:49 200 MLS/HR Midodrine 10 mg TID@0600,1200,1800 PO 07/15/24 12:00 07/15/24 18:49 10 MG Enteral Nutritional Formula 240 ml BIDWM PO 07/15/24 18:00 07/15/24 18:49 240 ML objective Gen.: Patient lying in bed in no apparent distress. On supplemental oxygen. Head: Normocephalic, atraumatic. Eyes: EOMI/PERRLA. Ears: Normal hearing. Normal anatomy. Neck/trachea: Trachea midline, supple. Nose: Normal external anatomy. Mouth: Moist mucous membranes. Chest: Decreased air entry bilaterally. No wheezing or rhonchi. Cardiovascular: Positive S1, positive S2. Regular rate and rhythm. Abdomen: Positive bowel sounds in all 4 quadrants. Soft, non-tender, non- distended. : Deferred. Rectal: Deferred. Skin: Warm, dry. Intact. Extremities: 2+ radial pulses bilaterally. No lower extremity edema. Neuro: Awake, alert, oriented x3. No gross motor or sensory deficits. Cranial nerves II through XII intact. Gait not assessed. laboratory and microbiology Laboratory Tests 07/14/24 12:00 Test 07/14/24 12:00 Range/Units Serum Glucose 115 H 74-106 mg/dL Assessment/Plan Impression: Acute hypoxic respiratory failure GI hemorrhage Hemorrhagic shock Substance abuse Bilateral lower extremity wounds Events: Remains on supplemental oxygen at 1 LPM NC Taper O2 as tolerated Improved oxygen requirements Head of bed elevation Aspiration precautions On midodrine Monitor BP/orthostatics Continue antibiotics Carafate Thiamine supplementation Monitor hemoglobin Protonix BID for GI prophylaxis Wound care. Wound cultures grew Staph aureus, Enterococcus faecalis, Proteus vulgaris and Enterobacter hormaechei. S/p gastroduodenal artery thromboembolization by IR. No bloody bowel movements. CT head (07/08/24) reveals no evidence of ICH or stroke. Labs and imaging reviewed. Rest of plan as noted below. Plan: S/p extubation on 07/07/24 Supplemental oxygen Titrate to keep O2 sats above 92%. Pressors if necessary for hemodynamic support. Titrate to keep MAP above 65 mmHg/SBP above 90 mmHg. Bronchodilators PRN Continue antibiotics. F/u cultures. Monitor renal function. Monitor electrolytes. Supplement as necessary. Monitor ins and outs. S/p embolization of duodenal ulcer. GI recommendations appreciated Monitor hemoglobin Nutritional support. Accucheks, ISS. GI/DVT prophylaxis. Prognosis: Guarded given multiple comorbidities. Rest of plan per hospitalist and other consultants. Thank you Dr. Shine Kumar for allowing me to participate in this patient's care. Further recommendations will depend on patient's clinical course. Please do not hesitate to contact me if you have any questions or concerns. This medical document was created using an electronic medical record system with [employer] dictation system. Although this document has been carefully reviewed, there may still be some phonetic and typographical errors. These areas are purely typographical due to imperfections of the software programs, and do not reflect any compromise in the patient's medical care. Dietary Evaluation Review Comments: 1.Consider advancing to PO diet once medically appropriate 2.Consider PN if NPO >7 if GI issues dont resolve 3.Consider beth BID (180kcal, 5 pro) Expected Outcomes/Goals: 1. Pt will consume >75% pt estimated meeds within 2-3 days Plan discussed with: Patient, Other (KAJAL Charles) YOSI FABIAN MD Jul 15, 2024 23:09
[2024-07-16] VITALS (9 sets, daily range): BP systolic 100–141; BP diastolic 50–66; PULSE 73–98; RESP 16–20; TEMP 97.5–98.5; O2SAT 92–100
[2024-07-16 09:38] LABS: Basophils # (auto) 0.4 10 ^3/uL (0-0.2); Basophils % (auto) 3.9 % (0.0-2.0); Eosinophils # (auto) 0.3 10 ^3/uL (0-0.8); Eosinophils % (auto) 3.1 % (0.0-7.0); Hematocrit 24.5 % (41.0-53.0); Hemoglobin 7.9 g/dL (13.5-17.5); Lymphocytes # (auto) 1.1 10 ^3/uL (0.4-5.4); Lymphocytes % (auto) 10.7 % (10.0-50.0); Mean Corpuscular Hemoglobin 27.9 pg (28.0-32.0); Mean Corpuscular Hgb Conc. 32.4 g/dL (32.0-36.0); Monocytes # (auto) 0.9 10 ^3/uL (0-1.3); Monocytes % (auto) 8.8 % (0.0-12.0); Neutrophils # (auto) 7.2 10 ^3/uL (1.6-8.6); Neutrophils % (auto) 73.5 % (37.0-80.0); Red Blood Cells 2.85 10^6/uL (4.5-5.90); Red Cell Distribution Width 17.5 % (11.8-14.3); White Blood Cell 9.9 10^3/uL (4.4-10.8)
[2024-07-16 09:41] LABS: Platelet Count (auto) 798 10^3/uL (140-450)
[2024-07-16 09:49] LABS: Anion Gap 8 (5-15); Carbon Dioxide 25 mmol/L (20-31); Sodium 141 mmol/L (136-145)
[2024-07-16 09:55] LABS: BUN/Creatinine Ratio 19.3 (10.0-20.0); Blood Urea Nitrogen 11 mg/dL (9-23)
[2024-07-16 09:58] LABS: Calcium 8.4 mg/dL (8.7-10.4); Chloride 108 mmol/L (98-107); Glucose 137 mg/dL (74-106); Potassium 3.5 mmol/L (3.5-5.1)
[2024-07-16] MEDS ORDERED: LACTULOSE 20Gm/30ML SOLN PO PRN (10:15)
--- NOTE | 2024-07-16 10:59 | DVHPN2 ---
Progress Note Date Seen: Jul 16, 2024 Resident Creating Document: DIANA HALL RESIDENT Has the PT tested + for MRSA If YES, has PT been informed?: No Medical Necessity Reason Pt with a Central, PICC or Fol: Yes The following are medically ne: Central Line, Barrow Catheter Reason for barrow catheter: Strict I&O Subjective Review of Systems Patient was seen and examined on the bedside. He is alert, oriented x3. Mentioned feeling better and no other active complaint. Last bowel movement was 1 week ago and rectal exam did not reveal any impacted stool. H&H is stable and liver enzymes were downtrending. Continue laxatives, maintain proper nutrition and continue physical therapy. Objective vital signs Vital Sign Date Time Temp Pulse Resp B/P (MAP) Pulse Ox O2 Delivery O2 Flow Rate FiO2 07/16/24 08:50 98.2 92 18 100/50 (67) 92 98.2 07/15/24 20:00 Nasal Cannula* 1 24 Total Intake and Output 07/15/24 07/15/24 07/16/24 15:00 23:00 07:00 Intake Total 450 ml 1425 ml Output Total 500 ml 500 ml Balance -50 ml 925 ml medications Current Medications Medications Dose Ordered Sig/Marbieth Route Start Time Stop Time Status Last Admin Dose Admin Ondansetron HCl 4 mg Q4HP PRN IV 07/01/24 06:00 Acetaminophen 650 mg Q6HP PRN PO 07/01/24 06:00 07/10/24 02:14 650 MG Nitroglycerin 0.4 mg Q5MINP PRN SL 07/01/24 06:00 Thiamine HCl 100 mg DAILY IV 07/06/24 10:00 07/16/24 09:38 100 MG Ceftriaxone Sodium/Dextrose 50 ml @ 50 mls/hr DAILY IV 07/07/24 10:00 07/16/24 09:39 50 MLS/HR Vancomycin HCl 0 ml @ 0 mls/hr UD IV 07/08/24 08:45 Haloperidol 2 mg [id number] PRN PO 07/12/24 10:00 Pantoprazole Sodium 40 mg DAILY IV 07/13/24 10:00 07/16/24 09:38 40 MG Docusate Sodium 100 mg BID PO 07/13/24 22:00 07/16/24 09:46 100 MG Sucralfate 1 gm BID PO 07/14/24 10:00 07/16/24 09:39 1 GM Polyethylene Glycol 17 gm DAILYPRN PRN PO 07/14/24 11:30 07/15/24 16:40 17 GM Vancomycin HCl 250 ml @ 200 mls/hr Q10H IV 07/15/24 00:00 07/16/24 05:42 200 MLS/HR Midodrine 10 mg TID@0600,1200,1800 PO 07/15/24 12:00 07/16/24 05:41 10 MG Enteral Nutritional Formula 240 ml BIDWM PO 07/15/24 18:00 07/16/24 08:00 240 ML Lactulose 30 ml BIDPRN PRN PO 07/16/24 10:15 Examination Physical examination: General Appearance: Alert, Oriented X3, Cooperative, No acute distress HEENT: Atraumatic, PERRLA, EOMI, Mucous membrane moist/pink Respiratory: Clear to auscultation, Normal air movement Cardiovascular: Regular rate, Normal S1, Normal S2, No murmurs, no chest wall tenderness Abdominal: Normal bowel sounds, Soft, No tenderness, No hepatospenomegaly, No masses Extremities: No clubbing, No cyanosis, No edema, Normal pulses, No tenderness/swelling Skin: No rashes, No breakdown, No significant lesion Neuro: Normal speech, Strength at 5/5 X4 ext, Normal tone, Sensation intact, grossly intact cranial nerves. Psych/Mental Status: Mental status NL, Mood NL laboratory and microbiology Laboratory Tests 07/16/24 09:08 Test 07/16/24 09:08 Range/Units Serum Glucose 137 H 74-106 mg/dL Microbiology Date/Time Source Procedure Growth Status 07/13/24 13:32 Blood Blood Culture - Preliminary NO GROWTH AFTER 48 HOURS OF INCUBATION. Resulted 07/03/24 09:00 Leg Gram Stain - Final Complete 07/03/24 09:00 Wound Culture - Final Staphylococcus aureus Enterococcus faecalis Proteus vulgaris Enterobacter hormaechei Complete 07/01/24 14:50 Voided Urine Urine Culture - Final Complete 07/01/24 00:00 Sputum Gram Stain - Final Complete 07/01/24 00:00 Respiratory Culture - Final Citrobacter koseri Complete Labs and/or images reviewed: Labs reviewed by me, Image(s) reviewed by me Problem List/Assessment/Plan Problem List/Assessment/Plan Assessment : Upper GI bleeding secondary to duodenal bulb ulcer s/p embolization gastroduodenal artery 07/06 by IR Hypovolemic shock Severe anemia Transaminitis, hypoxic liver injury and hepatic steatosis Possible sepsis secondary to cellulitis MSSA Acute hypoxic respiratory failure, s/p intubated and mechanically ventilated Systolic Congestive heart failure Cellulitis of the leg and foot Superficial venous thrombophlebitis, cephalic vein Polysubstance use including a PCP, cocaine Hypokalemia Elevated Lipase Reactive thrombocytosis likely due to cellulitis Acute delirium Constipation EGD 07/03 shows large ulcer of the duodenum bulb occupying 3/4 of the bulb with old clots inside. No gross bleeding seen. Huge clot in the fundus of the body. Plan: Ultrasound liver shows hepatic steatosis, gallbladder sludge, dilated CBD. Liver enzyme is downtrending and no plan for MRCP now. Continue conservative management for now. Patient is not bleeding actively. H&H is stable. Negative for HIV, hep B and hep C Continue Protonix 40 mg IV daily and carafate1 g bid No impacted stool in rectal exam Stool softner lactulose 30 ml b.i.d, colace 100 mg bid , Miralax powder PRN and rectal enema once Antibiotics per primary team Monitor H&H Advise patient to avoid NSAIDs/aspirin/ibuprofen Mechanical soft diet , maintain nutrition and proper hydration. Continue Physical therapy and possible SNF placement. Plan discussed with nurse Case discussed with Dr. Kunz Plan discussed with: Patient, Other My Orders My Orders Orders - DIANA HALL Procedure Category Date Status Time Lactulose Oral PHA 07/16/24 Transmitted 22:00 Lactulose Oral PHA 07/16/24 Transmitted 11:00 Fleet Enema Adult PHA 07/16/24 Transmitted 11:00 Dietary Evaluation Review Comments: 1.Consider advancing to PO diet once medically appropriate 2.Consider PN if NPO >7 if GI issues dont resolve 3.Consider beth BID (180kcal, 5 pro) Expected Outcomes/Goals: 1. Pt will consume >75% pt estimated meeds within 2-3 days DIANA HALL RESIDENT Jul 16, 2024 10:59
[2024-07-16] MEDS: LACTULOSE 20Gm/30ML SOLN PO ONE (11:37)
[2024-07-16] MEDS: FLEET ENEMA(ADULT) 135 ML PR ONE (11:38)
--- NOTE | 2024-07-16 13:01 | DVHPN2 ---
Reviewed: Care Plan, H&P, Labs, Medications, Previous Orders, Radiology Changes from previous H/P or p: No Changes General: Per HPI Eyes: No Pain, No Vision change, No Conjunctivae inflammation, No Eyelid inflammation, No Other, No Redness ENT: No Ear pain, No Ear discharge, No Nose pain, No Nose discharge, No Nose congestion, No Mouth pain, No Mouth swelling, No Throat pain, No Throat swelling, No Other Cardiovascular: No Chest Pain, No Palpitations, No Orthopnea, No Paroxysmal Noc. Dyspnea, No Edema, No Lt Headedness, No Other Respiratory: No Cough, No Dry, No Shortness of breath, No SOB with excertion, No Wheezing, No Hemoptysis, No Pleuritic Pain, No Sputum, No Other Gastrointestinal: No Nausea, No Vomiting, No Abdominal Pain, No Diarrhea, No Constipation, No Melena, No Hematochezia, No Other Genitourinary: No Dysuria, No Frequency, No Incontinence, No Hematuria, No Retention, No Other Musculoskeletal: No other, No neck pain, No shoulder pain, No arm pain, No back pain, No hand pain, No leg pain, No foot pain Skin: No Rash, No Lesions, No Jaundice, No Bruising; Other (Bilateral legs wound) Objective Vitals Vital Signs Date Time Temp Pulse Resp B/P (MAP) Pulse Ox O2 Delivery O2 Flow Rate FiO2 07/16/24 08:50 98.2 92 18 100/50 (67) 92 98.2 07/15/24 20:00 Nasal Cannula* 1 24 Intake/Output Intake and Output 07/16/24 07:00 Intake Total 1875 ml Output Total 1000 ml Balance 875 ml Intake Oral 1625 ml IV Total 250 ml Output Urine Total 1000 ml General Appearance: Alert, Oriented X3, Cooperative, No acute distress, mild distress, moderate distress, severe distress, Other (Chemically sedated) HEENT: Atraumatic, PERRLA Neck: Carotid Bruits [place] Lungs: Clear to auscultation, Normal air movement, Other Cardiovascular: Regular rate, Normal S1, Normal S2, No murmurs, Gallops, Rubs, Other Abdomen: Normal bowel sounds, Soft, No tenderness, No hepatospenomegaly, No masses, Other (NG tube with noted red gastric secretions) Genitourinary: No Apparent Abnormalities (Manning catheter) Neuro: Other (Encephalopathic) Skin: Intact, Wounds (See nurse notes and pictures) Psych/Mental Status: Mood NL, Other (Patient was alert and oriented x3. Noted confusion yesterday evening.) Medications Current Medications Medications Dose Ordered Sig/Maribeth Route Start Time Stop Time Status Last Admin Dose Admin Ondansetron HCl 4 mg Q4HP PRN IV 07/01/24 06:00 Acetaminophen 650 mg Q6HP PRN PO 07/01/24 06:00 07/10/24 02:14 650 MG Nitroglycerin 0.4 mg Q5MINP PRN SL 07/01/24 06:00 Thiamine HCl 100 mg DAILY IV 07/06/24 10:00 07/16/24 09:38 100 MG Ceftriaxone Sodium/Dextrose 50 ml @ 50 mls/hr DAILY IV 07/07/24 10:00 07/16/24 09:39 50 MLS/HR Vancomycin HCl 0 ml @ 0 mls/hr UD IV 07/08/24 08:45 Haloperidol 2 mg [id number] PRN PO 07/12/24 10:00 Pantoprazole Sodium 40 mg DAILY IV 07/13/24 10:00 07/16/24 09:38 40 MG Docusate Sodium 100 mg BID PO 07/13/24 22:00 07/16/24 09:46 100 MG Sucralfate 1 gm BID PO 07/14/24 10:00 07/16/24 09:39 1 GM Polyethylene Glycol 17 gm DAILYPRN PRN PO 07/14/24 11:30 07/15/24 16:40 17 GM Vancomycin HCl 250 ml @ 200 mls/hr Q10H IV 07/15/24 00:00 07/16/24 05:42 200 MLS/HR Midodrine 10 mg TID@0600,1200,1800 PO 07/15/24 12:00 07/16/24 11:37 10 MG Enteral Nutritional Formula 240 ml BIDWM PO 07/15/24 18:00 07/16/24 08:00 240 ML Lactulose 30 ml BIDPRN PRN PO 07/16/24 10:15 Lactulose 30 ml BID PO 07/16/24 22:00 Laboratory Results Laboratory Tests 07/16/24 09:08 Chemistry Test 07/16/24 09:08 Calcium Level 8.4 mg/dL (8.7-10.4) L Urinalysis Test 07/01/24 14:50 07/13/24 20:05 Urine Hyaline Casts Few /lpf (0 - 2) Urine Color Yellow (Yellow) Urine Clarity Clear (Clear) Urine pH 5.0 (5.0-9.0) Urine Specific [place] 1.032 (1.001-1.035) Urine Protein Trace (Negative) H Urine Ketones Negative (Negative) Urine Blood Negative /uL (Negative) Urine Nitrite Negative (Negative) Urine Bilirubin Negative (Negative) Urine Urobilinogen Normal mg/dL (Negative) Urine Leukocyte Esterase 1+ /uL (Negative) Urine RBC 3 /hpf (0 - 3) Urine Microscopic WBC 10 /HPF (0-3) H Urine Squamous Epithelial Cells Few /hpf (<5) Urine Bacteria Few /hpf (None Seen) H Urine Mucus Few (None Seen) Urine Glucose Normal mg/dL (Normal) Microbiology Microbiology Date/Time Source Procedure Growth Status 07/13/24 13:32 Blood Blood Culture - Preliminary NO GROWTH AFTER 48 HOURS OF INCUBATION. Resulted 07/03/24 09:00 Leg Gram Stain - Final Complete 07/03/24 09:00 Wound Culture - Final Staphylococcus aureus Enterococcus faecalis Proteus vulgaris Enterobacter hormaechei Complete 07/01/24 14:50 Voided Urine Urine Culture - Final Complete 07/01/24 00:00 Sputum Gram Stain - Final Complete 07/01/24 00:00 Respiratory Culture - Final Citrobacter koseri Complete Labs and/or images reviewed: Labs reviewed by me, Image(s) reviewed by me Assessment/Plan Assessment/Plan Covering for nurse practitioner Ricardo Guzman Sepsis secondary to bilateral lower extremity cellulitis, continue Rocephin vancomycin Hemorrhagic shock bleed with persistent GI bleeding, status post embolization -polysubstance abuse : Positive for PCP, cocaine, amphetamines -acute respiratory failure with mechanical ventilation -severe anemia from GI bleed -shock liver -acute delirium Plan discussed with: Patient Date of Service: Jul 16, 2024 Billing Provider: HAILY GRIMES MD Common Visit Codes: [id number] INP/OBS CARE(HIGH) HAILY GRIMES MD Jul 16, 2024 13:01
--- NOTE | 2024-07-16 14:36 | DVHPN2 ---
Progress Note - Dictate Date Seen: Jul 16, 2024 Has the PT tested + for MRSA If YES, has PT been informed?: No Medical Necessity Reason Pt with a Central, PICC or Fol: Yes The following are medically ne: Central Line, Barrow Catheter Reason for barrow catheter: Strict I&O vital signs Vital Sign Date Time Temp Pulse Resp B/P (MAP) Pulse Ox O2 Delivery O2 Flow Rate FiO2 07/16/24 13:00 98.5 82 18 135/65 (88) 100 98.5 07/15/24 20:00 Nasal Cannula* 1 24 Total Intake and Output 07/15/24 07/15/24 07/16/24 15:00 23:00 07:00 Intake Total 450 ml 1425 ml Output Total 500 ml 500 ml Balance -50 ml 925 ml medications Current Medications Medications Dose Ordered Sig/Maribeth Route Start Time Stop Time Status Last Admin Dose Admin Ondansetron HCl 4 mg Q4HP PRN IV 07/01/24 06:00 Acetaminophen 650 mg Q6HP PRN PO 07/01/24 06:00 07/10/24 02:14 650 MG Nitroglycerin 0.4 mg Q5MINP PRN SL 07/01/24 06:00 Thiamine HCl 100 mg DAILY IV 07/06/24 10:00 07/16/24 09:38 100 MG Ceftriaxone Sodium/Dextrose 50 ml @ 50 mls/hr DAILY IV 07/07/24 10:00 07/16/24 09:39 50 MLS/HR Vancomycin HCl 0 ml @ 0 mls/hr UD IV 07/08/24 08:45 Haloperidol 2 mg [id number] PRN PO 07/12/24 10:00 Pantoprazole Sodium 40 mg DAILY IV 07/13/24 10:00 07/16/24 09:38 40 MG Docusate Sodium 100 mg BID PO 07/13/24 22:00 07/16/24 09:46 100 MG Sucralfate 1 gm BID PO 07/14/24 10:00 07/16/24 09:39 1 GM Polyethylene Glycol 17 gm DAILYPRN PRN PO 07/14/24 11:30 07/15/24 16:40 17 GM Vancomycin HCl 250 ml @ 200 mls/hr Q10H IV 07/15/24 00:00 07/16/24 05:42 200 MLS/HR Midodrine 10 mg TID@0600,1200,1800 PO 07/15/24 12:00 07/16/24 11:37 10 MG Enteral Nutritional Formula 240 ml BIDWM PO 07/15/24 18:00 07/16/24 08:00 240 ML Lactulose 30 ml BIDPRN PRN PO 07/16/24 10:15 Lactulose 30 ml BID PO 07/16/24 22:00 laboratory and microbiology Laboratory Tests 07/16/24 09:08 Test 07/16/24 09:08 Range/Units Serum Glucose 137 H 74-106 mg/dL Assessment/Plan Acute hypoxic respiratory failure GI hemorrhage Hemorrhagic shock Substance abuse Bilateral lower extremity wounds Events: none Head of bed elevation Aspiration precautions On midodrine Monitor BP/orthostatics Continue antibiotics Carafate Thiamine supplementation Monitor hemoglobin Protonix BID for GI prophylaxis Wound care. Wound cultures grew Staph aureus, Enterococcus faecalis, Proteus vulgaris and Enterobacter hormaechei. S/p gastroduodenal artery thromboembolization by IR. No bloody bowel movements. CT head (07/08/24) reveals no evidence of ICH or stroke. Labs and imaging reviewed. Rest of plan as noted below. Plan: S/p extubation on 07/07/24 Supplemental oxygen Titrate to keep O2 sats above 92%. Pressors if necessary for hemodynamic support. Titrate to keep MAP above 65 mmHg/SBP above 90 mmHg. Bronchodilators PRN Continue antibiotics. F/u cultures. Monitor renal function. Monitor electrolytes. Supplement as necessary. Monitor ins and outs. S/p embolization of duodenal ulcer. GI recommendations appreciated Monitor hemoglobin Nutritional support. Accucheks, ISS. GI/DVT prophylaxis. Dietary Evaluation Review Comments: 1.Consider advancing to PO diet once medically appropriate 2.Consider PN if NPO >7 if GI issues dont resolve 3.Consider beth BID (180kcal, 5 pro) Expected Outcomes/Goals: 1. Pt will consume >75% pt estimated meeds within 2-3 days Plan discussed with: Patient MIGUELINA VILLANUEVA MD Jul 16, 2024 14:36
[2024-07-16] MEDS ORDERED: FLEET ENEMA(ADULT) 135 ML PR ONE (22:00)
[2024-07-16] MEDS: LACTULOSE 20Gm/30ML SOLN PO SCH (23:04)
[2024-07-17] VITALS (7 sets, daily range): BP systolic 105–136; BP diastolic 41–75; PULSE 62–92; RESP 16–18; TEMP 98.3–99.4; O2SAT 95–100
[2024-07-17 06:43] LABS: Basophils # (auto) 0 10 ^3/uL (0-0.2); Basophils % (auto) 0.2 % (0.0-2.0); Eosinophils # (auto) 0.4 10 ^3/uL (0-0.8); Monocytes # (auto) 0.9 10 ^3/uL (0-1.3); Neutrophils # (auto) 6.8 10 ^3/uL (1.6-8.6); Nucleated Red Blood Cells % 0.1 %; White Blood Cell 9.6 10^3/uL (4.4-10.8)
[2024-07-17 06:46] LABS: Eosinophils % (auto) 3.8 % (0.0-7.0); Hematocrit 23.3 % (41.0-53.0); Hemoglobin 7.7 g/dL (13.5-17.5); Lymphocytes # (auto) 1.6 10 ^3/uL (0.4-5.4); Lymphocytes % (auto) 16.3 % (10.0-50.0); Mean Corpuscular Hemoglobin 28.1 pg (28.0-32.0); Monocytes % (auto) 9.1 % (0.0-12.0); Neutrophils % (auto) 70.6 % (37.0-80.0); Platelet Count (auto) 738 10^3/uL (140-450); Red Blood Cells 2.74 10^6/uL (4.5-5.90); Red Cell Distribution Width 17.5 % (11.8-14.3)
--- NOTE | 2024-07-17 10:36 | DVHPN2 ---
Reviewed: Care Plan, H&P, Labs, Medications, Previous Orders, Radiology Changes from previous H/P or p: No Changes General: Per HPI Eyes: No Pain, No Vision change, No Conjunctivae inflammation, No Eyelid inflammation, No Other, No Redness ENT: No Ear pain, No Ear discharge, No Nose pain, No Nose discharge, No Nose congestion, No Mouth pain, No Mouth swelling, No Throat pain, No Throat swelling, No Other Cardiovascular: No Chest Pain, No Palpitations, No Orthopnea, No Paroxysmal Noc. Dyspnea, No Edema, No Lt Headedness, No Other Respiratory: No Cough, No Dry, No Shortness of breath, No SOB with excertion, No Wheezing, No Hemoptysis, No Pleuritic Pain, No Sputum, No Other Gastrointestinal: No Nausea, No Vomiting, No Abdominal Pain, No Diarrhea, No Constipation, No Melena, No Hematochezia, No Other Genitourinary: No Dysuria, No Frequency, No Incontinence, No Hematuria, No Retention, No Other Musculoskeletal: No other, No neck pain, No shoulder pain, No arm pain, No back pain, No hand pain, No leg pain, No foot pain Skin: No Rash, No Lesions, No Jaundice, No Bruising; Other (Bilateral legs wound) Objective Vitals Vital Signs Date Time Temp Pulse Resp B/P (MAP) Pulse Ox O2 Delivery O2 Flow Rate FiO2 07/17/24 10:18 96 Room Air* 0 21 07/17/24 09:00 98.8 63 16 105/52 (69) 98.8 Intake/Output Intake and Output 07/17/24 07:00 Intake Total 1642 ml Output Total 1350 ml Balance 292 ml Intake Oral 892 ml IV Total 750 ml Output Urine Total 1350 ml General Appearance: Alert, Oriented X3, Cooperative, No acute distress, mild distress, moderate distress, severe distress, Other (Chemically sedated) HEENT: Atraumatic, PERRLA Neck: Carotid Bruits [place] Lungs: Clear to auscultation, Normal air movement, Other Cardiovascular: Regular rate, Normal S1, Normal S2, No murmurs, Gallops, Rubs, Other Abdomen: Normal bowel sounds, Soft, No tenderness, No hepatospenomegaly, No masses, Other (NG tube with noted red gastric secretions) Genitourinary: No Apparent Abnormalities (Manning catheter) Neuro: Other (Encephalopathic) Skin: Intact, Wounds (See nurse notes and pictures) Psych/Mental Status: Mood NL, Other (Patient was alert and oriented x3. Noted confusion yesterday evening.) Medications Current Medications Medications Dose Ordered Sig/Maribeth Route Start Time Stop Time Status Last Admin Dose Admin Ondansetron HCl 4 mg Q4HP PRN IV 07/01/24 06:00 Acetaminophen 650 mg Q6HP PRN PO 07/01/24 06:00 07/10/24 02:14 650 MG Nitroglycerin 0.4 mg Q5MINP PRN SL 07/01/24 06:00 Thiamine HCl 100 mg DAILY IV 07/06/24 10:00 07/17/24 09:47 100 MG Ceftriaxone Sodium/Dextrose 50 ml @ 50 mls/hr DAILY IV 07/07/24 10:00 07/17/24 09:47 50 MLS/HR Vancomycin HCl 0 ml @ 0 mls/hr UD IV 07/08/24 08:45 Haloperidol 2 mg [id number] PRN PO 07/12/24 10:00 Pantoprazole Sodium 40 mg DAILY IV 07/13/24 10:00 07/17/24 09:47 40 MG Docusate Sodium 100 mg BID PO 07/13/24 22:00 07/17/24 09:47 100 MG Sucralfate 1 gm BID PO 07/14/24 10:00 07/17/24 09:47 1 GM Polyethylene Glycol 17 gm DAILYPRN PRN PO 07/14/24 11:30 07/15/24 16:40 17 GM Vancomycin HCl 250 ml @ 200 mls/hr Q10H IV 07/15/24 00:00 07/17/24 03:20 200 MLS/HR Midodrine 10 mg TID@0600,1200,1800 PO 07/15/24 12:00 07/17/24 05:29 10 MG Enteral Nutritional Formula 240 ml BIDWM PO 07/15/24 18:00 07/17/24 08:12 240 ML Lactulose 30 ml BIDPRN PRN PO 07/16/24 10:15 Lactulose 30 ml BID PO 07/16/24 22:00 07/17/24 09:47 30 ML Laboratory Results Laboratory Tests 07/16/24 09:08 07/17/24 06:12 Urinalysis Test 07/01/24 14:50 07/13/24 20:05 Urine Hyaline Casts Few /lpf (0 - 2) Urine Color Yellow (Yellow) Urine Clarity Clear (Clear) Urine pH 5.0 (5.0-9.0) Urine Specific [place] 1.032 (1.001-1.035) Urine Protein Trace (Negative) H Urine Ketones Negative (Negative) Urine Blood Negative /uL (Negative) Urine Nitrite Negative (Negative) Urine Bilirubin Negative (Negative) Urine Urobilinogen Normal mg/dL (Negative) Urine Leukocyte Esterase 1+ /uL (Negative) Urine RBC 3 /hpf (0 - 3) Urine Microscopic WBC 10 /HPF (0-3) H Urine Squamous Epithelial Cells Few /hpf (<5) Urine Bacteria Few /hpf (None Seen) H Urine Mucus Few (None Seen) Urine Glucose Normal mg/dL (Normal) Microbiology Microbiology Date/Time Source Procedure Growth Status 07/13/24 13:32 Blood Blood Culture - Preliminary NO GROWTH AFTER 72 HOURS OF INCUBATION. Resulted 07/03/24 09:00 Leg Gram Stain - Final Complete 07/03/24 09:00 Wound Culture - Final Staphylococcus aureus Enterococcus faecalis Proteus vulgaris Enterobacter hormaechei Complete 07/01/24 14:50 Voided Urine Urine Culture - Final Complete 07/01/24 00:00 Sputum Gram Stain - Final Complete 07/01/24 00:00 Respiratory Culture - Final Citrobacter koseri Complete Labs and/or images reviewed: Labs reviewed by me, Image(s) reviewed by me Assessment/Plan Assessment/Plan Covering for nurse practitioner Ricardo Guzman Sepsis secondary to bilateral lower extremity cellulitis, continue Rocephin vancomycin Hemorrhagic shock bleed with persistent GI bleeding, status post embolization -polysubstance abuse : Positive for PCP, cocaine, amphetamines -acute respiratory failure with mechanical ventilation -severe anemia from GI bleed -shock liver -acute delirium Continue current management Plan discussed with: Patient Date of Service: Jul 17, 2024 Billing Provider: HAILY GRIMES MD Common Visit Codes: [id number] INP/OBS CARE(HIGH) HAILY GRIMES MD Jul 17, 2024 10:36
--- NOTE | 2024-07-17 11:45 | DVHPN2 ---
Progress Note Date Seen: Jul 17, 2024 Resident Creating Document: DORIS CAR RESIDENT Has the PT tested + for MRSA If YES, has PT been informed?: No Medical Necessity Reason Pt with a Central, PICC or Fol: Yes The following are medically ne: Central Line, Barrow Catheter Reason for barrow catheter: Strict I&O Subjective Review of Systems Patient seen and examined at bedside. Patient was tolerating diet. No nausea, vomiting or diarrhea. No bowel movements in last 2-3 days. Objective vital signs Vital Sign Date Time Temp Pulse Resp B/P (MAP) Pulse Ox O2 Delivery O2 Flow Rate FiO2 07/17/24 10:18 96 Room Air* 0 21 07/17/24 09:00 98.8 63 16 105/52 (69) 98.8 Total Intake and Output 07/16/24 07/16/24 07/17/24 15:00 23:00 07:00 Intake Total 250 ml 668 ml 724 ml Output Total 600 ml 750 ml Balance 250 ml 68 ml -26 ml medications Current Medications Medications Dose Ordered Sig/Maribeth Route Start Time Stop Time Status Last Admin Dose Admin Ondansetron HCl 4 mg Q4HP PRN IV 07/01/24 06:00 Acetaminophen 650 mg Q6HP PRN PO 07/01/24 06:00 07/10/24 02:14 650 MG Nitroglycerin 0.4 mg Q5MINP PRN SL 07/01/24 06:00 Thiamine HCl 100 mg DAILY IV 07/06/24 10:00 07/17/24 09:47 100 MG Ceftriaxone Sodium/Dextrose 50 ml @ 50 mls/hr DAILY IV 07/07/24 10:00 07/17/24 09:47 50 MLS/HR Vancomycin HCl 0 ml @ 0 mls/hr UD IV 07/08/24 08:45 Haloperidol 2 mg [id number] PRN PO 07/12/24 10:00 Pantoprazole Sodium 40 mg DAILY IV 07/13/24 10:00 07/17/24 09:47 40 MG Docusate Sodium 100 mg BID PO 07/13/24 22:00 07/17/24 09:47 100 MG Sucralfate 1 gm BID PO 07/14/24 10:00 07/17/24 09:47 1 GM Polyethylene Glycol 17 gm DAILYPRN PRN PO 07/14/24 11:30 07/15/24 16:40 17 GM Vancomycin HCl 250 ml @ 200 mls/hr Q10H IV 07/15/24 00:00 07/17/24 03:20 200 MLS/HR Midodrine 10 mg TID@0600,1200,1800 PO 07/15/24 12:00 07/17/24 05:29 10 MG Enteral Nutritional Formula 240 ml BIDWM PO 07/15/24 18:00 07/17/24 08:12 240 ML Lactulose 30 ml BIDPRN PRN PO 07/16/24 10:15 Lactulose 30 ml TID PO 07/17/24 14:00 UNV Examination General Appearance: Cooperative. Well developed. Well nourished. NAD Head Exam: Normal inspection Neck Exam: Normal inspection. Non-tender. Normal alignment Pulmonary/Respiratory: Chest non-tender. Clear bilateral breath sounds Cardiovascular/Chest: Regular rate and rhythm. No murmurs. No JVD. Peripheral Pulses: 2+ Radial (R). 2+ Radial (L). 2+ Pedal (R). 2+ Pedal (L) Abdominal Exam: Normal bowel sounds. Soft. Nontender. No hepatospenomegaly. No masses Ankle Exam: Negative ankle edema Lower extremities: Negative lower extremity edema Neuro/Mental Status: A&O x4. Coherent Thoughts/Psych: Normal thought pattern. Appropriate mood and affect. Good judgement and insight Appearance: In no acute distress Skin Exam: Normal inspection. Normal color. Warm. Dry laboratory and microbiology Laboratory Tests 07/17/24 06:12 07/16/24 09:08 Test 07/16/24 09:08 Range/Units Serum Glucose 137 H 74-106 mg/dL Microbiology Date/Time Source Procedure Growth Status 07/13/24 13:32 Blood Blood Culture - Preliminary NO GROWTH AFTER 72 HOURS OF INCUBATION. Resulted 07/03/24 09:00 Leg Gram Stain - Final Complete 07/03/24 09:00 Wound Culture - Final Staphylococcus aureus Enterococcus faecalis Proteus vulgaris Enterobacter hormaechei Complete 07/01/24 14:50 Voided Urine Urine Culture - Final Complete 07/01/24 00:00 Sputum Gram Stain - Final Complete 07/01/24 00:00 Respiratory Culture - Final Citrobacter koseri Complete Problem List/Assessment/Plan Problem List/Assessment/Plan Upper GI bleeding secondary to duodenal bulb ulcer s/p embolization gastroduodenal artery 07/06 by IR Hypovolemic shock Severe anemia Transaminitis, hypoxic liver injury and hepatic steatosis Possible sepsis secondary to cellulitis MSSA Acute hypoxic respiratory failure, s/p intubated and mechanically ventilated Systolic Congestive heart failure Cellulitis of the leg and foot Superficial venous thrombophlebitis, cephalic vein Polysubstance use including a PCP, cocaine Hypokalemia Elevated Lipase Reactive thrombocytosis likely due to cellulitis Acute delirium Constipation EGD 07/03 shows large ulcer of the duodenum bulb occupying 3/4 of the bulb with old clots inside. No gross bleeding seen. Huge clot in the fundus of the body. Plan: Dr Kunz Continue Protonix 40 mg IV daily and carafate1 g bid Ultrasound liver shows hepatic steatosis, gallbladder sludge, dilated CBD. Liver enzyme is downtrending Patient is not bleeding actively. H&H is stable. Negative for HIV, hep B and hep C Stool softner lactulose 30 ml T.i.d, colace 100 mg bid , Miralax powder PRN and rectal enema once Antibiotics per primary team Monitor H&H Advise patient to avoid NSAIDs/aspirin/ibuprofen Mechanical soft diet , maintain nutrition and proper hydration. Continue Physical therapy and possible SNF placement. Plan discussed with: Patient, Other (RN) My Orders My Orders Orders - DORIS CAR RESIDENT Procedure Category Date Status Time Lactulose Oral PHA 07/17/24 Logged 14:00 Dietary Evaluation Review Comments: 1.Consider advancing to PO diet once medically appropriate 2.Consider PN if NPO >7 if GI issues dont resolve 3.Consider beth BID (180kcal, 5 pro) Expected Outcomes/Goals: 1. Pt will consume >75% pt estimated meeds within 2-3 days DORIS CAR RESIDENT Jul 17, 2024 11:45
--- NOTE | 2024-07-17 12:24 | DVHPN2 ---
Progress Note - Dictate Date Seen: Jul 17, 2024 Has the PT tested + for MRSA If YES, has PT been informed?: No Medical Necessity Reason Pt with a Central, PICC or Fol: Yes The following are medically ne: Central Line, Barrow Catheter Reason for barrow catheter: Strict I&O vital signs Vital Sign Date Time Temp Pulse Resp B/P (MAP) Pulse Ox O2 Delivery O2 Flow Rate FiO2 07/17/24 10:18 96 Room Air* 0 21 07/17/24 09:00 98.8 63 16 105/52 (69) 98.8 Total Intake and Output 07/16/24 07/16/24 07/17/24 15:00 23:00 07:00 Intake Total 250 ml 668 ml 724 ml Output Total 600 ml 750 ml Balance 250 ml 68 ml -26 ml medications Current Medications Medications Dose Ordered Sig/Maribeth Route Start Time Stop Time Status Last Admin Dose Admin Ondansetron HCl 4 mg Q4HP PRN IV 07/01/24 06:00 Acetaminophen 650 mg Q6HP PRN PO 07/01/24 06:00 07/10/24 02:14 650 MG Nitroglycerin 0.4 mg Q5MINP PRN SL 07/01/24 06:00 Thiamine HCl 100 mg DAILY IV 07/06/24 10:00 07/17/24 09:47 100 MG Ceftriaxone Sodium/Dextrose 50 ml @ 50 mls/hr DAILY IV 07/07/24 10:00 07/17/24 09:47 50 MLS/HR Vancomycin HCl 0 ml @ 0 mls/hr UD IV 07/08/24 08:45 Haloperidol 2 mg [id number] PRN PO 07/12/24 10:00 Pantoprazole Sodium 40 mg DAILY IV 07/13/24 10:00 07/17/24 09:47 40 MG Docusate Sodium 100 mg BID PO 07/13/24 22:00 07/17/24 09:47 100 MG Sucralfate 1 gm BID PO 07/14/24 10:00 07/17/24 09:47 1 GM Polyethylene Glycol 17 gm DAILYPRN PRN PO 07/14/24 11:30 07/15/24 16:40 17 GM Vancomycin HCl 250 ml @ 200 mls/hr Q10H IV 07/15/24 00:00 07/17/24 11:53 200 MLS/HR Midodrine 10 mg TID@0600,1200,1800 PO 07/15/24 12:00 07/17/24 11:53 10 MG Enteral Nutritional Formula 240 ml BIDWM PO 07/15/24 18:00 07/17/24 08:12 240 ML Lactulose 30 ml BIDPRN PRN PO 07/16/24 10:15 Lactulose 30 ml TID PO 07/17/24 14:00 UNV laboratory and microbiology Laboratory Tests 07/17/24 06:12 07/16/24 09:08 Test 07/16/24 09:08 Range/Units Serum Glucose 137 H 74-106 mg/dL Assessment/Plan Acute hypoxic respiratory failure GI hemorrhage Hemorrhagic shock Substance abuse Bilateral lower extremity wounds Events: none Plan: S/p extubation on 07/07/24 Supplemental oxygen Titrate to keep O2 sats above 92%. Pressors if necessary for hemodynamic support. Titrate to keep MAP above 65 mmHg/SBP above 90 mmHg. Bronchodilators PRN Continue antibiotics. F/u cultures. Monitor renal function. Monitor electrolytes. Supplement as necessary. Monitor ins and outs. S/p embolization of duodenal ulcer. GI recommendations appreciated Monitor hemoglobin Nutritional support. Accucheks, ISS. GI/DVT prophylaxis. Dietary Evaluation Review Comments: 1.Consider advancing to PO diet once medically appropriate 2.Consider PN if NPO >7 if GI issues dont resolve 3.Consider beth BID (180kcal, 5 pro) Expected Outcomes/Goals: 1. Pt will consume >75% pt estimated meeds within 2-3 days Plan discussed with: Patient MIGUELINA VILLANUEVA MD Jul 17, 2024 12:24
[2024-07-17] MEDS: LACTULOSE 20Gm/30ML SOLN PO SCH (14:00)
[2024-07-18] VITALS (8 sets, daily range): BP systolic 106–154; BP diastolic 55–77; PULSE 60–95; RESP 17–19; TEMP 97.9–99.7; O2SAT 97–100
[2024-07-18 06:31] LABS: Lymphocytes # (auto) 1.5 10 ^3/uL (0.4-5.4); Red Cell Distribution Width 17.8 % (11.8-14.3); White Blood Cell 11.6 10^3/uL (4.4-10.8)
[2024-07-18 06:35] LABS: Basophils # (auto) 0.4 10 ^3/uL (0-0.2); Basophils % (auto) 3.7 % (0.0-2.0); Eosinophils # (auto) 0.4 10 ^3/uL (0-0.8); Eosinophils % (auto) 3.5 % (0.0-7.0); Hematocrit 23.5 % (41.0-53.0); Hemoglobin 7.8 g/dL (13.5-17.5); Lymphocytes % (auto) 13.2 % (10.0-50.0); Mean Corpuscular Hemoglobin 28.4 pg (28.0-32.0); Mean Corpuscular Hgb Conc. 33.3 g/dL (32.0-36.0); Mean Corpuscular Volume 85.4 fL (80.0-100.0); Monocytes # (auto) 1.3 10 ^3/uL (0-1.3); Neutrophils # (auto) 7.9 10 ^3/uL (1.6-8.6); Neutrophils % (auto) 68.6 % (37.0-80.0); Platelet Count (auto) 714 10^3/uL (140-450); Red Blood Cells 2.76 10^6/uL (4.5-5.90)
--- NOTE | 2024-07-18 10:22 | DVHPN2 ---
Subjective Patient denies any symptoms. Reviewed: Care Plan, H&P, Labs, Medications, Previous Orders, Radiology Changes from previous H/P or p: No Changes General: Per HPI Eyes: No Pain, No Vision change, No Conjunctivae inflammation, No Eyelid inflammation, No Other, No Redness ENT: No Ear pain, No Ear discharge, No Nose pain, No Nose discharge, No Nose congestion, No Mouth pain, No Mouth swelling, No Throat pain, No Throat swelling, No Other Cardiovascular: No Chest Pain, No Palpitations, No Orthopnea, No Paroxysmal Noc. Dyspnea, No Edema, No Lt Headedness, No Other Respiratory: No Cough, No Dry, No Shortness of breath, No SOB with excertion, No Wheezing, No Hemoptysis, No Pleuritic Pain, No Sputum, No Other Gastrointestinal: No Nausea, No Vomiting, No Abdominal Pain, No Diarrhea, No Constipation, No Melena, No Hematochezia, No Other Genitourinary: No Dysuria, No Frequency, No Incontinence, No Hematuria, No Retention, No Other Musculoskeletal: No other, No neck pain, No shoulder pain, No arm pain, No back pain, No hand pain, No leg pain, No foot pain Skin: No Rash, No Lesions, No Jaundice, No Bruising; Other (Bilateral legs wound) Objective Vitals Vital Signs Date Time Temp Pulse Resp B/P (MAP) Pulse Ox O2 Delivery O2 Flow Rate FiO2 07/18/24 08:53 98.3 60 19 108/67 (81) 98 98.3 07/17/24 20:00 Nasal Cannula* 1 24 Intake/Output Intake and Output 07/18/24 07:00 Intake Total 2790 ml Output Total 1501 ml Balance 1289 ml Intake Oral 2240 ml IV Total 550 ml Output Urine Total 1500 ml Stool Total 1 ml General Appearance: Alert, Oriented X3, Cooperative, No acute distress, mild distress, moderate distress, severe distress, Other (Chemically sedated) HEENT: Atraumatic, PERRLA Neck: Carotid Bruits [place] Lungs: Clear to auscultation, Normal air movement, Other Cardiovascular: Regular rate, Normal S1, Normal S2, No murmurs, Gallops, Rubs, Other Abdomen: Normal bowel sounds, Soft, No tenderness, No hepatospenomegaly, No masses, Other (NG tube with noted red gastric secretions) Genitourinary: No Apparent Abnormalities (Manning catheter) Neuro: Other (Encephalopathic) Skin: Intact, Wounds (See nurse notes and pictures) Psych/Mental Status: Mood NL, Other (Patient was alert and oriented x3. Noted confusion yesterday evening.) Medications Current Medications Medications Dose Ordered Sig/Maribeth Route Start Time Stop Time Status Last Admin Dose Admin Ondansetron HCl 4 mg Q4HP PRN IV 07/01/24 06:00 Acetaminophen 650 mg Q6HP PRN PO 07/01/24 06:00 07/10/24 02:14 650 MG Nitroglycerin 0.4 mg Q5MINP PRN SL 07/01/24 06:00 Thiamine HCl 100 mg DAILY IV 07/06/24 10:00 07/17/24 09:47 100 MG Ceftriaxone Sodium/Dextrose 50 ml @ 50 mls/hr DAILY IV 07/07/24 10:00 07/17/24 09:47 50 MLS/HR Vancomycin HCl 0 ml @ 0 mls/hr UD IV 07/08/24 08:45 Haloperidol 2 mg [id number] PRN PO 07/12/24 10:00 Pantoprazole Sodium 40 mg DAILY IV 07/13/24 10:00 07/17/24 09:47 40 MG Docusate Sodium 100 mg BID PO 07/13/24 22:00 07/17/24 22:22 100 MG Sucralfate 1 gm BID PO 07/14/24 10:00 07/17/24 22:22 1 GM Polyethylene Glycol 17 gm DAILYPRN PRN PO 07/14/24 11:30 07/15/24 16:40 17 GM Vancomycin HCl 250 ml @ 200 mls/hr Q10H IV 07/15/24 00:00 07/17/24 22:22 200 MLS/HR Midodrine 10 mg TID@0600,1200,1800 PO 07/15/24 12:00 07/18/24 05:53 10 MG Enteral Nutritional Formula 240 ml BIDWM PO 07/15/24 18:00 07/17/24 18:10 240 ML Laboratory Results Laboratory Tests 07/16/24 09:08 07/18/24 05:50 Urinalysis Test 07/01/24 14:50 07/13/24 20:05 Urine Hyaline Casts Few /lpf (0 - 2) Urine Color Yellow (Yellow) Urine Clarity Clear (Clear) Urine pH 5.0 (5.0-9.0) Urine Specific [place] 1.032 (1.001-1.035) Urine Protein Trace (Negative) H Urine Ketones Negative (Negative) Urine Blood Negative /uL (Negative) Urine Nitrite Negative (Negative) Urine Bilirubin Negative (Negative) Urine Urobilinogen Normal mg/dL (Negative) Urine Leukocyte Esterase 1+ /uL (Negative) Urine RBC 3 /hpf (0 - 3) Urine Microscopic WBC 10 /HPF (0-3) H Urine Squamous Epithelial Cells Few /hpf (<5) Urine Bacteria Few /hpf (None Seen) H Urine Mucus Few (None Seen) Urine Glucose Normal mg/dL (Normal) Microbiology Microbiology Date/Time Source Procedure Growth Status 07/13/24 13:32 Blood Blood Culture - Preliminary NO GROWTH AFTER 72 HOURS OF INCUBATION. Resulted 07/03/24 09:00 Leg Gram Stain - Final Complete 07/03/24 09:00 Wound Culture - Final Staphylococcus aureus Enterococcus faecalis Proteus vulgaris Enterobacter hormaechei Complete 07/01/24 14:50 Voided Urine Urine Culture - Final Complete 07/01/24 00:00 Sputum Gram Stain - Final Complete 07/01/24 00:00 Respiratory Culture - Final Citrobacter koseri Complete Labs and/or images reviewed: Labs reviewed by me, Image(s) reviewed by me Assessment/Plan Assessment/Plan Impression: -hemorrhagic shock -cellulitis to lower extremities -sepsis -peptic ulcer bleed with persistent GI bleeding, status post embolization -polysubstance abuse : Positive for PCP, cocaine, amphetamines -acute respiratory failure with mechanical ventilation -severe anemia from GI bleed -shock liver -acute delirium Plan: Events: No events overnight. Patient is p.o. intake has improved. IV fluids stopped. -Protonix 40 mg IV twice a day -Carafate 1 g 4 times a day -antibiotic therapy with Rocephin and vancomycin -physical therapy: Please increase attempts to and by patient. -repeat labs in a.m. Total time spent with patient discussing and formulating plan of care: 35 minutes. This medical document was created using an electronic medical record system with [employer] dictation system. Although this document has been carefully reviewed, there may still be some phonetic and typographical errors. These areas are purely typographical due to imperfections of the software programs, and do not reflect any compromise in the patient's medical care. Plan discussed with: Patient, Other (RN) Date of Service: Jul 18, 2024 Billing Provider: BRADY SPARROW NP Common Visit Codes: [id number] INP/OBS CARE(HIGH) BRADY SPARROW NP Jul 18, 2024 10:22
--- NOTE | 2024-07-18 15:50 | DVHPN2 ---
Progress Note Date Seen: Jul 18, 2024 Resident Creating Document: DIANA HALL RESIDENT Has the PT tested + for MRSA If YES, has PT been informed?: No Medical Necessity Reason Pt with a Central, PICC or Fol: Yes The following are medically ne: Central Line, Barrow Catheter Reason for barrow catheter: Strict I&O Subjective Review of Systems Patient was seen and examined bedside. He is alert ,oriented x3. H &H is stable and Patient had bowel movement yesterday. No other active complaint Objective vital signs Vital Sign Date Time Temp Pulse Resp B/P (MAP) Pulse Ox O2 Delivery O2 Flow Rate FiO2 07/18/24 13:00 97.9 95 19 140/68 (92) 98 97.9 07/18/24 10:00 Nasal Cannula 1.0 07/18/24 10:00 24 Total Intake and Output 07/17/24 07/17/24 07/18/24 15:00 23:00 07:00 Intake Total 540 ml 1260 ml 990 ml Output Total 950 ml 551 ml Balance 540 ml 310 ml 439 ml medications Current Medications Medications Dose Ordered Sig/Maribeth Route Start Time Stop Time Status Last Admin Dose Admin Ondansetron HCl 4 mg Q4HP PRN IV 07/01/24 06:00 Acetaminophen 650 mg Q6HP PRN PO 07/01/24 06:00 07/10/24 02:14 650 MG Nitroglycerin 0.4 mg Q5MINP PRN SL 07/01/24 06:00 Thiamine HCl 100 mg DAILY IV 07/06/24 10:00 07/18/24 10:19 100 MG Ceftriaxone Sodium/Dextrose 50 ml @ 50 mls/hr DAILY IV 07/07/24 10:00 07/18/24 10:22 50 MLS/HR Vancomycin HCl 0 ml @ 0 mls/hr UD IV 07/08/24 08:45 Docusate Sodium 100 mg BID PO 07/13/24 22:00 07/18/24 10:19 100 MG Sucralfate 1 gm BID PO 07/14/24 10:00 07/18/24 10:19 1 GM Polyethylene Glycol 17 gm DAILYPRN PRN PO 07/14/24 11:30 07/15/24 16:40 17 GM Vancomycin HCl 250 ml @ 200 mls/hr Q10H IV 07/15/24 00:00 07/18/24 11:52 200 MLS/HR Midodrine 10 mg TID@0600,1200,1800 PO 07/15/24 12:00 07/18/24 12:00 10 MG Enteral Nutritional Formula 240 ml BIDWM PO 07/15/24 18:00 07/18/24 08:00 240 ML Pantoprazole Sodium 40 mg DAILY@0600 PO 07/19/24 06:00 Examination Physical examination: General Appearance: Alert, Oriented X3, Cooperative, No acute distress HEENT: Atraumatic, PERRLA, EOMI, Mucous membrane moist/pink Respiratory: Clear to auscultation, Normal air movement Cardiovascular: Regular rate, Normal S1, Normal S2, No murmurs, no chest wall tenderness Abdominal: Normal bowel sounds, Soft, No tenderness, No hepatospenomegaly, No masses Extremities: No clubbing, No cyanosis, No edema, Normal pulses, No tenderness/swelling Skin: No rashes, No breakdown, No significant lesion Neuro: Normal gait, Normal speech, Strength at 5/5 X4 ext, Normal tone, Sensation intact, grossly intact cranial nerves Psych/Mental Status: Mental status NL, Mood NL laboratory and microbiology Laboratory Tests 07/18/24 05:50 07/16/24 09:08 Test 07/16/24 09:08 Range/Units Serum Glucose 137 H 74-106 mg/dL Microbiology Date/Time Source Procedure Growth Status 07/13/24 13:32 Blood Blood Culture - Final NO GROWTH AFTER 5 DAYS OF INCUBATION. Complete 07/03/24 09:00 Leg Gram Stain - Final Complete 07/03/24 09:00 Wound Culture - Final Staphylococcus aureus Enterococcus faecalis Proteus vulgaris Enterobacter hormaechei Complete 07/01/24 14:50 Voided Urine Urine Culture - Final Complete 07/01/24 00:00 Sputum Gram Stain - Final Complete 07/01/24 00:00 Respiratory Culture - Final Citrobacter koseri Complete Labs and/or images reviewed: Labs reviewed by me, Image(s) reviewed by me Problem List/Assessment/Plan Problem List/Assessment/Plan Assessment : Upper GI bleeding secondary to duodenal bulb ulcer s/p embolization gastroduodenal artery 2/5 by IR Hypovolemic shock Severe anemia Transaminitis, hypoxic liver injury and hepatic steatosis Possible sepsis secondary to cellulitis MSSA Acute hypoxic respiratory failure, s/p intubated and mechanically ventilated Systolic Congestive heart failure Cellulitis of the leg and foot Superficial venous thrombophlebitis, cephalic vein Polysubstance use including a PCP, cocaine Hypokalemia Elevated Lipase Reactive thrombocytosis likely due to cellulitis Acute delirium Constipation EGD 07/03 shows large ulcer of the duodenum bulb occupying 3/4 of the bulb with old clots inside. No gross bleeding seen. Huge clot in the fundus of the body. Plan: Ultrasound liver shows hepatic steatosis, gallbladder sludge, dilated CBD. Liver enzyme is downtrending and no plan for MRCP now. Continue conservative management for now. Patient is not bleeding actively. H&H is stable. Negative for HIV, hep B and hep C Continue Protonix 40 mg IV daily and carafate1 g bid No impacted stool in rectal exam Stool softner lactulose 30 ml b.i.d, colace 100 mg bid , Miralax powder PRN and rectal enema once Antibiotics per primary team Monitor H&H Advise patient to avoid NSAIDs/aspirin/ibuprofen Mechanical soft diet , maintain nutrition and proper hydration. Continue Physical therapy and possible SNF placement. The patient is stable from GI standpoint and we will sign off for now. Plan discussed with nurse Case discussed with Dr. Kunz Plan discussed with: Patient, Other Dietary Evaluation Review Comments: 1.Consider advancing to PO diet once medically appropriate 2.Consider PN if NPO >7 if GI issues dont resolve 3.Consider beth BID (180kcal, 5 pro) Expected Outcomes/Goals: 1. Pt will consume >75% pt estimated meeds within 2-3 days DIANA HALL RESIDENT Jul 18, 2024 15:50
--- NOTE | 2024-07-18 23:01 | DVHPN2 ---
Progress Note - Dictate Date Seen: Jul 18, 2024 Has the PT tested + for MRSA If YES, has PT been informed?: No Medical Necessity Reason Pt with a Central, PICC or Fol: Yes The following are medically ne: Central Line, Barrow Catheter Reason for barrow catheter: Strict I&O Subjective Patient seen and examined at bedside. Remains on supplemental oxygen Overnight events reviewed. vital signs Vital Sign Date Time Temp Pulse Resp B/P (MAP) Pulse Ox O2 Delivery O2 Flow Rate FiO2 07/18/24 21:00 98.2 91 19 106/55 (72) 97 98.2 07/18/24 20:00 Nasal Cannula* 1 24 Total Intake and Output 07/17/24 07/17/24 07/18/24 15:00 23:00 07:00 Intake Total 540 ml 1260 ml 990 ml Output Total 950 ml 551 ml Balance 540 ml 310 ml 439 ml medications Current Medications Medications Dose Ordered Sig/Maribeth Route Start Time Stop Time Status Last Admin Dose Admin Ondansetron HCl 4 mg Q4HP PRN IV 07/01/24 06:00 Acetaminophen 650 mg Q6HP PRN PO 07/01/24 06:00 07/10/24 02:14 650 MG Nitroglycerin 0.4 mg Q5MINP PRN SL 07/01/24 06:00 Thiamine HCl 100 mg DAILY IV 07/06/24 10:00 07/18/24 10:19 100 MG Ceftriaxone Sodium/Dextrose 50 ml @ 50 mls/hr DAILY IV 07/07/24 10:00 07/18/24 10:22 50 MLS/HR Vancomycin HCl 0 ml @ 0 mls/hr UD IV 07/08/24 08:45 Docusate Sodium 100 mg BID PO 07/13/24 22:00 07/18/24 21:14 100 MG Sucralfate 1 gm BID PO 07/14/24 10:00 07/18/24 21:20 1 GM Polyethylene Glycol 17 gm DAILYPRN PRN PO 07/14/24 11:30 07/15/24 16:40 17 GM Midodrine 10 mg TID@0600,1200,1800 PO 07/15/24 12:00 07/18/24 18:00 10 MG Enteral Nutritional Formula 240 ml BIDWM PO 07/15/24 18:00 07/18/24 18:00 240 ML Pantoprazole Sodium 40 mg DAILY@0600 PO 07/19/24 06:00 objective Gen.: Patient lying in bed in no apparent distress. On supplemental oxygen. Head: Normocephalic, atraumatic. Eyes: EOMI/PERRLA. Ears: Normal hearing. Normal anatomy. Neck/trachea: Trachea midline, supple. Nose: Normal external anatomy. Mouth: Moist mucous membranes. Chest: Decreased air entry bilaterally. No wheezing or rhonchi. Cardiovascular: Positive S1, positive S2. Regular rate and rhythm. Abdomen: Positive bowel sounds in all 4 quadrants. Soft, non-tender, non- distended. : Deferred. Rectal: Deferred. Skin: Warm, dry. Intact. Extremities: 2+ radial pulses bilaterally. No lower extremity edema. Neuro: Awake, alert, oriented x3. No gross motor or sensory deficits. Cranial nerves II through XII intact. Gait not assessed. laboratory and microbiology Laboratory Tests 07/18/24 05:50 07/16/24 09:08 Test 07/16/24 09:08 Range/Units Serum Glucose 137 H 74-106 mg/dL Assessment/Plan Impression: Acute hypoxic respiratory failure GI hemorrhage Hemorrhagic shock Substance abuse Bilateral lower extremity wounds Events: Remains on supplemental oxygen at 2 LPM NC Taper O2 as tolerated Head of bed elevation Aspiration precautions On midodrine Monitor BP/orthostatics Completed antibiotics Carafate Thiamine supplementation Incentive spirometry Hemoglobin stable at 7.8 g/dL - continue to monitor Protonix BID for GI prophylaxis Wound care. Wound cultures grew Staph aureus, Enterococcus faecalis, Proteus vulgaris and Enterobacter hormaechei. S/p gastroduodenal artery thromboembolization by IR. No bloody bowel movements. CT head (07/08/24) reveals no evidence of ICH or stroke. Labs and imaging reviewed. Rest of plan as noted below. Plan: S/p extubation on 07/07/24 Supplemental oxygen Titrate to keep O2 sats above 92%. Pressors if necessary for hemodynamic support. Titrate to keep MAP above 65 mmHg/SBP above 90 mmHg. Bronchodilators PRN Continue antibiotics. F/u cultures. Monitor renal function. Monitor electrolytes. Supplement as necessary. Monitor ins and outs. S/p embolization of duodenal ulcer. GI recommendations appreciated Monitor hemoglobin Nutritional support. Accucheks, ISS. GI/DVT prophylaxis. Prognosis: Guarded given multiple comorbidities. Rest of plan per hospitalist and other consultants. Thank you Dr. Shine Kumar for allowing me to participate in this patient's care. Further recommendations will depend on patient's clinical course. Please do not hesitate to contact me if you have any questions or concerns. This medical document was created using an electronic medical record system with [employer] dictation system. Although this document has been carefully reviewed, there may still be some phonetic and typographical errors. These areas are purely typographical due to imperfections of the software programs, and do not reflect any compromise in the patient's medical care. Dietary Evaluation Review Comments: 1.Consider advancing to PO diet once medically appropriate 2.Consider PN if NPO >7 if GI issues dont resolve 3.Consider beth BID (180kcal, 5 pro) Expected Outcomes/Goals: 1. Pt will consume >75% pt estimated meeds within 2-3 days Plan discussed with: Patient, Other (KAJAL Kelly) YOSI FABIAN MD Jul 18, 2024 23:01
[2024-07-19] VITALS (7 sets, daily range): BP systolic 100–142; BP diastolic 57–68; PULSE 64–94; RESP 17–19; TEMP 97.7–98.8; O2SAT 96–99
[2024-07-19] MEDS: PANTOPRAZOLE 40 MG TAB PO SCH (05:09)
[2024-07-19 07:38] LABS: Eosinophils # (auto) 0.4 10 ^3/uL (0-0.8); Hemoglobin 8.4 g/dL (13.5-17.5); Monocytes # (auto) 0.8 10 ^3/uL (0-1.3); Monocytes % (auto) 9.7 % (0.0-12.0); White Blood Cell 8.7 10^3/uL (4.4-10.8)
[2024-07-19 07:41] LABS: Basophils # (auto) 0.2 10 ^3/uL (0-0.2); Basophils % (auto) 2.4 % (0.0-2.0); Eosinophils % (auto) 4.3 % (0.0-7.0); Hematocrit 26.3 % (41.0-53.0); Lymphocytes # (auto) 1.4 10 ^3/uL (0.4-5.4); Lymphocytes % (auto) 15.7 % (10.0-50.0); Mean Corpuscular Hemoglobin 27.6 pg (28.0-32.0); Mean Corpuscular Hgb Conc. 31.8 g/dL (32.0-36.0); Neutrophils # (auto) 5.9 10 ^3/uL (1.6-8.6); Neutrophils % (auto) 67.9 % (37.0-80.0); Platelet Count (auto) 730 10^3/uL (140-450); Red Blood Cells 3.03 10^6/uL (4.5-5.90); Red Cell Distribution Width 18.5 % (11.8-14.3)
--- NOTE | 2024-07-19 09:15 | DVHPN2 ---
Subjective Patient denies any symptoms. Reviewed: Care Plan, H&P, Labs, Medications, Previous Orders, Radiology Changes from previous H/P or p: No Changes General: Per HPI Eyes: No Pain, No Vision change, No Conjunctivae inflammation, No Eyelid inflammation, No Other, No Redness ENT: No Ear pain, No Ear discharge, No Nose pain, No Nose discharge, No Nose congestion, No Mouth pain, No Mouth swelling, No Throat pain, No Throat swelling, No Other Cardiovascular: No Chest Pain, No Palpitations, No Orthopnea, No Paroxysmal Noc. Dyspnea, No Edema, No Lt Headedness, No Other Respiratory: No Cough, No Dry, No Shortness of breath, No SOB with excertion, No Wheezing, No Hemoptysis, No Pleuritic Pain, No Sputum, No Other Gastrointestinal: No Nausea, No Vomiting, No Abdominal Pain, No Diarrhea, No Constipation, No Melena, No Hematochezia, No Other Genitourinary: No Dysuria, No Frequency, No Incontinence, No Hematuria, No Retention, No Other Musculoskeletal: No other, No neck pain, No shoulder pain, No arm pain, No back pain, No hand pain, No leg pain, No foot pain Skin: No Rash, No Lesions, No Jaundice, No Bruising; Other (Bilateral legs wound) Objective Vitals Vital Signs Date Time Temp Pulse Resp B/P (MAP) Pulse Ox O2 Delivery O2 Flow Rate FiO2 07/19/24 05:00 98.7 81 19 106/62 (77) 96 98.7 07/18/24 20:00 Nasal Cannula* 1 24 Intake/Output Intake and Output 07/19/24 07:00 Intake Total 825 ml Output Total 1550 ml Balance -725 ml Intake Oral 525 ml IV Total 300 ml Output Urine Total 1550 ml # Bowel Movements 2 General Appearance: Alert, Oriented X3, Cooperative, No acute distress, mild distress, moderate distress, severe distress, Other (Chemically sedated) HEENT: Atraumatic, PERRLA Neck: Carotid Bruits [place] Lungs: Clear to auscultation, Normal air movement, Other Cardiovascular: Regular rate, Normal S1, Normal S2, No murmurs, Gallops, Rubs, Other Abdomen: Normal bowel sounds, Soft, No tenderness, No hepatospenomegaly, No masses, Other (NG tube with noted red gastric secretions) Genitourinary: No Apparent Abnormalities (Manning catheter) Neuro: Other (Encephalopathic) Skin: Intact, Wounds (See nurse notes and pictures) Psych/Mental Status: Mood NL, Other (Patient was alert and oriented x3. Noted confusion yesterday evening.) Medications Current Medications Medications Dose Ordered Sig/Maribeth Route Start Time Stop Time Status Last Admin Dose Admin Ondansetron HCl 4 mg Q4HP PRN IV 07/01/24 06:00 Acetaminophen 650 mg Q6HP PRN PO 07/01/24 06:00 07/10/24 02:14 650 MG Nitroglycerin 0.4 mg Q5MINP PRN SL 07/01/24 06:00 Thiamine HCl 100 mg DAILY IV 07/06/24 10:00 07/18/24 10:19 100 MG Ceftriaxone Sodium/Dextrose 50 ml @ 50 mls/hr DAILY IV 07/07/24 10:00 07/18/24 10:22 50 MLS/HR Vancomycin HCl 0 ml @ 0 mls/hr UD IV 07/08/24 08:45 Docusate Sodium 100 mg BID PO 07/13/24 22:00 07/18/24 21:14 100 MG Sucralfate 1 gm BID PO 07/14/24 10:00 07/18/24 21:20 1 GM Polyethylene Glycol 17 gm DAILYPRN PRN PO 07/14/24 11:30 07/15/24 16:40 17 GM Midodrine 10 mg TID@0600,1200,1800 PO 07/15/24 12:00 07/19/24 05:09 10 MG Enteral Nutritional Formula 240 ml BIDWM PO 07/15/24 18:00 07/18/24 18:00 240 ML Pantoprazole Sodium 40 mg DAILY@0600 PO 07/19/24 06:00 07/19/24 05:09 40 MG Laboratory Results Laboratory Tests 07/16/24 09:08 07/19/24 06:08 Urinalysis Test 07/01/24 14:50 07/13/24 20:05 Urine Hyaline Casts Few /lpf (0 - 2) Urine Color Yellow (Yellow) Urine Clarity Clear (Clear) Urine pH 5.0 (5.0-9.0) Urine Specific [place] 1.032 (1.001-1.035) Urine Protein Trace (Negative) H Urine Ketones Negative (Negative) Urine Blood Negative /uL (Negative) Urine Nitrite Negative (Negative) Urine Bilirubin Negative (Negative) Urine Urobilinogen Normal mg/dL (Negative) Urine Leukocyte Esterase 1+ /uL (Negative) Urine RBC 3 /hpf (0 - 3) Urine Microscopic WBC 10 /HPF (0-3) H Urine Squamous Epithelial Cells Few /hpf (<5) Urine Bacteria Few /hpf (None Seen) H Urine Mucus Few (None Seen) Urine Glucose Normal mg/dL (Normal) Microbiology Microbiology Date/Time Source Procedure Growth Status 07/13/24 13:32 Blood Blood Culture - Final NO GROWTH AFTER 5 DAYS OF INCUBATION. Complete 07/03/24 09:00 Leg Gram Stain - Final Complete 07/03/24 09:00 Wound Culture - Final Staphylococcus aureus Enterococcus faecalis Proteus vulgaris Enterobacter hormaechei Complete 07/01/24 14:50 Voided Urine Urine Culture - Final Complete 07/01/24 00:00 Sputum Gram Stain - Final Complete 07/01/24 00:00 Respiratory Culture - Final Citrobacter koseri Complete Labs and/or images reviewed: Labs reviewed by me, Image(s) reviewed by me Assessment/Plan Assessment/Plan Impression: -hemorrhagic shock -cellulitis to lower extremities -sepsis -peptic ulcer bleed with persistent GI bleeding, status post embolization -polysubstance abuse : Positive for PCP, cocaine, amphetamines -acute respiratory failure with mechanical ventilation -severe anemia from GI bleed -shock liver -acute delirium Plan: Events: No events overnight. Please get patient out of bed as tolerated. -Protonix 40 mg IV twice a day -Carafate 1 g 4 times a day -antibiotic therapy with Rocephin and vancomycin -physical therapy: Please increase attempts to and by patient. -repeat labs in a.m. Total time spent with patient discussing and formulating plan of care: 35 minutes. This medical document was created using an electronic medical record system with [employer] dictation system. Although this document has been carefully reviewed, there may still be some phonetic and typographical errors. These areas are purely typographical due to imperfections of the software programs, and do not reflect any compromise in the patient's medical care. Plan discussed with: Patient, Other (RN) My Orders Orders - BRADY SPARROW NP Procedure Category Date Status Time Pantoprazole Tablet PHA 07/19/24 In Process (Protonix Tablet) 06:00 Date of Service: Jul 19, 2024 Billing Provider: BRADY SPARROW NP Common Visit Codes: [id number] INP/OBS CARE(HIGH) BRADY SPARROW NP Jul 19, 2024 09:15
[2024-07-19] MEDS: VANCOMYCIN 1GM/250ML KIT 250 ML IV SCH (15:25)
--- NOTE | 2024-07-19 20:40 | DVHPN2 ---
Progress Note - Dictate Date Seen: Jul 19, 2024 Has the PT tested + for MRSA If YES, has PT been informed?: No Medical Necessity Reason Pt with a Central, PICC or Fol: Yes The following are medically ne: Central Line, Barrow Catheter Reason for barrow catheter: Strict I&O Subjective Patient seen and examined at bedside. Remains on supplemental oxygen Overnight events reviewed. vital signs Vital Sign Date Time Temp Pulse Resp B/P (MAP) Pulse Ox O2 Delivery O2 Flow Rate FiO2 07/19/24 17:30 98.8 94 18 108/65 (79) 98 98.8 07/19/24 10:20 Nasal Cannula 1.0 07/19/24 10:20 24 Total Intake and Output 07/18/24 07/18/24 07/19/24 15:00 23:00 07:00 Intake Total 300 ml 225 ml 300 ml Output Total 1100 ml 450 ml Balance 300 ml -875 ml -150 ml medications Current Medications Medications Dose Ordered Sig/Maribeth Route Start Time Stop Time Status Last Admin Dose Admin Ondansetron HCl 4 mg Q4HP PRN IV 07/01/24 06:00 Acetaminophen 650 mg Q6HP PRN PO 07/01/24 06:00 07/10/24 02:14 650 MG Nitroglycerin 0.4 mg Q5MINP PRN SL 07/01/24 06:00 Thiamine HCl 100 mg DAILY IV 07/06/24 10:00 07/19/24 11:01 100 MG Ceftriaxone Sodium/Dextrose 50 ml @ 50 mls/hr DAILY IV 07/07/24 10:00 07/19/24 11:00 50 MLS/HR Vancomycin HCl 0 ml @ 0 mls/hr UD IV 07/08/24 08:45 Docusate Sodium 100 mg BID PO 07/13/24 22:00 07/19/24 11:01 100 MG Sucralfate 1 gm BID PO 07/14/24 10:00 07/19/24 11:01 1 GM Polyethylene Glycol 17 gm DAILYPRN PRN PO 07/14/24 11:30 07/15/24 16:40 17 GM Midodrine 10 mg TID@0600,1200,1800 PO 07/15/24 12:00 07/19/24 20:13 10 MG Enteral Nutritional Formula 240 ml BIDWM PO 07/15/24 18:00 07/19/24 18:00 240 ML Pantoprazole Sodium 40 mg DAILY@0600 PO 07/19/24 06:00 07/19/24 05:09 40 MG Vancomycin HCl 250 ml @ 250 mls/hr Q12H IV 07/19/24 12:00 07/19/24 15:25 250 MLS/HR objective Gen.: Patient lying in bed in no apparent distress. On supplemental oxygen. Head: Normocephalic, atraumatic. Eyes: EOMI/PERRLA. Ears: Normal hearing. Normal anatomy. Neck/trachea: Trachea midline, supple. Nose: Normal external anatomy. Mouth: Moist mucous membranes. Chest: Decreased air entry bilaterally. No wheezing or rhonchi. Cardiovascular: Positive S1, positive S2. Regular rate and rhythm. Abdomen: Positive bowel sounds in all 4 quadrants. Soft, non-tender, non- distended. : Deferred. Rectal: Deferred. Skin: Warm, dry. Intact. Extremities: 2+ radial pulses bilaterally. No lower extremity edema. Neuro: Awake, alert, oriented x3. No gross motor or sensory deficits. Cranial nerves II through XII intact. Gait not assessed. laboratory and microbiology Laboratory Tests 07/19/24 06:08 07/16/24 09:08 Test 07/16/24 09:08 Range/Units Serum Glucose 137 H 74-106 mg/dL Assessment/Plan Impression: Acute hypoxic respiratory failure GI hemorrhage Hemorrhagic shock Substance abuse Bilateral lower extremity wounds Events: Remains on supplemental oxygen at 1 LPM NC Taper O2 as tolerated Improving O2 requirements Head of bed elevation Aspiration precautions Continue midodrine Monitor BP/orthostatics Continue antibiotics Carafate Thiamine supplementation Incentive spirometry Hemoglobin trending up at 8.4 g/dL - continue to monitor Protonix QD for GI prophylaxis Wound care. Wound cultures grew Staph aureus, Enterococcus faecalis, Proteus vulgaris and Enterobacter hormaechei. S/p gastroduodenal artery thromboembolization by IR. No bloody bowel movements. CT head (07/08/24) reveals no evidence of ICH or stroke. Labs and imaging reviewed. Rest of plan as noted below. Plan: S/p extubation on 07/07/24 Supplemental oxygen Titrate to keep O2 sats above 92%. Pressors if necessary for hemodynamic support. Titrate to keep MAP above 65 mmHg/SBP above 90 mmHg. Bronchodilators PRN Continue antibiotics. F/u cultures. Monitor renal function. Monitor electrolytes. Supplement as necessary. Monitor ins and outs. S/p embolization of duodenal ulcer. GI recommendations appreciated Monitor hemoglobin Nutritional support. Accucheks, ISS. GI/DVT prophylaxis. Prognosis: Guarded given multiple comorbidities. Rest of plan per hospitalist and other consultants. Thank you Dr. Shine Kumar for allowing me to participate in this patient's care. Further recommendations will depend on patient's clinical course. Please do not hesitate to contact me if you have any questions or concerns. This medical document was created using an electronic medical record system with [employer] dictation system. Although this document has been carefully reviewed, there may still be some phonetic and typographical errors. These areas are purely typographical due to imperfections of the software programs, and do not reflect any compromise in the patient's medical care. Dietary Evaluation Review Comments: 1.Consider advancing to PO diet once medically appropriate 2.Consider PN if NPO >7 if GI issues dont resolve 3.Consider beth BID (180kcal, 5 pro) Expected Outcomes/Goals: 1. Pt will consume >75% pt estimated meeds within 2-3 days Plan discussed with: Patient, Other (KAJAL White) YOSI FABIAN MD Jul 19, 2024 20:40
[2024-07-20] VITALS (8 sets, daily range): BP systolic 118–142; BP diastolic 64–86; PULSE 74–90; RESP 16–20; TEMP 98–98.4; O2SAT 95–99
[2024-07-20 07:42] LABS: Chloride 105 mmol/L (98-107); Sodium 142 mmol/L (136-145)
[2024-07-20 07:43] LABS: Anion Gap 12 (5-15); Calcium 8.9 mg/dL (8.7-10.4); Carbon Dioxide 25 mmol/L (20-31)
[2024-07-20 07:48] LABS: BUN/Creatinine Ratio 18.3 (10.0-20.0); Blood Urea Nitrogen 11 mg/dL (9-23)
[2024-07-20 07:53] LABS: Glucose 177 mg/dL (74-106); Potassium 3.4 mmol/L (3.5-5.1)
[2024-07-20] MEDS: POTASSIUM EFFERVESENT TAB 25 MEQ PO ONE (12:35)
[2024-07-20] MEDS ORDERED: BACLOFEN 10 MG TAB PO PRN (14:15)
--- NOTE | 2024-07-20 14:15 | DVHPN2 ---
Subjective Patient denies any symptoms. Reviewed: Care Plan, H&P, Labs, Medications, Previous Orders, Radiology Changes from previous H/P or p: No Changes General: Per HPI Eyes: No Pain, No Vision change, No Conjunctivae inflammation, No Eyelid inflammation, No Other, No Redness ENT: No Ear pain, No Ear discharge, No Nose pain, No Nose discharge, No Nose congestion, No Mouth pain, No Mouth swelling, No Throat pain, No Throat swelling, No Other Cardiovascular: No Chest Pain, No Palpitations, No Orthopnea, No Paroxysmal Noc. Dyspnea, No Edema, No Lt Headedness, No Other Respiratory: No Cough, No Dry, No Shortness of breath, No SOB with excertion, No Wheezing, No Hemoptysis, No Pleuritic Pain, No Sputum, No Other Gastrointestinal: No Nausea, No Vomiting, No Abdominal Pain, No Diarrhea, No Constipation, No Melena, No Hematochezia, No Other Genitourinary: No Dysuria, No Frequency, No Incontinence, No Hematuria, No Retention, No Other Musculoskeletal: No other, No neck pain, No shoulder pain, No arm pain, No back pain, No hand pain, No leg pain, No foot pain Skin: No Rash, No Lesions, No Jaundice, No Bruising; Other (Bilateral legs wound) Objective Vitals Vital Signs Date Time Temp Pulse Resp B/P (MAP) Pulse Ox O2 Delivery O2 Flow Rate FiO2 07/20/24 10:15 98 Room Air* 0 21 07/20/24 09:00 98.2 90 18 141/64 (89) 98.2 Intake/Output Intake and Output 07/20/24 07:00 Intake Total 930 ml Output Total 875 ml Balance 55 ml Intake Oral 380 ml IV Total 550 ml Output Urine Total 875 ml General Appearance: Alert, Oriented X3, Cooperative, No acute distress, mild distress, moderate distress, severe distress, Other (Chemically sedated) HEENT: Atraumatic, PERRLA Neck: Carotid Bruits Jerome Lungs: Clear to auscultation, Normal air movement, Other Cardiovascular: Regular rate, Normal S1, Normal S2, No murmurs, Gallops, Rubs, Other Abdomen: Normal bowel sounds, Soft, No tenderness, No hepatospenomegaly, No masses, Other (NG tube with noted red gastric secretions) Genitourinary: No Apparent Abnormalities (Man[place] catheter) Neuro: Other (Encephalopathic) Skin: Intact, Wounds (See nurse notes and pictures) Psych/Mental Status: Mood NL, Other (Patient was alert and oriented x3. Noted confusion yesterday evening.) Medications Current Medications Medications Dose Ordered Sig/Maribeth Route Start Time Stop Time Status Last Admin Dose Admin Ondansetron HCl 4 mg Q4HP PRN IV 07/01/24 06:00 Acetaminophen 650 mg Q6HP PRN PO 07/01/24 06:00 07/10/24 02:14 650 MG Nitroglycerin 0.4 mg Q5MINP PRN SL 07/01/24 06:00 Thiamine HCl 100 mg DAILY IV 07/06/24 10:00 07/20/24 11:08 100 MG Ceftriaxone Sodium/Dextrose 50 ml @ 50 mls/hr DAILY IV 07/07/24 10:00 07/20/24 11:09 50 MLS/HR Vancomycin HCl 0 ml @ 0 mls/hr UD IV 07/08/24 08:45 Docusate Sodium 100 mg BID PO 07/13/24 22:00 07/20/24 11:08 100 MG Sucralfate 1 gm BID PO 07/14/24 10:00 07/20/24 11:08 1 GM Polyethylene Glycol 17 gm DAILYPRN PRN PO 07/14/24 11:30 07/15/24 16:40 17 GM Midodrine 10 mg TID@0600,1200,1800 PO 07/15/24 12:00 07/20/24 05:09 10 MG Enteral Nutritional Formula 240 ml BIDWM PO 07/15/24 18:00 07/20/24 08:00 240 ML Pantoprazole Sodium 40 mg DAILY@0600 PO 07/19/24 06:00 07/20/24 05:10 40 MG Vancomycin HCl 250 ml @ 250 mls/hr Q12H IV 07/19/24 12:00 07/20/24 12:35 250 MLS/HR Laboratory Results Laboratory Tests 07/19/24 06:08 07/20/24 06:45 Chemistry Test 07/20/24 06:45 Calcium Level 8.9 mg/dL (8.7-10.4) Urinalysis Test 07/01/24 14:50 07/13/24 20:05 Urine Hyaline Casts Few /lpf (0 - 2) Urine Color Yellow (Yellow) Urine Clarity Clear (Clear) Urine pH 5.0 (5.0-9.0) Urine Specific [place] 1.032 (1.001-1.035) Urine Protein Trace (Negative) H Urine Ketones Negative (Negative) Urine Blood Negative /uL (Negative) Urine Nitrite Negative (Negative) Urine Bilirubin Negative (Negative) Urine Urobilinogen Normal mg/dL (Negative) Urine Leukocyte Esterase 1+ /uL (Negative) Urine RBC 3 /hpf (0 - 3) Urine Microscopic WBC 10 /HPF (0-3) H Urine Squamous Epithelial Cells Few /hpf (<5) Urine Bacteria Few /hpf (None Seen) H Urine Mucus Few (None Seen) Urine Glucose Normal mg/dL (Normal) Microbiology Microbiology Date/Time Source Procedure Growth Status 07/13/24 13:32 Blood Blood Culture - Final NO GROWTH AFTER 5 DAYS OF INCUBATION. Complete 07/03/24 09:00 Leg Gram Stain - Final Complete 07/03/24 09:00 Wound Culture - Final Staphylococcus aureus Enterococcus faecalis Proteus vulgaris Enterobacter hormaechei Complete 07/01/24 14:50 Voided Urine Urine Culture - Final Complete 07/01/24 00:00 Sputum Gram Stain - Final Complete 07/01/24 00:00 Respiratory Culture - Final Citrobacter koseri Complete Labs and/or images reviewed: Labs reviewed by me, Image(s) reviewed by me Assessment/Plan Assessment/Plan Impression: -hemorrhagic shock -cellulitis to lower extremities -sepsis -peptic ulcer bleed with persistent GI bleeding, status post embolization -polysubstance abuse : Positive for PCP, cocaine, amphetamines -acute respiratory failure with mechanical ventilation -severe anemia from GI bleed -shock liver -acute delirium Plan: Events: No events overnight. Still pending PT eval. I myself, attempted to sit the patient on the side of the bed with noted possible contractures to lower extremities. Patient states that he was unable to straighten his legs. He reports that previously prior to hospitalization he was ambulating with a walker. DC planning once we receive PT evaluation for further recommendations. -Protonix 40 mg IV twice a day -Carafate 1 g 4 times a day -antibiotic therapy with Rocephin and vancomycin -physical therapy: Please increase attempts to and by patient. -repeat labs in a.m. Total time spent with patient discussing and formulating plan of care: 35 minutes. This medical document was created using an electronic medical record system with [employer] computerized dictation system. Although this document has been carefully reviewed, there may still be some phonetic and typographical errors. These areas are purely typographical due to imperfections of the software programs, and do not reflect any compromise in the patient's medical care. Plan discussed with: Patient, Other (Rn) Date of Service: Jul 20, 2024 Billing Provider: BRADY SPARROW NP Common Visit Codes: [id number] INP/OBS CARE(HIGH) BRADY SPARROW NP Jul 20, 2024 14:15
--- NOTE | 2024-07-20 22:02 | DVHPN2 ---
Progress Note - Dictate Date Seen: Jul 20, 2024 Has the PT tested + for MRSA If YES, has PT been informed?: No Medical Necessity Reason Pt with a Central, PICC or Fol: Yes The following are medically ne: Central Line, Barrow Catheter Reason for barrow catheter: Strict I&O Subjective Patient seen and examined at bedside. Breathing comfortably on room air Overnight events reviewed. vital signs Vital Sign Date Time Temp Pulse Resp B/P (MAP) Pulse Ox O2 Delivery O2 Flow Rate FiO2 07/20/24 21:00 98.4 87 18 118/66 (83) 95 98.4 07/20/24 10:15 Room Air* 0 21 Total Intake and Output 07/19/24 07/19/24 07/20/24 15:00 23:00 07:00 Intake Total 50 ml 470 ml 410 ml Output Total 550 ml 325 ml Balance 50 ml -80 ml 85 ml medications Current Medications Medications Dose Ordered Sig/Maribeth Route Start Time Stop Time Status Last Admin Dose Admin Ondansetron HCl 4 mg Q4HP PRN IV 07/01/24 06:00 Acetaminophen 650 mg Q6HP PRN PO 07/01/24 06:00 07/10/24 02:14 650 MG Nitroglycerin 0.4 mg Q5MINP PRN SL 07/01/24 06:00 Thiamine HCl 100 mg DAILY IV 07/06/24 10:00 07/20/24 11:08 100 MG Ceftriaxone Sodium/Dextrose 50 ml @ 50 mls/hr DAILY IV 07/07/24 10:00 07/20/24 11:09 50 MLS/HR Vancomycin HCl 0 ml @ 0 mls/hr UD IV 07/08/24 08:45 Docusate Sodium 100 mg BID PO 07/13/24 22:00 07/20/24 21:18 100 MG Sucralfate 1 gm BID PO 07/14/24 10:00 07/20/24 21:19 1 GM Polyethylene Glycol 17 gm DAILYPRN PRN PO 07/14/24 11:30 07/15/24 16:40 17 GM Midodrine 10 mg TID@0600,1200,1800 PO 07/15/24 12:00 07/20/24 05:09 10 MG Enteral Nutritional Formula 240 ml BIDWM PO 07/15/24 18:00 07/20/24 18:21 240 ML Pantoprazole Sodium 40 mg DAILY@0600 PO 07/19/24 06:00 07/20/24 05:10 40 MG Vancomycin HCl 250 ml @ 250 mls/hr Q12H IV 07/19/24 12:00 07/20/24 12:35 250 MLS/HR Baclofen 5 mg Q8HP PRN PO 07/20/24 14:15 objective Gen.: Patient lying in bed in no apparent distress. On room air. Head: Normocephalic, atraumatic. Eyes: EOMI/PERRLA. Ears: Normal hearing. Normal anatomy. Neck/trachea: Trachea midline, supple. Nose: Normal external anatomy. Mouth: Moist mucous membranes. Chest: Decreased air entry bilaterally. No wheezing or rhonchi. Cardiovascular: Positive S1, positive S2. Regular rate and rhythm. Abdomen: Positive bowel sounds in all 4 quadrants. Soft, non-tender, non- distended. : Deferred. Rectal: Deferred. Skin: Warm, dry. Intact. Extremities: 2+ radial pulses bilaterally. No lower extremity edema. Neuro: Awake, alert, oriented x3. No gross motor or sensory deficits. Cranial nerves II through XII intact. Gait not assessed. laboratory and microbiology Laboratory Tests 07/20/24 06:45 07/19/24 06:08 Test 07/20/24 06:45 Range/Units Serum Glucose 177 H 74-106 mg/dL Assessment/Plan Impression: Acute hypoxic respiratory failure GI hemorrhage Hemorrhagic shock Substance abuse Bilateral lower extremity wounds Events: Breathing on room air Supplemental oxygen PRN Improved O2 requirements Head of bed elevation Aspiration precautions Continue midodrine Monitor BP/orthostatics Continue antibiotics On sucralfate Thiamine supplementation Incentive spirometry Nutrition supplementation w/ Ensure Monitor hemoglobin Protonix QD for GI prophylaxis Continue PT. Wound care. Disposition per hospitalist. S/p gastroduodenal artery thromboembolization by IR. No bloody bowel movements. CT head (07/08/24) reveals no evidence of ICH or stroke. Labs and imaging reviewed. Rest of plan as noted below. Plan: S/p extubation on 07/07/24 Supplemental oxygen PRN Titrate to keep O2 sats above 92%. Pressors if necessary for hemodynamic support. Titrate to keep MAP above 65 mmHg/SBP above 90 mmHg. Bronchodilators PRN Continue antibiotics. F/u cultures. Blood cultures show no growth after 5 days Wound cultures grew Staph aureus, Enterococcus faecalis, Proteus vulgaris and Enterobacter hormaechei. Monitor renal function. Monitor electrolytes. Supplement as necessary. Monitor ins and outs. S/p embolization of duodenal ulcer. GI recommendations appreciated Monitor hemoglobin Nutritional support. Accucheks, ISS. GI/DVT prophylaxis. Prognosis: Guarded given multiple comorbidities. Rest of plan per hospitalist and other consultants. Thank you Dr. Shine Kumar for allowing me to participate in this patient's care. Further recommendations will depend on patient's clinical course. Please do not hesitate to contact me if you have any questions or concerns. This medical document was created using an electronic medical record system with [employer] dictation system. Although this document has been carefully reviewed, there may still be some phonetic and typographical errors. These areas are purely typographical due to imperfections of the software programs, and do not reflect any compromise in the patient's medical care. Dietary Evaluation Review Comments: 1.Consider advancing to PO diet once medically appropriate 2.Consider PN if NPO >7 if GI issues dont resolve 3.Consider beth BID (180kcal, 5 pro) Expected Outcomes/Goals: 1. Pt will consume >75% pt estimated meeds within 2-3 days Plan discussed with: Patient, Other (KAJAL Walker) YOSI FABIAN MD Jul 20, 2024 22:02
[2024-07-21] VITALS (8 sets, daily range): BP systolic 98–136; BP diastolic 55–77; PULSE 70–97; RESP 16–18; TEMP 36.9; O2SAT 91–97
[2024-07-21] MEDS ORDERED: VANCOMYCIN 1GM/250ML KIT 250 ML IV SCH (10:00)
--- NOTE | 2024-07-21 11:40 | DVHDS2 ---
Discharge Summary Date of Admission Jul 01, 2024 at 05:54 Date of Discharge: Jul 21, 2024 Admitting Diagnosis Generalized weakness Labs/Diagnostic Data: Laboratory Results Test 07/20/24 23:50 07/20/24 06:45 07/19/24 06:08 07/18/24 12:00 Vancomycin Level Trough 9.8 ug/mL (5-10) Sodium Level 142 mmol/L (136-145) Potassium Level 3.4 mmol/L (3.5-5.1) Chloride Level 105 mmol/L (98-107) Carbon Dioxide Level 25 mmol/L (20-31) Anion Gap 12 (5-15) Blood Urea Nitrogen 11 mg/dL (9-23) Creatinine 0.60 mg/dL (0.700-1.30) Glomerular Filtration Rate Calc 103 mL/min (>90) BUN/Creatinine Ratio 18.3 (10.0-20.0) Serum Glucose 177 mg/dL (74-106) Calcium Level 8.9 mg/dL (8.7-10.4) White Blood Count 8.7 10^3/uL (4.4-10.8) Red Blood Count 3.03 10^6/uL (4.5-5.90) Hemoglobin 8.4 g/dL (13.5-17.5) Hematocrit 26.3 % (41.0-53.0) Mean Corpuscular Volume 87.0 fL (80.0-100.0) Mean Corpuscular Hemoglobin 27.6 pg (28.0-32.0) Mean Corpuscular Hemoglobin Concent 31.8 g/dL (32.0-36.0) Red Cell Distribution Width 18.5 % (11.8-14.3) Platelet Count 730 10^3/uL (140-450) Mean Platelet Volume 7.1 fL (6.9-10.8) Neutrophils (%) (Auto) 67.9 % (37.0-80.0) Lymphocytes (%) (Auto) 15.7 % (10.0-50.0) Monocytes (%) (Auto) 9.7 % (0.0-12.0) Eosinophils (%) (Auto) 4.3 % (0.0-7.0) Basophils (%) (Auto) 2.4 % (0.0-2.0) Neutrophils # (Auto) 5.9 10 ^3/uL (1.6-8.6) Lymphocytes # (Auto) 1.4 10 ^3/uL (0.4-5.4) Monocytes # (Auto) 0.8 10 ^3/uL (0-1.3) Eosinophils # (Auto) 0.4 10 ^3/uL (0-0.8) Basophils # (Auto) 0.2 10 ^3/uL (0-0.2) Nucleated Red Blood Cells 0.0 % Random Vancomycin Level 9.0 ug/mL (5-10) Stool for White Cells None seen Test 07/14/24 11:54 07/13/24 20:05 07/13/24 06:48 07/12/24 10:24 POC Glucose 128 mg/dl (70-106) Urine Color Yellow (Yellow) Urine Clarity Clear (Clear) Urine pH 5.0 (5.0-9.0) Urine Specific Eve[place]ts 1.032 (1.001-1.035) Urine Protein Trace (Negative) Urine Ketones Negative (Negative) Urine Blood Negative /uL (Negative) Urine Nitrite Negative (Negative) Urine Bilirubin Negative (Negative) Urine Urobilinogen Normal mg/dL (Negative) Urine Leukocyte Esterase 1+ /uL (Negative) Urine RBC 3 /hpf (0 - 3) Urine Microscopic WBC 10 /HPF (0-3) Urine Squamous Epithelial Cells Few /hpf (<5) Urine Bacteria Few /hpf (None Seen) Urine Mucus Few (None Seen) Urine Glucose Normal mg/dL (Normal) Platelet Estimate Markedly increased Total Bilirubin 0.3 mg/dL (0.2-1.0) Aspartate Amino Transferase (AST) 42 U/L (13-40) Alanine Aminotransferase (ALT) 113 U/L (7-40) Alkaline Phosphatase 71 U/L (46-116) Total Protein 5.6 g/dL (5.7-8.2) Albumin 3.1 g/dL (3.2-4.8) Lipase 187 U/L (12-53) Test 07/09/24 05:33 07/07/24 11:52 07/07/24 07:55 07/07/24 02:26 Differential Total Cells Counted 100.0 (100) Neutrophils % (Manual) 74 (37.0-80.0) Band Neutrophils % (Manual) 6 Lymphocytes % (Manual) 10 (10.0-50.0) Monocytes % (Manual) 9 (0-12) Eosinophils % (Manual) 1 (0-7) Basophils % (Manual) 0 (0.0-2.0) Metamyelocytes % (manual) 0 Myelocytes % (Manual) 0 Promyelocytes % (Manual) 0 Blast Cells % (Manual) 0 Reactive Lymphocytes 0 Anisocytosis (manual) Slight Hepatitis B Surface Antigen Negative (Negative) Hepatitis B Surface Antibody Negative (Negative) Hepatitis C Antibody Negative (Negative) HIV (1&2) Antibody Negative (Negative) Blood Gas Specimen Type Arterial Blood Gas Sample Site Right brachial Blood Gas Patient Temperature 37.0 Arterial Blood Date Drawn [id number] Arterial Blood pH 7.450 (7.350-7.450) Arterial Blood Partial Pressure CO2 34.3 mmHg (35.0-48.0) Arterial Blood Partial Pressure O2 90.5 mmHg (83.0-108.0) Arterial Blood HCO3 23.3 mmol/L (21.0-28.0) Arterial Blood Oxygen Saturation 96.2 % (94.0-98.0) Arterial Blood Base Excess -0.5 mmol/L (-2.0-3.0) Arterial Blood Oxyhemoglobin 94.2 % (94.0-98.0) Arterial Blood Carboxyhemoglobin 1.3 % (0.5-1.5) Arterial Blood Methemoglobin 0.8 % (0.0-1.5) Kapil Test N/a Blood Gas Total Hemoglobin 7.70 g/dL (13.5-17.5) Blood Gas Set Respiration Rate 18.0 Blood Gas Modality Vent - ac FiO2 % 30.0 Blood Gas Tidal Volume 500.0 Blood Gas PEEP or CPAP 5.0 Blood Gas Pressure Support 8 Test 07/06/24 18:00 07/04/24 10:40 07/04/24 09:05 07/01/24 20:42 Prothrombin Time 10.4 sec (9.3-11.8) Prothrombin Time INR 0.98 (0.9-1.15) Activated Partial Thromboplast Time 24.7 SEC (24.5-34.5) Phosphorus Level 2.4 mg/dL (2.4-5.1) Magnesium Level 1.9 mg/dL (1.6-2.6) Blood Gas Spontaneous Rate 18 Blood Gas Critical Value Read Back Yes Blood Gas Notified Whom carl Sparrow np Blood Gas Notified Time [id number] Blood Gas Notified By Alberto collazo rrt Hypochromasia (manual) Slight Troponin I High Sensitivity 30 ng/L (</=54) Test 07/01/24 14:50 07/01/24 13:55 07/01/24 13:50 07/01/24 13:49 Urine Hyaline Casts Few /lpf (0 - 2) Urine Opiates Screen Neg (NEGATIVE) Urine Fentanyl Screen Neg (NEGATIVE) Urine Barbiturates Screen Neg (NEGATIVE) Urine Phencyclidine Screen Pos (NEGATIVE) Urine Amphetamines Screen Pos (NEGATIVE) Urine Benzodiazepines Screen Neg (NEGATIVE) Urine Cocaine Screen Pos (NEGATIVE) Urine Cannabinoids Screen Neg (NEGATIVE) Stool Occult Blood Positive (Negative) Stool Occult Blood Sample #3 (Negative) Blood Gas Liter Flow 4.00 Ammonia 104 umol/L (11-32) Plasma/Serum Blood Alcohol 4.7 mg/dL (<10) Test 06/30/24 14:34 D-Dimer, Quantitative 2.91 mg/L FEU (0.0-0.49) B-Type Natriuretic Peptide 59.84 pg/mL (0-100) Other Laboratory Tests 07/20/24 06:45 07/19/24 06:08 Brief Hx & Hospital Course: History of Present Illness Patient is a 69-year-old male presented to [facility] ED for evaluation of generalized weakness and bilateral leg wounds. Patient reports that he has been experiencing bilateral leg and foot wounds for the past month. Patient was seen and evaluated in the ED, laboratory data shows WBC 8.0, platelets 490, sodium 136, potassium 3.8, BUN 16, creatinine 0.85, GFR 93, glucose 99, troponin 32, BNP 59.84, D-dimer 2.91. CT chest showed no suspicious pulmonary nodules. Patient was started on IV antibiotic regimen vancomycin, please see medication orders section in the computer. On my assessment, patient denied chest pain, no headache, no dizziness, no shortness of breath, no nausea, no vomiting, no fever, no chills. Patient was admitted for further evaluation and medical management. Course of hospitalization: While patient was on telemetry floor, patient had upper GI bleed with aspiration followed by intubation with transfer to ICU. I assumed care of the patient once the patient was transferred to the intensive care unit, for which the patient had a challenging hospitalization regarding his upper GI bleed. Patient was placed on octreotide drip, Protonix drip, and received a total of 10 units of PRBCs as well as 2 units of FFP. Patient underwent upper endoscopy with no signs of active bleeding. Following endoscopy, patient continued to have melena stools with persistent drop in the patient's hemoglobin hematocrit, with persistent hemodynamic instability. Discussion was made with Gastroenterology, at which time the patient went to the catheterization lab, undergoing embolization to the gastroduodenal artery. Patient is H&H remained stable. Hemodynamically the patient has been weaned off of all vasopressors. The patient was extubated. Patient was transferred to the telemetry floor. With respect to his lower extremity wound, patient was continued on antibiotic therapy with Rocephin and vancomycin. Patient continues to be debilitated. Physical therapy evaluated the patient who recommends alf facility. At this time the patient will be deescalated with antibiotic therapy to p.o. Levaquin 500 mg p.o. daily for additional seven days. Given his rehabilitation, patient will be transferred to alf facility. Patient was agreeable with discharge plan. All questions answered. Physical examination General: Alert and Oriented x3. No acute distress. Well-nourished. Eyes: EOMI. Anicteric. HENT: Moist mucous membranes. Lungs: Clear to auscultation bilaterally. No accessory muscle use. Cardiovascular: Regular rate and rhythm. No murmur. No JVD. Abdomen: Soft, non-tender and non-distended. No palpable masses. Extremities: No edema. Non-tender. Wound, with dressing dry and intact to lower extremities. Skin: No rashes or lesions. Warm. Neurologic: No focal neurological deficits. CN II-XII grossly intact, but not individually tested. Psychiatric: Cooperative. Appropriate mood and affect. Total time spent with patient discussing and formulating plan of care: 35 minutes. This medical document was created using an electronic medical record system with [employer] dictation system. Although this document has been carefully reviewed, there may still be some phonetic and typographical errors. These areas are purely typographical due to imperfections of the software programs, and do not reflect any compromise in the patient's medical care. Consults/Reason for consult Gastroenterology: GI bleed Interventional Radiology: GI bleed, embolization Pulmonology: Acute renal failure Condition at Discharge: Guarded Final Diagnosis/Problems List GI bleed Septic shock Secondary diagnosis -hemorrhagic shock -cellulitis to lower extremities -sepsis -peptic ulcer bleed with persistent GI bleeding, status post embolization -polysubstance abuse : Positive for PCP, cocaine, amphetamines -acute respiratory failure with mechanical ventilation -severe anemia from GI bleed -shock liver -acute delirium Discharge Disposition: Alf Facility Discharge Instruct/Medications Diet: Regular Activity: No Restrictions, As Tolerated Follow Up/Referral: Per accepting provider Medications: Refer to medication reconciliation form 36 Discharge Statement: "Patient was advised to return to the ER or call 911 if any headaches, dizziness, shortness of breath, chest pain, abdominal pain, bleeding, fevers, or worsening of medical condition. Patient was counseled about treatment plan, medications, possible side effects, patientverbalized understanding. All questions were answered to the best of my ability. This discharge took greater then 30 minutes in planning, reviewing documentation, counseling the patient, and discussing with other team members." ASSESSMENT ASSESSMENT Assessment GI bleed Septic shock Date of Service: Jul 21, 2024 Billing Provider: BRADY SPARROW NP Common Visit Codes: 50604-LTO/OBS DISCH DAY >30min BRADY SPARROW NP Jul 21, 2024 11:39
[2024-07-21] MEDS: levoFLOXacin 500 MG TAB PO SCH (12:14)
--- NOTE | 2024-07-21 22:32 | DVHPN2 ---
Progress Note - Dictate Date Seen: Jul 21, 2024 Has the PT tested + for MRSA If YES, has PT been informed?: No Medical Necessity Reason Pt with a Central, PICC or Fol: Yes The following are medically ne: Central Line, Barrow Catheter Reason for barrow catheter: Strict I&O Subjective Patient seen and examined at bedside. Breathing comfortably on room air Overnight events reviewed. vital signs Vital Sign Date Time Temp Pulse Resp B/P (MAP) Pulse Ox O2 Delivery O2 Flow Rate FiO2 07/21/24 17:00 98.4 80 16 136/75 (95) 96 98.4 07/21/24 10:00 Room Air 0.0 07/21/24 10:00 96 21 Total Intake and Output 07/20/24 07/20/24 07/21/24 15:00 23:00 07:00 Intake Total 300 ml 570 ml 400 ml Output Total 600 ml 750 ml Balance 300 ml -30 ml -350 ml objective Gen.: Patient lying in bed in no apparent distress. On room air. Head: Normocephalic, atraumatic. Eyes: EOMI/PERRLA. Ears: Normal hearing. Normal anatomy. Neck/trachea: Trachea midline, supple. Nose: Normal external anatomy. Mouth: Moist mucous membranes. Chest: Decreased air entry bilaterally. No wheezing or rhonchi. Cardiovascular: Positive S1, positive S2. Regular rate and rhythm. Abdomen: Positive bowel sounds in all 4 quadrants. Soft, non-tender, non- distended. : Deferred. Rectal: Deferred. Skin: Warm, dry. Intact. Extremities: 2+ radial pulses bilaterally. No lower extremity edema. Neuro: Awake, alert, oriented x3. No gross motor or sensory deficits. Cranial nerves II through XII intact. Gait not assessed. laboratory and microbiology Laboratory Tests 07/20/24 06:45 07/19/24 06:08 Test 07/20/24 06:45 Range/Units Serum Glucose 177 H 74-106 mg/dL Assessment/Plan Impression: Acute hypoxic respiratory failure GI hemorrhage Hemorrhagic shock Substance abuse Bilateral lower extremity wounds Events: Breathing on room air, improved saturation Supplemental oxygen PRN Improved O2 requirements No cough or phlegm. Head of bed elevation Aspiration precautions Continue midodrine Monitor BP/orthostatics Continue antibiotics On sucralfate Thiamine supplementation Incentive spirometry Nutrition supplementation w/ Ensure Monitor hemoglobin Protonix QD for GI prophylaxis Continue PT. Wound care. Patient is stable for discharge from the pulmonary standpoint. Plan to discharge today Disposition per hospitalist. S/p gastroduodenal artery thromboembolization by IR. No bloody bowel movements. CT head (07/08/24) reveals no evidence of ICH or stroke. Labs and imaging reviewed. Rest of plan as noted below. Plan: S/p extubation on 07/07/24 Supplemental oxygen PRN Titrate to keep O2 sats above 92%. Pressors if necessary for hemodynamic support. Titrate to keep MAP above 65 mmHg/SBP above 90 mmHg. Bronchodilators PRN Continue antibiotics. F/u cultures. Blood cultures show no growth after 5 days Wound cultures grew Staph aureus, Enterococcus faecalis, Proteus vulgaris and Enterobacter hormaechei. Monitor renal function. Monitor electrolytes. Supplement as necessary. Monitor ins and outs. S/p embolization of duodenal ulcer. GI recommendations appreciated Monitor hemoglobin Nutritional support. Accucheks, ISS. GI/DVT prophylaxis. Prognosis: Guarded given multiple comorbidities. Rest of plan per hospitalist and other consultants. Thank you Dr. Shine Kumar for allowing me to participate in this patient's care. Further recommendations will depend on patient's clinical course. Please do not hesitate to contact me if you have any questions or concerns. This medical document was created using an electronic medical record system with [employer] dictation system. Although this document has been carefully reviewed, there may still be some phonetic and typographical errors. These areas are purely typographical due to imperfections of the software programs, and do not reflect any compromise in the patient's medical care. Dietary Evaluation Review Comments: 1.Consider advancing to PO diet once medically appropriate 2.Consider PN if NPO >7 if GI issues dont resolve 3.Consider beth BID (180kcal, 5 pro) Expected Outcomes/Goals: 1. Pt will consume >75% pt estimated meeds within 2-3 days Plan discussed with: Patient, Other (KAJAL Valencia) YOSI FABIAN MD Jul 21, 2024 22:32
== END 2024-07-21 19:56 | DRG 853 ==
LOC: ER 13:17 → EDBD 13:17 → TELE 07-01 05:54 → TELE-CENTR 07-01 06:00 → TELE 07-01 06:18 → TELE-CENTR 07-01 10:35 → ICU CENTRL 07-01 14:46 → TELE-CENTR 07-08 13:26 → OVERFLOW 07-12 14:49 → CENTRAL 07-12 14:54 → OVERFLOW 07-13 12:47 → TELE-CENTR 07-13 12:52 → CENTRAL 07-13 20:01
PROVIDERS: ADMIT Nurse Practitioner Acute Care; ATTEND Nurse Practitioner Acute Care
PROC: 30233K1 Transfusion of Nonautologous Frozen Plasma into Peripheral Vein, Percutaneous Approach (ICD-10-PCS; 2024-07-01)
PROC: 30233N1 Transfusion of Nonautologous Red Blood Cells into Peripheral Vein, Percutaneous Approach (ICD-10-PCS; 2024-07-01)
PROC: 0BH17EZ Insertion of Endotracheal Airway into Trachea, Via Natural or Artificial Opening (ICD-10-PCS; 2024-07-01)
PROC: 5A1955Z Respiratory Ventilation, Greater than 96 Consecutive Hours (ICD-10-PCS; 2024-07-01)
PROC: 0DB68ZX Excision of Stomach, Via Natural or Artificial Opening Endoscopic, Diagnostic (ICD-10-PCS; 2024-07-03)
PROC: 0DB78ZX Excision of Stomach, Pylorus, Via Natural or Artificial Opening Endoscopic, Diagnostic (ICD-10-PCS; 2024-07-03)
PROC: 04L33DZ Occlusion of Hepatic Artery with Intraluminal Device, Percutaneous Approach (ICD-10-PCS; principal; 2024-07-06)
PROC: B4101ZZ Fluoroscopy of Abdominal Aorta using Low Osmolar Contrast (ICD-10-PCS; 2024-07-06)
PROC: B41J1ZZ Fluoroscopy of Other Lower Arteries using Low Osmolar Contrast (ICD-10-PCS; 2024-07-06)
DX: A41.9 Sepsis, unspecified organism (principal); J96.01 Acute respiratory failure with hypoxia; R57.8 Other shock; K72.00 Acute and subacute hepatic failure without coma; R65.21 Severe sepsis with septic shock; R57.1 Hypovolemic shock; K26.4 Chronic or unspecified duodenal ulcer with hemorrhage; E44.0 Moderate protein-calorie malnutrition; L03.115 Cellulitis of right lower limb; I50.22 Chronic systolic (congestive) heart failure; L03.116 Cellulitis of left lower limb; L02.612 Cutaneous abscess of left foot; L02.611 Cutaneous abscess of right foot; D50.0 Iron deficiency anemia secondary to blood loss (chronic); F14.10 Cocaine abuse, uncomplicated; I73.9 Peripheral vascular disease, unspecified; N40.0 Benign prostatic hyperplasia without lower urinary tract symptoms; I80.9 Phlebitis and thrombophlebitis of unspecified site; K76.0 Fatty (change of) liver, not elsewhere classified; E87.6 Hypokalemia; K59.00 Constipation, unspecified; D75.838 Other thrombocytosis; L89.520 Pressure ulcer of left ankle, unstageable; L89.510 Pressure ulcer of right ankle, unstageable; L89.620 Pressure ulcer of left heel, unstageable; L89.610 Pressure ulcer of right heel, unstageable; Z68.21 Body mass index [BMI] 21.0-21.9, adult; Z79.899 Other long term (current) drug therapy
CPT/HCPCS: 36415; 36600; 37243; 70450; 71045; 71250; 71275; 76705; 80048; 80053; 80202; 80307; 80320; 81001; 82140; 82270; 82565; 82805; 82962; 83690; 83735; 83880; 84100; 84484; 85007; 85014; 85018; 85025; 85027; 85048; 85379; 85610; 85730; 86703; 86706; 86803; 86850; 86900; 86901; 86920; 87040; 87070; 87077; 87081; 87086; 87186; 87205; 87340; 92610; 93005; 93306; 93925; 93970; 93971; 94002; 94003; 94640; 96365; 96375; 97110; 97163; 97530; 99152; 99291; C1894; G0378; J0330; J1885; J1956; J2250; J2470; J3480; J7060; Q9967